=== PATIENT | female | born 1980 | race Caucasian/White ===

== ENCOUNTER → 2020-08-16 15:36 | Outpatient (BNVA) | payer OTHER, SELFPAY | PROVIDERS: Visit Provider Internal Medicine | DX: Z76.89 Persons encountering health services in other specified circumstances (principal) ==

== ENCOUNTER → 2020-09-21 14:51 | Outpatient (BNVA) | payer OTHER, SELFPAY | PROVIDERS: PCP Internal Medicine; Visit Provider Hospitalist | DX: J45.909 Unspecified asthma, uncomplicated (principal) | CPT/HCPCS: 99212 ==

== ENCOUNTER 2020-09-24 11:17 | Outpatient (REF) | payer OTHER, SELFPAY ==
[2020-09-24 12:31] LABS: MANUAL DIFF FLAG NO
[2020-09-24 12:35] LABS: Basophils Percent Auto 0.4 % (0-2); Eosinophils Percent Auto 0.6 % (0-4); Hematocrit 35.7 % (37-47); Hemoglobin 12.1 g/dl (12.0-16.0); Imm Gran Abs Auto 0.02 X10*3/uL (0.00-0.03); Imm Gran Pct Auto 0.4 % (0.0-0.4); Lymphocytes Absolute Auto 1.6 X10*3/uL (1.2-4.9); Lymphocytes Percent Auto 33.2 % (20-40); Mean Corpuscular HGB Conc 33.9 g/dl (31.0-35.0); Mean Corpuscular Hemoglobin 32.1 pg (27.0-33.0); Mean Corpuscular Volume 94.7 fL (80-98); Mean Platelet Volume 10.2 fL (9.4-12.3); Monocytes Absolute Auto 0.3 X10*3/uL (0.1-1.2); Monocytes Percent Auto 6.5 % (2-11); Neutrophils Absolute Auto 2.9 X10*3/uL (2.0-8.3); Neutrophils Percent Auto 58.9 % (45-73); Platelet Count 274 X10*3/uL (160-400); Red Blood Count 3.77 X10*6/uL (4.20-5.50); Red Cell Distribution Width 12.8 % (11.0-16.0); White Blood Count 4.9 X10*3/uL (4.8-10.8)
[2020-09-24 13:21] LABS: Free T4 (Free Thyroxine) 1.11 ng/dL (0.71-1.85); Thyroid Stimulating Hormone 1.44 uIU/mL (0.32-4.0)
[2020-09-24 13:28] LABS: Alanine Aminotransferase 12 U/L (0-31); Albumin Level 4.4 g/dL (3.5-5.0); Alkaline Phosphatase 42 U/L (39-117); Anion Gap 20 (12-20); Aspartate Amino Transferase 18 U/L (5-31); Bilirubin Total 0.4 mg/dL (0.0-1.0); Blood Urea Nitrogen 12 mg/dL (9-16); Calcium 9.2 mg/dL (8.4-10.2); Carbon Dioxide 18 mmol/L (22-29); Chloride 106 mmol/L (96-108); Cholesterol 193 mg/dL; Estimated Glomerular Filt Rate > 60; Glucose Random 85 mg/dL (60-115); HDL Cholesterol 33 mg/dL; LDL Cholesterol Calculated 96 mg/dl; Potassium 4.7 mmol/l (3.3-5.1); Sodium 139 mmol/L (135-145); Total Protein 7.4 g/dL (6.5-8.0); Triglycerides 320 mg/dL
[2020-09-24 13:37] LABS: Folate 18.3 ng/mL (> or = 4.0); Vitamin B12 < 146 pg/mL (200-900)
== END 2020-09-24 11:18 | disposition home or self-care (01) ==
LOC: HO.LAB 11:17
PROVIDERS: PCP Internal Medicine; Visit Provider Internal Medicine
DX: E78.00 Pure hypercholesterolemia, unspecified (principal); E03.9 Hypothyroidism, unspecified
CPT/HCPCS: 36415; 80053; 80061; 82306; 82607; 82746; 84439; 84443; 85025

== ENCOUNTER 2020-10-21 13:33 | Emergency (ER) | payer OTHER, SELFPAY ==
--- NOTE | ~2020-10-21 | XR_ITS ---
EXAMINATION: XR CHEST CLINICAL INFORMATION: Cough and shortness of breath COMPARISON: 06/30/2014 TECHNIQUE: Frontal view of the chest was obtained. FINDINGS: The lungs are well expanded. There is no focal consolidation, edema, or effusion. No pneumothorax. The cardiomediastinal silhouette is within normal limits. No acute osseous abnormality. XR/XR chest 1V IMPRESSION: Clear lungs.
[2020-10-21 15:03] VITALS: BP 141/70; PULSE 90; RESP 20; TEMP 36.9; O2SAT 100; BMI 28.3
--- NOTE | 2020-10-21 15:04 | ED.GENADULT ---
HPI - General Adult General Stated complaint: back pain,diff breathing Time Seen by Provider: 10/21/20 14:52 Related Data Home Medications Medication Instructions Recorded Confirmed fenofibrate 160 mg tablet 160 mg PO DAILY 08/16/20 09/21/20 levothyroxine 100 mcg tablet 100 mcg PO DAILY 08/16/20 09/21/20 montelukast 10 mg tablet 10 mg PO DAILY 08/16/20 09/21/20 norethindrone 1 mg-ethinyl 1 tab PO DAILY 08/16/20 09/21/20 estradiol 35 mcg tablet Previous Rx's Medication Instructions Recorded prednisone 20 mg tablet 20 mg PO DAILY 5 Days #5 tab 08/16/20 albuterol sulfate 90 mcg/actuation 2 puff PO Q6H PRN 30 Days #18 g 09/21/20 aerosol inhaler budesonide-formoterol HFA 160 2 inh INHALATION Q12H 30 Days 09/21/20 mcg-4.5 mcg/actuation aerosol #10.2 g inhaler loratadine 10 mg tablet 10 mg PO DAILY 30 Days #30 tab 09/21/20 montelukast 10 mg tablet 10 mg PO BEDTIME 30 Days #30 tab 09/21/20 ipratropium 0.5 mg-albuterol 3 mg 3 ml INHALATION Q4-6H PRN #90 ml 10/18/20 (2.5 mg base)/3 mL nebulization soln Allergies Allergy/AdvReac Type Severity Reaction Status Date / Time clarithromycin [From Biaxin] Allergy Mild RASH Verified 09/21/20 15:18 amoxicillin [Amoxicillin] Allergy Unknown NAUSEA & Verified 09/21/20 15:18 VOMITING, rash, hives ciprofloxacin [CIPROFLOXACIN] Allergy Unknown VAGINAL Verified 09/21/20 15:18 BLEEDING Nickel Allergy Unknown swelling Verified 09/21/20 15:18 MIGRAINE MEDICINE CAN NOT Allergy Unknown RAPID Uncoded 09/21/20 15:18 RECALL NAME HEART RATE AND SWEATS PMFSH Past Medical History Medical History (Updated 09/09/20 @ 14:07 by Leon Truong MD) Allergic rhinitis Anxiety Asthma Developmental delay, mild Hypercholesterolemia Hypothyroid Vitamin B12 deficiency Surgical History (Updated 09/02/20 @ 13:41 by AMBROSE Ramirez) History of section Family History Family History (Updated 09/02/20 @ 13:42 by GINNY RamirezMariza) Father Skin cancer Myocardial infarction Mother No problems noted. Maternal Aunt Breast cancer Daughter In good health Brother Chronic mental illness Social History Social History Smoking Status: Never smoker Course Course Course Narrative: 1500-This is a rapid medical exam. 39 yo with past medical history of asthma, HLD, hypothyroidism here with bilateral mid to upper back pain, difficulty breathing, cough. Using proair, ICS, singular, nebulizer at home with continued symptoms. No fevers, chills, leg swelling or pain or CP. Will check labs, CXR, COVID. Deferred additional HPI, PE and ROS to primary provider. Discharge Plan Discharge Prescriptions: No Action ipratropium-albuterol 0.5 mg-3 mg(2.5 mg base)/3 mL solution for nebulization 3 ml inhalation Q4-6H PRN (Reason: for wheezing) Qty: 90 RF: 1 montelukast 10 mg tablet 10 mg PO DAILY RF: 0 Alyacen (28) 1-35 mg-mcg tablet 1 tab PO DAILY RF: 0 levothyroxine 100 mcg tablet 100 mcg PO DAILY RF: 0 fenofibrate 160 mg tablet 160 mg PO DAILY RF: 0 prednisone 20 mg tablet 20 mg PO DAILY 5 Days Qty: 5 RF: 0 montelukast [Singulair] 10 mg tablet 10 mg PO BEDTIME 30 Days Qty: 30 RF: 11 budesonide-formoterol 160-4.5 mcg/actuation HFA aerosol inhaler 2 inh inhalation Q12H 30 Days Qty: 10.2 RF: 11 loratadine [Claritin] 10 mg tablet 10 mg PO DAILY 30 Days Qty: 30 RF: 11 albuterol sulfate 90 mcg/actuation HFA aerosol inhaler 2 puff PO Q6H PRN (Reason: wheezing) 30 Days Qty: 18 RF: 11
[2020-10-21 15:26] LABS: MANUAL DIFF FLAG NO
[2020-10-21 15:28] LABS: Basophils Percent Auto 0.6 % (0-2); Eosinophils Percent Auto 0.4 % (0-4); Hematocrit 36.1 % (37-47); Hemoglobin 12.4 g/dl (12.0-16.0); Imm Gran Abs Auto 0.01 X10*3/uL (0.00-0.03); Imm Gran Pct Auto 0.2 % (0.0-0.4); Lymphocytes Absolute Auto 1.4 X10*3/uL (1.2-4.9); Lymphocytes Percent Auto 27.6 % (20-40); Mean Corpuscular HGB Conc 34.3 g/dl (31.0-35.0); Mean Corpuscular Hemoglobin 32.2 pg (27.0-33.0); Mean Corpuscular Volume 93.8 fL (80-98); Mean Platelet Volume 9.5 fL (9.4-12.3); Monocytes Absolute Auto 0.4 X10*3/uL (0.1-1.2); Neutrophils Absolute Auto 3.3 X10*3/uL (2.0-8.3); Neutrophils Percent Auto 64.2 % (45-73); Platelet Count 281 X10*3/uL (160-400); Red Blood Count 3.85 X10*6/uL (4.20-5.50); Red Cell Distribution Width 12.4 % (11.0-16.0); White Blood Count 5.1 X10*3/uL (4.8-10.8)
[2020-10-21 15:37] LABS: COVID-19 Test Negative (Negative); IDNOW Serial# 9DD0AD1C
--- NOTE | 2020-10-21 16:09 | ECG_ITS ---
Test Reason : SOB Blood Pressure : / mmHG Vent. Rate : 069 BPM Atrial Rate : 069 BPM P-R Int : 112 ms QRS Dur : 078 ms QT Int : 408 ms P-R-T Axes : 034 065 027 degrees QTc Int : 437 ms Normal sinus rhythm Normal ECG When compared with ECG of 30-JAN-2017 15:55, No significant change was found Referred By: Carmelo Thompson Electronically Signed By:RONY FORD
--- NOTE | 2020-10-21 16:13 | ED.GENADULT ---
HPI - General Adult General Chief complaint: Asthma Stated complaint: back pain,diff breathing Time Seen by Provider: 10/21/20 14:52 Source: patient Mode of arrival: ambulatory Limitations: no limitations History of Present Illness HPI narrative: Patient presents to ED for chest tightness and right-sided upper back pain for 5 days. Patient denies any swelling of lower extremity, calf pain, control use, coughing, recent long travel, recent surgery, recent trauma, or history of control use. Related Data Home Medications Medication Instructions Recorded Confirmed fenofibrate 160 mg tablet 160 mg PO DAILY 08/16/20 09/21/20 levothyroxine 100 mcg tablet 100 mcg PO DAILY 08/16/20 09/21/20 montelukast 10 mg tablet 10 mg PO DAILY 08/16/20 09/21/20 norethindrone 1 mg-ethinyl 1 tab PO DAILY 08/16/20 09/21/20 estradiol 35 mcg tablet Previous Rx's Medication Instructions Recorded prednisone 20 mg tablet 20 mg PO DAILY 5 Days #5 tab 08/16/20 albuterol sulfate 90 mcg/actuation 2 puff PO Q6H PRN 30 Days #18 g 09/21/20 aerosol inhaler budesonide-formoterol HFA 160 2 inh INHALATION Q12H 30 Days 09/21/20 mcg-4.5 mcg/actuation aerosol #10.2 g inhaler loratadine 10 mg tablet 10 mg PO DAILY 30 Days #30 tab 09/21/20 montelukast 10 mg tablet 10 mg PO BEDTIME 30 Days #30 tab 09/21/20 ipratropium 0.5 mg-albuterol 3 mg 3 ml INHALATION Q4-6H PRN #90 ml 10/18/20 (2.5 mg base)/3 mL nebulization soln Allergies Allergy/AdvReac Type Severity Reaction Status Date / Time clarithromycin [From Biaxin] Allergy Mild RASH Verified 10/21/20 15:08 amoxicillin [Amoxicillin] Allergy Unknown NAUSEA & Verified 10/21/20 15:08 VOMITING, rash, hives ciprofloxacin [CIPROFLOXACIN] Allergy Unknown VAGINAL Verified 10/21/20 15:08 BLEEDING Nickel Allergy Unknown swelling Verified 10/21/20 15:08 MIGRAINE MEDICINE CAN NOT Allergy Unknown RAPID Uncoded 10/21/20 15:08 RECALL NAME HEART RATE AND SWEATS Review of Systems Review of Systems: Yes all other systems are reviewed and are negative Constitutional: Constitutional: Reports as per HPI and Reports no additional constitutional complaints Eyes: Eyes: Reports as per HPI and Reports no additional eye complaints ENT: Reports system reviewed and no additional complaints, except as documented and Reports as per HPI Cardiovascular: Cardiovascular: Reports as per HPI, Reports no additional cardiovascular complaints and Reports dyspnea Comments: Chest tightness Respiratory: Respiratory: Reports as per HPI, Reports no additional respiratory complaints and Reports dyspnea Gastrointestinal: Gastrointestinal: Reports as per HPI and Reports no additional gastrointestinal complaints Genitourinary: Genitourinary: Reports no additional female genitourinary complaints and Reports as per HPI Musculoskeletal: Musculoskeletal: Reports no additional musculoskeletal complaints and Reports as per HPI Neurologic: Reports system reviewed and no additional complaints, except as documented and Reports as per HPI Psychiatric: Psychiatric: Reports no additional psychiatric complaints and Reports as per HPI PMFSH Past Medical History Medical History Allergic rhinitis Anxiety Asthma Developmental delay, mild Hypercholesterolemia Hypothyroid Vitamin B12 deficiency Surgical History History of section Family History Family History (Updated 09/02/20 @ 13:42 by Lora Saeed Mariza) Father Skin cancer Myocardial infarction Mother No problems noted. Maternal Aunt Breast cancer Daughter In good health Brother Chronic mental illness Social History Social History Smoking Status: Never smoker Advance Directives: No Advance Directives Information Provided: No Physical Exam Vital Signs: Vital Signs: Last Vital Signs Temp 98.4 F 10/21/20 15:03 Pulse 90 10/21/20 15:03 Resp 20 10/21/20 15:03 BP 141/70 H 10/21/20 15:03 Pulse Ox 100 10/21/20 15:03 Body Mass Index 28.3 Const: General: cooperative, healthy appearing, comfortable, no acute distress, well developed, alert, awake and Physically active Orientation/consciousness: patient oriented x3 HENMT: Head: Yes normal to inspection, Yes No palpable skull fracture present, Yes normocephalic, Yes atraumatic and No abrasion Eyes: General: appearance normal, both eyes and all related structures Neck: Neck: Yes normal visual inspection, Yes full ROM, Yes no lymphadenopathy, Yes no meningeal signs, Yes trachea midline, Yes supple and No tender Chest: Chest palpation & inspection: normal inspection of the chest and normal palpation of entire chest wall Resp: Effort & Inspection: normal respiratory effort and able to speak in complete sentences Auscultation: clear to auscultation bilaterally Cardio: Jugular venous distension: no JVD Heart sounds: S1 normal heart sound present and S2 normal heart sound present GI: Inspection: Yes normal to inspection Palpation (GI): Soft to palpation, not firm, nontender, no guarding and not rigid : General: No CVA tenderness and Yes no CVA tenderness Back/Spine/Pelvis: Back: no CVA tenderness and No CVA tenderness Skin: General skin exam: no rashes or lesions noted and elasticity normal Neuro: General: patient oriented x3, no meningeal signs and CN's II-XI intact bilaterally Cranial nerves: Yes CN's II-XII intact bilaterally Extrem: Other: Lower extremities negative for any swelling, pitting edema, calf tenderness Psych: Appearance: grossly normal, well kempt and not disheveled Course Course Course Narrative: Initial labs negative for white blood cell count. Chest x-ray negative for pneumonia. COVID swab negative. Due to patient stating right upper back pain with pleuritic chest pain patient have D-dimer, EKG, and troponin ordered. Reevaluation(s) Reevaluation #1: Patient's EKG came back normal negative for STEMI. Patient's D-dimer is negative. Perc score is 0. Patient's troponin BNP negative. For the lab tests are negative after 5 days of having symptoms. Patient states she has prednisone already at home patient encouraged to also take her albuterol inhaler. Patient informed to follow-up with her PCP Time: 17:32 Medical Decision Making [facility] Narrative Medical decision making narrative: Atypical chest pain, asthma Lab Data Result diagrams: 10/21/20 15:20 10/21/20 15:20 Labs: Lab Results 10/21/20 10/21/20 10/21/20 Range/Units 15:09 15:20 15:20 WBC 5.1 (4.8-10.8) X10*3/uL RBC 3.85 L (4.20-5.50) X10*6/uL Hgb 12.4 (12.0-16.0) g/dl Hct 36.1 L (37-47) % MCV 93.8 (80-98) fL MCH 32.2 (27.0-33.0) pg MCHC 34.3 (31.0-35.0) g/dl RDW 12.4 (11.0-16.0) % Plt Count 281 (160-400) X10*3/uL MPV 9.5 (9.4-12.3) fL Immature Gran % (Auto) 0.2 (0.0-0.4) % Neut % (Auto) 64.2 (45-73) % Lymph % (Auto) 27.6 (20-40) % [place] % (Auto) 7.0 (2-11) % Eos % (Auto) 0.4 (0-4) % Baso % (Auto) 0.6 (0-2) % Lymph # (Auto) 1.4 (1.2-4.9) X10*3/uL [place] # (Auto) 0.4 (0.1-1.2) X10*3/uL Eos # (Auto) 0.0 (0.0-0.4) X10*3/uL Baso # (Auto) 0.0 (0.0-0.2) X10*3/uL Abs Immat Gran (auto) 0.01 (0.00-0.03) X10*3/uL Absolute Neuts (auto) 3.3 (2.0-8.3) X10*3/uL Absolute Nucleated RBC 0.000 (0.0-0.012) X10*3/uL Nucleated RBC % (auto) 0.0 (0.0-0.2) /100WBC PT 12.0 (10.8-13.0) SEC INR 1.0 (0.9-1.1) APTT 29.7 (24.1-38.0) SEC D-Dimer < 200 NG/ML Hold Blue Top SEE NOTE Sodium (135-145) mmol/L Potassium (3.3-5.1) mmol/L Chloride (96-108) mmol/L Carbon Dioxide (22-29) mmol/L Anion Gap (12-20) BUN (9-16) mg/dL Creatinine (0.5-1.4) mg/dL Estim Creat Clear Calc Estimated GFR Random Glucose (60-115) mg/dL Calcium (8.4-10.2) mg/dL Total Bilirubin (0.0-1.0) mg/dL Direct Bilirubin (0.0-0.5) mg/dL AST (5-31) U/L ALT (0-31) U/L Alkaline Phosphatase (39-117) U/L Troponin I High Sens (<3.5-17.0) ng/L B-Natriuretic Peptide (<100) pg/mL Total Protein (6.5-8.0) g/dL Albumin (3.5-5.0) g/dL Lipase (8-78) U/L COVID-19 (KA[facility]) Negative (Negative) COVID-19 Clin Com See Note 10/21/20 10/21/20 Range/Units 15:20 15:20 WBC (4.8-10.8) X10*3/uL RBC (4.20-5.50) X10*6/uL Hgb (12.0-16.0) g/dl Hct (37-47) % MCV (80-98) fL MCH (27.0-33.0) pg MCHC (31.0-35.0) g/dl RDW (11.0-16.0) % Plt Count (160-400) X10*3/uL MPV (9.4-12.3) fL Immature Gran % (Auto) (0.0-0.4) % Neut % (Auto) (45-73) % Lymph % (Auto) (20-40) % [place] % (Auto) (2-11) % Eos % (Auto) (0-4) % Baso % (Auto) (0-2) % Lymph # (Auto) (1.2-4.9) X10*3/uL [place] # (Auto) (0.1-1.2) X10*3/uL Eos # (Auto) (0.0-0.4) X10*3/uL Baso # (Auto) (0.0-0.2) X10*3/uL Abs Immat Gran (auto) (0.00-0.03) X10*3/uL Absolute Neuts (auto) (2.0-8.3) X10*3/uL Absolute Nucleated RBC (0.0-0.012) X10*3/uL Nucleated RBC % (auto) (0.0-0.2) /100WBC PT (10.8-13.0) SEC INR (0.9-1.1) APTT (24.1-38.0) SEC D-Dimer NG/ML Hold Blue Top Sodium 138 (135-145) mmol/L Potassium 4.0 (3.3-5.1) mmol/L Chloride 104 (96-108) mmol/L Carbon Dioxide 22 (22-29) mmol/L Anion Gap 16 (12-20) BUN 12 (9-16) mg/dL Creatinine 0.82 (0.5-1.4) mg/dL Estim Creat Clear Calc 86.1 Estimated GFR > 60 Random Glucose 125 H D (60-115) mg/dL Calcium 9.0 (8.4-10.2) mg/dL Total Bilirubin 0.2 (0.0-1.0) mg/dL Direct Bilirubin < 0.2 (0.0-0.5) mg/dL AST 17 (5-31) U/L ALT 12 (0-31) U/L Alkaline Phosphatase 43 (39-117) U/L Troponin I High Sens < 3.5 (<3.5-17.0) ng/L B-Natriuretic Peptide 11 (<100) pg/mL Total Protein 7.3 (6.5-8.0) g/dL Albumin 4.4 (3.5-5.0) g/dL Lipase 43 (8-78) U/L COVID-19 (KAZ) (Negative) COVID-19 Clin Com ECG Data Interpretation: Normal sinus rhythm. Normal EKG. Ventricular rate 69. DC interval 112. QTC 437. Negative STEMI Discharge Plan Discharge Clinical Impression: Asthma, Chest pain, atypical Patient Disposition: Home, Self-Care Instructions: Chest Pain (ED), Asthma (ED) Additional Instructions: Return to the ED for worsening chest pain, shortness of breath, weakness, dizziness, swelling of lower extremities, calf pain, coughing up blood, fever, or chills. Continue taking the prednisone prescribed by your provider and also taking albuterol inhaler at home. Prescriptions: No Action ipratropium-albuterol 0.5 mg-3 mg(2.5 mg base)/3 mL solution for nebulization 3 ml inhalation Q4-6H PRN (Reason: for wheezing) Qty: 90 RF: 1 montelukast 10 mg tablet 10 mg PO DAILY RF: 0 Alyacen 35 (28) 1-35 mg-mcg tablet 1 tab PO DAILY RF: 0 levothyroxine 100 mcg tablet 100 mcg PO DAILY RF: 0 fenofibrate 160 mg tablet 160 mg PO DAILY RF: 0 prednisone 20 mg tablet 20 mg PO DAILY 5 Days Qty: 5 RF: 0 montelukast [Singulair] 10 mg tablet 10 mg PO BEDTIME 30 Days Qty: 30 RF: 11 budesonide-formoterol 160-4.5 mcg/actuation HFA aerosol inhaler 2 inh inhalation Q12H 30 Days Qty: 10.2 RF: 11 loratadine [Claritin] 10 mg tablet 10 mg PO DAILY 30 Days Qty: 30 RF: 11 albuterol sulfate 90 mcg/actuation HFA aerosol inhaler 2 puff PO Q6H PRN (Reason: wheezing) 30 Days Qty: 18 RF: 11 Referrals: Po,Leon Gutiérrez MD [Primary Care Provider] - 2 days (Asthma exacerbation. Atypical chest pain. Chest xray Negative for pneumonia. Troponin negative. EKG normal. D-dimer negative. BNP negative. COVID swab negative) Interventions: ED Discharge Assessment Last Done: 10/21/20 17:47 Discharge Date/Time: 10/21/20 17:49 Print Language: Greek
[2020-10-21 16:20] LABS: Anion Gap 16 (12-20); Blood Urea Nitrogen 12 mg/dL (9-16); Carbon Dioxide 22 mmol/L (22-29); Chloride 104 mmol/L (96-108); Creatinine Clr Calc Pharmacy 86.1; Estimated Glomerular Filt Rate > 60; Glucose Random 125 mg/dL (60-115); Sodium 138 mmol/L (135-145)
[2020-10-21 16:33] LABS: Partial Thromboplastin Time 29.7 SEC (24.1-38.0)
[2020-10-21 16:34] LABS: D Dimer < 200 NG/ML
[2020-10-21] MEDS: predniSONE 20 MG TABLET 60 MG PO (16:48)
[2020-10-21] MEDS: Albuterol Sulfate 90 MCG 8 GM INHALER 4 PUFF INHALE (16:48)
[2020-10-21] MEDS: Ibuprofen 800 MG TABLET PO (16:49)
[2020-10-21 16:58] LABS: Alanine Aminotransferase 12 U/L (0-31); Albumin Level 4.4 g/dL (3.5-5.0); Alkaline Phosphatase 43 U/L (39-117); Aspartate Amino Transferase 17 U/L (5-31); Lipase 43 U/L (8-78); Total Protein 7.3 g/dL (6.5-8.0)
[2020-10-21 17:05] LABS: B Type Natriuretic Peptide 11 pg/mL (<100); Troponin-I High Sensitivity < 3.5 ng/L (<3.5-17.0)
[2020-10-21 17:09] LABS: Bilirubin Direct < 0.2 mg/dL (0.0-0.5); Bilirubin Total 0.2 mg/dL (0.0-1.0)
== END 2020-10-21 17:49 | disposition home or self-care (01) ==
PROVIDERS: Nurse Practitioner Family; Physician Assistant; Emergency Provider Emergency Medicine; PCP Internal Medicine
DX: R07.89 Other chest pain (principal); M54.5 Low back pain; J45.909 Unspecified asthma, uncomplicated; Z20.822 Contact with and (suspected) exposure to COVID-19; Z79.899 Other long term (current) drug therapy
CPT/HCPCS: 36415; 71045; 80048; 80076; 83690; 83880; 84484; 85025; 85379; 85610; 85730; 87635; 93005; 99283

== ENCOUNTER → 2020-10-29 13:19 | Outpatient (BNVA) | payer OTHER, SELFPAY | PROVIDERS: PCP Internal Medicine; Visit Provider Hospitalist | DX: J45.909 Unspecified asthma, uncomplicated (principal); J30.2 Other seasonal allergic rhinitis | CPT/HCPCS: 99212 ==

== ENCOUNTER → 2021-01-27 13:30 | Outpatient (BNVA) | payer OTHER, SELFPAY | PROVIDERS: PCP Internal Medicine; Visit Provider Hospitalist | DX: J45.909 Unspecified asthma, uncomplicated (principal); J30.2 Other seasonal allergic rhinitis | CPT/HCPCS: 99212 ==

== ENCOUNTER → 2021-02-03 12:07 | Outpatient (REF) | payer OTHER, SELFPAY ==
[2021-02-03 13:10] LABS: MANUAL DIFF FLAG NO
[2021-02-03 13:15] LABS: Basophils Absolute Auto 0.1 X10*3/uL (0.0-0.2); Eosinophils Percent Auto 0.7 % (0-4); Hematocrit 35.7 % (37-47); Hemoglobin 12.1 g/dl (12.0-16.0); Imm Gran Abs Auto 0.02 X10*3/uL (0.00-0.03); Imm Gran Pct Auto 0.3 % (0.0-0.4); Lymphocytes Absolute Auto 1.6 X10*3/uL (1.2-4.9); Lymphocytes Percent Auto 27.4 % (20-40); Mean Corpuscular HGB Conc 33.9 g/dl (31.0-35.0); Mean Corpuscular Hemoglobin 31.8 pg (27.0-33.0); Mean Corpuscular Volume 93.9 fL (80-98); Mean Platelet Volume 10.3 fL (9.4-12.3); Monocytes Absolute Auto 0.4 X10*3/uL (0.1-1.2); Monocytes Percent Auto 6.6 % (2-11); Neutrophils Absolute Auto 3.7 X10*3/uL (2.0-8.3); Platelet Count 256 X10*3/uL (160-400); Red Cell Distribution Width 12.1 % (11.0-16.0); White Blood Count 5.8 X10*3/uL (4.8-10.8)
[2021-02-03 13:28] LABS: Estimated Average Glucose 105 mg/dL; Hemoglobin A1c % 5.3 %
[2021-02-03 13:39] LABS: Alanine Aminotransferase 19 U/L (0-31); Albumin Level 4.4 g/dL (3.5-5.0); Alkaline Phosphatase 55 U/L (39-117); Anion Gap 14 (12-20); Aspartate Amino Transferase 19 U/L (5-31); Bilirubin Total 0.5 mg/dL (0.0-1.0); Blood Urea Nitrogen 13 mg/dL (9-16); Calcium 9.7 mg/dL (8.4-10.2); Carbon Dioxide 25 mmol/L (22-29); Chloride 104 mmol/L (96-108); Cholesterol 214 mg/dL; Estimated Glomerular Filt Rate > 60; Glucose Random 86 mg/dL (60-115); HDL Cholesterol 41 mg/dL; LDL Cholesterol Calculated 135 mg/dl; Potassium 4.2 mmol/L (3.3-5.1); Sodium 139 mmol/L (135-145); Total Protein 7.1 g/dL (6.5-8.0); Triglycerides 191 mg/dL
[2021-02-03 14:01] LABS: Free T4 (Free Thyroxine) 1.43 ng/dL (0.71-1.85); Vitamin D 25-OH Total 19.7 ng/mL (>30)
[2021-02-03 14:40] LABS: Folate 13.9 ng/mL (> or = 4.0); Vitamin B12 309 pg/mL (200-900)
[2021-02-10 19:52] LABS: Intrinsic Factor Antibodies Negative (Negative)
== END ==
LOC: HO.CARD 12:07
PROVIDERS: PCP Internal Medicine; Visit Provider Internal Medicine
DX: R01.1 Cardiac murmur, unspecified (principal); R06.02 Shortness of breath; E53.8 Deficiency of other specified B group vitamins; E03.9 Hypothyroidism, unspecified; E78.00 Pure hypercholesterolemia, unspecified
CPT/HCPCS: 36415; 80053; 80061; 82306; 82607; 82746; 83036; 83516; 84439; 84443; 85025; 86340

== ENCOUNTER 2021-02-18 13:52 | Outpatient (REF) | payer OTHER, SELFPAY ==
[2021-02-18 15:09] LABS: MANUAL DIFF FLAG NO
[2021-02-18 15:13] LABS: Basophils Percent Auto 0.6 % (0-2); Eosinophils Absolute Auto 0.1 X10*3/uL (0.0-0.4); Hematocrit 36.8 % (37-47); Hemoglobin 12.5 g/dl (12.0-16.0); Imm Gran Abs Auto 0.01 X10*3/uL (0.00-0.03); Imm Gran Pct Auto 0.1 % (0.0-0.4); Lymphocytes Absolute Auto 2.2 X10*3/uL (1.2-4.9); Lymphocytes Percent Auto 31.9 % (20-40); Mean Corpuscular Volume 94.1 fL (80-98); Mean Platelet Volume 9.8 fL (9.4-12.3); Monocytes Absolute Auto 0.5 X10*3/uL (0.1-1.2); Monocytes Percent Auto 7.3 % (2-11); Neutrophils Absolute Auto 4.1 X10*3/uL (2.0-8.3); Neutrophils Percent Auto 59.1 % (45-73); Platelet Count 320 X10*3/uL (160-400); Red Blood Count 3.91 X10*6/uL (4.20-5.50); Red Cell Distribution Width 12.4 % (11.0-16.0); White Blood Count 6.9 X10*3/uL (4.8-10.8)
[2021-02-18 15:50] LABS: Anion Gap 16 (12-20); Blood Urea Nitrogen 13 mg/dL (9-16); Calcium 10.4 mg/dL (8.4-10.2); Carbon Dioxide 24 mmol/L (22-29); Chloride 107 mmol/L (96-108); Estimated Glomerular Filt Rate > 60; Glucose Random 90 mg/dL (60-115); Potassium 4.5 mmol/L (3.3-5.1); Sodium 142 mmol/L (135-145)
[2021-02-18 16:11] LABS: Thyroid Stimulating Hormone 1.68 uIU/mL (0.32-4.0)
== END 2021-02-18 13:53 | disposition home or self-care (01) ==
LOC: HO.LAB 13:52
PROVIDERS: PCP Internal Medicine; Visit Provider Internal Medicine
DX: Z00.00 Encounter for general adult medical examination without abnormal findings (principal); E03.9 Hypothyroidism, unspecified; R51.9 Headache, unspecified
CPT/HCPCS: 36415; 80048; 84443; 85025

== ENCOUNTER → 2021-03-29 09:17 | Outpatient (REF) | payer OTHER, SELFPAY ==
--- NOTE | 2021-03-29 10:31 | CA_ITS ---
Transthoracic Echocardiogram Patient (Last, First, Middle): Yojana Dietrich L Gender: Female Date of : 1980 Age: 40 Procedure Date: 03/29/2021 Procedure Type: Transthoracic Echocardiogram Location: OP Height: 160.02 cm Weight: 57.15 kg BSA: 1.59 m2 Heart Rate: bpm BP: 120 / 60 mmHg Activities Assistant: NAN Referring MD: Leon Truong MD Symptoms: R01.1 - Cardiac murmur, unspecified Study Quality: Good ECG Rhythm: Sinus Conclusions: - The left ventricular systolic function is normal. The visually estimated ejection fraction is between 65-70%. - No obvious valvular pathology seen on this study. Findings Left Ventricle Normal left ventricular cavity size. There is normal left ventricular wall thickness. The left ventricular systolic function is normal. The visually estimated ejection fraction is between 65-70%. There is no evidence of regional wall motion abnormalities. Diastolic function is normal for age. Right Ventricle Normal right ventricular cavity size and systolic function. Atria Both atria are normal in size. Aortic Valve There is a normal trileaflet aortic valve. There is no aortic valve stenosis. There is no aortic valve regurgitation. Mitral Valve There is mild anterior mitral leaflet thickening. There is trace mitral valve regurgitation. There is no mitral valve stenosis. Pulmonic Valve The pulmonic valve was not well visualized. Tricuspid Valve Normal tricuspid valve structure. There is trace tricuspid valve regurgitation. The pulmonary artery systolic pressure is normal. Great Vessels The aortic annulus, sinuses of valsalva, and asc aorta are normal in size. Venous The inferior vena cava is normal in size and collapses greater than 50% with inspiration. Pericardium/Pleural There is no evidence of pericardial effusion. Prior Study Comparison No significant change compared to prior study dated: 06/07/2007. Recommendations, Care & Conclusions No obvious valvular pathology seen on this study. Measurements 2D Linear Measurements IVSd: 0.93 0.6-0.9/0.6-1.0 cm LVIDd: 4.00 3.9-5.3/4.2-5.9 cm LVIDd Index: 2.52 2.4-3.2/2.2-3.1 cm/m2 LVIDs: 2.21 2.0-3.6 cm LVPWd: 0.89 0.7-1.1 cm Ao Root: 2.10 2.1-3.5 cm LA Diam: 3.30 2.7-3.8/3.0-4.0 cm LAIDs Index: 2.08 1.5-2.3 cm/m2 LV Mass: 137.83 67-162/88-224 g LV Mass Index: 86.69 43-95/49-115 g/m2 LVOT Diam: 1.90 3.0+(-)1.3 cm 2D Systolic Function EF 4C: 75.70 >55% EF 2C: 77.90 >55% EF BiP: 76.70 >55% Mitral Valve MV Pk E: 0.94 MV PK A: 0.56 MV Decel Time: 204.00 E/A: 1.70 E'Lateral: 12.90 E'Medial: 8.70 E/E' Med: 10.80 E/E' Lat: 7.30 PHT: 60.00 MVA PHT: 3.67 Decel [place]: 4.59 Aortic Valve AoV Pk Asher: 1.45 AoV Pk Grad: 8.00 LVOT LVOT Pk Asher: 1.23 LVOT Mn Asher: 0.75 LVOT VTI: 0.28 LVOT Pk Grad: 6.00 LVOT Mn Grad: 3.00 LVOT Diam: 1.90 LVOT Area: 2.84 Diastolic Function MV Pk E: 0.94 MV Pk A: 0.56 E/A: 1.70 E'Medial: 8.70 E/E' Med: 10.80 E' Laterial: 12.90 E/E' Lat: 7.30 Tricuspid Valve TR Pk Asher: 2.51 TR Pk Grad: 25.00 RA Press: 3.00 RVSP: 28.00 Great Vessels Aorta Ao Root-2D: 2.10 2.0-3.7 cm Ao Asc: 2.40 2.1-3.4 cm Updated in Other Vendor System with Status of Final Niko Grove MD electronically signed on 03/29/2021 2:33:26 PM with status of Final
== END ==
LOC: HO.CARD 09:17
PROVIDERS: Visit Provider Internal Medicine
DX: R06.02 Shortness of breath (principal); R01.1 Cardiac murmur, unspecified
CPT/HCPCS: 93306

== ENCOUNTER → 2021-05-27 14:09 | Outpatient (BNVA) | payer OTHER, SELFPAY | PROVIDERS: PCP Internal Medicine; Visit Provider Hospitalist | DX: J45.901 Unspecified asthma with (acute) exacerbation (principal); E78.00 Pure hypercholesterolemia, unspecified; E03.9 Hypothyroidism, unspecified; E53.8 Deficiency of other specified B group vitamins; J30.9 Allergic rhinitis, unspecified; J30.2 Other seasonal allergic rhinitis; Z88.8 Allergy status to other drugs, medicaments and biological substances | CPT/HCPCS: 99212 ==

== ENCOUNTER 2021-06-08 12:12 | Outpatient (REF) | payer OTHER, SELFPAY ==
--- NOTE | ~2021-06-08 | XR_ITS ---
EXAMINATION: XR ANKLE, RIGHT CLINICAL INFORMATION: Pain in the right ankle and joints of the right foot. COMPARISON: None TECHNIQUE: AP, lateral, and mortise views of the right ankle. FINDINGS: The ankle mortise and subtalar joints are normal. No visible acute fracture or dislocation seen. There is a calcaneal heel and retrocalcaneal enthesophytes. The soft tissues are normal. XR/XR ankle RT min 3V IMPRESSION: Unremarkable right ankle exam.
== END 2021-06-08 12:13 | disposition home or self-care (01) ==
LOC: HO.XRAY 12:12
PROVIDERS: PCP Internal Medicine; Visit Provider Internal Medicine
DX: M25.571 Pain in right ankle and joints of right foot (principal); M25.471 Effusion, right ankle
CPT/HCPCS: 73610

== ENCOUNTER 2021-06-24 12:00 | Outpatient (REF) | payer OTHER, SELFPAY | END 2021-06-24 12:01 | disposition home or self-care (01) | LOC: HO.LAB 12:00 | PROVIDERS: PCP Internal Medicine; Visit Provider Internal Medicine | DX: Z20.822 Contact with and (suspected) exposure to COVID-19 (principal) | CPT/HCPCS: U0003; U0005 ==

== ENCOUNTER → 2021-08-25 14:12 | Outpatient (BNVA) | payer OTHER, SELFPAY | PROVIDERS: PCP Internal Medicine; Visit Provider Hospitalist | DX: J45.901 Unspecified asthma with (acute) exacerbation (principal); J30.2 Other seasonal allergic rhinitis; J44.9 Chronic obstructive pulmonary disease, unspecified | CPT/HCPCS: 99212 ==

== ENCOUNTER 2021-09-29 10:30 | Outpatient (REF) | payer OTHER, SELFPAY ==
[2021-09-29 14:31] LABS: Binax Internal Control QC Valid; Binax Lot number: 9864; Binax Now Covid-19 Ag Negative (Negative)
== END 2021-09-29 10:31 | disposition home or self-care (01) ==
LOC: HO.LAB 10:30
PROVIDERS: Visit Provider Internal Medicine
DX: Z20.822 Contact with and (suspected) exposure to COVID-19 (principal)
CPT/HCPCS: C9803

== ENCOUNTER 2021-11-29 12:17 | Outpatient (REF) | payer OTHER, SELFPAY ==
[2021-11-29 12:37] LABS: MANUAL DIFF FLAG NO
[2021-11-29 13:29] LABS: Basophils Absolute Auto 0.1 X10*3/uL (0.0-0.2); Basophils Percent Auto 1.1 % (0-2); Eosinophils Percent Auto 0.7 % (0-4); Hematocrit 35.7 % (37.0-47.0); Imm Gran Abs Auto 0.02 X10*3/uL (0.00-0.03); Imm Gran Pct Auto 0.4 % (0.0-0.4); Lymphocytes Absolute Auto 1.5 X10*3/uL (1.2-4.9); Lymphocytes Percent Auto 27.6 % (20-40); Mean Corpuscular HGB Conc 33.6 g/dl (31.0-35.0); Mean Corpuscular Hemoglobin 31.8 pg (27.0-33.0); Mean Corpuscular Volume 94.7 fL (80.0-98.0); Mean Platelet Volume 9.8 fL (9.4-12.3); Monocytes Absolute Auto 0.4 X10*3/uL (0.1-1.2); Monocytes Percent Auto 6.3 % (2-11); Neutrophils Absolute Auto 3.6 x10*3/uL (2.0-8.3); Neutrophils Percent Auto 63.9 % (45-73); Platelet Count 289 X10*3/uL (160-400); Red Blood Count 3.77 X10*6/uL (4.20-5.50); Red Cell Distribution Width 12.6 % (11.0-16.0); White Blood Count 5.6 X10*3/uL (4.8-10.8)
[2021-11-29 13:54] LABS: Alanine Aminotransferase 26 U/L (0-31); Albumin Level 4.6 g/dL (3.5-5.0); Alkaline Phosphatase 58 U/L (39-117); Anion Gap 14 (12-20); Aspartate Amino Transferase 25 U/L (5-31); Bilirubin Total 0.2 mg/dL (0.0-1.0); Blood Urea Nitrogen 9 mg/dL (9-16); Calcium 10.3 mg/dL (8.4-10.2); Carbon Dioxide 23 mmol/L (22-29); Chloride 105 mmol/L (96-108); Cholesterol 197 mg/dL; Estimated Glomerular Filt Rate > 60; Glucose Random 111 mg/dL (60-115); HDL Cholesterol 38 mg/dL; LDL Cholesterol Calculated 96 mg/dl; Potassium 4.3 mmol/L (3.3-5.1); Sodium 138 mmol/L (135-145); Total Protein 7.5 g/dL (6.5-8.0); Triglycerides 316 mg/dL
[2021-11-29 14:18] LABS: Free T4 (Free Thyroxine) 1.23 ng/dL (0.71-1.85); Thyroid Stimulating Hormone 1.57 uIU/mL (0.32-4.0); Vitamin D 25-OH Total 14.8 ng/mL (>30)
[2021-11-29 14:28] LABS: Folate 18.9 ng/mL (> or = 4.0); Vitamin B12 254 pg/mL (200-900)
== END 2021-11-29 12:18 | disposition home or self-care (01) ==
LOC: HO.LAB 12:17
PROVIDERS: PCP Internal Medicine; Visit Provider Internal Medicine
DX: D51.0 Vitamin B12 deficiency anemia due to intrinsic factor deficiency (principal); E03.9 Hypothyroidism, unspecified; E78.00 Pure hypercholesterolemia, unspecified
CPT/HCPCS: 36415; 80053; 80061; 82306; 82607; 82746; 84439; 84443; 85025

== ENCOUNTER 2021-12-05 11:17 | Outpatient (REF) | payer OTHER, SELFPAY ==
[2021-12-05 12:49] LABS: Estimated Average Glucose 108 mg/dL; Hemoglobin A1c % 5.4 %
[2021-12-05 12:56] LABS: Alanine Aminotransferase 17 U/L (0-31); Albumin Level 4.6 g/dL (3.5-5.0); Alkaline Phosphatase 48 U/L (39-117); Anion Gap 14 (12-20); Aspartate Amino Transferase 16 U/L (5-31); Bilirubin Total 0.5 mg/dL (0.0-1.0); Blood Urea Nitrogen 15 mg/dL (9-16); Carbon Dioxide 23 mmol/L (22-29); Chloride 104 mmol/L (96-108); Cholesterol 187 mg/dL; Estimated Glomerular Filt Rate > 60; Glucose Random 95 mg/dL (60-115); HDL Cholesterol 39 mg/dL; LDL Cholesterol Calculated 111 mg/dl; Potassium 4.4 mmol/L (3.3-5.1); Sodium 137 mmol/L (135-145); Total Protein 7.6 g/dL (6.5-8.0); Triglycerides 188 mg/dL
[2021-12-06 15:41] LABS: Calcium (PTHI) 9.5 mg/dL (8.6-10.2); PTHI 29 pg/mL (16-77)
[2021-12-07 14:46] LABS: Calcium, Ionized 4.9 mg/dL (4.8-5.6)
== END 2021-12-05 11:18 | disposition home or self-care (01) ==
LOC: HO.LAB 11:17
PROVIDERS: PCP Internal Medicine; Visit Provider Internal Medicine
DX: E78.00 Pure hypercholesterolemia, unspecified (principal)
CPT/HCPCS: 36415; 80053; 80061; 82330; 83036; 83970

== ENCOUNTER 2021-12-29 12:30 | Outpatient (REF) | payer OTHER, SELFPAY | END 2021-12-29 12:31 | disposition home or self-care (01) | LOC: HO.LAB 12:30 | PROVIDERS: PCP Internal Medicine; Visit Provider Hospitalist | DX: R91.1 Solitary pulmonary nodule (principal); Z91.09 Other allergy status, other than to drugs and biological substances | CPT/HCPCS: 36415; 86003 ==

== ENCOUNTER → 2022-01-17 12:50 | Outpatient (BNVA) | payer OTHER, SELFPAY | PROVIDERS: PCP Internal Medicine; Visit Provider Hospitalist | DX: J44.9 Chronic obstructive pulmonary disease, unspecified (principal); J45.901 Unspecified asthma with (acute) exacerbation; J30.2 Other seasonal allergic rhinitis | CPT/HCPCS: 99212 ==

== ENCOUNTER 2022-03-03 14:11 | Outpatient (REF) | payer OTHER, SELFPAY ==
--- NOTE | ~2022-03-03 | XR_ITS ---
EXAMINATION: XR TOES, LEFT CLINICAL INFORMATION: Pain following blunt trauma great toe. COMPARISON: Radiographs left foot 03/28/2016 TECHNIQUE: AP view left foot in 2 views left great toe are obtained for 3 views. FINDINGS: No acute or healing fracture, dislocation, destructive process. No joint narrowing or erosive change or chondrocalcinosis. No hallux valgus. Visualized soft tissues are unremarkable on plain film. XR/XR toe LT min 2V IMPRESSION: Unremarkable examination.
== END 2022-03-03 14:12 | disposition home or self-care (01) ==
LOC: HO.XRAY 14:11
PROVIDERS: PCP Internal Medicine; Visit Provider Internal Medicine
DX: M79.675 Pain in left toe(s) (principal)
CPT/HCPCS: 73660

== ENCOUNTER 2022-03-28 15:20 | Outpatient (REF) | payer OTHER, SELFPAY ==
--- NOTE | ~2022-03-28 | MM_ITS ---
EXAMINATION: MM SCREENING DIGITAL BREAST TOMOSYNTHESIS, BILATERAL CLINICAL INFORMATION: Screening. Asymptomatic. The lifetime risk of breast cancer based on the Tyrer-Cuzick Model is 11%. COMPARISON: Mammography: 06/10/2020, 03/21/2019; outside mammography 11/15/2017 ([facility]). TECHNIQUE: Digital breast tomosynthesis is performed in both the craniocaudal and mediolateral oblique views along with computer-aided detection (CAD). Synthesized 2D images are generated from the tomosynthesis. FINDINGS: There are scattered areas of fibroglandular density (ACR BI-RADS breast composition Category b). There are no significant masses, abnormal calcifications, or other abnormalities. There is no developing density or architectural abnormality. Incidental small low right axillary tail node is similar to 2019. The axilla and skin contours are unremarkable. MM/MM tomosynthesis screening BI IMPRESSION: No mammographic evidence of malignancy. ASSESSMENT: BI-RADS 1: Negative RECOMMENDATION: Routine annual mammography screening. This patient's information was entered into a reminder system with a target due date for their next mammogram.
== END 2022-03-28 15:21 | disposition home or self-care (01) ==
LOC: HO.MAMMO 15:20
PROVIDERS: Visit Provider Internal Medicine
DX: Z12.31 Encounter for screening mammogram for malignant neoplasm of breast (principal)
CPT/HCPCS: 77063; 77067

== ENCOUNTER 2022-04-12 13:45 | Outpatient (REF) | payer OTHER, SELFPAY ==
--- NOTE | ~2022-04-12 | XR_ITS ---
EXAMINATION: XR ELBOW, RIGHT CLINICAL INFORMATION: Pain COMPARISON: None TECHNIQUE: AP, lateral, and oblique views of the right elbow. FINDINGS: The bones and soft tissues are normal. No fracture or joint effusion. Alignment is anatomic. Joint spaces are maintained. XR/XR elbow RT 2V IMPRESSION: Normal right elbow.
--- NOTE | ~2022-04-12 | US_ITS ---
EXAMINATION: US VENOUS WITH DOPPLER UPPER EXTREMITY, RIGHT CLINICAL INFORMATION: Pain COMPARISON: None TECHNIQUE: Ultrasound of the upper extremity is performed using compression sonography and color and pulse Doppler flow with assessment of augmentation of flow. There is also imaging and Doppler assessment of the jugular and subclavian veins. Spectral analysis with color-flow imaging is performed. FINDINGS: Respiratory variation, normal compression, and augmented flow are noted throughout the upper extremity including the axillary, brachial, cubital, and radial and ulnar veins. There is normal flow in the internal jugular and subclavian veins. There is no visible deep or superficial thrombophlebitis. If the patient's symptoms progress, a followup ultrasound in 5 -7 days might be of value to exclude proximal propagation from a nonvisualized distal arm vein. US/US venous duplex UE RT IMPRESSION: No DVT demonstrated in the right upper extremity
== END 2022-04-12 13:46 | disposition home or self-care (01) ==
LOC: HO.US 13:45
PROVIDERS: PCP Internal Medicine; Visit Provider Internal Medicine
DX: R60.0 Localized edema (principal); M25.521 Pain in right elbow
CPT/HCPCS: 73070; 93971

== ENCOUNTER 2022-05-31 12:21 | Outpatient (REF) | payer OTHER, SELFPAY ==
[2022-05-31 12:39] LABS: MANUAL DIFF FLAG NO
[2022-05-31 13:26] LABS: Basophils Percent Auto 0.7 % (0-2); Eosinophils Percent Auto 0.7 % (0-4); Hematocrit 34.5 % (37.0-47.0); Hemoglobin 11.7 g/dl (12.0-16.0); Imm Gran Abs Auto 0.02 X10*3/uL (0.00-0.03); Imm Gran Pct Auto 0.3 % (0.0-0.4); Lymphocytes Absolute Auto 1.8 X10*3/uL (1.2-4.9); Lymphocytes Percent Auto 29.4 % (20-40); Mean Corpuscular HGB Conc 33.9 g/dl (31.0-35.0); Mean Corpuscular Hemoglobin 31.8 pg (27.0-33.0); Mean Corpuscular Volume 93.8 fL (80.0-98.0); Mean Platelet Volume 9.9 fL (9.4-12.3); Monocytes Absolute Auto 0.4 X10*3/uL (0.1-1.2); Monocytes Percent Auto 6.5 % (2-11); Neutrophils Absolute Auto 3.8 x10*3/uL (2.0-8.3); Neutrophils Percent Auto 62.4 % (45-73); Platelet Count 253 X10*3/uL (160-400); Red Blood Count 3.68 X10*6/uL (4.20-5.50); Red Cell Distribution Width 12.4 % (11.0-16.0)
[2022-05-31 13:57] LABS: Alanine Aminotransferase 16 U/L (0-31); Albumin Level 4.1 g/dL (3.5-5.0); Alkaline Phosphatase 45 U/L (39-117); Anion Gap 15 (12-20); Aspartate Amino Transferase 15 U/L (5-31); Bilirubin Total 0.4 mg/dL (0.0-1.0); Blood Urea Nitrogen 8 mg/dL (9-16); Calcium 9.3 mg/dL (8.4-10.2); Carbon Dioxide 23 mmol/L (22-29); Chloride 104 mmol/L (96-108); Cholesterol 202 mg/dL; Estimated Glomerular Filt Rate > 60; Glucose Random 90 mg/dL (60-115); HDL Cholesterol 34 mg/dL; LDL Cholesterol Calculated 122 mg/dl; Potassium 4.4 mmol/L (3.3-5.1); Sodium 138 mmol/L (135-145); Triglycerides 230 mg/dL
[2022-05-31 14:20] LABS: Free T4 (Free Thyroxine) 1.14 ng/dL (0.71-1.85); Thyroid Stimulating Hormone 2.38 uIU/mL (0.32-4.0); Vitamin D 25-OH Total 26.4 ng/mL (>30)
[2022-05-31 14:29] LABS: Folate 19.1 ng/mL (> or = 4.0); Vitamin B12 223 pg/mL (200-900)
== END 2022-05-31 12:22 | disposition home or self-care (01) ==
LOC: HO.LAB 12:21
PROVIDERS: PCP Internal Medicine; Visit Provider Internal Medicine
DX: E78.00 Pure hypercholesterolemia, unspecified (principal); E03.9 Hypothyroidism, unspecified; E53.8 Deficiency of other specified B group vitamins
CPT/HCPCS: 36415; 80053; 80061; 82306; 82607; 82746; 84439; 84443; 85025

== ENCOUNTER 2022-06-01 | Outpatient (REF) | payer OTHER, SELFPAY ==
[2022-06-01 17:24] LABS: Appearance Urine Clear; Bacteria Urine None Seen (None Seen); Color Urine Yellow; Glucose Urine UA Negative (Negative); Hyaline Casts Urine 0-2 /LPF (0-2); Leukocyte Esterase Urine Trace (Negative); Nitrite Urine Negative (Negative); PH 5.5 (5.0-9.0); RBC Urine 0-2 /HPF (0-2); Squamous Epithelial Cell Urine 0-2 /HPF (0-2); UMIC TRIGGER UA YES; Urine Blood Negative (Negative); Urine Ketones Negative (Negative); Urine Protein Negative (Neg-Trace); WBC Urine 0-5 /HPF (0-5)
== END 2022-06-01 00:01 | disposition home or self-care (01) ==
LOC: HO.LNP
PROVIDERS: Visit Provider Internal Medicine
DX: E53.8 Deficiency of other specified B group vitamins (principal)
CPT/HCPCS: 81001

== ENCOUNTER → 2022-07-24 12:55 | Outpatient (BNVA) | payer OTHER, SELFPAY | PROVIDERS: PCP Internal Medicine; Visit Provider Hospitalist | DX: J45.40 Moderate persistent asthma, uncomplicated (principal); J30.2 Other seasonal allergic rhinitis | CPT/HCPCS: 99212 ==

== ENCOUNTER 2022-07-31 10:18 | Outpatient (REF) | payer OTHER, SELFPAY ==
[2022-07-31 13:28] LABS: Vitamin B12 417 pg/mL (200-900)
== END 2022-07-31 10:19 | disposition home or self-care (01) ==
LOC: HO.LAB 10:18
PROVIDERS: PCP Internal Medicine; Visit Provider Internal Medicine
DX: D51.0 Vitamin B12 deficiency anemia due to intrinsic factor deficiency (principal)
CPT/HCPCS: 36415; 82607; 82746

== ENCOUNTER 2022-08-04 09:11 | Outpatient (REF) | payer OTHER, SELFPAY ==
--- NOTE | ~2022-08-04 | XR_ITS ---
EXAMINATION: BILATERAL HAND X-RAY CLINICAL INFORMATION: Pain and swelling COMPARISON: None TECHNIQUE: 3 views of each hand FINDINGS: Right: Bone alignment is normal. No fracture or dislocation. Normal joint spaces. Normal soft tissues. Left: Bone alignment is normal. No fracture or dislocation. Normal joint spaces. Normal soft tissues. XR/XR hand RT 2V IMPRESSION: Unremarkable exam.
--- NOTE | ~2022-08-04 | XR_ITS ---
EXAMINATION: BILATERAL HAND X-RAY CLINICAL INFORMATION: Pain and swelling COMPARISON: None TECHNIQUE: 3 views of each hand FINDINGS: Right: Bone alignment is normal. No fracture or dislocation. Normal joint spaces. Normal soft tissues. Left: Bone alignment is normal. No fracture or dislocation. Normal joint spaces. Normal soft tissues. XR/XR hand LT 2V IMPRESSION: Unremarkable exam.
== END 2022-08-04 09:12 | disposition home or self-care (01) ==
LOC: HO.XRAY 09:11
PROVIDERS: PCP Internal Medicine; Visit Provider Internal Medicine
DX: M79.89 Other specified soft tissue disorders (principal)
CPT/HCPCS: 73120

== ENCOUNTER 2022-12-19 10:12 | Outpatient (REF) | payer OTHER, SELFPAY ==
[2022-12-19 10:23] LABS: MANUAL DIFF FLAG NO
[2022-12-19 10:55] LABS: Basophils Percent Auto 0.8 % (0-2); Eosinophils Absolute Auto 0.1 X10*3/uL (0.0-0.4); Eosinophils Percent Auto 1.1 % (0-4); Hemoglobin 12.7 g/dl (12.0-16.0); Imm Gran Abs Auto 0.01 X10*3/uL (0.00-0.03); Imm Gran Pct Auto 0.2 % (0.0-0.4); Lymphocytes Absolute Auto 1.6 X10*3/uL (1.2-4.9); Lymphocytes Percent Auto 30.4 % (20-40); Mean Corpuscular HGB Conc 34.3 g/dl (31.0-35.0); Mean Corpuscular Hemoglobin 32.1 pg (27.0-33.0); Mean Corpuscular Volume 93.4 fL (80.0-98.0); Mean Platelet Volume 10.2 fL (9.4-12.3); Monocytes Absolute Auto 0.5 X10*3/uL (0.1-1.2); Monocytes Percent Auto 8.9 % (2-11); Neutrophils Absolute Auto 3.1 x10*3/uL (2.0-8.3); Neutrophils Percent Auto 58.6 % (45-73); Platelet Count 277 X10*3/uL (160-400); Red Blood Count 3.96 X10*6/uL (4.20-5.50); Red Cell Distribution Width 11.9 % (11.0-16.0); White Blood Count 5.3 X10*3/uL (4.8-10.8)
[2022-12-19 11:19] LABS: Anion Gap 13 (12-20); Carbon Dioxide 26 mmol/L (22-29); Chloride 103 mmol/L (96-108); Cholesterol 232 mg/dL; Potassium 4.8 mmol/L (3.3-5.1); Sodium 137 mmol/L (135-145); Total Protein 7.2 g/dL (6.5-8.0)
[2022-12-19 11:44] LABS: Alanine Aminotransferase 14 U/L (0-31); Albumin Level 4.6 g/dL (3.5-5.0); Alkaline Phosphatase 56 U/L (39-117); Aspartate Amino Transferase 19 U/L (5-31); Bilirubin Total 0.5 mg/dL (0.0-1.0); Blood Urea Nitrogen 14 mg/dL (9-16); Estimated Glomerular Filt Rate > 60; Glucose Random 100 mg/dL (60-115); HDL Cholesterol 47 mg/dL; LDL Cholesterol Calculated 162 mg/dl; Triglycerides 117 mg/dL
[2022-12-19 11:59] LABS: Folate 10.8 ng/mL (> or = 4.0); Free T4 (Free Thyroxine) 1.22 ng/dL (0.71-1.85); Thyroid Stimulating Hormone 3.59 uIU/mL (0.32-4.0); Vitamin B12 412 pg/mL (200-900)
== END 2022-12-19 10:13 | disposition home or self-care (01) ==
LOC: HO.LAB 10:12
PROVIDERS: PCP Internal Medicine; Visit Provider Internal Medicine
DX: E78.00 Pure hypercholesterolemia, unspecified (principal)
CPT/HCPCS: 36415; 80053; 80061; 82607; 82746; 84439; 84443; 85025

== ENCOUNTER → 2023-01-16 13:14 | Outpatient (BNVA) | payer OTHER, SELFPAY | PROVIDERS: PCP Internal Medicine; Visit Provider Hospitalist | DX: J44.9 Chronic obstructive pulmonary disease, unspecified (principal); J45.40 Moderate persistent asthma, uncomplicated; J30.2 Other seasonal allergic rhinitis; R05.9 Cough, unspecified; R91.1 Solitary pulmonary nodule | CPT/HCPCS: 99212 ==

== ENCOUNTER → 2023-04-24 14:30 | Outpatient (BNV) | payer OTHER, SELFPAY | PROVIDERS: PCP Internal Medicine; Visit Provider Radiology Diagnostic Radiology | DX: Z12.31 Encounter for screening mammogram for malignant neoplasm of breast (principal) | CPT/HCPCS: 77063; 77067 ==

== ENCOUNTER 2023-04-24 14:42 | Outpatient (REF) | payer OTHER, SELFPAY ==
--- NOTE | ~2023-04-24 | MM_ITS ---
EXAMINATION: MM SCREENING DIGITAL BREAST TOMOSYNTHESIS, BILATERAL CLINICAL INFORMATION: Screening. Asymptomatic. The lifetime risk of breast cancer based on the Tyrer-Cuzick Model is 15.5%. COMPARISON: Mammography: 03/28/2022, and dating back to 2013. TECHNIQUE: Digital breast tomosynthesis is performed in both the craniocaudal and mediolateral oblique views along with computer-aided detection (CAD). Synthesized 2D images are generated from the tomosynthesis. FINDINGS: There are scattered areas of fibroglandular density (ACR BI-RADS breast composition Category b). There are no suspicious masses, suspicious grouped calcifications, or areas of architectural distortion. The parenchymal pattern is stable from prior exams. There are no skin changes. MM/MM tomosynthesis screening BI IMPRESSION: No mammographic evidence of malignancy. ASSESSMENT: BI-RADS BI-RADS 1 - Negative RECOMMENDATION: Routine annual mammography screening. 1 year F/U This examination should not preclude the clinical evaluation of a suspicious palpable abnormality. This patient's information was entered into a reminder system with a target due date for their next mammogram.
== END 2023-04-24 14:43 | disposition home or self-care (01) ==
LOC: HO.MAMMO 14:42
PROVIDERS: PCP Internal Medicine; Visit Provider Internal Medicine
DX: Z12.31 Encounter for screening mammogram for malignant neoplasm of breast (principal)
CPT/HCPCS: 77063; 77067

== ENCOUNTER 2023-05-29 11:12 | Outpatient (REF) | payer OTHER, SELFPAY ==
[2023-05-29 12:49] LABS: Influenza A PCR NEGATIVE (Negative); Influenza B PCR NEGATIVE (Negative); Resp Syncy Virus RNA Qual PCR NEGATIVE (Negative); SARS COV2 PCR INHOUSE NEGATIVE (Negative)
[2023-05-29 12:54] LABS: Alanine Aminotransferase 10 U/L (0-31); Albumin Level 4.3 g/dL (3.5-5.0); Alkaline Phosphatase 45 U/L (39-117); Anion Gap 13 (12-20); Aspartate Amino Transferase 14 U/L (5-31); Bilirubin Total 0.3 mg/dL (0.0-1.0); Blood Urea Nitrogen 8 mg/dL (9-16); Calcium 9.7 mg/dL (8.4-10.2); Carbon Dioxide 26 mmol/L (22-29); Chloride 106 mmol/L (96-108); Cholesterol 188 mg/dL (<200); Estimated Glomerular Filt Rate > 60; Glucose Random 88 mg/dL (60-115); HDL Cholesterol 41 mg/dL (>40); LDL Cholesterol Calculated 111 mg/dL (<100); Potassium 4.1 mmol/L (3.3-5.1); Sodium 141 mmol/L (135-145); Total Protein 7.4 g/dL (6.5-8.0); Triglycerides 180 mg/dL (<150)
== END 2023-05-29 11:13 | disposition home or self-care (01) ==
LOC: HO.LAB 11:12
PROVIDERS: PCP Internal Medicine; Visit Provider Internal Medicine
DX: R09.81 Nasal congestion (principal); E78.00 Pure hypercholesterolemia, unspecified
CPT/HCPCS: 0241U; 80053; 80061

== ENCOUNTER 2023-06-28 12:32 | Outpatient (AMB) | payer OTHER, SELFPAY ==
[2023-06-28 12:36] VITALS: BP 112/62; PULSE 71; O2SAT 98; BMI 20.4
--- NOTE | 2023-06-28 12:36 | MHC.PC.OV ---
Vital Signs 06/28/23 12:36 Height 5 ft 3 in Weight 115 lb BMI 20.4 BP 112/62 Blood Pressure Location Lt brachial Position Sitting Pulse 71 Pulse Source Pulse Oximeter Pulse Oximetry (%) 98 Oxygen Delivery Method Room Air Intake Visit Reasons: PE Allergies amoxicillin [Amoxicillin] Allergy (Severe, Verified 06/28/23 12:36) NAUSEA & VOMITING, rash, hives ciprofloxacin [CIPROFLOXACIN] Allergy (Severe, Verified 06/28/23 12:36) VAGINAL BLEEDING nickel Allergy (Severe, Verified 06/28/23 12:36) Swelling clarithromycin [From Biaxin] Allergy (Mild, Verified 06/28/23 12:36) RASH MIGRAINE MEDICINE CAN NOT RECALL NAME Allergy (Severe, Uncoded 06/28/23 12:36) RAPID HEART RATE AND SWEATS Medication List - Last Reconciled 06/28/23 by Leon Truong MD albuterol sulfate 90 mcg/actuation 2 puffs PO Q6H PRN 30 days albuterol sulfate 2.5 mg (3 mL) inhalation Q4H PRN 30 days cholecalciferol (vitamin D3) 25 mcg PO DAILY cyanocobalamin (vitamin B-12) 1,000 mcg PO DAILY 90 days fenofibrate 160 mg PO DAILY qtyzslnzhak-dgtynuelu-imvyupru 200-62.5-25 mcg (Trelegy Ellipta) 1 ea PO DAILY ipratropium-albuterol 0.5 mg-3 mg(2.5 mg base)/3 mL 3 mL inhalation Q4-6H PRN levothyroxine 100 mcg PO DAILY 90 days loratadine 10 mg PO DAILY montelukast 10 mg PO BEDTIME naproxen 500 mg PO BID nebulizers As directed norethindrone-ethin estradiol 1-35 mg-mcg 1 tab PO DAILY simvastatin 5 mg PO BEDTIME triamcinolone acetonide 0.5% 1 appl topical BID Tobacco use date assessed: 11/27/22 Dental Screening Dental Screen Date: 06/28/23 Did you have a dental visit in the last 12 months?: No Did you have a dental problem in the last 6 months where you did not have access to dental care?: No Was dental information given to patient?: No HPI PE HPI Details 42-year-old female with a history of asthma, hypothyroidism hypercholesterolemia impaired glucose tolerance coming in for physical exam. Last seen in February 2023. Mammograms up-to-date [facility] Medical History (Updated 06/28/23 @ 12:45 by Leon Truong MD) Hand swelling URI (upper respiratory infection) Swelling of right upper extremity Elbow pain, right Toe pain, left Hypercalcemia Exposure to COVID-19 virus Breast cancer screening by mammogram Pain and swelling of right ankle Dizziness Anxiety Asthma Pulmonary nodule Shortness of breath Developmental delay, mild Vitamin B12 deficiency Hypercholesterolemia Hypothyroid Allergic rhinitis Surgical History History of section Family History Father Skin cancer Myocardial infarction Mother No problems noted. Maternal Aunt Breast cancer Daughter In good health Brother Chronic mental illness Other Mental health problem Social History Housing: Apartment Alcohol intake: never Patient Tobacco Use Status: Never used Tobacco e-Cigarette/Vaping Use: Never Used Second Hand Smoke Exposure: No service: No Current occupational status: disabled Current occupational exposures/hazards: No Cognitive needs: No Hearing needs: No Vision needs: No Questionnaire PHQ-9 Over the last 2 weeks, how often have you been bothered by any of the following problems? 1. Little interest or pleasure in doing things: not at all 2. Feeling down, depressed, or hopeless: not at all 3. Trouble falling or staying asleep, or sleeping too much: not at all 4. Feeling tired or having little energy: not at all 5. Poor appetite or overeating: not at all 6. Feeling bad about yourself - or that you are a failure or have let yourself or your family down: not at all 7. Trouble concentrating on things, such as reading the newspaper or watching television: not at all 8. Moving or speaking so slowly that other people could have noticed. Or the opposite - being so fidgety or restless that you have been moving around a lot more than usual: not at all 9. Thoughts that you would be better off or of hurting yourself in some way: not at all Total score: 0 Depression Screening Interpretation: Negative Depression Screening Done: Yes Source: Developed by Drs. Jose L. JenelleBessy kennedy Kurt Kroenke and colleagues, with an educational magdalena from [employer]. Thrive Questionnaire Date Thrive assessed: 11/27/22 AUDIT C Alcohol Use Questionnaire (AUDIT-C) 1. How often do you have a drink containing alcohol?: Never 2. How many drinks containing alcohol do you have on a typical day when you are drinking?: 1 or 2 (0) 3. How often do you have six or more drinks on one occasion?: Never Total Score: 0 Score Reviewed/Action Taken: Yes EDELMIRA-7 AMB Questionnaire EDELMIRA-7 Date EDELMIRA - 7 assessed: 11/27/22 Source: Developed by Drs. Jose Almanzar, Dat Araujo and colleagues, with an educational magdalena from [employer]. Review of Systems Const Denies poor appetite and Denies weakness Eyes Denies no additional complaints ENT Reports Normal hearing present, Denies dizziness, Denies nasal congestion, Denies tinnitus and Denies sore throat Card Denies chest pain, Denies syncope, Denies rapid heart rate and Denies dyspnea Resp Denies cough and Denies dyspnea GI Denies change in stool character, Reports constipation, Denies diarrhea, Denies nausea and Denies vomiting Denies urinary frequency, Denies difficulty voiding and Denies dysuria Neuro Reports Normal hearing present, Denies confusion, Denies dizziness, Denies syncope and Denies weakness Psych Denies confusion Physical exam (Primary Care) Vital Signs: Last Vital Signs Pulse 71 06/28/23 12:36 BP 112/62 06/28/23 12:36 Pulse Ox 98 06/28/23 12:36 Oxygen Delivery Method Room Air 06/28/23 12:36 BMI result Body Mass Index 20.4 Tobacco/Smoking Status: Tobacco use Status Tobacco use date assessed 11/27/22 06/28/23 12:40 Patient Tobacco Use Status Never used Tobacco 06/28/23 12:40 e-Cigarette/Vaping Use Never Used 06/28/23 12:40 PHQ-9: PHQ-9 Score PHQ-9: Total score 0 06/28/23 12:41 Depression Screening Interpretation: Negative Thrive Assessment: Date of Thrive Assessment Date Thrive assessed 11/27/22 06/28/23 12:40 Const General: No confusion Orientation/consciousness: No confusion HENMT Head: Yes normocephalic Ears: external ears normal and TM's normal bilaterally Face and sinus: Yes normal facial exam Mouth: moist mucous membranes Throat: Yes tonsils normal Eyes Conjunctivae: conjunctivae normal Pupils: Equal, round and reactive pupils present and Pupil accommodation reflex normal Direct Ophthalmoscopy: normal light reflex Neck Neck: No lymphadenopathy Thyroid: Thyroid normal Chest Chest palpation & inspection: normal inspection of the chest Resp Effort & Inspection: normal respiratory effort and no audible wheezes Auscultation: clear to auscultation bilaterally, no crackles, no wheezes and lung sounds not diminished Cardio Rate: regular rate Rhythm: regular rhythm Peripheral pulses: radial pulses present and dorsalis pedis present GI Palpation (GI): no masses Auscultation: normal bowel sounds and normoactive bowel sounds Rectal Exam - Female: deferred Skin General skin exam: no rashes or lesions noted Rashes: no rashes Neuro General: No confusion Cranial nerves: Yes Equal, round and reactive pupils present and Yes Normal hearing present Cognition (Neuro): normal cognition Gait exam (Neuro): Normal gait present Motor exam (neuro): 5/5 motor strength present throughout Deep tendon reflexes (DTR's): Right brachioradialis reflex intensity grade: 2+, Left brachioradialis reflex intensity grade: 2+, Right patellar reflex intensity grade: 2+ and Left patellar reflex intensity grade: 2+ Extrem General: No edema Office Procedures Flu Questionnaire Does the patient have a severe egg allergy?: No Does the patient have severe life threatening allergies?: No Does the patient have a fever or illness today?: No Has the patient ever had Guillain-Pocahontas Syndrome?: No Has the patient ever had any past reaction to a flu shot?: No Immunizations flu vacc [id number] 6mos up(PF) 60 mcg(15 mcgx4)/0.5 mL IM syringe Performing Provider: Leon Truong MD Performing Location: [facility] Administered by: Carmen Ramírez CMA on 06/28/23 12:42 Dose Route Admin Location Dispensed Lot Number Expiration Date NDC Senior Technical Analyst 0.5 mL IM Left Deltoid 0.5 mL [id number] 03/16/24 15745-174-72 Kranem VIS Given Date VIS Provided VIS Publication Date 06/28/23 Single Vaccine 21 Eligibility Eligibility Date Funding Source Not VFC Eligible 06/28/23 Private Assessment and Plan Assessment & Plan (1) Annual physical exam: Code(s): Z00.00 - Encounter for general adult medical examination without abnormal findings (2) Asthma: Code(s): J45.909 - Unspecified asthma, uncomplicated Qualifiers: Asthma complication type: uncomplicated Asthma persistence: persistent Asthma severity: moderate Qualified Code(s): J45.40 - Moderate persistent asthma, uncomplicated Plan: Continue with the inhaler and has been placed on Trelegy (3) Impaired glucose tolerance: Code(s): R73.02 - Impaired glucose tolerance (oral) Plan: Decrease the amount of carbohydrate intake, pasta, bread, rice and potatoes are all sugar and that is aside from all the sweet stuff, remember that fruits are good but they are Sweet also. (4) Pernicious anemia: Comment: Parietal cell antibody positive January 2021 Code(s): D51.0 - Vitamin B12 deficiency anemia due to intrinsic factor deficiency Plan: Continue vitamin B12 (5) Hypercholesterolemia: Code(s): E78.00 - Pure hypercholesterolemia, unspecified Plan: Avoid fried foods, chicken skin, eggs, butter margarine, pastries and meat. Be it pork or beef they have a lot of cholesterol LDL goal of less than 130 and triglyceride of less than 150. Patient on fenofibrate 160 mg once a day and simvastatin 5 mg once a (6) Hypothyroid: Code(s): E03.9 - Hypothyroidism, unspecified Qualifiers: Hypothyroidism type: acquired Qualified Code(s): E03.9 - Hypothyroidism, unspecified Plan: So continue with the thyroid medication Orders: Orders Influenza [id number] Immunization Today Z23 - Encounter for immunization Hemoglobin A1c 6 Months R73.01 - Impaired fasting glucose Comprehensive Met. Panel 6 Months R73.01 - Impaired fasting glucose Complete Blood Count Auto Diff 6 Months E78.00 - Pure hypercholesterolemia, unspecified Free T4 (Free Thyroxine) 6 Months E03.9 - Hypothyroidism, unspecified Lipid Panel 6 Months E03.9 - Hypothyroidism, unspecified, E78.00 - Pure hypercholesterolemia, unspecified Thyroid Stimulating Hormone 6 Months E03.9 - Hypothyroidism, unspecified Vitamin B12 and Folate 6 Months E03.9 - Hypothyroidism, unspecified Vitamin D 25-OH Total 6 Months E03.9 - Hypothyroidism, unspecified Coding Level of Care Code Est Pt Prev Care 40-64y([id number]) Diagnoses Annual physical exam Z00.00 Moderate persistent asthma without complication J45.40 Asthma complication type: uncomplicated Asthma persistence: persistent Asthma severity: moderate Impaired glucose tolerance R73.02 Pernicious anemia D51.0 Hypercholesterolemia E78.00 Acquired hypothyroidism E03.9 Hypothyroidism type: acquired
== END 2023-06-28 13:05 | disposition home or self-care (01) ==
PROVIDERS: PCP Internal Medicine; Visit Provider Internal Medicine
DX: Z00.00 Encounter for general adult medical examination without abnormal findings (principal); J45.40 Moderate persistent asthma, uncomplicated; R73.02 Impaired glucose tolerance (oral); D51.0 Vitamin B12 deficiency anemia due to intrinsic factor deficiency; Z23 Encounter for immunization; E78.00 Pure hypercholesterolemia, unspecified; E03.9 Hypothyroidism, unspecified; Z98.891 History of uterine scar from previous surgery
CPT/HCPCS: 90471; 90686; 99396

== ENCOUNTER 2023-07-26 13:12 | Outpatient (AMB) | payer OTHER, SELFPAY ==
--- NOTE | 2023-07-26 13:22 | MHC.OFFVIS ---
Intake Vital Signs 07/26/23 13:23 Height 5 ft 3 in Weight 115 lb BMI 20.4 BP 110/60 Blood Pressure Location Lt brachial Position Sitting Pulse 73 Pulse Source Pulse Oximeter Pulse Oximetry (%) 98 Oxygen Delivery Method Room Air Intake Visit Reasons: Cough Wireless Sales Associate Required: No Allergies amoxicillin [Amoxicillin] Allergy (Severe, Verified 07/26/23 13:25) NAUSEA & VOMITING, rash, hives ciprofloxacin [CIPROFLOXACIN] Allergy (Severe, Verified 07/26/23 13:25) VAGINAL BLEEDING nickel Allergy (Severe, Verified 07/26/23 13:25) Swelling clarithromycin [From Biaxin] Allergy (Mild, Verified 07/26/23 13:25) RASH MIGRAINE MEDICINE CAN NOT RECALL NAME Allergy (Severe, Uncoded 07/26/23 13:25) RAPID HEART RATE AND SWEATS HPI HPI Comments History of Present Illness Details The patient is a 41-year-old woman with a known history of allergic rhinitis and also allergic asthma. 01/16/2023 The patient is here for a pulmonary follow-up visit. Patient has been very stressed with on going family issues. Seems to be affecting her respiratory symptoms. Complains of chest tightness intermittently, moderate in severity. Does respond well to the Trelegy inhaler. Complains of nasal congestion in addition to postnasal drip and cough. Ivtc-it-aprkowcm severity. She also has wheezing at times. She is very busy with her children and also her family responsibilities. She is trying to be more adherent with her respiratory therapy. No recent imaging studies. Bloodwork with normal eosinophils. 07/26/2023 the patient is here for sick visit. The patient started developing worsening respiratory symptoms for the last week. Positive sick contacts. Complains of a sore throat and postnasal drip. She has also had worsening cough. Feels like is going down to the lungs. Some chest congestion as well. She has been using her nebulizer and also her respiratory medications. She did test negative for COVID. At this point after 7 days we will not do any additional testing. [facility] Medical History (Updated 07/26/23 @ 19:46 by Gary Silva MD) Hand swelling URI (upper respiratory infection) Swelling of right upper extremity Elbow pain, right Toe pain, left Hypercalcemia Exposure to COVID-19 virus Breast cancer screening by mammogram Pain and swelling of right ankle Dizziness Anxiety Asthma Pulmonary nodule Shortness of breath Developmental delay, mild Vitamin B12 deficiency Hypercholesterolemia Hypothyroid Allergic rhinitis Surgical History History of section Family History Father Skin cancer Myocardial infarction Mother No problems noted. Maternal Aunt Breast cancer Daughter In good health Brother Chronic mental illness Other Mental health problem Social History Housing: Apartment Alcohol intake: never Patient Tobacco Use Status: Never used Tobacco e-Cigarette/Vaping Use: Never Used Second Hand Smoke Exposure: No service: No Current occupational status: disabled Current occupational exposures/hazards: No Cognitive needs: No Hearing needs: No Vision needs: No Review of Systems Const Denies night sweats ENT Denies change in voice, Reports hoarseness, Denies lip swelling, Denies mouth pain, Reports nasal congestion, Reports nasal discharge, Reports sore throat and Denies tongue swelling Card Denies chest pain and Reports dyspnea on exertion Resp Reports chest congestion, Reports cough, Reports dyspnea on exertion and Reports wheezing GI Denies abdominal pain Musc Denies no additional complaints Neuro Denies Neuro-related abnormal movements Psych Reports anxiety Alex/Lymph Denies easy bleeding and Denies lymphadenopathy Aller/Immun Denies lip swelling, Denies tongue swelling and Reports wheezing Physical Exam Vital Signs: Last Vital Signs Pulse 73 07/26/23 13:23 BP 110/60 07/26/23 13:23 Pulse Ox 98 07/26/23 13:23 Oxygen Delivery Method Room Air 07/26/23 13:23 BMI result Body Mass Index 20.4 Const General: comfortable, no acute distress and alert HEENT Head: Yes atraumatic Neck Neck: Yes no lymphadenopathy Thyroid: Thyroid normal Chest Chest palpation & inspection: normal inspection of the chest Resp Effort & Inspection: normal respiratory effort Auscultation: no wheezes and diminished lung sounds Cardio Jugular venous distension: no JVD Palpation: normal PMI Rate: regular rate Rhythm: regular rhythm Heart sounds: S1 normal heart sound present and S2 normal heart sound present GI Palpation (GI): Soft to palpation Skin General skin exam: no rashes or lesions noted Extrem General: Yes no clubbing, cyanosis or edema Assessment & Plan Assessment & Plan (1) Allergic rhinitis: Code(s): J30.9 - Allergic rhinitis, unspecified Qualifiers: Allergic rhinitis trigger: unspecified Allergic rhinitis seasonality: seasonal Qualified Code(s): J30.2 - Other seasonal allergic rhinitis (2) Asthma: Code(s): J45.909 - Unspecified asthma, uncomplicated Qualifiers: Asthma severity: moderate Asthma persistence: persistent Asthma complication type: with acute exacerbation Qualified Code(s): J45.41 - Moderate persistent asthma with (acute) exacerbation (3) Upper respiratory infection: Code(s): J06.9 - Acute upper respiratory infection, unspecified Qualifiers: URI type: acute laryngopharyngitis Qualified Code(s): J06.0 - Acute laryngopharyngitis Plan continue Trelegy 200 KIM as needed start Medrol start doxycycline Claritin PO daily Continue Singulair continue pseudophed as needed Follow-up in 6 months Medications: New doxycycline hyclate 100 mg PO BID 10 days 20 caps 0RF dextromethorphan-guaifenesin 60-1,200 mg ER (Mucinex DM) 1 tab PO Q12H 14 days 28 tabs 0RF benzonatate 200 mg PO BID 30 days PRN 60 caps 0RF cough Coding Level of Care Code Est Pt Level 4 (54504) Diagnoses Seasonal allergic rhinitis, unspecified trigger J30.2 Allergic rhinitis trigger: unspecified Allergic rhinitis seasonality: seasonal Moderate persistent asthma with acute exacerbation J45.41 Asthma severity: moderate Asthma persistence: persistent Asthma complication type: with acute exacerbation Acute laryngopharyngitis J06.0 URI type: acute laryngopharyngitis Time Spent (min) 15
[2023-07-26 13:23] VITALS: BP 110/60; PULSE 73; O2SAT 98; BMI 20.4
== END 2023-07-26 14:02 | disposition home or self-care (01) ==
PROVIDERS: PCP Internal Medicine; Visit Provider Hospitalist
DX: J30.2 Other seasonal allergic rhinitis (principal); J45.41 Moderate persistent asthma with (acute) exacerbation; J06.0 Acute laryngopharyngitis
CPT/HCPCS: 99214

== ENCOUNTER → 2023-07-26 13:12 | Outpatient (BNVA) | payer OTHER, SELFPAY | PROVIDERS: PCP Internal Medicine; Visit Provider Hospitalist | DX: J45.41 Moderate persistent asthma with (acute) exacerbation (principal); J30.2 Other seasonal allergic rhinitis; J06.0 Acute laryngopharyngitis | CPT/HCPCS: 99212 ==

== ENCOUNTER 2023-10-30 16:12 | Outpatient (AMB) | payer OTHER, SELFPAY ==
[2023-10-30 16:21] VITALS: BP 108/60; PULSE 70; O2SAT 100; BMI 21.3
--- NOTE | 2023-10-30 16:21 | MHC.PC.OV ---
Vital Signs 10/30/23 16:21 Height 5 ft 3 in Weight 120 lb BMI 21.3 BP 108/60 Blood Pressure Location Lt brachial Position Sitting Pulse 70 Pulse Source Pulse Oximeter Pulse Oximetry (%) 100 Oxygen Delivery Method Room Air Intake Visit Reasons: Back Pain Intake Note: pt states lower back pain X1week with no relief Saw Repairer Required: No Allergies amoxicillin [Amoxicillin] Allergy (Severe, Verified 10/30/23 16:34) NAUSEA & VOMITING, rash, hives ciprofloxacin [CIPROFLOXACIN] Allergy (Severe, Verified 10/30/23 16:34) VAGINAL BLEEDING nickel Allergy (Severe, Verified 10/30/23 16:34) Swelling clarithromycin [From Biaxin] Allergy (Mild, Verified 10/30/23 16:34) RASH MIGRAINE MEDICINE CAN NOT RECALL NAME Allergy (Severe, Uncoded 10/30/23 16:34) RAPID HEART RATE AND SWEATS Medication List - Last Reconciled 10/30/23 by Leon Gutiérrez Po, albuterol sulfate 90 mcg/actuation 2 puffs PO Q6H PRN 30 days albuterol sulfate 2.5 mg (3 mL) inhalation Q4H PRN 30 days cholecalciferol (vitamin D3) 50 mcg PO DAILY cyanocobalamin (vitamin B-12) 1,000 mcg PO DAILY cyclobenzaprine 5 mg PO TID PRN fenofibrate 160 mg PO DAILY ferrous sulfate (FeroSul) 325 mg PO DAILY txwubhswwyi-gqmlqvzyw-bxqfjvnt 200-62.5-25 mcg (Trelegy Ellipta) 1 ea PO DAILY ipratropium-albuterol 0.5 mg-3 mg(2.5 mg base)/3 mL 3 mL inhalation Q4-6H PRN levothyroxine 100 mcg PO DAILY 90 days loratadine 10 mg PO DAILY montelukast 10 mg PO BEDTIME naproxen 500 mg PO BID nebulizers As directed norethindrone-ethin estradiol 1-35 mg-mcg 1 tab PO DAILY omega 7-hzt-edm-fish oil 1,200 (144-216) mg (Fish Oil) caps PO simvastatin 5 mg PO BEDTIME triamcinolone acetonide 0.5% 1 appl topical BID Tobacco use date assessed: 10/30/23 Dental Screening Dental Screen Date: 10/30/23 Did you have a dental visit in the last 12 months?: Yes Did you have a dental problem in the last 6 months where you did not have access to dental care?: No Was dental information given to patient?: Patient has dentist HPI Back Pain HPI Details 42-year-old female with a history of asthma, impaired glucose tolerance pernicious anemia hypercholesterolemia and hypothyroidism last seen in June 2023. Patient is up-to-date with mammogram as well as a Pap smear. Review of the notes follows up with Pulmonary for the cough diagnosis of allergic rhinitis asthma and upper respiratory tract infection. Treated with Trelegy and short-acting albuterol was given doxycycline and Medrol pack Claritin every day plus Singulair. 1 week lower thoracic back pain, states carrying heavy stuff and child walking on her back [facility] Medical History (Updated 10/30/23 @ 17:06 by Leon Truong MD) Hand swelling URI (upper respiratory infection) Swelling of right upper extremity Elbow pain, right Toe pain, left Hypercalcemia Exposure to COVID-19 virus Breast cancer screening by mammogram Pain and swelling of right ankle Dizziness Anxiety Asthma Pulmonary nodule Shortness of breath Developmental delay, mild Vitamin B12 deficiency Hypercholesterolemia Hypothyroid Allergic rhinitis Surgical History History of section Family History Father Skin cancer Myocardial infarction Mother No problems noted. Maternal Aunt Breast cancer Daughter In good health Brother Chronic mental illness Other Mental health problem Social History Housing: Apartment Alcohol intake: never Patient Tobacco Use Status: Never used Tobacco e-Cigarette/Vaping Use: Never Used Second Hand Smoke Exposure: No service: No Current occupational status: disabled Current occupational exposures/hazards: No Cognitive needs: No Hearing needs: No Vision needs: No Questionnaire PHQ-9 Over the last 2 weeks, how often have you been bothered by any of the following problems? 1. Little interest or pleasure in doing things: not at all 2. Feeling down, depressed, or hopeless: not at all 3. Trouble falling or staying asleep, or sleeping too much: not at all 4. Feeling tired or having little energy: not at all 5. Poor appetite or overeating: not at all 6. Feeling bad about yourself - or that you are a failure or have let yourself or your family down: not at all 7. Trouble concentrating on things, such as reading the newspaper or watching television: not at all 8. Moving or speaking so slowly that other people could have noticed. Or the opposite - being so fidgety or restless that you have been moving around a lot more than usual: not at all 9. Thoughts that you would be better off or of hurting yourself in some way: not at all Total score: 0 Depression Screening Interpretation: Negative Depression Screening Done: Yes Source: Developed by Drs. Jose Almanzar, Bessy Torres, Dat Davenport and colleagues, with an educational magdalena from [employer] Thrive Questionnaire Date Thrive assessed: 11/27/22 I am a: Patient What is your living situation today?: I have a steady place to live Within the past 12 months, did the food you bought not last and you didn't have the money to get more?: Never true Within the past 12 months, did you worry whether your food would run out before you got money to buy more?: Never true Do you have trouble paying for medicines?: No Do you have trouble getting transportation to medical appointments?: No Do you have trouble paying your heating and electricity bill?: No Do you have trouble taking care of your child, family member or friend?: No Do you have trouble with day-to-day activities such as bathing, preparing meals, shopping, managing finances, etc.?: No Are you currently unemployed and looking for a job?: No Are you interested in more education?: No Please select the resources that you would like help with: None THRIVE Score: 0 AUDIT C Alcohol Use Questionnaire (AUDIT-C) 1. How often do you have a drink containing alcohol?: Never 2. How many drinks containing alcohol do you have on a typical day when you are drinking?: 1 or 2 (0) 3. How often do you have six or more drinks on one occasion?: Never Total Score: 0 Score Reviewed/Action Taken: Yes EDELMIRA-7 AMB Questionnaire EDELMIRA-7 Date EDELMIRA - 7 assessed: 10/30/23 Feeling nervous, anxious, or on edge: 0 = Not at all Not being able to stop or control worryin = Not at all Worrying too much about different things: 0 = Not at all Trouble relaxin = Not at all Being so restless that it is hard to sit still: 0 = Not at all Becoming easily annoyed or irritable: 0 = Not at all Feeling afraid as if something awful might happen: 0 = Not at all Total EDELMIRA-7 score (0-4 normal; 5-9 mild; 10-14 moderate; 15-21 severe): 0 Source: Developed by Drs. Jose Almanzar, Bessy Torres, Dat Davenport and colleagues, with an educational magdalena from [employer] Physical exam (Primary Care) Vital Signs: Last Vital Signs Pulse 70 10/30/23 16:21 BP 108/60 10/30/23 16:21 Pulse Ox 100 10/30/23 16:21 Oxygen Delivery Method Room Air 10/30/23 16:21 BMI result Body Mass Index 21.3 Tobacco/Smoking Status: Tobacco use Status Tobacco use date assessed 10/30/23 10/30/23 16:23 Patient Tobacco Use Status Never used Tobacco 10/30/23 16:23 e-Cigarette/Vaping Use Never Used 10/30/23 16:23 PHQ-9: PHQ-9 Score PHQ-9: Total score 0 10/30/23 16:37 Depression Screening Interpretation: Negative Thrive Assessment: Date of Thrive Assessment Date Thrive assessed 11/27/22 10/30/23 16:23 Const General: alert; No acute distress Eyes Conjunctivae: conjunctivae normal Resp Auscultation: clear to auscultation bilaterally Cardio Rate: regular rate Rhythm: regular rhythm GI Inspection: Yes normal to inspection Extrem General: Yes normal to inspection and No edema Assessment and Plan Assessment & Plan (1) Asthma-COPD overlap syndrome: Code(s): J44.9 - Chronic obstructive pulmonary disease, unspecified Plan: Patient follows up with Pulmonary and on Trelegy as well as short-acting albuterol. (2) Allergic rhinitis: Code(s): J30.9 - Allergic rhinitis, unspecified Qualifiers: Allergic rhinitis trigger: unspecified Allergic rhinitis seasonality: seasonal Qualified Code(s): J30.2 - Other seasonal allergic rhinitis Plan: Patient on Claritin and Singulair. (3) Thoracolumbar back pain: Code(s): M54.50 - Low back pain, unspecified; M54.6 - Pain in thoracic spine Plan: Heat helps, x-ray requested, will send in anti-inflammatory and some muscle relaxant. Discussed about side effects of muscle relaxant drowsiness. As for the NSAID take with food at all times. Orders: Orders XR lumbar spine 2-3V Today M54.50 - Low back pain, unspecified, M54.6 - Pain in thoracic spine XR thoracic spine 2V Today M54.50 - Low back pain, unspecified, M54.6 - Pain in thoracic spine Medications: New cyclobenzaprine 5 mg PO TID PRN 30 tabs 0RF muscle spasm M54.50 - Low back pain, unspecified, M54.6 - Pain in thoracic spine cyclobenzaprine 7.5 mg PO TID PRN 30 tabs 0RF muscle spasm M54.50 - Low back pain, unspecified, M54.6 - Pain in thoracic spine Refilled naproxen 500 mg PO BID 30 tabs 0RF M54.50 - Low back pain, unspecified, M54.6 - Pain in thoracic spine Coding Level of Care Code Est Pt Level 4 (47943) Diagnoses Asthma-COPD overlap syndrome J44.9 Seasonal allergic rhinitis, unspecified trigger J30.2 Allergic rhinitis trigger: unspecified Allergic rhinitis seasonality: seasonal Thoracolumbar back pain M54.50; M54.6
== END 2023-10-30 17:12 | disposition home or self-care (01) ==
PROVIDERS: PCP Internal Medicine; Visit Provider Internal Medicine
DX: J44.9 Chronic obstructive pulmonary disease, unspecified (principal); J30.2 Other seasonal allergic rhinitis; M54.50 Low back pain, unspecified; M54.6 Pain in thoracic spine
CPT/HCPCS: 99214

== ENCOUNTER 2023-11-01 10:24 | Outpatient (REF) | payer OTHER, SELFPAY ==
--- NOTE | ~2023-11-01 | XR_ITS ---
EXAMINATION: XR thoracic spine 2V, XR lumbar spine 2-3V CLINICAL INFORMATION: Back pain COMPARISON: None TECHNIQUE: 3 views of the thoracic spine and 3 views of the lumbar spine FINDINGS: THORACIC SPINE: Vertebral body heights are maintained. Alignment is maintained. Disc space heights are maintained. Paravertebral soft tissues are unremarkable. LUMBAR SPINE: 5 nonrib-bearing lumbar-type vertebral bodies. Vertebral body heights are maintained. Alignment is maintained. Mild multilevel degenerative disc disease with small disc osteophyte complexes. Atherosclerotic calcifications of the abdominal aorta. XR/XR lumbar spine 2-3V IMPRESSION: 1. Mild multilevel degenerative disc disease in the thoracic spine. 2. Atherosclerotic calcifications of the abdominal aorta.
--- NOTE | ~2023-11-01 | XR_ITS ---
EXAMINATION: XR thoracic spine 2V, XR lumbar spine 2-3V CLINICAL INFORMATION: Back pain COMPARISON: None TECHNIQUE: 3 views of the thoracic spine and 3 views of the lumbar spine FINDINGS: THORACIC SPINE: Vertebral body heights are maintained. Alignment is maintained. Disc space heights are maintained. Paravertebral soft tissues are unremarkable. LUMBAR SPINE: 5 nonrib-bearing lumbar-type vertebral bodies. Vertebral body heights are maintained. Alignment is maintained. Mild multilevel degenerative disc disease with small disc osteophyte complexes. Atherosclerotic calcifications of the abdominal aorta. XR/XR thoracic spine 2V IMPRESSION: 1. Mild multilevel degenerative disc disease in the thoracic spine. 2. Atherosclerotic calcifications of the abdominal aorta.
== END 2023-11-01 10:25 | disposition home or self-care (01) ==
LOC: HO.XRAY 10:24
PROVIDERS: Visit Provider Internal Medicine
DX: M54.50 Low back pain, unspecified (principal); M54.6 Pain in thoracic spine
CPT/HCPCS: 72070; 72100

== ENCOUNTER 2023-11-29 10:28 | Outpatient (AMB) | payer OTHER, SELFPAY ==
[2023-11-29 10:31] VITALS: BP 114/72; PULSE 68; O2SAT 98; BMI 21.3
--- NOTE | 2023-11-29 10:31 | MHC.PC.OV ---
Vital Signs 11/29/23 10:31 Height 5 ft 3 in Weight 120 lb BMI 21.3 BP 114/72 Blood Pressure Location Lt brachial Position Sitting Pulse 68 Pulse Source Pulse Oximeter Pulse Oximetry (%) 98 Oxygen Delivery Method Room Air Intake Visit Reasons: Ear pain, Sinus Pressure Allergies amoxicillin [Amoxicillin] Allergy (Severe, Verified 11/29/23 10:32) NAUSEA & VOMITING, rash, hives ciprofloxacin [CIPROFLOXACIN] Allergy (Severe, Verified 11/29/23 10:32) VAGINAL BLEEDING nickel Allergy (Severe, Verified 11/29/23 10:32) Swelling clarithromycin [From Biaxin] Allergy (Mild, Verified 11/29/23 10:32) RASH MIGRAINE MEDICINE CAN NOT RECALL NAME Allergy (Severe, Uncoded 11/29/23 10:32) RAPID HEART RATE AND SWEATS Tobacco use date assessed: 10/30/23 Dental Screening Dental Screen Date: 11/29/23 Did you have a dental visit in the last 12 months?: Yes Did you have a dental problem in the last 6 months where you did not have access to dental care?: No Was dental information given to patient?: Patient has dentist HPI Ear pain, Sinus Pressure HPI Details bilateral ear R first 2 days blocked, feels warm - sore throat, prompting for consultation [facility] Medical History (Updated 10/30/23 @ 17:06 by Leon Truong MD) Hand swelling URI (upper respiratory infection) Swelling of right upper extremity Elbow pain, right Toe pain, left Hypercalcemia Exposure to COVID-19 virus Breast cancer screening by mammogram Pain and swelling of right ankle Dizziness Anxiety Asthma Pulmonary nodule Shortness of breath Developmental delay, mild Vitamin B12 deficiency Hypercholesterolemia Hypothyroid Allergic rhinitis Surgical History History of section Family History Father Skin cancer Myocardial infarction Mother No problems noted. Maternal Aunt Breast cancer Daughter In good health Brother Chronic mental illness Other Mental health problem Social History Housing: Apartment Alcohol intake: never Patient Tobacco Use Status: Never used Tobacco e-Cigarette/Vaping Use: Never Used Second Hand Smoke Exposure: No service: No Current occupational status: disabled Current occupational exposures/hazards: No Cognitive needs: No Hearing needs: No Vision needs: No Questionnaire PHQ-9 Over the last 2 weeks, how often have you been bothered by any of the following problems? 1. Little interest or pleasure in doing things: not at all 2. Feeling down, depressed, or hopeless: not at all 3. Trouble falling or staying asleep, or sleeping too much: not at all 4. Feeling tired or having little energy: not at all 5. Poor appetite or overeating: not at all 6. Feeling bad about yourself - or that you are a failure or have let yourself or your family down: not at all 7. Trouble concentrating on things, such as reading the newspaper or watching television: not at all 8. Moving or speaking so slowly that other people could have noticed. Or the opposite - being so fidgety or restless that you have been moving around a lot more than usual: not at all 9. Thoughts that you would be better off or of hurting yourself in some way: not at all Total score: 0 Depression Screening Interpretation: Negative Depression Screening Done: Yes Source: Developed by Drs. Jose Almanzar, Bessy Torres, Dat Davenport and colleagues, with an educational magdalena from [employer] Thrive Questionnaire Date Thrive assessed: 11/29/23 I am a: Patient What is your living situation today?: I have a steady place to live Within the past 12 months, did the food you bought not last and you didn't have the money to get more?: Never true Within the past 12 months, did you worry whether your food would run out before you got money to buy more?: Never true Do you have trouble paying for medicines?: No Do you have trouble getting transportation to medical appointments?: No Do you have trouble paying your heating and electricity bill?: No Do you have trouble taking care of your child, family member or friend?: No Do you have trouble with day-to-day activities such as bathing, preparing meals, shopping, managing finances, etc.?: No Are you currently unemployed and looking for a job?: No Are you interested in more education?: No Currently or been in a relationship where the following occur: no concerns reported THRIVE Score: 0 AUDIT C Alcohol Use Questionnaire (AUDIT-C) 1. How often do you have a drink containing alcohol?: Never 2. How many drinks containing alcohol do you have on a typical day when you are drinking?: 1 or 2 (0) 3. How often do you have six or more drinks on one occasion?: Never Total Score: 0 Score Reviewed/Action Taken: Yes EDELMIRA-7 AMB Questionnaire EDELMIRA-7 Date EDELMIRA - 7 assessed: 10/30/23 Source: Developed by Drs. Jose Almanzar, Bessy Torres, Dat Davenport and colleagues, with an educational magdalena from [employer]. Physical exam (Primary Care) Vital Signs: Last Vital Signs Pulse 68 11/29/23 10:31 BP 114/72 11/29/23 10:31 Pulse Ox 98 11/29/23 10:31 Oxygen Delivery Method Room Air 11/29/23 10:31 BMI result Body Mass Index 21.3 Tobacco/Smoking Status: Tobacco use Status Tobacco use date assessed 10/30/23 11/29/23 10:33 Patient Tobacco Use Status Never used Tobacco 11/29/23 10:33 e-Cigarette/Vaping Use Never Used 11/29/23 10:33 PHQ-9: PHQ-9 Score PHQ-9: Total score 0 11/29/23 10:46 Depression Screening Interpretation: Negative Thrive Assessment: Date of Thrive Assessment Date Thrive assessed 11/29/23 11/29/23 10:33 Currently or been in a relationship where the following occur: no concerns reported Const General: alert; No acute distress Eyes Conjunctivae: conjunctivae normal Resp Auscultation: clear to auscultation bilaterally Cardio Rate: regular rate Rhythm: regular rhythm GI Inspection: Yes normal to inspection Extrem General: Yes normal to inspection and No edema Assessment and Plan Assessment & Plan (1) Allergy: Code(s): T78.40XA - Allergy, unspecified, initial encounter Plan: Patient does have a pet at home advised to take allergy medication (2) Nasal congestion: Code(s): R09.81 - Nasal congestion Plan: Start with the allergy medication and if not any better the antibiotic has been prescribed. Medications: New fluticasone propionate 50 mcg/actuation (Flonase Allergy Relief) administer into each nostril 2 sprays intranasal DAILY 16 grams 0RF azithromycin (Zithromax) For 250 mg dose pack: take 500 mg today (day 1), then 250 mg for 4 days (days 2-5) PO 6 tabs 0RF R09.81 - Nasal congestion cetirizine (Zyrtec) 10 mg PO DAILY PRN 30 tabs 0RF allergy symptoms R09.81 - Nasal congestion Discontinued loratadine Discontinued Reason: Doctor's Order 10 mg PO DAILY 30 tabs 11RF Coding Level of Care Code Est Pt Level 3 (86575) Diagnoses Allergy T78.40XA Nasal congestion R09.81
== END 2023-11-29 11:30 | disposition home or self-care (01) ==
PROVIDERS: PCP Internal Medicine; Visit Provider Internal Medicine
DX: T78.40XA Allergy, unspecified, initial encounter (principal); R09.81 Nasal congestion
CPT/HCPCS: 99213

== ENCOUNTER 2024-01-16 13:00 | Outpatient (RCR) | payer OTHER, SELFPAY ==
--- NOTE | 2023-11-30 14:05 | MHC.PT.EP ---
[facility] [place] Office [place] Office [place] Office [address] [place] [address] [phone] F: [phone] F: [phone] F: [phone] F: [phone] Physical Therapy Plan of Care Date of Evaluation: 11/30/23 Date of Surgery: Diagnosis: LOW BACK PAIN Assessment: 42 YO FEMALE REF TO PT FOR LBP , INSIDUOS ONSET- NOTES SHE HAS HAD 2 C-SECTIONS AND IS VEY BUSY CARING FOR HER 2 DTRS. SHE HAS DCER POSTURAL AWARENESS, WEAK ABDOMINALS/ LUMBOPELVIC REGION, STRENGTH DEFICITS IN MID BACK/THOR REGION, (+) COMPENSATORY LUMBAR HYPERLORDOSIS, AND (+) TISSUE TENSION ALYSIA THORACOLUMB. FUNCTIONALLY, THE Pt IS LIMITED W LIFTING, PROLONGED STANDING, INCR HOUSECHORES, AND TOP SCREW TASKS. SHE WOULD BENEFIT FROM PT TO ADDRESS THE ABOVE, DEV A HEP-> EFFICIENT ENGAGEMENT OF ABDOMINALS, AND IMPROVED BODY MECHANICS. Frequency and Duration: The patient will be seen 2 x WK x 4 WKS Short Term Goals: *INITIATE HEP TO IMPROVE LUMBOPELVIC STABILITY *Pt'S LB PAIN DECR TO 2-3/10 *INCR FLEXIB IN PSOAS/CALF MM *Pt DEMON APPROP BODY MECH W SIMUL TOP SCREW TASKS WELL [employer]SECHORES Procurement Officer Goals: *Pt WILL IMPROVE LUMBOPELVIC/ Lt LE STRENGTH BY 1 GRADE *Pt INDEP W PROGRESSIVE HEP AND SELF-SX MGMT TECHN Pt RESUME REG ADLs / FITNESS WALKING , EVIDENT W IMPROVED OSWESTRY SCORE (AT EVAL 50 ) Treatment Plan: Modalities to reduce pain, spasms and effusion. Manual therapy to restore motion and function. Therapeutic exercise to improve strength and flexibility. Neuromuscular re-education for posture and balance. Therapeutic activities to return to functional activities of daily living. Electronically signed by: RULA GORDON,PT Please sign and return to therapist. Thank you for your referral.
--- NOTE | 2024-01-16 14:01 | MHC.PT.DC ---
[facility] [place] Office [place] Office [place] Office [address] [place] [address] [phone] F: [phone] F: [phone] F: [phone] F: [phone] Physical Therapy Discharge Report Diagnosis: LOW BACK PAIN Date of Surgery: Date of Evaluation: 11/30/23 Date of Discharge: 01/16/24 Treatments to Date: 8 Cancellations to Date: 1 No Shows to Date: 1 Discharge Status: Achieved Goals Improved Function Independent with HEP Discharge Summary: TERRELL HAS PROGRESSED NICELY IN PT-> SHE REMAINS MOTIVATED W HER HEP, SHE HAS WFL TRUNK AROM, APPROP BODY MECH W SIMUL ADLs, WFL LEs FLEXIB, AND DEMON IMPROVED/ EFFICIENT ABDOMINAL ACTIV/STABILIZATION- ULTIMATELY , SHE HER LBP HAS RESOLVED AND SHE HAS BEEN ABLE TO RETURN TO REGULAR FITNESS/ EXER. HER OSWESTRY SCORE IMPROVED 13/50 TO 4/50 AT EVAL. SHE HAS MET HER PT GOALS AND IS D/C'D THIS DATE FROM PT. Electronically signed by: RULA GORDON,PT Please sign and return to therapist. Thank you for your referral.
== END 2024-01-16 14:01 | disposition home or self-care (01) ==
LOC: HO.PT 13:00
PROVIDERS: PCP Internal Medicine; Visit Provider Internal Medicine
DX: M54.50 Low back pain, unspecified (principal); M54.6 Pain in thoracic spine
CPT/HCPCS: 97110; 97162; 97530

== ENCOUNTER 2024-01-17 13:48 | Outpatient (AMB) | payer OTHER, SELFPAY ==
[2024-01-17 13:53] VITALS: PULSE 80; O2SAT 100; BMI 21.2
--- NOTE | 2024-01-17 13:53 | MHC.OFFVIS ---
Vital Signs 01/17/24 13:53 Height 5 ft 3 in Weight 119 lb 14.903 oz BMI 21.2 Pulse 80 Pulse Source Pulse Oximeter Pulse Oximetry (%) 100 Oxygen Delivery Method Room Air Intake Visit Reasons: asthma Therapeutic Case Manager Required: No Allergies amoxicillin [Amoxicillin] Allergy (Severe, Verified 01/17/24 13:56) NAUSEA & VOMITING, rash, hives ciprofloxacin [CIPROFLOXACIN] Allergy (Severe, Verified 01/17/24 13:56) VAGINAL BLEEDING nickel Allergy (Severe, Verified 01/17/24 13:56) Swelling clarithromycin [From Biaxin] Allergy (Mild, Verified 01/17/24 13:56) RASH MIGRAINE MEDICINE CAN NOT RECALL NAME Allergy (Severe, Uncoded 01/17/24 13:56) RAPID HEART RATE AND SWEATS HPI Comments Details: The patient is a 41-year-old woman with a known history of allergic rhinitis and also allergic asthma. 01/17/2024 the patient is here for sick visit. The patient started developing worsening respiratory symptoms for the last week. Positive sick contacts. Complains of a sore throat and postnasal drip. She has also had worsening cough. Feels like is going down to the lungs. Some chest congestion as well. She has been using her nebulizer and also her respiratory medications. She did test negative for COVID. [facility] Medical History (Updated 10/30/23 @ 17:06 by Leon Truong MD) Hand swelling URI (upper respiratory infection) Swelling of right upper extremity Elbow pain, right Toe pain, left Hypercalcemia Exposure to COVID-19 virus Breast cancer screening by mammogram Pain and swelling of right ankle Dizziness Anxiety Asthma Pulmonary nodule Shortness of breath Developmental delay, mild Vitamin B12 deficiency Hypercholesterolemia Hypothyroid Allergic rhinitis Surgical History History of section Family History Father Skin cancer Myocardial infarction Mother No problems noted. Maternal Aunt Breast cancer Daughter In good health Brother Chronic mental illness Other Mental health problem Social History Housing: Apartment Alcohol intake: never Patient Tobacco Use Status: Never used Tobacco e-Cigarette/Vaping Use: Never Used Second Hand Smoke Exposure: No service: No Current occupational status: disabled Current occupational exposures/hazards: No Cognitive needs: No Hearing needs: No Vision needs: No Review of Systems Const Denies night sweats ENT Denies change in voice, Reports hoarseness, Denies lip swelling, Denies mouth pain, Reports nasal congestion, Reports nasal discharge, Reports sore throat and Denies tongue swelling Card Denies chest pain and Reports dyspnea on exertion Resp Reports chest congestion, Reports cough, Reports dyspnea on exertion and Reports wheezing GI Denies abdominal pain Musc Denies no additional complaints Neuro Denies Neuro-related abnormal movements Psych Reports anxiety Alex/Lymph Denies easy bleeding and Denies lymphadenopathy Aller/Immun Denies lip swelling, Denies tongue swelling and Reports wheezing Physical Exam Vital Signs: Last Vital Signs Pulse 80 01/17/24 13:53 Pulse Ox 100 01/17/24 13:53 Oxygen Delivery Method Room Air 01/17/24 13:53 BMI result Body Mass Index 21.2 Const General: comfortable, no acute distress and alert HEENT Head: Yes atraumatic Neck Neck: Yes no lymphadenopathy Thyroid: Thyroid normal Chest Chest palpation & inspection: normal inspection of the chest Resp Effort & Inspection: normal respiratory effort Auscultation: rhonchi, wheezes and diminished lung sounds Cardio Jugular venous distension: no JVD Palpation: normal PMI Rate: regular rate Rhythm: regular rhythm Heart sounds: S1 normal heart sound present and S2 normal heart sound present GI Palpation (GI): Soft to palpation Skin General skin exam: no rashes or lesions noted Extrem General: Yes no clubbing, cyanosis or edema Assessment & Plan Assessment & Plan (1) Asthma: Code(s): J45.909 - Unspecified asthma, uncomplicated Category: Medical Qualifiers: Asthma severity: moderate Asthma persistence: persistent Asthma complication type: with acute exacerbation Qualified Code(s): J45.41 - Moderate persistent asthma with (acute) exacerbation (2) Allergic rhinitis: Code(s): J30.9 - Allergic rhinitis, unspecified Category: Medical Qualifiers: Allergic rhinitis trigger: unspecified Allergic rhinitis seasonality: seasonal Qualified Code(s): J30.2 - Other seasonal allergic rhinitis (3) Upper respiratory infection: Code(s): J06.9 - Acute upper respiratory infection, unspecified Category: Medical Qualifiers: URI type: acute laryngopharyngitis Qualified Code(s): J06.0 - Acute laryngopharyngitis Plan Start Zpack Start predniosne Mucinex continue Trelegy 200 KIM as needed Claritin PO daily Continue Singulair continue pseudophed as needed Follow-up in 6 months Medications: New prednisone PO daily; Take 2 tabs daily x 5 days, then 1 tablet daily x 5 days 15 tabs 0RF 10 days azithromycin 500 mg PO DAILY 5 tabs 0RF 5 days Refilled montelukast 10 mg PO BEDTIME 90 tabs 3RF albuterol sulfate 2.5 mg (3 mL) inhalation Q4H PRN 180 mL 11RF shortness of breath or wheezing 30 days Coding Level of Care Code Est Pt Level 4 (60565) Diagnoses Moderate persistent asthma with acute exacerbation J45.41 Asthma severity: moderate Asthma persistence: persistent Asthma complication type: with acute exacerbation Seasonal allergic rhinitis, unspecified trigger J30.2 Allergic rhinitis trigger: unspecified Allergic rhinitis seasonality: seasonal Acute laryngopharyngitis J06.0 URI type: acute laryngopharyngitis Time Spent (min) 16
== END 2024-01-17 14:30 | disposition home or self-care (01) ==
PROVIDERS: PCP Internal Medicine; Visit Provider Hospitalist
DX: J45.41 Moderate persistent asthma with (acute) exacerbation (principal); J30.2 Other seasonal allergic rhinitis; J06.0 Acute laryngopharyngitis
CPT/HCPCS: 99214

== ENCOUNTER → 2024-01-17 13:48 | Outpatient (BNVA) | payer OTHER, SELFPAY | PROVIDERS: PCP Internal Medicine; Visit Provider Hospitalist | DX: J45.41 Moderate persistent asthma with (acute) exacerbation (principal); J30.2 Other seasonal allergic rhinitis; J06.0 Acute laryngopharyngitis | CPT/HCPCS: 99212 ==

== ENCOUNTER 2024-04-04 18:03 | Emergency (ER) | payer OTHER, SELFPAY ==
--- NOTE | ~2024-04-04 | US_ITS ---
EXAMINATION: US VENOUS ULTRASOUND WITH DOPPLER LOWER EXTREMITY, RIGHT CLINICAL INFORMATION: Right lower extremity edema. Evaluate for deep vein thrombosis. COMPARISON: None available. TECHNIQUE: Ultrasound of the deep veins is performed from the hip to the calf with compression sonography and color and pulse Doppler assessment. Spectral analysis with color-flow imaging is performed. FINDINGS: There is normal venous compression and respiratory variation and augmented flow. The visualized common femoral vein, superficial femoral vein, profunda femoral vein, popliteal vein, and the trifurcation region shows no evidence of deep venous thrombosis. There is no significant popliteal fossa cyst. If the patient's symptoms persist, followup ultrasound in 5 days 7 days might be of value to exclude proximal propagation from a non-visualized calf vein. US/US venous duplex LE RT IMPRESSION: No DVT demonstrated in the right lower extremity.
[2024-04-04 18:44] VITALS: BP 128/84; BP 139/52; PULSE 65; PULSE 80; RESP 16; TEMP 36.6; O2SAT 99; BMI 22.7
--- NOTE | 2024-04-04 18:45 | ED_ITS ---
HPI - General Adult General Chief complaint: Extremity Problem Stated complaint: right leg pain Time Seen by Provider: 04/04/24 19:22 Source: patient, RN notes reviewed and old records reviewed Mode of arrival: ambulatory Limitations: no limitations History of Present Illness ED Provider: ABY PETE PA-C HPI narrative: 43 year old female with pmhx significant for anxiety, asthma, hypothyroid, HDL, developmental delay presents to the ED today for evaluation of atrauamtic swelling to right foot and right ankle over the last few days. She states that the swelling is now progressing and extending up her right lower extremity. Reports pain in the thigh now radiating down her right leg. Denies trauma/ injury. Denies recent travel or long car rides. Denies oral contraceptive use. Denies fever, chills, chest pain, shortness of breath, palpitations, hemoptysis. Related Data Home Medications ?Medication ?Instructions ?Recorded ?Confirmed norethindrone 1 mg-ethinyl 1 tab PO DAILY 08/16/20 10/30/23 estradiol 35 mcg tablet nebulizers 01/16/23 10/30/23 cholecalciferol (vitamin D3) 50 50 mcg PO DAILY 07/09/23 10/30/23 mcg (2,000 unit) tablet cyanocobalamin (vitamin B-12) 1,000 mcg PO DAILY 07/09/23 10/30/23 1,000 mcg tablet ferrous sulfate 325 mg (65 mg 325 mg PO DAILY 07/09/23 10/30/23 iron) tablet (FeroSul) omega 0-eor-aou-fish oil 1,200 mg cap PO 07/09/23 10/30/23 (144 mg-216 mg) capsule (Fish Oil) Previous Rx's ?Medication ?Instructions ?Recorded triamcinolone acetonide 0.5 % 1 appl topical BID #15 grams 04/28/21 topical cream ipratropium 0.5 mg-albuterol 3 mg 3 ml inhalation Q4-6H PRN for 08/22/21 (2.5 mg base)/3 mL nebulization wheezing #90 mL soln albuterol sulfate 90 mcg/actuation 2 puff PO Q6H PRN wheezing 30 days 11/24/22 aerosol inhaler #1 ea fluticasone fur. 200 mcg-umeclid 1 ea PO DAILY #60 ea 01/16/23 62.5 mcg-vilant 25 mcg inhalat.powder (Trelegy Ellipta) fenofibrate 160 mg tablet 160 mg PO DAILY #90 tabs 10/12/23 cyclobenzaprine 5 mg tablet 5 mg PO TID PRN muscle spasm #30 10/30/23 tabs naproxen 500 mg tablet 500 mg PO BID #30 tabs 10/30/23 cetirizine 10 mg tablet (Zyrtec) 10 mg PO DAILY PRN allergy 12/26/23 symptoms #30 tabs fluticasone propionate 50 2 spray intranasal DAILY #16 grams 12/26/23 mcg/actuation nasal spray,suspension (Flonase Allergy Relief) albuterol sulfate 2.5 mg/3 mL 2.5 mg (3 mL) inhalation Q4H PRN 01/17/24 (0.083 %) solution for nebulization shortness of breath or wheezing 30 days #180 mL azithromycin 500 mg tablet 500 mg PO DAILY 5 days #5 tabs 01/17/24 montelukast 10 mg tablet 10 mg PO BEDTIME #90 tabs 01/17/24 prednisone 20 mg tablet See Rx Instructions PO DAILY 10 01/17/24 days #15 tabs simvastatin 5 mg tablet 5 mg PO BEDTIME #90 tabs 02/15/24 levothyroxine 100 mcg tablet 100 mcg PO DAILY 90 days #90 tabs 02/25/24 lidocaine 5 % topical patch 1 patch topical DAILY #15 ea 04/04/24 (Lidoderm) naproxen 500 mg tablet 500 mg PO Q8-12H PRN pain (scale 04/04/24 score 1-3) #20 tabs Allergies Allergy/AdvReac Type Severity Reaction Status Date / Time amoxicillin [Amoxicillin] Allergy Severe NAUSEA & Verified 04/04/24 18:45 VOMITING, rash, hives ciprofloxacin [CIPROFLOXACIN] Allergy Severe VAGINAL Verified 04/04/24 18:45 BLEEDING nickel Allergy Severe Swelling Verified 04/04/24 18:45 clarithromycin [From Biaxin] Allergy Mild RASH Verified 04/04/24 18:45 MIGRAINE MEDICINE CAN NOT Allergy Severe RAPID Uncoded 04/04/24 18:45 RECALL NAME HEART RATE AND SWEATS Review of Systems Review of Systems: Constitutional: No fever, chills, fatigue, night sweats, weight changes ENT/Mouth: No ear pain, hearing loss, nasal congestion, sinus pain, rhinorrhea, sore throat Eyes: No eye pain, swelling, redness, vision changes, discharge Cardio: No chest pain, palpitations, LEVINE, orthopnea, peripheral edema Pulm: No SOB, cough, sputum, wheezing, dyspnea, hemoptysis GI: No nausea, vomiting, hematemesis, abdominal pain, diarrhea, constipation, hematochezia, melena : No irregular bleeding, dysuria, frequency, urgency, hesitancy, hematuria, flank pain, urinary flow changes, urinary incontinence or retention MSK: No back pain, neck pain, joint pain, myalgias, +right leg pain Skin: No lesions, rashes Neuro: No weakness, numbness, paresthesias, LOC, dizziness, headache Psych: No anxiety/panic, depression, SI/HI, AH/VH All other systems reviewed and are negative. [facility] Past Medical History Attestation statement: The following information was validated with the patient. Source: old records reviewed and nursing notes reviewed Medical History Hand swelling URI (upper respiratory infection) Swelling of right upper extremity Elbow pain, right Toe pain, left Hypercalcemia Exposure to COVID-19 virus Breast cancer screening by mammogram Pain and swelling of right ankle Dizziness Anxiety Asthma Pulmonary nodule Shortness of breath Developmental delay, mild Vitamin B12 deficiency Hypercholesterolemia Hypothyroid Allergic rhinitis Surgical History History of section Family History Family History Father Skin cancer Myocardial infarction Mother No problems noted. Maternal Aunt Breast cancer Daughter In good health Brother Chronic mental illness Other Mental health problem Social History Social History Housing: Apartment Alcohol intake: never Patient Tobacco Use Status: Never used Tobacco e-Cigarette/Vaping Use: Never Used Second Hand Smoke Exposure: No service: No Current occupational status: disabled Current occupational exposures/hazards: No Cognitive needs: No Hearing needs: No Vision needs: No Physical Exam ED Vital Signs: Vital Signs - 24 hr 04/04/24 18:44 Temperature 97.9 F Pulse Rate 65 Respiratory Rate 16 Blood Pressure 139/52 L Pulse Oximetry 99 Oxygen Delivery Method Room Air BMI result Body Mass Index 22.7 Vital signs stable Const General: cooperative, healthy appearing, comfortable and no acute distress Orientation/consciousness: patient oriented x3 Limitations: no limitations HENMT Head: Yes normal to inspection, Yes No palpable skull fracture present, Yes normocephalic and Yes atraumatic Eyes General: appearance normal, both eyes and all related structures Pupils: Equal, round and reactive pupils present Resp Effort & Inspection: normal respiratory effort and able to speak in complete sentences Auscultation: clear to auscultation bilaterally Cardio Rate: regular rate Rhythm: regular rhythm GI Inspection: Yes normal to inspection Palpation (GI): Soft to palpation and nontender Back/Spine/Pelvis Other: No midline spinous tenderness or step off deformity. No paraspinal muscle tenderness. Skin General skin exam: no rashes or lesions noted Neuro Other: Strength 5/5 intact throughout. Sensation intact to light touch.? Neurovascular intact distally.? General: patient oriented x3 Cranial nerves: Yes Equal, round and reactive pupils present Extrem Other: + no noted swelling or overlying skin changes noted to LLE. Left lower extremity appears equal to the right lower extremity. No obvious deformity. No pitting or peripheral edema. No calf tenderness bilaterally. 2+ PT/DP/popliteal pulse intact. Sensation intact to light touch. 2+ patellar DTRs intact b ilaterally. Ambulating with steady gait. Course Course Course Narrative: This is an RME performed by Izzy Wang CNP: Additional HPI, ROS, PE not included below will be deferred to primary provider. Patient is a 43-year-old female to the emergency department for evaluation of swelling to right foot and ankle over the past few days that is progressing and extending up the lower extremity can not pain in the thigh radiating down her leg. Exam: The right lower extremity is without edema upon examination, appears symmetric compared to the left, 2+ DP/PT bilaterally. She insists that at this time it does appear visibly swollen to her and feels very tight and painful. Plan: Venous duplex ultrasound Reevaluation(s) Reevaluation #1: 2009-- venous duplex does not demonstrate DVT to her right lower extremity. On my exam, patient has good DP, PT and popliteal pulses. There is no swelling noted. No calf tenderness. No erythema of the leg. Right lower extremity symmetric to the left. I am not concerned for acute arterial occlusion or threat to limb. > patient given Toradol in ED for pain. Will send naproxen and lidocaine patches to pharmacy. I advised her to follow up with her primary care provider as needed. Patient has remained stable throughout ED visit today. Discussed worrisome signs and symptoms and when to return to the ED. All questions answered at this time. Patient is agreeable with disposition and stable for discharge. Medications Administered Discontinued Medications Generic Name Dose Route Start Last Admin Trade Name Rodger PRN Reason Stop Dose Admin Ketorolac Tromethamine 30 mg 04/04/24 20:04 04/04/24 20:16 Ketorolac Tromethamine 30 Mg/Ml Vial IM 04/04/24 20:05 30 mg ONCE ONE Administration Medical Decision Making Medical Decision Making MDM Narrative: 43 year old female with pmhx significant for anxiety, asthma, hypothyroid, HDL, developmental delay presents to the ED today for evaluation of atrauamtic swelling to right foot and right ankle over the last few days. Vital signs stable. Vital signs stable, not hypoxic, not tachycardic. She is nontoxic appearing in no acute distress. On exam of the lower extremities, there is no noted swelling or overlying skin changes noted to LLE. Left lower extremity appears equal to the right lower extremity. No obvious deformity. No pitting or peripheral edema. No calf tenderness bilaterally. 2+ PT/DP/popliteal pulse intact. Sensation intact to light touch. 2+ patellar DTRs intact bilaterally. Ambulating with steady gait. No midline spinous tenderness or step off deformity. No paraspinal muscle tenderness. Differential diagnosis includes DVT, msk sprain/strain. low suspicion for fracture, sciatica. unlikely acute arterial occlusion, threat to limb, neurovascular compromise, compartment syndrome, cauda equina. Venous duplex ultrasound ordered prior to my assumption of care. Plan to review and re-evaluate. Differential Diagnosis Differential Diagnoses: The differential diagnosis associated with the presentation includes as above. Admission/Observation Not indicated. Independent Interpretation I performed an independent interpretation of an: Ultrasound Interpretation: Venous duplex of right lower extremity without DVT, agree with radiologist's interpretation. Radiology Impression Discussion of test interpretation with radiology: I have reviewed the radiologist's reading. Radiologist Impression: EXAMINATION: US VENOUS ULTRASOUND WITH DOPPLER LOWER EXTREMITY, RIGHT CLINICAL INFORMATION: Right lower extremity edema. Evaluate for deep vein thrombosis. COMPARISON: None available. TECHNIQUE: Ultrasound of the deep veins is performed from the hip to the calf with compression sonography and color and pulse Doppler assessment. Spectral analysis with color-flow imaging is performed. FINDINGS: There is normal venous compression and respiratory variation and augmented flow. The visualized common femoral vein, superficial femoral vein, profunda femoral vein, popliteal vein, and the trifurcation region shows no evidence of deep venous thrombosis. There is no significant popliteal fossa cyst. If the patient's symptoms persist, followup ultrasound in 5 days 7 days might be of value to exclude proximal propagation from a non-visualized calf vein. US/US venous duplex LE RT IMPRESSION: No DVT demonstrated in the right lower extremity. External Record Review External record reviewed: Inpatient record Tests considered The following testing was considered but not selected: I considered obtaining basic labs however no concern for acute infection, exam benign, not warranted at this time. I considered obtaining xrays however exam benign, no concer for fracture, not warranted. Prescription Management I considered prescription management with: Pain Medication (naproxen, lido patch) Social Determinants Patient?s care significantly limited by Social Determinants of Health including: Other Social Determinant of Health Critical Care Time Critical Care Time Critical Care Time: No Discharge Plan Discharge Clinical Impression: Lower extremity pain, right Patient Disposition: Home, Self-Care Instructions: Leg Pain (ED) Additional Instructions: The ultrasound of your right leg is normal. Naproxen is an anti-inflammatory pain medication that has been sent to your pharmacy for you to take as needed for pain. Lidocaine patches have been sent to your pharmacy. You may apply these to painful areas. Please follow-up with your primary care provider. Return to the ED with new or worsening symptoms. In the case of an emergency call 911. Prescriptions: New lidocaine [Lidoderm] 5 % adhesive patch,medicated 1 patch topical DAILY Qty: 15 0RF Rx Instructions: leave on most painful area for up to 12 hrs naproxen 500 mg tablet 500 mg PO Q8-12H PRN (Reason: pain (scale score 1-3)) Qty: 20 0RF No Action ipratropium-albuterol 0.5 mg-3 mg(2.5 mg base)/3 mL solution for nebulization 3 ml inhalation Q4-6H PRN (Reason: for wheezing) Qty: 90 1RF albuterol sulfate 90 mcg/actuation HFA aerosol inhaler 2 puff PO Q6H PRN (Reason: wheezing) 30 Days Qty: 1 11RF ferrous sulfate [FeroSul] 325 mg (65 mg iron) tablet 325 mg PO DAILY cyanocobalamin (vitamin B-12) 1,000 mcg tablet 1,000 mcg PO DAILY omega 9-roz-xey-fish oil [Fish Oil] 1,200 (144-216) mg capsule PO cholecalciferol (vitamin D3) 50 mcg (2,000 unit) tablet 50 mcg PO DAILY fenofibrate 160 mg tablet 160 mg PO DAILY Qty: 90 1RF cetirizine [Zyrtec] 10 mg tablet 10 mg PO DAILY PRN (Reason: allergy symptoms) Qty: 30 0RF fluticasone propionate [Flonase Allergy Relief] 50 mcg/actuation spray,suspension 2 spray intranasal DAILY Qty: 16 0RF Rx Instructions: administer into each nostril simvastatin 5 mg tablet 5 mg PO BEDTIME Qty: 90 1RF levothyroxine 100 mcg tablet 100 mcg PO DAILY 90 Days Qty: 90 2RF triamcinolone acetonide 0.5 % cream 1 appl topical BID Qty: 15 0RF naproxen 500 mg tablet 500 mg PO BID Qty: 30 0RF cyclobenzaprine 5 mg tablet 5 mg PO TID PRN (Reason: muscle spasm) Qty: 30 0RF A[place]acen 1/35 (28) 1-35 mg-mcg tablet 1 tab PO DAILY (DME) nebulizers Misc See Rx Instructions .Route Rx Instructions: As directed Trelegy Ellipta 200-62.5-25 mcg blister with device 1 ea PO DAILY Qty: 60 12RF montelukast 10 mg tablet 10 mg PO BEDTIME Qty: 90 3RF prednisone 20 mg tablet See Rx Instructions PO DAILY 10 Days Qty: 15 0RF Rx Instructions: PO daily; Take 2 tabs daily x 5 days, then 1 tablet daily x 5 days azithromycin 500 mg tablet 500 mg PO DAILY 5 Days Qty: 5 0RF albuterol sulfate 2.5 mg /3 mL (0.083 %) solution for nebulization 2.5 mg inhalation Q4H PRN (Reason: shortness of breath or wheezing) 30 Days Qty: 180 11RF Interventions: ED Discharge Assessment Last Done: 04/04/24 20:32 Discharge Date/Time: 04/04/24 20:32 Print Language: Turkish
[2024-04-04] MEDS: Ketorolac Tromethamine 30 MG/ML VIAL IM (20:16)
[2024-04-04 20:32] VITALS: BP 139/52; PULSE 65; RESP 16; TEMP 36.6; O2SAT 99
== END 2024-04-04 20:32 | disposition home or self-care (01) ==
PROVIDERS: Emergency Provider Emergency Medicine
DX: M79.604 Pain in right leg (principal)
CPT/HCPCS: 93971; 96372; 99283; 99284; J1885

== ENCOUNTER 2024-04-11 14:41 | Outpatient (AMB) | payer OTHER, SELFPAY ==
[2024-04-11 14:43] VITALS: BP 98/62; PULSE 77; O2SAT 99; BMI 22.5
--- NOTE | 2024-04-11 14:43 | MHC.PC.OV ---
Vital Signs 04/11/24 14:43 Height 5 ft 4 in Weight 131 lb 0.3 oz BMI 22.5 BP 98/62 Blood Pressure Location Lt brachial Position Sitting Pulse 77 Pulse Source Pulse Oximeter Pulse Oximetry (%) 99 Oxygen Delivery Method Room Air Intake [place] [facility] [place] pain Intake Note: Patient is here to follow-up after a visit the emergency department at [facility] [place] 04/04/2024 Hospital Security Officer Required: No Allergies amoxicillin [Amoxicillin] Allergy (Severe, Verified 04/11/24 14:43) NAUSEA & VOMITING, rash, hives ciprofloxacin [CIPROFLOXACIN] Allergy (Severe, Verified 04/11/24 14:43) VAGINAL BLEEDING nickel Allergy (Severe, Verified 04/11/24 14:43) Swelling clarithromycin [From Biaxin] Allergy (Mild, Verified 04/11/24 14:43) RASH MIGRAINE MEDICINE CAN NOT RECALL NAME Allergy (Severe, Uncoded 04/11/24 14:43) RAPID HEART RATE AND SWEATS Medication List - Last Reconciled 04/11/24 by Pia Engle PA-C albuterol sulfate 90 mcg/actuation 2 puffs PO Q6H PRN 30 days albuterol sulfate 2.5 mg (3 mL) inhalation Q4H PRN 30 days cetirizine (Zyrtec) 10 mg PO DAILY PRN cholecalciferol (vitamin D3) 50 mcg PO DAILY cyanocobalamin (vitamin B-12) 1,000 mcg PO DAILY cyclobenzaprine 5 mg PO TID PRN fenofibrate 160 mg PO DAILY ferrous sulfate (FeroSul) 325 mg PO DAILY fluticasone propionate 50 mcg/actuation (Flonase Allergy Relief) 2 sprays intranasal DAILY rzxoqqlaocr-yggbmozft-qhdqccsb 200-62.5-25 mcg (Trelegy Ellipta) 1 ea PO DAILY ipratropium-albuterol 0.5 mg-3 mg(2.5 mg base)/3 mL 3 mL inhalation Q4-6H PRN levothyroxine 100 mcg PO DAILY 90 days lidocaine 5% (Lidoderm) 1 patch topical DAILY montelukast 10 mg PO BEDTIME naproxen 500 mg PO Q8-12H PRN naproxen 500 mg PO BID nebulizers As directed norethindrone-ethin estradiol 1-35 mg-mcg 1 tab PO DAILY omega 6-lun-okc-fish oil 1,200 (144-216) mg (Fish Oil) caps PO simvastatin 5 mg PO BEDTIME triamcinolone acetonide 0.5% 1 appl topical BID Tobacco use date assessed: 10/30/23 Dental Screening Dental Screen Date: 11/29/23 [facility] 04/04 right leg pain HPI Details 43-year-old female with past medical history of hypothyroid, hypercholesterolemia, pernicious anemia, asthma COPD overlap syndrome, and impaired glucose tolerance last seen by Dr. Truong 11/2023 coming in for ER follow up. Under review of the notes, patient was seen in [facility] [place] for atraumatic swelling of the right foot and right ankle. Ultrasound of the right extremity did not demonstrate DVT, patient was given Toradol for pain and was sent naproxen and lidocaine patches and discharged home. Patient was seen by pulmonology 01/17/2024 for upper respiratory infection given Z-Jesu and prednisone and continue on normal med regimen follow up in 6 months. Patient states she is continually having the right thigh, knee and lower extremity pain. She states the lower extremity sometimes feels cold but denies any loss of sensation, burning sensation, or shooting pain. She has pain while walking and at rest. She does say the swelling is worse on the right side and has had to adjust which she is wearing to accommodate for the swelling. She denies any hip pain or any history of arthritis. Denies any recent injury, is not a tobacco smoker, no recent travel, and no recent immobilization. [facility] Medical History Hand swelling URI (upper respiratory infection) Swelling of right upper extremity Elbow pain, right Toe pain, left Hypercalcemia Exposure to COVID-19 virus Breast cancer screening by mammogram Pain and swelling of right ankle Dizziness Anxiety Asthma Pulmonary nodule Shortness of breath Developmental delay, mild Vitamin B12 deficiency Hypercholesterolemia Hypothyroid Allergic rhinitis Surgical History History of section Family History Father Skin cancer Myocardial infarction Mother No problems noted. Maternal Aunt Breast cancer Daughter In good health Brother Chronic mental illness Other Mental health problem Social History Housing: Apartment Alcohol intake: never Patient Tobacco Use Status: Never used Tobacco e-Cigarette/Vaping Use: Never Used Second Hand Smoke Exposure: No service: No Current occupational status: disabled Current occupational exposures/hazards: No Cognitive needs: No Hearing needs: No Vision needs: No Questionnaire Thrive Questionnaire Date Thrive assessed: 11/29/23 AUDIT C Alcohol Use Questionnaire (AUDIT-C) 1. How often do you have a drink containing alcohol?: Never 2. How many drinks containing alcohol do you have on a typical day when you are drinking?: 1 or 2 (0) 3. How often do you have six or more drinks on one occasion?: Never Total Score: 0 Score Reviewed/Action Taken: Yes EDELMIRA-7 AMB Questionnaire EDELMIRA-7 Date EDELMIRA - 7 assessed: 10/30/23 Source: Developed by Drs. Jose Almanzar, Bessy Torres, Dat Davenport and colleagues, with an educational magdalena from [employer]. Review of Systems Const Denies body aches, Denies fatigue, Denies fever(s), Denies frequent falls and Denies weakness Eyes Reports no additional complaints and Denies change in vision ENT Denies dizziness Card Denies chest pain, Denies irregular heart rhythm, Reports leg edema (Right thigh), Denies lightheadedness and Denies dyspnea Resp Denies cough and Denies dyspnea GI Denies nausea Musc Details: Right thigh and swelling and pain Denies back pain and Denies myalgias Skin/Breast Reports system reviewed and no additional complaints, except as documented Neuro Denies dizziness, Denies frequent falls and Denies weakness Psych Reports no additional complaints Endo Denies fatigue Physical exam (Primary Care) Vital Signs: Last Vital Signs Pulse 77 04/11/24 14:43 Pulse Ox 99 04/11/24 14:43 Oxygen Delivery Method Room Air 04/11/24 14:43 BMI result Body Mass Index 22.5 Tobacco/Smoking Status: Tobacco use Status Tobacco use date assessed 10/30/23 04/07/24 15:37 Patient Tobacco Use Status Never used Tobacco 04/07/24 15:37 e-Cigarette/Vaping Use Never Used 04/07/24 15:37 Thrive Assessment: Date of Thrive Assessment Date Thrive assessed 11/29/23 04/07/24 15:37 Const General: cooperative, healthy appearing, comfortable and no acute distress Orientation/consciousness: patient oriented x3 HENMT Head: Yes normocephalic Ears: hearing grossly normal bilaterally General nose exam: Normal external nose present Eyes General: appearance normal, both eyes and all related structures Conjunctivae: conjunctivae normal Neck Neck: Yes full ROM and Yes no lymphadenopathy Resp Effort & Inspection: normal respiratory effort Auscultation: clear to auscultation bilaterally, no crackles, no rales, no rhonchi and no wheezes Cardio Rate: regular rate Rhythm: regular rhythm Skin General skin exam: no rashes or lesions noted Neuro General: patient oriented x3 Gait exam (Neuro): Normal gait present Extrem Other: Right thigh, knee and anterior aspect of the lower leg tender to palpation without swelling, redness, skin changes or warmth. Pulses and sensation intact bilaterally. Strength 5/5 left lower extremity and 4/5 right lower extremity limited due to pain. Crepitus in bilateral knees General: Yes normal to inspection, Yes full ROM and No edema Psych Affect: normal affect Attitude: cooperative Insight: Good insight present (Psych) Judgement: Good judgement present (Psych) Assessment and Plan Assessment & Plan (1) Knee pain: Code(s): M25.569 - Pain in unspecified knee Qualifiers: Chronicity: acute Laterality: right Qualified Code(s): M25.561 - Pain in right knee Plan: Pain and swelling in right lower extremity appears to be related to right knee pain. DVT ruled out at hospital and physical exam findings not consistent with DVT. Patient has not had previous x-rays of the right knee which were ordered at this visit. She has no personal history of arthritis. She has been having moderate relief from elevation and lidocaine patches. We will send over Voltaren gel for patient to trial in the knee and continue to elevate the knee when possible, use Tylenol as needed for pain. We will follow up with patient pending x-ray results. Physical therapy was offered and deferred at this visit. Plan This note was constructed using voice recognition software. While every effort has been made to ensure accuracy and wax bleacher, still areas may have been included sometimes these areas may affect the content or meeting of the given symptoms. Total time spent caring for the patient today was 30 minutes. This includes time spent before the visit reviewing the chart, time spent during the visit, and time spent after the visit and documentation. foot was feeling cold and having pain in the right thigh. Started Sunday. Orders: Orders XR knee RT 4V Today M25.569 - Pain in unspecified knee Medications: New diclofenac sodium 1% (Voltaren Arthritis Pain) apply to knee as needed for pain 2 grams topical QID 100 grams 0RF Coding Level of Care Code Est Pt Level 4 (81942) Diagnoses Acute pain of right knee M25.561 Chronicity: acute Laterality: right
== END 2024-04-11 15:21 | disposition home or self-care (01) ==
PROVIDERS: PCP Internal Medicine
DX: M25.561 Pain in right knee (principal)
CPT/HCPCS: 99214

== ENCOUNTER 2024-04-11 15:23 | Outpatient (REF) | payer OTHER, SELFPAY ==
--- NOTE | ~2024-04-11 | XR_ITS ---
EXAMINATION: XR KNEE, RIGHT CLINICAL INFORMATION: Knee pain in the right knee COMPARISON: X-ray the right knee December 2015. TECHNIQUE: Four views of the right knee. FINDINGS: No fracture or joint effusion. Alignment is anatomic. Joint spaces are maintained. No abnormal soft tissue calcification. XR/XR knee RT 4V IMPRESSION: Normal right knee.
== END 2024-04-11 15:24 | disposition home or self-care (01) ==
LOC: HO.XRAY 15:23
PROVIDERS: PCP Internal Medicine
DX: M25.561 Pain in right knee (principal)
CPT/HCPCS: 73564

== ENCOUNTER 2024-06-05 14:24 | Outpatient (AMB) | payer OTHER, SELFPAY ==
[2024-06-05 14:29] VITALS: BP 128/60; PULSE 75; O2SAT 98; BMI 23.5
--- NOTE | 2024-06-05 14:29 | A.OFFVIS_ITS ---
Vital Signs 06/05/24 14:29 Height 5 ft 4 in Weight 136 lb 10.986 oz BMI 23.5 BP 128/60 Blood Pressure Location Lt brachial Position Sitting Pulse 75 Pulse Source Pulse Oximeter Pulse Oximetry (%) 98 Oxygen Delivery Method Room Air Intake Visit Reasons: Asthma Breaker Operator Required: No Allergies amoxicillin [Amoxicillin] Allergy (Severe, Verified 06/05/24 14:32) NAUSEA & VOMITING, rash, hives ciprofloxacin [CIPROFLOXACIN] Allergy (Severe, Verified 06/05/24 14:32) VAGINAL BLEEDING nickel Allergy (Severe, Verified 06/05/24 14:32) Swelling clarithromycin [From Biaxin] Allergy (Mild, Verified 06/05/24 14:32) RASH MIGRAINE MEDICINE CAN NOT RECALL NAME Allergy (Severe, Uncoded 06/05/24 14:32) RAPID HEART RATE AND SWEATS HPI Comments Details: The patient is a 41-year-old woman with a known history of allergic rhinitis and also allergic asthma. 06/05/2024 the patient is here for a pulmonary follow-up visit. The patient overall doing well from a respiratory status. The Trelegy inhaler has been helpful and she is doing all her allergy medicines. She has not had to use any prednisone. Over the summer she did have a flare-up and she did require medicine. No recent x-rays to review. The patient has been dealing with significant amount of stress that is affecting her breathing. She is looking for a place to live. Otherwise patient is without any other complaints. [facility] Medical History Hand swelling URI (upper respiratory infection) Swelling of right upper extremity Elbow pain, right Toe pain, left Hypercalcemia Exposure to COVID-19 virus Breast cancer screening by mammogram Pain and swelling of right ankle Dizziness Anxiety Asthma Pulmonary nodule Shortness of breath Developmental delay, mild Vitamin B12 deficiency Hypercholesterolemia Hypothyroid Allergic rhinitis Surgical History History of section Family History Father Skin cancer Myocardial infarction Mother No problems noted. Maternal Aunt Breast cancer Daughter In good health Brother Chronic mental illness Other Mental health problem Social History Housing: Apartment Alcohol intake: never Patient Tobacco Use Status: Never used Tobacco e-Cigarette/Vaping Use: Never Used Second Hand Smoke Exposure: No service: No Current occupational status: disabled Current occupational exposures/hazards: No Cognitive needs: No Hearing needs: No Vision needs: No Review of Systems Const Denies night sweats ENT Denies change in voice, Reports hoarseness, Denies lip swelling, Denies mouth pain, Reports nasal congestion, Reports nasal discharge, Reports sore throat and Denies tongue swelling Card Denies chest pain Resp Denies chest congestion, Reports cough and Denies wheezing GI Denies abdominal pain Musc Denies no additional complaints Neuro Denies Neuro-related abnormal movements Psych Reports anxiety Alex/Lymph Denies easy bleeding and Denies lymphadenopathy Aller/Immun Denies lip swelling, Denies tongue swelling and Denies wheezing Physical Exam Vital Signs: Last Vital Signs Pulse 75 06/05/24 14:29 BP 128/60 06/05/24 14:29 Pulse Ox 98 06/05/24 14:29 Oxygen Delivery Method Room Air 06/05/24 14:29 BMI result Body Mass Index 23.5 Const General: comfortable, no acute distress and alert HEENT Head: Yes atraumatic Neck Neck: Yes no lymphadenopathy Thyroid: Thyroid normal Chest Chest palpation & inspection: normal inspection of the chest Resp Effort & Inspection: normal respiratory effort Auscultation: clear to auscultation bilaterally, no rhonchi and no wheezes Cardio Jugular venous distension: no JVD Palpation: normal PMI Rate: regular rate Rhythm: regular rhythm Heart sounds: S1 normal heart sound present and S2 normal heart sound present GI Palpation (GI): Soft to palpation Skin General skin exam: no rashes or lesions noted Extrem General: Yes no clubbing, cyanosis or edema Assessment & Plan Assessment & Plan (1) Asthma: Code(s): J45.909 - Unspecified asthma, uncomplicated Category: Medical Qualifiers: Asthma complication type: uncomplicated Asthma persistence: persistent Asthma severity: moderate Qualified Code(s): J45.40 - Moderate persistent asthma, uncomplicated (2) Allergic rhinitis: Code(s): J30.9 - Allergic rhinitis, unspecified Category: Medical Qualifiers: Allergic rhinitis seasonality: seasonal Allergic rhinitis trigger: unspecified Qualified Code(s): J30.2 - Other seasonal allergic rhinitis Plan continue Trelegy 200 KIM as needed Claritin PO daily Continue Singulair continue pseudophed as needed Follow-up in 6-8 months Coding Level of Care Code Est Pt Level 4 (77462) Diagnoses Moderate persistent asthma without complication J45.40 Asthma complication type: uncomplicated Asthma persistence: persistent Asthma severity: moderate Seasonal allergic rhinitis, unspecified trigger J30.2 Allergic rhinitis seasonality: seasonal Allergic rhinitis trigger: unspecified Time Spent (min) 16
== END 2024-06-05 14:48 | disposition home or self-care (01) ==
PROVIDERS: PCP Internal Medicine; Visit Provider Hospitalist
DX: J45.40 Moderate persistent asthma, uncomplicated (principal); J30.2 Other seasonal allergic rhinitis
CPT/HCPCS: 99214

== ENCOUNTER → 2024-06-05 14:24 | Outpatient (BNVA) | payer OTHER, SELFPAY | PROVIDERS: PCP Internal Medicine; Visit Provider Hospitalist | DX: J45.40 Moderate persistent asthma, uncomplicated (principal); J30.2 Other seasonal allergic rhinitis | CPT/HCPCS: 99212 ==

== ENCOUNTER 2024-06-09 11:13 | Outpatient (REF) | payer OTHER, SELFPAY ==
[2024-06-09 11:34] LABS: MANUAL DIFF FLAG NO
[2024-06-09 11:44] LABS: Basophils Percent Auto 0.8 % (0-2); Eosinophils Percent Auto 0.8 % (0-4); Hematocrit 34.3 % (37.0-47.0); Hemoglobin 11.8 g/dl (12.0-16.0); Imm Gran Abs Auto 0.02 X10*3/uL (0.00-0.03); Imm Gran Pct Auto 0.4 % (0.0-0.4); Lymphocytes Absolute Auto 1.6 X10*3/uL (1.2-4.9); Lymphocytes Percent Auto 34.6 % (20-40); Mean Corpuscular HGB Conc 34.4 g/dl (31.0-35.0); Mean Corpuscular Hemoglobin 32.2 pg (27.0-33.0); Mean Corpuscular Volume 93.7 fL (80.0-98.0); Mean Platelet Volume 9.6 fL (9.4-12.3); Monocytes Absolute Auto 0.4 X10*3/uL (0.1-1.2); Monocytes Percent Auto 8.2 % (2-11); Neutrophils Absolute Auto 2.6 x10*3/uL (2.0-8.3); Neutrophils Percent Auto 55.2 % (45-73); Platelet Count 275 X10*3/uL (160-400); Red Blood Count 3.66 X10*6/uL (4.20-5.50); Red Cell Distribution Width 12.2 % (11.0-16.0); White Blood Count 4.7 X10*3/uL (4.8-10.8)
[2024-06-09 11:53] LABS: Estimated Average Glucose 111 mg/dL; Hemoglobin A1C 108.8996 umol/L; Hemoglobin A1c % 5.5 % (<6.0)
[2024-06-09 12:31] LABS: Alanine Aminotransferase 16 U/L (0-31); Albumin Level 4.4 g/dL (3.5-5.0); Alkaline Phosphatase 44 U/L (39-117); Anion Gap 12 (12-20); Aspartate Amino Transferase 18 U/L (5-31); Bilirubin Total 0.3 mg/dL (0.0-1.0); Blood Urea Nitrogen 10 mg/dL (9-16); Calcium 9.5 mg/dL (8.4-10.2); Carbon Dioxide 26 mmol/L (22-29); Chloride 107 mmol/L (96-108); Cholesterol 207 mg/dL (<200); Estimated Glomerular Filt Rate > 60; Glucose Random 95 mg/dL (60-115); HDL Cholesterol 42 mg/dL (>40); LDL Cholesterol Calculated 132 mg/dL (<100); Potassium 4.2 mmol/L (3.3-5.1); Sodium 141 mmol/L (135-145); Total Protein 7.4 g/dL (6.5-8.0); Triglycerides 169 mg/dL (<150)
[2024-06-09 12:54] LABS: Free T4 (Free Thyroxine) 0.66 ng/dL (0.71-1.85); Thyroid Stimulating Hormone 45.48 uIU/mL (0.32-4.0); Vitamin D 25-OH Total 32.9 ng/mL (>30)
[2024-06-09 13:05] LABS: Folate 12.1 ng/mL (> or = 4.0); Vitamin B12 274 pg/mL (200-900)
== END 2024-06-09 11:14 | disposition home or self-care (01) ==
LOC: HO.LAB 11:13
PROVIDERS: PCP Internal Medicine; Visit Provider Internal Medicine
DX: E78.00 Pure hypercholesterolemia, unspecified (principal); R73.01 Impaired fasting glucose; E03.9 Hypothyroidism, unspecified
CPT/HCPCS: 36415; 80053; 80061; 82306; 82607; 82746; 83036; 84439; 84443; 85025

== ENCOUNTER 2024-06-27 11:00 | Outpatient (RCR) | payer OTHER, SELFPAY ==
--- NOTE | 2024-06-03 12:13 | MHC.PT.EP ---
[facility] [place] [facility] [place] [facility] [place] [facility] [address] [phone] F: [phone] F: [phone] F: [phone] F: [phone] Physical Therapy Plan of Care Date of Evaluation: 06/03/24 Date of Surgery: NA Diagnosis: KNEE PAIN Assessment: Pt IS 43 YO F RECENTLY DISCHARGED FROM PT FOR BACK TREATMENT REFERRED TO PT FROM PCP OFFICE (REGIS CLIFFODR NP) WITH KNEE PAIN. Pt REPORTS THAT SHE HAS BEEN USING LIDOCAINE PATCHES WITH RELIEF AND NOW HER KNEE FEELS BETTER BUT HER ANKLE (THAT I ALWAYS SPRAIN ) IS BOTHERING HER. PRESENTS TO PT WITH PES PLANUS AND SOME CALF TIGHTNESS. SHOULD BENEFIT FROM PT TO ADDRESS THESE ISSUES Frequency and Duration: The patient will be seen 1X/WK X 6 WKS Short Term Goals: 1. INCREASED AWARENESS ANKLE CARE AND POSTURE 2. I HEP WITH DC EX PLAN 3. SELF TAPE/ORTHOTICS PRN Usp Goals: 1. DECREASED R ANKLE PAIN AT LEAST 50% WITH ADLS 2. IMPROVED LEFI ( SOC) Treatment Plan: Modalities to reduce pain, spasms and effusion. Manual therapy to restore motion and function. Therapeutic exercise to improve strength and flexibility. Neuromuscular re-education for posture and balance. Therapeutic activities to return to functional activities of daily living. Electronically signed by: LAURIE SOLER PT Please sign and return to therapist. Thank you for your referral.
--- NOTE | 2024-08-12 14:35 | MHC.PT.DC ---
[facility] [facility] [place] [facility] [place] [facility] [address] [place] [address] [phone] F: [phone] F: [phone] F: [phone] F: [phone] Physical Therapy Discharge Report Diagnosis: KNEE PAIN Date of Surgery: NA Date of Evaluation: 06/03/24 Date of Discharge: 08/12/24 Treatments to Date: 3 Cancellations to Date: No Shows to Date: Discharge Status: Patient Elected to Stop Recommend MD Follow-up Discharge Summary: PER ASSESSMENT FROM LAST APPT BY IVY Christie PTA 06/27 pt arrived 15 mins late today. Pt advised to use care with her calf/ ankle stretches to not stress her right knee. Continue to monitor TET. Pt THEN MADE NO FURTHER APPTS (?) Electronically signed by: LAURIE SOLER PT Please sign and return to therapist. Thank you for your referral.
== END 2024-08-12 14:36 | disposition home or self-care (01) ==
LOC: HO.PT 11:00
DX: M25.561 Pain in right knee (principal)
CPT/HCPCS: 97110; 97161; 97535

== ENCOUNTER 2024-07-01 13:09 | Outpatient (AMB) | payer OTHER, SELFPAY ==
--- NOTE | 2024-07-01 13:12 | A.OFFPC_ITS ---
Vital Signs 07/01/24 13:13 Height 5 ft 4 in Weight 134 lb 4 oz BMI 23.0 BP 120/64 Blood Pressure Location Lt brachial Position Sitting Pulse 68 Pulse Source Pulse Oximeter Pulse Oximetry (%) 98 Oxygen Delivery Method Room Air Intake Visit Reasons: Annual Exam Intake Note: Patient is here today for a physical. 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 Accompanied by: Self / Same As Patient Allergies amoxicillin [Amoxicillin] Allergy (Severe, Verified 07/01/24 13:13) NAUSEA & VOMITING, rash, hives ciprofloxacin [CIPROFLOXACIN] Allergy (Severe, Verified 07/01/24 13:13) VAGINAL BLEEDING nickel Allergy (Severe, Verified 07/01/24 13:13) Swelling clarithromycin [From Biaxin] Allergy (Mild, Verified 07/01/24 13:13) RASH MIGRAINE MEDICINE CAN NOT RECALL NAME Allergy (Severe, Uncoded 07/01/24 13:13) RAPID HEART RATE AND SWEATS Medication List - Last Reconciled 07/01/24 by Leon Truong, albuterol sulfate 90 mcg/actuation 2 puffs PO Q6H PRN 30 days albuterol sulfate 2.5 mg (3 mL) inhalation Q4H PRN 30 days cetirizine (Zyrtec) 10 mg PO DAILY PRN cholecalciferol (vitamin D3) 50 mcg PO DAILY cyanocobalamin (vitamin B-12) 1,000 mcg PO DAILY diclofenac sodium 1% (Voltaren Arthritis Pain) 2 grams topical QID fenofibrate 160 mg PO DAILY ferrous sulfate (FeroSul) 325 mg PO DAILY fluticasone propionate 50 mcg/actuation (Flonase Allergy Relief) 2 sprays intranasal DAILY axfwttjomvs-vtqbeaacr-omnjehyb 200-62.5-25 mcg (Trelegy Ellipta) 1 ea PO DAILY ipratropium-albuterol 0.5 mg-3 mg(2.5 mg base)/3 mL 3 mL inhalation Q4-6H PRN levothyroxine 100 mcg PO DAILY 90 days lidocaine 5% (Lidoderm) 1 patch topical DAILY mirtazapine 7.5 mg PO BEDTIME montelukast 10 mg PO BEDTIME naproxen 500 mg PO Q8-12H PRN nebulizers As directed norethindrone-ethin estradiol 1-35 mg-mcg 1 tab PO DAILY omega 8-ddy-irn-fish oil 1,200 (144-216) mg (Fish Oil) caps PO simvastatin 5 mg PO BEDTIME triamcinolone acetonide 0.5% 1 appl topical BID Tobacco use date assessed: 07/01/24 Dental Screening Dental Screen Date: 11/29/23 HPI Annual Exam HPI Details 43-year-old female with hypothyroidism h ypercholesterolemia pernicious anemia with an asthma COPD overlap syndrome impaired glucose tolerance coming in for physical exam last seen in March 2024 patient was seen for the right knee pain.. Mammogram is due for April. Review of the notes has followed up with Pulmonary in June 05 continuing with Trelegy and short-acting beta agonist, Claritin, Singulair. X-ray of the right knee was done in April. Recent blood work noted TSH elevated advised to separate out thyroid medication for all the other medications and need retesting next month. [facility] Medical History (Updated 07/01/24 @ 13:43 by Leon Truong MD) Breast cancer screening by mammogram Hand swelling URI (upper respiratory infection) Swelling of right upper extremity Elbow pain, right Toe pain, left Hypercalcemia Exposure to COVID-19 virus Pain and swelling of right ankle Dizziness Anxiety Asthma Pulmonary nodule Shortness of breath Developmental delay, mild Vitamin B12 deficiency Hypercholesterolemia Hypothyroid Allergic rhinitis Surgical History History of section Family History Father Skin cancer Myocardial infarction Mother No problems noted. Maternal Aunt Breast cancer Daughter In good health Brother Chronic mental illness Other Mental health problem Social History Housing: Apartment Alcohol intake: never Patient Tobacco Use Status: Never used Tobacco e-Cigarette/Vaping Use: Never Used Second Hand Smoke Exposure: No service: No Current occupational status: disabled Current occupational exposures/hazards: No Cognitive needs: No Hearing needs: No Vision needs: No Questionnaire Thrive Questionnaire Date Thrive assessed: 11/29/23 I am a: Patient What is your living situation today?: I have a steady place to live Within the past 12 months, did the food you bought not last and you didn't have the money to get more?: I choose not to answer this question Within the past 12 months, did you worry whether your food would run out before you got money to buy more?: I choose not to answer this question Do you have trouble paying for medicines?: I choose not to answer this question Do you have trouble getting transportation to medical appointments?: I choose not to answer this question Do you have trouble paying your heating and electricity bill?: I choose not to answer this question Do you have trouble taking care of your child, family member or friend?: I choose not to answer this question Do you have trouble with day-to-day activities such as bathing, preparing meals, shopping, managing finances, etc.?: I choose not to answer this question Are you currently unemployed and looking for a job?: I choose not to answer this question Are you interested in more education?: I choose not to answer this question Please select the resources that you would like help with: None Currently or been in a relationship where the following occur: I choose not to answer THRIVE Score: 0 AUDIT C Alcohol Use Questionnaire (AUDIT-C) 1. How often do you have a drink containing alcohol?: Never Total Score: 0 EDELMIRA-7 AMB Questionnaire EDELMIRA-7 Date EDELMIRA - 7 assessed: 10/30/23 Feeling nervous, anxious, or on edge: 0 = Not at all Not being able to stop or control worryin = Not at all Worrying too much about different things: 0 = Not at all Trouble relaxin = Not at all Being so restless that it is hard to sit still: 0 = Not at all Becoming easily annoyed or irritable: 0 = Not at all Feeling afraid as if something awful might happen: 0 = Not at all Total EDELMIRA-7 score (0-4 normal; 5-9 mild; 10-14 moderate; 15-21 severe): 0 Source: Developed by Drs. Jose Almanzar, Bessy Torres, Dat Davenport and colleagues, with an educational magdalena from [employer]. Review of Systems Const Denies poor appetite and Denies weakness Eyes Denies no additional complaints ENT Reports Normal hearing present, Denies dizziness, Denies nasal congestion, Denies tinnitus and Denies sore throat Card Denies chest pain, Denies syncope, Denies rapid heart rate and Denies dyspnea Resp Denies cough and Denies dyspnea GI Denies change in stool character, Reports constipation, Denies diarrhea, Denies nausea and Denies vomiting Denies urinary frequency, Denies difficulty voiding and Denies dysuria Neuro Reports Normal hearing present, Denies confusion, Denies dizziness, Denies syncope and Denies weakness Psych Denies confusion Physical exam (Primary Care) Vital Signs: Last Vital Signs Pulse 68 07/01/24 13:13 BP 120/64 07/01/24 13:13 Pulse Ox 98 07/01/24 13:13 Oxygen Delivery Method Room Air 07/01/24 13:13 BMI result Body Mass Index 23.0 Tobacco/Smoking Status: Tobacco use Status Tobacco use date assessed 07/01/24 07/01/24 13:21 Patient Tobacco Use Status Never used Tobacco 07/01/24 13:21 e-Cigarette/Vaping Use Never Used 07/01/24 13:21 Thrive Assessment: Date of Thrive Assessment Date Thrive assessed 11/29/23 07/01/24 13:21 Currently or been in a relationship where the following occur: I choose not to answer Const General: No confusion Orientation/consciousness: No confusion HENMT Head: Yes normocephalic Ears: external ears normal and TM's normal bilaterally Face and sinus: Yes normal facial exam Mouth: moist mucous membranes Throat: Yes tonsils normal Eyes Conjunctivae: conjunctivae normal Pupils: Equal, round and reactive pupils present and Pupil accommodation reflex normal Direct Ophthalmoscopy: normal light reflex Neck Neck: No lymphadenopathy Thyroid: Thyroid normal Chest Chest palpation & inspection: normal inspection of the chest Resp Effort & Inspection: normal respiratory effort and no audible wheezes Auscultation: clear to auscultation bilaterally, no crackles, no wheezes and lung sounds not diminished Cardio Rate: regular rate Rhythm: regular rhythm Peripheral pulses: radial pulses present and dorsalis pedis present GI Palpation (GI): no masses Auscultation: normal bowel sounds and normoactive bowel sounds Rectal Exam - Female: deferred Skin General skin exam: no rashes or lesions noted Rashes: no rashes Neuro General: No confusion Cranial nerves: Yes Equal, round and reactive pupils present and Yes Normal hearing present Cognition (Neuro): normal cognition Gait exam (Neuro): Normal gait present Motor exam (neuro): 5/5 motor strength present throughout Deep tendon reflexes (DTR's): Right brachioradialis reflex intensity grade: 2+, Left brachioradialis reflex intensity grade: 2+, Right patellar reflex intensity grade: 2+ and Left patellar reflex intensity grade: 2+ Extrem General: No edema Coding Level of Care Code Est Pt Prev Care 40-64y(33672) Diagnoses Annual physical exam Z00.00 Acquired hypothyroidism E03.9 Hypothyroidism type: acquired Hypercholesterolemia E78.00 Vitamin B12 deficiency E53.8 Pernicious anemia D51.0 Asthma-COPD overlap syndrome J44.9 Colon cancer screening Z12.11 Foot pain, bilateral M79.671; M79.672 Breast cancer screening by mammogram Z12.31 Assessment & Plan Assessment & Plan (1) Annual physical exam: Code(s): Z00.00 - Encounter for general adult medical examination without abnormal findings Category: Medical Plan: Patient is advised to eat healthy, keep well hydrated, keep active and have adequate sleep. (2) Hypothyroid: Code(s): E03.9 - Hypothyroidism, unspecified Category: Medical Qualifiers: Hypothyroidism type: acquired Qualified Code(s): E03.9 - Hypothyroidism, unspecified Plan: Continue with thyroid medication and stressed importance of taking the medic ation separately from all the other medications. Will need retesting. (3) Hypercholesterolemia: Code(s): E78.00 - Pure hypercholesterolemia, unspecified Category: Medical Plan: Avoid fried foods, chicken skin, eggs, butter margarine, pastries and meat. Be it pork or beef they have a lot of cholesterol LDL goal of less than 130 and triglyceride of less than 150 on fenofibrate 160 mg once a day and simvastatin 5 mg at bedtime. (4) Vitamin B12 deficiency: Code(s): E53.8 - Deficiency of other specified B group vitamins Category: Medical Plan: Continue with taking vitamin B12. 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 (6) Asthma-COPD overlap syndrome: Code(s): J44.9 - Chronic obstructive pulmonary disease, unspecified Category: Medical Plan: Patient is being followed up by Pulmonary and is on albuterol, Singulair and Trelegy (7) Colon cancer screening: Code(s): Z12.11 - Encounter for screening for malignant neoplasm of colon Category: Medical Plan: Patient is reminded about colonoscopy (8) Foot pain, bilateral: Code(s): M79.671 - Pain in right foot; M79.672 - Pain in left foot Category: Medical Plan: Podiatry referral done (9) Breast cancer screening by mammogram: Code(s): Z12.31 - Encounter for screening mammogram for malignant neoplasm of breast Category: Medical Plan: Reminded about mammogram Orders: Orders MM tomosynthesis screening BI Today Z12.31 - Encounter for screening mammogram for malignant neoplasm of breast Thyroid Stimulating Hormone Today E03.9 - Hypothyroidism, unspecified Free T4 (Free Thyroxine) Today E03.9 - Hypothyroidism, unspecified Referrals Podiatry Referral M79.671 - Pain in right foot, M79.672 - Pain in left foot Cologuard Test Z12.11 - Encounter for screening for malignant neoplasm of colon
[2024-07-01 13:13] VITALS: BP 120/64; PULSE 68; O2SAT 98; BMI 23.0
== END 2024-07-01 13:58 | disposition home or self-care (01) ==
PROVIDERS: PCP Internal Medicine; Visit Provider Internal Medicine
DX: Z00.00 Encounter for general adult medical examination without abnormal findings (principal); J44.9 Chronic obstructive pulmonary disease, unspecified; E03.9 Hypothyroidism, unspecified; E78.00 Pure hypercholesterolemia, unspecified; E53.8 Deficiency of other specified B group vitamins; D51.0 Vitamin B12 deficiency anemia due to intrinsic factor deficiency; Z12.11 Encounter for screening for malignant neoplasm of colon; M79.671 Pain in right foot; M79.672 Pain in left foot; Z12.31 Encounter for screening mammogram for malignant neoplasm of breast

== ENCOUNTER → 2024-07-01 13:09 | Outpatient (BNVA) | payer OTHER, SELFPAY | PROVIDERS: PCP Internal Medicine; Visit Provider Internal Medicine | DX: Z00.00 Encounter for general adult medical examination without abnormal findings (principal); E03.9 Hypothyroidism, unspecified; E78.00 Pure hypercholesterolemia, unspecified; D51.0 Vitamin B12 deficiency anemia due to intrinsic factor deficiency; J44.9 Chronic obstructive pulmonary disease, unspecified; M79.671 Pain in right foot; M79.672 Pain in left foot | CPT/HCPCS: 99396 ==

== ENCOUNTER → 2024-07-18 11:45 | Outpatient (BNV) | payer OTHER, SELFPAY | PROVIDERS: PCP Internal Medicine; Visit Provider Internal Medicine | DX: Z12.31 Encounter for screening mammogram for malignant neoplasm of breast (principal) | CPT/HCPCS: 77063; 77067 ==

== ENCOUNTER 2024-07-18 11:49 | Outpatient (REF) | payer OTHER, SELFPAY ==
--- NOTE | ~2024-07-18 | MM_ITS ---
EXAMINATION: MM SCREENING DIGITAL BREAST TOMOSYNTHESIS, BILATERAL CLINICAL INFORMATION: Screening. Asymptomatic. COMPARISON: Mammography: Comparison is made with available priors TECHNIQUE: Digital breast mammography with tomosynthesis is performed in both the craniocaudal and mediolateral oblique views along with computer-aided detection (CAD). FINDINGS: There are scattered areas of fibroglandular density (ACR BI-RADS breast composition Category b). There are no significant masses, abnormal calcifications, or other abnormalities. MM/MM tomosynthesis screening BI IMPRESSION: No mammographic evidence of malignancy. ASSESSMENT: BI-RADS BI-RADS 1 - Negative RECOMMENDATION: Routine annual mammography screening. 1 year F/U This examination should not preclude the clinical evaluation of a suspicious palpable abnormality. This patient's information was entered into a reminder system with a target due date for their next mammogram. Electronically signed by: Bernice Bernstein DO 07/28/2024 07:40 PM GABRIEL
== END 2024-07-18 11:50 | disposition home or self-care (01) ==
LOC: HO.MAMMO 11:49
PROVIDERS: PCP Internal Medicine; Visit Provider Internal Medicine
DX: Z12.31 Encounter for screening mammogram for malignant neoplasm of breast (principal)
CPT/HCPCS: 77063; 77067

== ENCOUNTER 2024-08-04 10:48 | Outpatient (REF) | payer OTHER, SELFPAY ==
[2024-08-04 11:00] LABS: MANUAL DIFF FLAG NO
[2024-08-04 11:56] LABS: Basophils Percent Auto 0.6 % (0-2); Eosinophils Percent Auto 0.5 % (0-4); Hematocrit 32.7 % (37.0-47.0); Hemoglobin 11.3 g/dl (12.0-16.0); Imm Gran Abs Auto 0.04 X10*3/uL (0.00-0.03); Imm Gran Pct Auto 0.6 % (0.0-0.4); Immature Retic Fraction 19.2 % (3.0-15.9); Lymphocytes Absolute Auto 1.8 X10*3/uL (1.2-4.9); Lymphocytes Percent Auto 29.4 % (20-40); Mean Corpuscular HGB Conc 34.6 g/dl (31.0-35.0); Mean Corpuscular Volume 92.6 fL (80.0-98.0); Mean Platelet Volume 9.8 fL (9.4-12.3); Monocytes Absolute Auto 0.5 X10*3/uL (0.1-1.2); Monocytes Percent Auto 8.3 % (2-11); Neutrophils Absolute Auto 3.7 x10*3/uL (2.0-8.3); Neutrophils Percent Auto 60.6 % (45-73); Platelet Count 275 X10*3/uL (160-400); Red Blood Count 3.53 X10*6/uL (4.20-5.50); Red Cell Distribution Width 12.4 % (11.0-16.0); Reticulocytes Absolute 0.069 X10*6/uL (0.026-0.095); White Blood Count 6.2 X10*3/uL (4.8-10.8)
[2024-08-04 12:07] LABS: Estimated Average Glucose 123 mg/dL; Hemoglobin A1c % 5.9 % (<6.0); Total Hemoglobin (HGBA1C) 3004.9073 umol/L
[2024-08-04 12:25] LABS: Iron 115 mcg/dL (30-160); Percent Iron Saturation 31 % (15-50); Total Iron Binding Capacity 366 mcg/dL (228-428); Unsaturated Iron Binding 251 ug/dL
[2024-08-04 12:42] LABS: Ferritin 271 ng/mL (10-250); Free T4 (Free Thyroxine) 1.05 ng/dL (0.71-1.85); Thyroid Stimulating Hormone 36.37 uIU/mL (0.32-4.0)
[2024-08-04 13:10] LABS: Folate 15.5 ng/mL (> or = 4.0); Vitamin B12 346 pg/mL (200-900)
== END 2024-08-04 10:49 | disposition home or self-care (01) ==
LOC: HO.LAB 10:48
PROVIDERS: PCP Internal Medicine; Visit Provider Internal Medicine
DX: R73.01 Impaired fasting glucose (principal); E03.9 Hypothyroidism, unspecified
CPT/HCPCS: 36415; 82607; 82728; 82746; 83036; 83540; 84439; 84443; 85025; 85045

== ENCOUNTER 2024-08-22 13:04 | Outpatient (AMB) | payer OTHER, SELFPAY ==
--- NOTE | 2024-08-22 13:05 | A.OFFPC_ITS ---
Intake Visit Reasons: Requesting [employer] [phone] Allergies amoxicillin [Amoxicillin] Allergy (Severe, Verified 08/22/24 13:05) NAUSEA & VOMITING, rash, hives ciprofloxacin [CIPROFLOXACIN] Allergy (Severe, Verified 08/22/24 13:05) VAGINAL BLEEDING nickel Allergy (Severe, Verified 08/22/24 13:05) Swelling clarithromycin [From Biaxin] Allergy (Mild, Verified 08/22/24 13:05) RASH MIGRAINE MEDICINE CAN NOT RECALL NAME Allergy (Severe, Uncoded 08/22/24 13:05) RAPID HEART RATE AND SWEATS Tobacco use date assessed: 07/01/24 Dental Screening Dental Screen Date: 11/29/23 HPI Requesting [employer] [phone] HPI Details The patient is a 43-year-old female presenting with acute sinusitis and respiratory difficulty. She reports a history of sinus infection for the past five days, characterized by nasal congestion, green nasal discharge, chest tightness, and difficulty breathing. The patient has attempted self-management using saline nasal rinses without resolution. Symptoms initially resolved but subsequently worsened, now accompanied by chest pain and rib discomfort. She denies fever. The patient also mentions her asthma-COPD syndrome, for which a nurse previously recommended considering prednisone if wheezing. Past treatment involving Azithromycin (Z-Jesu) has been effective, though its efficacy is uncer tain in this instance. She reports fluid intake for hydration and experiences reduced appetite during the episode. She grew concerned that her nasal rinse may have been used by another person, potentially exacerbating her symptoms. - Musculoskeletal: Reports wrist pain. - Gastrointestinal: Denies diarrhea. - General: Denies fever, reports reduced appetite. PENDING SALE TO [facility] Medical History (Updated 08/22/24 @ 16:44 by Leon Truong MD) Breast cancer screening by mammogram Hand swelling URI (upper respiratory infection) Swelling of right upper extremity Elbow pain, right Toe pain, left Hypercalcemia Exposure to COVID-19 virus Pain and swelling of right ankle Dizziness Anxiety Asthma Pulmonary nodule Shortness of breath Developmental delay, mild Vitamin B12 deficiency Hypercholesterolemia Hypothyroid Allergic rhinitis Surgical History History of section Family History Father Skin cancer Myocardial infarction Mother No problems noted. Maternal Aunt Breast cancer Daughter In good health Brother Chronic mental illness Other Mental health problem Social History Housing: Apartment Alcohol intake: never Patient Tobacco Use Status: Never used Tobacco Tobacco use type: Cigarette e-Cigarette/Vaping Use: Never Used Second Hand Smoke Exposure: No service: No Current occupational status: disabled Current occupational exposures/hazards: No Cognitive needs: No Hearing needs: No Vision needs: No Questionnaire Thrive Questionnaire Date Thrive assessed: 11/29/23 EDELMIRA-7 AMB Questionnaire EDELMIRA-7 Date EDELMIRA - 7 assessed: 10/30/23 Source: Developed by Drs. Jose Almanzar, Bessy Torres, Dat Davenport and colleagues, with an educational magdalena from [employer]. Physical exam (Primary Care) Tobacco/Smoking Status: Tobacco use Status Tobacco use date assessed 07/01/24 08/22/24 13:06 Patient Tobacco Use Status Never used Tobacco 08/22/24 13:06 Tobacco use type Cigarette 08/22/24 13:06 e-Cigarette/Vaping Use Never Used 08/22/24 13:06 Thrive Assessment: Date of Thrive Assessment Date Thrive assessed 11/29/23 08/22/24 13:06 Telehealth Telehealth Location of provider rendering services: practice address Location of patient: address on file Patient Identification confirmed using: Name, : Yes Telehealth method: video Patient verbally consented to treatment: Yes Patient verbally consented to billing insurance company: Yes Patient informed of any privacy concerns related to visit: Yes Minutes spent on Phone/Video with Pt.: 15 Coding Level of Care Code Tele Est Pt Level 3 (05752) Diagnoses Sinus congestion R09.81 Assessment & Plan Assessment & Plan (1) Sinus congestion: Code(s): R09.81 - Nasal congestion Category: Medical Plan: sinus rinses given and antibiotic sent in . increase oral fluids Plan For the acute sinusitis, I will prescribe Azithromycin Z-Jesu), considering its past effectiveness for the patient. I have advised the patient to maintain adequate hydration and increase fluid intake. If symptoms do not improve, I recommended further evaluation to assess for possible prednisone therapy due to her asthma-COPD syndrome, contingent upon symptoms of wheezing. Medications: New azithromycin (Zithromax) For 250 mg dose pack: take 500 mg today (day 1), then 250 mg for 4 days (days 2-5) PO 6 tabs 0RF R09.81 - Nasal congestion
== END 2024-08-22 16:56 | disposition home or self-care (01) ==
LOC: HO.HMCH 13:04
PROVIDERS: PCP Internal Medicine; Visit Provider Internal Medicine
DX: R09.81 Nasal congestion (principal)

== ENCOUNTER → 2024-08-22 13:04 | Outpatient (BNVA) | payer OTHER, SELFPAY | PROVIDERS: PCP Internal Medicine; Visit Provider Internal Medicine ==

== ENCOUNTER 2024-10-02 12:17 | Outpatient (REF) | payer OTHER, SELFPAY ==
[2024-10-02 14:02] LABS: Free T4 (Free Thyroxine) 1.03 ng/dL (0.71-1.85); Thyroid Stimulating Hormone 4.35 uIU/mL (0.32-4.0)
== END 2024-10-02 12:18 | disposition home or self-care (01) ==
LOC: HO.LAB 12:17
PROVIDERS: PCP Internal Medicine; Visit Provider Internal Medicine
DX: E03.9 Hypothyroidism, unspecified (principal)
CPT/HCPCS: 36415; 84439; 84443

== ENCOUNTER 2024-10-16 14:17 | Outpatient (REF) | payer OTHER, SELFPAY ==
[2024-10-16 16:25] LABS: Influenza A PCR NEGATIVE (Negative); Influenza B PCR NEGATIVE (Negative); Resp Syncy Virus RNA Qual PCR NEGATIVE (Negative); SARS COV2 PCR INHOUSE NEGATIVE (Negative)
== END 2024-10-16 14:18 | disposition home or self-care (01) ==
LOC: HO.LAB 14:17
PROVIDERS: PCP Internal Medicine; Visit Provider Internal Medicine
DX: R09.81 Nasal congestion (principal)
CPT/HCPCS: 0241U

== ENCOUNTER 2024-10-21 13:22 | Outpatient (AMB) | payer OTHER, SELFPAY ==
[2024-10-21 13:23] VITALS: BP 104/52; PULSE 78; O2SAT 95; BMI 23.2
--- NOTE | 2024-10-21 13:23 | A.OFFPC_ITS ---
Vital Signs 10/21/24 13:23 Height 5 ft 4 in Weight 135 lb BMI 23.2 BP 104/52 L Blood Pressure Location Lt brachial Position Sitting Pulse 78 Pulse Source Pulse Oximeter Pulse Oximetry (%) 95 Oxygen Delivery Method Room Air Intake Visit Reasons: hypothyroid Allergies amoxicillin [Amoxicillin] Allergy (Severe, Verified 10/21/24 13:25) NAUSEA & VOMITING, rash, hives ciprofloxacin [CIPROFLOXACIN] Allergy (Severe, Verified 10/21/24 13:25) VAGINAL BLEEDING nickel Allergy (Severe, Verified 10/21/24 13:25) Swelling clarithromycin [From Biaxin] Allergy (Mild, Verified 10/21/24 13:25) RASH MIGRAINE MEDICINE CAN NOT RECALL NAME Allergy (Severe, Uncoded 10/21/24 13:25) RAPID HEART RATE AND SWEATS Tobacco use date assessed: 10/21/24 Dental Screening Dental Screen Date: 10/21/24 Did you have a dental visit in the last 12 months?: Yes Did you have a dental problem in the last 6 months where you did not have access to dental care?: No Was dental information given to patient?: Patient has dentist HPI hypothyroid HPI Details 43-year-old female with a history of hyp othyroid hypercholesterolemia pernicious anemia asthma COPD overlap syndrome coming in for follow-up. Patient also has impaired glucose tolerance. Last seen August having sinus problems. Patient is here having had blood work done. Patient has a child having sore throat and recently in the last few days 2 days having sore throat and congestion and cough. Prompting for consultation. [facility] Medical History (Updated 08/22/24 @ 16:44 by Leon Truong MD) Breast cancer screening by mammogram Hand swelling URI (upper respiratory infection) Swelling of right upper extremity Elbow pain, right Toe pain, left Hypercalcemia Exposure to COVID-19 virus Pain and swelling of right ankle Dizziness Anxiety Asthma Pulmonary nodule Shortness of breath Developmental delay, mild Vitamin B12 deficiency Hypercholesterolemia Hypothyroid Allergic rhinitis Surgical History History of section Family History Father Skin cancer Myocardial infarction Mother No problems noted. Maternal Aunt Breast cancer Daughter In good health Brother Chronic mental illness Other Mental health problem Social History Housing: Apartment Alcohol intake: never Patient Tobacco Use Status: Never used Tobacco Tobacco use type: Cigarette e-Cigarette/Vaping Use: Never Used Second Hand Smoke Exposure: No service: No Current occupational status: disabled Current occupational exposures/hazards: No Cognitive needs: No Hearing needs: No Vision needs: No Questionnaire PHQ-9 Over the last 2 weeks, how often have you been bothered by any of the following problems? 1. Little interest or pleasure in doing things: not at all 2. Feeling down, depressed, or hopeless: not at all 3. Trouble falling or staying asleep, or sleeping too much: not at all 4. Feeling tired or having little energy: not at all 5. Poor appetite or overeating: not at all 6. Feeling bad about yourself - or that you are a failure or have let yourself or your family down: not at all 7. Trouble concentrating on things, such as reading the newspaper or watching television: not at all 8. Moving or speaking so slowly that other people could have noticed. Or the opposite - being so fidgety or restless that you have been moving around a lot more than usual: not at all 9. Thoughts that you would be better off or of hurting yourself in some way: not at all Total score: 0 Depression Screening Interpretation: Negative Depression Screening Done: Yes Source: Developed by Drs. Jose Almanzar, Bessy Torres, Dat Davenport and colleagues, with an educational magdalena from [email or web address]. Thrive Questionnaire Date Thrive assessed: 10/21/24 EDELMIRA-7 AMB Questionnaire EDELMIRA-7 Date EDELMIRA - 7 assessed: 10/21/24 Feeling nervous, anxious, or on edge: 0 = Not at all Not being able to stop or control worryin = Not at all Worrying too much about different things: 0 = Not at all Trouble relaxin = Not at all Being so restless that it is hard to sit still: 0 = Not at all Becoming easily annoyed or irritable: 0 = Not at all Feeling afraid as if something awful might happen: 0 = Not at all Total EDELMIRA-7 score (0-4 normal; 5-9 mild; 10-14 moderate; 15-21 severe): 0 Source: Developed by Drs. Jose Almanzar, Bessy Torres, Dat Davenport and colleagues, with an educational magdalena from [email or web address]. Physical exam (Primary Care) Vital Signs: Last Vital Signs Pulse 78 10/21/24 13:23 BP 104/52 L 10/21/24 13:23 Pulse Ox 95 10/21/24 13:23 Oxygen Delivery Method Room Air 10/21/24 13:23 BMI result Body Mass Index 23.2 Tobacco/Smoking Status: Tobacco use Status Tobacco use date assessed 10/21/24 10/21/24 13:31 Patient Tobacco Use Status Never used Tobacco 10/21/24 13:31 Tobacco use type Cigarette 10/21/24 13:31 e-Cigarette/Vaping Use Never Used 10/21/24 13:31 PHQ-9: PHQ-9 Score PHQ-9: Total score 0 10/21/24 13:31 Depression Screening Interpretation: Negative Thrive Assessment: Date of Thrive Assessment Date Thrive assessed 10/21/24 10/21/24 13:31 Const General: alert; No acute distress Eyes Conjunctivae: conjunctivae normal Resp Auscultation: clear to auscultation bilaterally Cardio Rate: regular rate Rhythm: regular rhythm GI Inspection: Yes normal to inspection Extrem General: Yes normal to inspection and No edema Coding Level of Care Code Est Pt Level 4 (47533) Diagnoses Foot pain, bilateral M79.671; M79.672 Impaired fasting blood sugar R73.01 Asthma-COPD overlap syndrome J44.9 Acquired hypothyroidism E03.9 Hypothyroidism type: acquired Hypercholesterolemia E78.00 Acute laryngopharyngitis J06.0 URI type: acute laryngopharyngitis Assessment & Plan Assessment & Plan (1) Foot pain, bilateral: Code(s): M79.671 - Pain in right foot; M79.672 - Pain in left foot Category: Medical Plan: Patient has been seeing the Podiatry. (2) Impaired fasting blood sugar: Code(s): R73.01 - Impaired fasting glucose Category: Medical Plan: Decrease the amount of carbohydrate intake, pasta, bread, rice and potatoes are all sugar and that is aside from all the sweet stuff, remember that fruits are good but they are Sweet also. (3) Asthma-COPD overlap syndrome: Code(s): J44.9 - Chronic obstructive pulmonary disease, unspecified Category: Medical Plan: Continue with the albuterol inhaler and Trelegy. Patient is being followed up by Pulmonary patient is also on montelukast. (4) Hypothyroid: Code(s): E03.9 - Hypothyroidism, unspecified Category: Medical Qualifiers: Hypothyroidism type: acquired Qualified Code(s): E03.9 - Hypothyroidism, unspecified Plan: Continue with thyroid medication (5) Hypercholesterolemia: Code(s): E78.00 - Pure hypercholesterolemia, unspecified Category: Medical Plan: Avoid fried foods, chicken skin, eggs, butter margarine, pastries and meat. Be it pork or beef they have a lot of cholesterol LDL goal of less than 130 and triglyceride of less than 150 on simvastatin 5 mg at bedtime. (6) Upper respiratory infection: Code(s): J06.9 - Acute upper respiratory infection, unspecified Category: Medical Qualifiers: URI type: acute laryngopharyngitis Qualified Code(s): J06.0 - Acute laryngopharyngitis Plan: Discussed with the patient that I do not see any bacterial infection presently and will continue to monitor. Advised to increase oral fluids. Orders: Orders Free T4 (Free Thyroxine) 6 Weeks E03.9 - Hypothyroidism, unspecified Thyroid Stimulating Hormone 6 Weeks E03.9 - Hypothyroidism, unspecified Comprehensive Met. Panel 6 Weeks E03.9 - Hypothyroidism, unspecified Vitamin B12 and Folate 6 Weeks R73.01 - Impaired fasting glucose Vitamin D 25-OH Total 6 Weeks R73.01 - Impaired fasting glucose Hemoglobin A1c 6 Weeks E03.9 - Hypothyroidism, unspecified Complete Blood Count Auto Diff 6 Weeks E03.9 - Hypothyroidism, unspecified Lipid Panel 6 Weeks E78.00 - Pure hypercholesterolemia, unspecified, R73.01 - Impaired fasting glucose Ferritin 6 Weeks R73.01 - Impaired fasting glucose IRON PROFILE 6 Weeks R73.01 - Impaired fasting glucose Reticulocyte Count 6 Weeks R73.01 - Impaired fasting glucose Medications: Changed From levothyroxine 100 mcg PO DAILY 90 days 90 tabs 2RF E03.9 - Hypothyroidism, unspecified To levothyroxine 112 mcg PO DAILY 90 days 90 tabs 2RF E03.9 - Hypothyroidism, unspecified
--- OUTSIDE RECORDS SUMMARY | 2024-10-21 13:34 | XMS_ITS | Encounter Summary ---
Author Organization [facility] Address [address] [place] [address] Care Team Providers Care Head Neck Surgeon Name Role Phone Leon Truong MD Primary Care Provider [phone] Reason for Visit * Reason Comments Consult Chin foot pain Encounter Details Date Type Department Care Team ([facility] st Contact Info) Description 09/29/2024 2:30 PM EST Consult Orthopedic Surgery - [place] [address] [address] Clint Lanier DPM [address] [address] Pes planus of both feet (Primary Dx) Social History Tobacco Use Types Packs/Day Years Used Date Smoking Tobacco: Never Smokeless Tobacco: Never Alcohol Use Standard Drinks/Week Comments No 0 (1 standard drink = 0.6 oz pur e alcohol) Sex and Gender Information Value Date Recorded Sex Assigned at Not on file Gender Identity Not on file Sexual Orientation Not on file Job Start Date Occupation Industry Not on file Not on file Not on file documented as of this encounter Last Filed Vital Signs Vital Sign Reading Time Taken Comments Blood Pressure - - Pulse - - Temperature - - Respiratory Rate - - Oxygen Saturation - - Inhaled Oxygen Concentration - - Weight 60.8 kg (134 lb) 09/29/2024 3:15 PM EST Height 157.5 cm (5' 2.01 ) 09/29/2024 3:15 PM ES T Body Mass Index 24.5 09/29/2024 3:15 PM EST documented in this encounter Progress Notes * Clint Lanier DPM - 09/29/2024 2:30 PM EST IDENTIFIER: Karlo is a 43 y.o. year old female who presents for consultation. CC: Foot pain HPI: Presents today complaining of pain in her feet reports diffuse arch pain discomfort states she feels she has very flat feet she is wonder if she had insoles and orthotics states discomfort of 1-2 outof 10 feels like she has flatfeet she cannot walk very far denies other pedal complaints at this time ROS: GENERAL: Pt denies nausea, fever, vomiting, chills, or shortness of breath. Pt in NAD. CARDIOLOGY: pt denies chest pain, palpitations LUNGS: pt denies shortness of breath MUSCULOSKELETAL: See HPI, otherwise no joint pain or swelling, back pain, or muscle pain. SKIN: see HPI, otherwise no lesions, rash or itching NEURO: No persistent headache, weakness or numbness The remainder of the review of systems is noncontributory PAST MEDICAL HISTORY: Patient Active Problem List Diagnosis Allergic rhinitis Anxiety Asthma HLD (hyperlipidemia) Hypothyroid Slow transit constipation SOCIAL HISTORY: Social History Tobacco Use Smoking status: Never Smokeless tobacco: Never Substance Use Topics Alcohol use: No ACTIVE MEDICATIONS: Outpatient Medications Marked as Taking for the 09/29/24 encounter (Consult) with Clint Lanier DPM Medication Sig Dispense Refill albuterol HFA (PROAIR HFA ; PROVENTIL HFA ; VENTOLIN HFA) 90 mcg/actuation inhaler Inhale 2 Puffs into the lungs every 6 hours as needed for Cough or Wheezing for up to 30 days. aripiprazole (ABILIFY ORAL) Take by mouth 1 (one) time each day. ARIPiprazole (ABILIFY) 5 mg tablet azelastine (ASTELIN) 137 mcg (0.1 %) nasal spray 2 Sprays by Each Nare route 2 times daily for 30 days. Use in each nostril as directed cetirizine (ZyrTEC) 10 mg tablet cholecalciferol (VITAMIN D-3) 50 mcg (2,000 unit) tablet Take 1 tablet (2,000 Units total) by mouth1 (one) time each day. clonazePAM (KlonoPIN) 0.5 mg tablet cyanocobalamin (VIT B-12) 1,000 mcg tablet extended release ER tablet Take 1 tablet (1,000 mcg total) by mouth 1 (one) time each day. cyanocobalamin, vitamin B-12, (VITAMIN B-12 ORAL) Take by mouth. fenofibrate (LOFIBRA) 160 mg tablet TAKE 1 TABLET BY MOUTH EVERY DAY WITH FOOD fluticasone propionate (FLONASE) 50 mcg/actuation nasal spray USE 2 SPRAYS IN EACH NOSTRIL ONCE DAILY ehggibqdtxf-vxfdzdgnriib-fbwpowxkgv (Trelegy Ellipta) 200-62.5-25 mcg inhaler Inhale 1 puff (200 mcg total) by mouth 1 (one) time each day. ipratropium-albuteroL (DUONEB) 0.5-2.5 mg/3 mL nebulizer solution Inhale 3 mL into the lungs 4 times daily levothyroxine (SYNTHROID, LEVOTHROID) 100 mcg tablet Take 100 mcg by mouth daily. levothyroxine (SYNTHROID, LEVOTHROID) 112 mcg tablet Take by mouth at bedtime loratadine (CLARITIN) 10 mg tablet Take 1 tablet (10 mg total) by mouth 1 (one) time each day. montelukast (SINGULAIR) 10 mg tablet Take 1 Tab by mouth at bedtime for 30 days. norethindrone-ethinyl estradiol (ORTHO-NOVUM 1-35 TAB,NORTREL 1-35 TAB) 1-35 mg- mcg per tablet Take1 tablet by mouth 1 (one) time each day. pseudoephedrine (SUDAFED) 120 mg 12 hr tablet ranitidine HCl (ZANTAC 150 EFFERDOSE ORAL) TAKE 1 TAB BY MOUTH 2 TIMES DAILY roflumilast (Daliresp) 250 mcg tablet Take 250 mcg by mouth 1 (one) time each day. simvastatin (ZOCOR) 5 mg tablet Take 1 tablet (5 mg total) by mouth at bedtime. UNABLE TO FIND Take by mouth. Med Name: Ferrous Gluconate 240 (27 FE) MG Tab ALLERGIES: Allergies Allergen Reactions Amoxicillin Rash Dermatitis Biaxin [Clarithromycin] Nausea And Vomiting and Rash Dermatitis Nickel Swelling edema Other Seasonal allergies PHYSICAL EXAM: Visit Vitals Ht 1.575 m (62.01 ) Wt 60.8 kg (134 lb) BMI 24.50 kg/m?? Smoking Status Never BSA 1.61 m?? PODIATRIC EXAMINATION: GENERAL: Patient appears well nourished, with NAD. VASCULAR: Dorsalis pedis pulses are 2/4 bilaterally and Posterior tibial pulses are 2/4 bilaterally. Capillary filling time within normal limits the digits. No pallor on elevation or rubor on dependency. Positive hair growth. No varicosities. Denies rest pain or claudication pain. NEUROLOGICAL: Sharp/dull sensation intact, protective sensation intact 10/10 with 5.07 semmes desire bilaterally, vibratory sensation with tuning fork intact to the tibial tuberosity. ORTHOPEDIC: Good muscle strength 5/5 of all flexors and extensors. Dorsi flexion of ankle ,10 degrees, plantar flexion WNL. No muscle atrophy. DERMATOLOGICAL:.No masses or skin lesions noted. Normal skin temperature, normal skin turgor. BIOMECHANICS: Ankle ROM WNL, STJ ROM increased eversion inversion pes planus foot type, MTJ ROM wnl, 1st MPJ ROM wnl. Calcaneal stance position 1 to 2 degrees valgus bilateral IMAGING: IMPRESSION: 1. Pes planus of both feet PLAN: Pt was seen and examined, history reviewed. Treatment options were discussed and reviewed including stretching exercises demonstrated for patient anti-inflammatory medications orthotics and insoles Prescription given for prefabricated insoles Referral offered physical therapy patient declined X-rays ordered both feet 3 views Follow-up in 4 to 6 weeks Clint Lanier DPM documented in this encounter Plan of Treatment Upcoming Encounters Date Type Department Care Team (Late st Contact Info) Description 11/27/2024 3:00 PM EDT Office Visit Orthopedic Surgery - [place] [address] [phone] Clint Lanier DPM [address] [address] documented as of this encounter Visit Diagnoses Diagnosis Pes planus of both feet- Primary documented in this encounter Care Teams Head Neck Surgeon Relationship Specialty Start Date End Date Leon Truong MD [address] [place] [address] [address] [facility] [place] [address] PCP - General 07/03/24 documented as of this encounter
--- OUTSIDE RECORDS SUMMARY | 2024-10-21 13:34 | XMS_ITS | Encounter Summary ---
Author Organization [facility] Address [address] [place] [address] Care Team Providers Care Dye Beck Reel Operator Name Role Phone Leon Truong MD Primary Care Provider [phone] Reason for Visit * Reason Onset Date Comments fax order 10/01/2024 Encounter Details Date Type Department Care Team (Late Contact Info) Description 10/01/2024 Telephone Orthopedic Surgery [facility] [address] [phone] Clint Lanier, DPPratik [address] [address] fax order Social History Tobacco Use Types Packs/Day Years [...] on file documented as of this encounter Progress Notes * Candie Martinez - 10/01/2024 10:42 AM EST Patient calling office requesting that her order for Inserts for her Shoes for her flat feet be faxed to [facility] @ [phone]. Any questions please call her @ [phone] Thanks. documented in this encounter Plan of Treatment Upcoming Encounters Date Type Department Care Team (Late Contact Info) Description 11/27/2024 3:00 PM EDT Office Visit Orthopedic Surgery [facility] [address] [phone] Clint Lanier, DPM [address] [address] documented as of this encounter Visit Diagnoses Not on filedocumented in this encounter Care Teams Dye Beck Reel Operator Relationship Specialty Start Date End Date Leon Truong MD [address] [place] [address] [address] [facility] [place] [address] PCP - General 07/03/24 documented as of this encounter
--- OUTSIDE RECORDS SUMMARY | 2024-10-21 13:34 | XMS_ITS | Clinical Summary ---
Author Organization 175 [facility] Address [address] [place] [address] Phone Care Team Providers Care Director Content Marketing Name Role Phone Leon Truong MD Primary Care Provider [phone] Allergies Active Allergy Reactions Criticality Noted Date Comments Amoxicillin Rash 08/22/2024 Dermatitis Clarithromycin Nausea And Vomiting,Rash 024 Dermatitis Nickel Swelling 08/22/2024 edema Other 08/22/2024 Seasonal allergies Medications Medication Sig Dispensed Refills Start Date End Date Status norethindrone-ethinyl estradiol (ORTHO-NOVUM 1-35 TAB,NORTREL 1-35 TAB) 1-35 mg-mcg per tablet Take 1 tablet by mouth 1 (one) time each day. Active simvastatin (ZOCOR) 5 mg tablet Take 1 tablet (5 mg total) by mouth at bedtime. Active cetirizine (ZyrTEC) 10 mg tablet Active fluticasone propionate (FLONASE) 50 mcg/actuation nasal spray USE 2 SPRAYS IN EACH NOSTRIL ONCE DAILY Active fluticasone-umeclidin ium-vilanterol (Trelegy Ellipta) 200-62.5-25 mcg inhaler Inhale 1 puff (200 mcg total) by mouth 1 (one) time each day. Active pseudoephedrine (SUDAFED) 120 mg 12 hr tablet Active roflumilast (Daliresp) 250 mcg tablet Take 250 mcg by mouth 1 (one) time each day. Active clonazePAM (KlonoPIN) 0.5 mg tablet Active cyanocobalamin (VIT B-12) 1,000 mcg tablet extended release ER tablet Take 1 tablet (1,000 mcg total) by mouth 1 (one) time each day. Active fenofibrate (LOFIBRA) 160 mg tablet TAKE 1 TABLET BY MOUTH EVERY DAY WITH FOOD Active levothyroxine (SYNTHROID, LEVOTHROID) 100 mcg tablet Take 100 mcg by mouth daily. Active montelukast (SINGULAIR) 10 mg tablet Take 1 Tab by mouth at bedtime for 30 days. Active ARIPiprazole (ABILIFY) 5 mg tablet Act jeff cholecalciferol (VITAMIN D-3) 50 mcg (2,000 unit) tablet Take 1 tablet (2,000 Units total) by mouth 1 (one) time each day. Active ranitidine HCl (ZANTAC 150 EFFERDOSE ORAL) TAKE 1 TAB BY MOUTH 2 TIMES DAILY Active albuterol HFA (PROAIR HFA ; PROVENTIL HFA ; VENTOLIN HFA) 90 mcg/actuation inhaler Inhale 2 Puffs into the lungs every 6 hours as needed for Cough or Wheezing for up to 30 days. Active azelastine (ASTELIN) 137 mcg (0.1 %) nasal spray 2 Sprays by Each Nare route 2 times daily for 30 days. Use in each nostril as directed Active aripiprazole (ABILIFY ORAL) Take by mouth 1 (one) time each day. Active cyanocobalamin, vitamin B-12, (VITAMIN B-12 ORAL) Take by mouth. A ctive UNABLE TO FIND Take by mouth. Med Name: Ferrous Gluconate 240 (27 FE) MG Tab Active loratadine (CLARITIN) 10 mg tablet Take 1 tablet (10 mg total) by mouth 1 (one) time each day. Active levothyroxine (SYNTHROID, LEVOTHROID) 112 mcg tablet Take by mouth at bedtime Active ipratropium-albuteroL (DUONEB) 0.5-2.5 mg/3 mL nebulizer solution Inhale 3 mL into the lungs 4 times daily Active Active Problems Problem Noted Date Diagnosed Date Allergic rhinitis 08/22/2024 Anxiety 08/22/2024 Asthma 08/22/2024 HLD (hyperlipidemia) 08/22/2024 Hypothyroid 08/22/2024 Slow transit constipation 08/22/2024 Encounters Date Type Department Care Team Description 10/01/2024 Telephone Orthopedic Surgery - [place] [address] [phone] Clint Lanier, DPM fax order 09/29/2024 2:30 PM EST Consult Orthopedic Surgery - [place] [address] [facility] [address] [place] [phone] Clint Lanier DPM Pes planus of both feet (Primary Dx) from Last 3 Months Immunizations Name Administration Dates Next Due Hepatitis A-Hepatitis B Adult (Twinrix) 18yo and older 07/13/2016,05/26/2016 Influenza, Unspecified 06/25/2018 Tdap Tetanus diptheria acell ular pertussis (Boostrix; Adacel) 7yo and older 06/25/2018,07/02/2015 Surgical History Surgery Date Site/Laterality Comments SECTION 2017 PROCEDURE: HISTORICAL DELIVERY Medical History Medical History Date Comments Asthma DX:Asthma Allergic rhinitis 09/25/2017 DX:Allergic rh initis Slow transit constipation 09/25/2017 DX:Slo w transit constipation Hyperlipidemia 11/20/2017 DX:Hyperlipidemi a Anxiety DX:Anxiety Hypothyroid 2010 DX:Hypothyroid Staph aureus infection 04/2020 DX:Staph aureus infection; COMMENT: on the mons pubic region , treated Family History Medical History Relation Name Comments Breast cancer Aunt 1 maternal aunt Breast cancer Aunt 2 Paternal aunt Stroke Father arthritis Hypertension Mother arthritis Ovarian cancer Neg Hx Uterine cancer Neg Hx Relation Name Status Comments Aunt 1 maternal aunt Other Aunt 2 Paternal aunt Alive Father Mother Alive Social History Tobacco Use Types Packs/Day Years [...] file Not on file Not on file Obstetrics History Last Filed Vital Signs Vital Sign Reading Time Taken Comments Blood Pressure 130/88 07/07/2024 1:21 PM EDT Pulse 68 07/07/2024 1:21 PM EDT Temperature - - Respiratory Rate - - Oxygen Saturation - - Inhaled Oxygen Concentration - - Weight 60.8 kg (134 lb) 09/29/2024 3:15 PM EST Height 157.5 cm (5' 2.01 ) 09/29/2024 3:15 PM ES T Body Mass Index 24.5 09/29/2024 3:15 PM EST Plan of Treatment Upcoming Encounters Date Type Department Care Team (Late st Contact Info) Description 11/27/2024 3:00 PM EDT Office Visit Orthopedic Surgery - [place] [address] [phone] Clint Lanier, DPM [address] [phone] Health Maintenance Due Date Last Done Comments Pneumococcal Vaccine: Pediatrics (0 to 5 Years) and At-Risk Patients (6 to 64 Years) (1 of 2 - PCV) 1984 Hepatitis B Vaccines (3 of 3 - Hep B Twinrix 3-dose series) 12/11/2016 07/13/2016, 05/26/2016 Breast Cancer Screening 11/16/2019 11/15/2017 Cholesterol Screening (Lipid Panel) 08/26/2022 Colorectal Cancer Screening: Colonoscopy 08/26/2022 Depression Screening 08/26/2022 Social Influencers of Health Screening 08/26/2022 COVID-19 Vaccine ( season) 2024 Cervical Cancer Screening: HPV 12/24/2025 12/24/2020 DTaP,Tdap,and Td Vaccines (4 - Td or Tdap) 05/30/2032 05/30/2022, 06/25/2018, 07/02/2015 Hepatitis A Vaccines Aged Out 07/13/2016, 05/26/20 16 No longer eligible based on patient's age to complete this topic HIV Screening Completed 12/24/2020 Hepatitis C Screening Completed 12/24/2020 Influenza Vaccine Completed 06/17/2024, , 06/26/2022, Additional history exists HIB Vaccines Aged Out No longer eligi ble based on patient's age to complete this topic HPV Vaccines Aged Out No longer eligi ble based on patient's age to complete this topic IPV Vaccines Aged Out No longer eligi ble based on patient's age to complete this topic MMR Vaccines Aged Out No longer eligi ble based on patient's age to complete this topic Meningococcal ACWY Vaccine Aged Out N o longer eligible based on patient's age to complete this topic RSV Immunization Patients Under 20 months Aged Out No longer eligible based on patient's age to complete this topic Varicella Vaccines Aged Out No longer eligible based on patient's age to complete this topic Procedures Procedure Name Priority Date/Time Associated Diagnosis Comments HPV Routine 12/24/2020 HEPATITIS C SCREENING Routine 12/24/2020 HIV SCREENING Routine 12/24/2020 PIPER SCREENING DIGITAL Routine 11/15/2017 3:17 PM EST Encounter for screening mammogram for malignant neoplasm of breast from Last 3 Months or Most Recently Relevant to Health Maintenance Results * Cervical Cancer Screening: HPV (12/24/2020) Cervical Cancer Screening: HPV abstracted, negative Historical Provider [facility] * HIV Screening (12/24/2020) HIV Screening abstracted Historical Provider [facility] * Hepatitis C Screening (12/24/2020) Hepatitis C Screening abstracted Historical Provider [facility] * PIPER SCREENING DIGITAL (11/15/2017 3:17 PM EST) Anatomical Region Laterality Modality Mammography 11/15/2017 1:40 PM EST Narrative 11/15/2017 3:17 PM EST [facility] Diagnostic Imaging Department [address] [place], [place] [id number] Patient: ??YOJANA BROWN ?/Age/Sex: 1980 - 36 - F Unit#: ??[id number] ? Location/Status: ??SPDIMAM/REG CLI ? Mnemonic/Ordering Site: ??DIGSC/SPMAM Ordering Physician: ??JUAN JOSÉSILVALIOR NAIDU [facility] Screening Digital - 11/15/17 - 1413 EXAM: [facility] Screening Digital EXAM DATE AND TIME: 11/15/2017 2:14 PM HISTORY: ??Screening. The patient declined tomosynthesis. Maternal aunt had breast carcinoma. COMPARISON: ??08/05/14 (right), 07/22/14 TECHNIQUE: CC and MLO views of both breasts were obtained using full field digital mammography. ??Computer aided detection with the [employer] 7.2-H was employed. TISSUE DENSITY: b. There are scattered areas of fibroglandular density. FINDINGS: No suspicious masses, grouped microcalcifications, or areas of architectural distortion are seen. A few benign microcalcifications are again seen. High density material on the skin in both axilla is compatible with deodorant or powder residue. The vascularity is unremarkable. IMPRESSION: Stable mammographic appearance of the breasts. ??No evidence of malignancy is seen. A negative mammogram in the presence of a clinically suspicious palpable abnormality does not preclude the possibility of malignancy or alter the indications for biopsy. BI-RADS: ??Category 2: Benign RECOMMENDATION(S): 1: Routine screening mammogram BILATERAL in 1 year. [id number], 7025F Dictating Physician: ??RADHA FAIR MD Electronically Signed by: ??RADHA FAIR MD Dic Date/Time: ??11/15/17 1514 Sign date/Time: ??11/15/17 1517 Procedure Note Radha Fair MD - 09/05/2022 [facility] Diagnostic Imaging Department [address] [place] [address] Patient: YOJANA BROWN /Age/Sex: 1980 - 36 - F Unit#: [id number] Location/Status: SPDIMAM/REG CLI Mnemonic/Ordering Site: [facility] Ordering Physician: SILVA CAN CNM [facility] Screening Digital - 11/15/17 - 1413 EXAM: [facility] Screening Digital EXAM DATE AND TIME: 11/15/2017 2:14 PM HISTORY: Screening. The patient declined tomosynthesis. Maternal aunthad breast carcinoma. COMPARISON: 08/05/14 (right), 07/22/14 TECHNIQUE: CC and MLO views of both breasts were obtained using fullfield digital mammography. Computer aided detection with the [employer]7.2-H was employed. TISSUE DENSITY: b. There are scattered areas of fibroglandular density. FINDINGS: No suspicious masses, grouped microcalcifications, or areas ofarchitectural distortion are seen. A few benign microcalcifications are again seen.High density material on the skin in both axilla is compatible with deodorantor powder residue. The vascularity is unremarkable. IMPRESSION: Stable mammographic appearance of the breasts. No evidence of malignancyis seen. A negative mammogram in the presence of a clinically suspicious palpable abnormality does not preclude the possibility of malignancy or alter the indications for biopsy. BI-RADS: Category 2: Benign RECOMMENDATION(S): 1: Routine screening mammogram BILATERAL in 1 year. [id number] 3342F, 7025F Dictating Physician: RADHA FAIR MD Electronically Signed by: RADHA FAIR MD Dic Date/Time: 11/15/17 1514 Sign date/Time: 11/15/17 1517 Silva Can CNPratik IMG BI PROCEDURES from Last 3 Months or Most Recently Relevant to Health Maintenance Care Teams Director Content Marketing Relationship Specialty Start Date End Date Leon Truong MD [address] [place] [address] [address] [facility] [place] [address] PCP - General 07/03/24
== END 2024-10-21 14:08 | disposition home or self-care (01) ==
PROVIDERS: PCP Internal Medicine; Visit Provider Internal Medicine
DX: M79.671 Pain in right foot (principal); M79.672 Pain in left foot; R73.01 Impaired fasting glucose; J44.9 Chronic obstructive pulmonary disease, unspecified; E03.9 Hypothyroidism, unspecified; E78.00 Pure hypercholesterolemia, unspecified; J06.0 Acute laryngopharyngitis

== ENCOUNTER → 2024-10-21 13:22 | Outpatient (BNVA) | payer OTHER, SELFPAY | PROVIDERS: PCP Internal Medicine; Visit Provider Internal Medicine | DX: M79.671 Pain in right foot (principal); M79.672 Pain in left foot; R73.01 Impaired fasting glucose; J44.9 Chronic obstructive pulmonary disease, unspecified; E03.9 Hypothyroidism, unspecified; E78.00 Pure hypercholesterolemia, unspecified; J06.9 Acute upper respiratory infection, unspecified | CPT/HCPCS: 99212 ==

== ENCOUNTER 2024-12-15 09:59 | Outpatient (REF) | payer OTHER, SELFPAY ==
[2024-12-15 10:14] LABS: MANUAL DIFF FLAG NO
[2024-12-15 10:48] LABS: Basophils Absolute Auto 0.1 X10*3/uL (0.0-0.2); Basophils Percent Auto 0.7 % (0-2); Eosinophils Absolute Auto 0.1 X10*3/uL (0.0-0.4); Eosinophils Percent Auto 0.9 % (0-4); Hematocrit 34.2 % (37.0-47.0); Hemoglobin 11.8 g/dl (12.0-16.0); Imm Gran Abs Auto 0.04 X10*3/uL (0.00-0.03); Imm Gran Pct Auto 0.6 % (0.0-0.4); Immature Retic Fraction 14.4 % (3.0-15.9); Lymphocytes Absolute Auto 1.8 X10*3/uL (1.2-4.9); Lymphocytes Percent Auto 26.9 % (20-40); Mean Corpuscular HGB Conc 34.5 g/dl (31.0-35.0); Mean Corpuscular Volume 92.7 fL (80.0-98.0); Mean Platelet Volume 9.9 fL (9.4-12.3); Monocytes Absolute Auto 0.4 X10*3/uL (0.1-1.2); Monocytes Percent Auto 6.4 % (2-11); Neutrophils Absolute Auto 4.4 x10*3/uL (2.0-8.3); Neutrophils Percent Auto 64.5 % (45-73); Platelet Count 259 X10*3/uL (160-400); Red Blood Count 3.69 X10*6/uL (4.20-5.50); Red Cell Distribution Width 12.5 % (11.0-16.0); Retic HGB Equivalent 36.4 pg (30.0-35.0); Reticulocyte Percent 2.5 % (0.5-1.8); Reticulocytes Absolute 0.091 X10*6/uL (0.026-0.095); White Blood Count 6.8 X10*3/uL (4.8-10.8)
--- OUTSIDE RECORDS SUMMARY | 2024-12-15 11:09 | XMS_ITS | Encounter Summary ---
Author Organization [facility] Address [address] [place] [address] Care Team Providers Care Color Expert Name Role Phone Community, Pcp Primary Care Provider Unavailabl e Community, Pcp Primary Care Provider Unavailabl e Community, Pcp Unavailable Unavailable Baron Chavez Unavailable Unavailable Leon Truong MD Primary Care Provider Unavailabl e Kemar Morrison MD Primary Care Provider Unava ilable Leon Truong MD Primary Care Provider Unavailabl e Encounter Details Date Type Department Care Team Description 08/15/2017 Transfer Records Medical Records [address] [place] [address] Abstract, Provider Social History Tobacco Use Types Packs/Day Years Used Date Smoking Tobacco: Never Smokeless Tobacco: Never Alcohol Use Standard Drinks/Week Comments No 0 (1 standard drink = 0.6 oz pur e alcohol) Intimate Partner Violence Answer Date R ecorded Within the last year, have y ou been afraid of your partner or ex-partner? No 12/24/2020 Within the last year, have y ou been humiliated or emotionally abused in other ways by your partner or ex-partner? No Within the last year, have y ou been kicked, hit, slapped, or otherwise physically hurt by your partner or ex-partner? No 12/24/2020 Within the last year, have y ou been raped or forced to have any kind of sexual activity by your partner or ex-partner? No 12/24/2020 Sex Assigned at Date Recorded Female 05/03/2023 12:26 PM EDT Job Start Date Occupation Industry Not on file Not on file Not on file documented as of this encounter Plan of Treatment Not on file documented as of this encounter Visit Diagnoses Not on filedocumented in this encounter Care Teams Color Expert Relationship Specialty Start Date End Date Community, Pcp PCP - General Internal Medicine 03/28/17 08/15/17 [facility]cp PCP - General Internal Medicine 08/16/17 09/24/17 PoLeon MD PCP - General Internal Medicine 09/25/17 11/25/17 Kemar Morrison MD PCP - General Internal Medicine 11/26/17 07/02/24 PoLeon MD PCP - General Internal Medicine 07/03/24 [facility] Internal Medicine 03/28/17 Baron Chavez Internal Medicine 11/29/16 documented as of this encounter
--- OUTSIDE RECORDS SUMMARY | 2024-12-15 11:09 | XMS_ITS | Encounter Summary ---
Author Organization [facility] Address [address] [place] [address] Care Team Providers Care Operations Supervisor 2Nd Shift Name Role Phone Community, Pcp Unavailable Unavailable Baron Chavez Unavailable Unavailable Kemar Morrison MD Primary Care Provider Leon Zeng MD Primary Care Provider Unavailabl e Encounter Details Date Type Department Care Team Description 04/26/2018 Telephone Gastroenterology - [address] [address] Daren Arguelles PA-C Social History Tobacco Use Types Packs/Day Years [...] on file documented as of this encounter Miscellaneous Notes * Telephone Encounter - Orquidea Guerra - 04/26/2018 10:34 AM EDT Lactulose- documented in this encounter Plan of Treatment Not on file documented as of this encounter Visit Diagnoses Not on filedocumented in this encounter Care Teams Operations Supervisor 2Nd Shift Relationship Specialty Start Date End Date Kemar Morrison MD PCP - General Internal Medicine 11/26/17 07/02/24 Leon Truong MD PCP - General Internal Medicine 07/03/24 [facility] Internal Medicine 03/28/17 Baron Chavez Internal Medicine 11/29/16 documented as of this encounter
--- OUTSIDE RECORDS SUMMARY | 2024-12-15 11:09 | XMS_ITS | Encounter Summary ---
Author Organization [facility] Address [address] [place] [address] Care Team Providers Care Corporate Learning Consultant Name Role Phone Community, Pcp Unavailable Unavailable Baron Chavez Unavailable Unavailable Kemar Morrison MD Primary Care Provider UnaLeon Cantu MD Primary Care Provider Unavailabl e Reason for Visit * Reason Comments E-prescribe Rx Request Encounter Details Date Type Department Care Team Description 05/27/2019 Refill OBGYN - [place] [address] [place] [address] Silva Pierre, EVANGELISTA [address] [place] [address] E-prescribe Rx Request Social History Tobacco Use Types Packs/Day Years [...] encounter Miscellaneous Notes * Telephone Encounter - Verito Rivas - 05/27/2019 10:28 AM EDT WHEN WAS THE PATIENTS LAST ANNUAL CONTINUOUS PICKLING LINE PICKLER HELPER EXAM? 11/19/18- post Does patient have an upcoming appointment? Yes 05/29/19 (THE MEDICATION REQUESTED IS ON THE MED LIST ABOVE) Did you check the Pharmacy information above?: YES Indicate how soon the patient needs the script: DENITA Patient would like script to be: E-PRESCRIBED/FAXED TO PHARMACY Is the doctor here today?: NO Can the message wait until the doctor returns?: NO Has the patient been told that the prescription will not be filled until the end of the day? NO Payor: [facility] [employer] [facility] / Plan: [facility] / Product Type: MEDICAID RISK documented in this encounter Plan of Treatment Not on file documented as of this encounter Visit Diagnoses Diagnosis Heartburn documented in this encounter Care Teams Corporate Learning Consultant Relationship Specialty Start Date End Date Kemar Morrison MD PCP - General Internal Medicine 11/26/17 07/02/24 Leon Truong MD PCP - General Internal Medicine 07/03/24 [facility] [place] Internal Medicine 03/28/17 Baron Chavez Internal Medicine 11/29/16 documented as of this encounter
--- OUTSIDE RECORDS SUMMARY | 2024-12-15 11:09 | XMS_ITS | Encounter Summary ---
Author Organization [facility] Address [address] [place] [address] Care Team Providers Care Recruitment Internship Name Role Phone Community, Pcp Unavailable Unavailable Baron Chavez Unavailable Unavailable Kemar Morrison MD Primary Care Provider Unava Leon Daugherty MD Primary Care Provider Unavailabl e Reason for Visit * Reason Comments E-prescribe Rx Request Encounter Details Date Type Department Care Team Description 03/28/2019 Refill OBGYN - [place] [address] [place] [address] Silva Pierre, EVANGELISTA [address] [place] [address] E-prescribe Rx Request Social History [...] encounter Miscellaneous Notes * Telephone Encounter - Zeynep Gallagher M.A. - 03/28/2019 9:10 AM EDT Please review. -AC * Telephone Encounter - Alma James - 03/28/2019 8:58 AM EDT WHEN WAS THE PATIENTS LAST ANNUAL REPEAT CHIEF EXAM? 04/04/18 Does patient have an upcoming appointment? Yes 05/29/19 (THE MEDICATION REQUESTED IS ON THE MED LIST ABOVE) Did you check the Pharmacy information above?: NO Indicate how soon the patient needs the script: DENITA Patient would like script to be: E-PRESCRIBED/FAXED TO PHARMACY Is the doctor here today?: NO Can the message wait until the doctor returns?: NO Has the patient been told that the prescription will not be filled until the end of the day? NO Payor: [facility] [employer]FS / Plan: [facility] / Product Type: MEDICAID RISK * Telephone Encounter - Heidy Anatoliy - 03/28/2019 8:57 AM EDT WHEN WAS THE PATIENTS LAST ANNUAL REPEAT CHIEF EXAM? 03/25/18 Does patient have an upcoming appointment? Yes 05/29/19 (THE MEDICATION REQUESTED IS ON THE MED LIST ABOVE) Did you check the Pharmacy information above?: YES Indicate how soon the patient needs the script: DENITA Patient would like script to be: E-PRESCRIBED/FAXED TO PHARMACY Is the doctor here today?: YES Can the message wait until the doctor returns?: NO Has the patient been told that the prescription will not be filled until the end of the day? NO Payor: [employer] FFS / Plan: [facility] [employer] / Product Type: MEDICAID RISK documented in this encounter Plan of Treatment Not on file documented as of this encounter Visit Diagnoses Diagnosis Heartburn documented in this encounter Care Teams Recruitment Internship Relationship Specialty Start Date End Date Kemar Morrison MD PCP - General Internal Medicine 11/26/17 07/02/24 Leon Truong MD PCP - General Internal Medicine 07/03/24 [facility] Internal Medicine 03/28/17 Baron Chavez Internal Medicine 11/29/16 documented as of this encounter
--- OUTSIDE RECORDS SUMMARY | 2024-12-15 11:09 | XMS_ITS | Encounter Summary ---
Author Organization [facility] Address [address] [place] [address] Care Team Providers Care Boating Safety Officer Name Role Phone Community, Pcp Unavailable Unavailable Baron Chavez Unavailable Unavailable Kemar Morrison MD Primary Care Provider Unava Leon Daugherty MD Primary Care Provider Unavailabl e Reason for Visit * Reason Onset Date Comments Provider Call Back 06/24/2018 Encounter Details Date Type Department Care Team Description 06/24/2018 Telephone Pulmonology [facility] [address] [facility] [address] [place] [address] Gary Silva MD Provider Call Back Social History Tobacco Use Types Packs/Day Years [...] encounter Miscellaneous Notes * Telephone Encounter - Ralph Rodríguez - 06/24/2018 12:40 PM EDT Patient is calling in to wish you a happy belated birthday from her daughter Jennifer documented in this encounter Plan of Treatment Not on file documented as of this encounter Visit Diagnoses Not on filedocumented in this encounter Care Teams Boating Safety Officer Relationship Specialty Start Date End Date Kemar Morrison MD PCP - General Internal Medicine 11/26/17 07/02/24 Leon Truong MD PCP - General Internal Medicine 07/03/24 [facility] Internal Medicine 03/28/17 Baron Chavez Internal Medicine 11/29/16 documented as of this encounter
--- OUTSIDE RECORDS SUMMARY | 2024-12-15 11:09 | XMS_ITS | Encounter Summary ---
Author Organization [facility] Address [address] [place] [address] Care Team Providers Care Concert Or Lecture Hall Manager Name Role Phone Community, Pcp Unavailable Unavailable Baron Chavez Unavailable Unavailable Leon Truong MD Primary Care Provider Unavailabl e Encounter Details Date Type Department Care Team Description 07/14/2024 Orders Only Medical Records [address] [place] [address] Leon Truong MD Social History Tobacco Use Types Packs/Day Years [...] on file documented as of this encounter Procedures Procedure Name Priority Date/Time Associated Diagnosis Comments OUTSIDE MAMMO Routine 04/24/2023 documented in this encounter Results * OUTSIDE MAMMO (04/24/2023) Leon Truong MD RADIOLOGY documented in this encounter Visit Diagnoses Not on filedocumented in this encounter Care Teams Concert Or Lecture Hall Manager Relationship Specialty Start Date End Date Leon Truong MD PCP - General Internal Medicine 07/03/24 [facility], Pcp Internal Medicine 03/28/17 Baron Chavez Internal Medicine 11/29/16 documented as of this encounter
--- OUTSIDE RECORDS SUMMARY | 2024-12-15 11:09 | XMS_ITS | Encounter Summary ---
Author Organization [facility] Address [address] [place] [address] Care Team Providers Care Ship Captain Name Role Phone Community, Pcp Unavailable Unavailable Baron Chavez Unavailable Unavailable Kemar Morrison MD Primary Care Provider Unava Leon Daugherty MD Primary Care Provider Unavailabl e Reason for Visit * Reason Comments E-prescribe Rx Request Encounter Details Date Type Department Care Team Description 08/05/2018 Refill RETAIL ADMINISTRATIVE ASSISTANT - [place] [address] [place] [phone] Silva Pierre, EVANGELISTA [address] [place] [address] E-prescribe Rx Request Social History [...] Heartburn documented in this encounter Care Teams Ship Captain Relationship Specialty Start Date End Date Kemar Morrison MD PCP - General Internal Medicine 11/26/17 07/02/24 Leon Truong MD PCP - General Internal Medicine 07/03/24 [facility] Internal Medicine 03/28/17 Baron Chavez Internal Medicine 11/29/16 documented as of this encounter
--- OUTSIDE RECORDS SUMMARY | 2024-12-15 11:09 | XMS_ITS | Clinical Summary ---
Author Organization [address] [facility] Address [address] [place] [address] Phone Care Team Providers Care Professor Of Art History Name Role Phone Leon Truong MD Primary Care Provider [phone] Allergies Active Allergy Reactions Criticality Noted Date Comments Amoxicillin Rash 08/22/2024 Dermatitis Clarithromycin Nausea And Vomiting,Rash 024 Dermatitis Nickel Swelling 08/22/2024 edema Other 08/22/2024 Seasonal allergies Medications norethindrone-e thinyl estradiol (ORTHO-NOVUM 1-35 TAB,NORTREL 1-35 TAB) 1-35 mg-mcg per tablet Take 1 tablet by mouth 1 (one) time each day. Active simvastatin (ZOCOR) 5 mg tablet Take 1 tablet (5 mg total) by mouth at bedtime. Active cetirizine (ZyrTEC) 10 mg tablet Active fluticasone propionate (FLONASE) 50 mcg/actuation nasal spray USE 2 SPRAYS IN EACH NOSTRIL ONCE DAILY Active fluticasone-ume clidinium-vilan terol (Trelegy Ellipta) 200-62.5-25 mcg inhaler Inhale 1 puff (200 mcg total) by mouth 1 (one) time each day. Active pseudoephedrine (SUDAFED) 120 mg 12 hr tablet Acti ve roflumilast (Daliresp) 250 mcg tablet Take 250 [...] days. Active ARIPiprazole (ABILIFY) 5 mg tablet Active cholecalciferol (VITAMIN D-3) 50 mcg (2,000 unit) [...] B-12, (VITAMIN B-12 ORAL) Take by mouth. Activ e UNABLE TO FIND Take by mouth. Med Name: Ferrous Gluconate 240 (27 FE) MG Tab Active loratadine (CLARITIN) 10 mg tablet Take 1 tablet (10 mg total) by mouth 1 (one) time each day. Active levothyroxine (SYNTHROID, LEVOTHROID) 112 mcg tablet Take by mouth at bedtime Active ipratropium-alb uteroL (DUONEB) 0.5-2.5 mg/3 mL nebulizer solution Inhale 3 mL into the lungs 4 times daily Active Active Problems Problem Noted Date Diagnosed Date Allergic rhinitis 08/22/2024 Anxiety 08/22/2024 Asthma 08/22/2024 HLD (hyperlipidemia) 08/22/2024 Hypothyroid 08/22/2024 Slow transit constipation 08/22/2024 Encounters Date Type Department Care Team Description 10/01/2024 Telephone Orthopedic Surgery - [place] [address] [address] Clint Lanier DPM fax order 09/29/2024 2:30 PM EST Consult Orthopedic Surgery - [place] [address] [place] [address] [place] [phone] Clint Lanier DPM Pes planus of [...] drink = 0.6 oz pur e alcohol) Comments Unknown Sex and Gender Information Value Date Recorded Sex Assigned at Not on file Legal Sex Female 9:48 PM EST Gender Identity Not on file Sexual Orientation Not on file Obstetrics History Last Filed [...] Care Team (Late st Contact Info) Description 01/29/2025 9:30 AM EDT Office Visit Orthopedic Surgery - [place] [address] [phone] Clint Lanier, DPM [address] [address] Health Maintenance Due Date Last Done Comments Pneumococcal Vaccine: Pediatrics (0 to 5 Years) and At-Risk Patients (6 to 64 Years) (1 of 2 - PCV) 1997 Hepatitis B Vaccines (3 of 3 - [...] patient's age to complete this topic Meningococcal B Vacine Aged Out No lo nger eligible based on patient's age to complete [...] (12/24/2020) Cervical Cancer Screening: HPV abstracted, negative [facility] Provider HEALTH MAINTENANCE Final Result * HIV Screening (12/24/2020) Pathologist [facility] HIV Screening abstracted [facility] Provider HEALTH MAINTENANCE Final Result * Hepatitis C Screening (12/24/2020) Pathologist [facility] Hepatitis C Screening abstracted [facility] Provider HEALTH MAINTENANCE Final Result * PIPER SCREENING DIGITAL (11/15/2017 3:17 PM EST) Anatomical Region Laterality Modality Mammography 11/15/2017 1:40 PM EST Narrative 11/15/2017 3:17 PM EST [facility] Diagnostic Imaging Department [address] [place] [id number] Patient: ??YOJANA BROWN ?/Age/Sex: 1980 - 36 - F Unit#: ??[id number] ? Location/Status: ??SPDIMAM/REG CLI ? Mnemonic/Ordering Site: ??DIGSC/SPMAM Ordering Physician: ??ARNAUDYRNSILVA CNPratik Piper Screening Digital - 11/15/17 - 1413 EXAM: Pi[facility] Screening Digital EXAM DATE AND TIME: 11/15/2017 2:14 PM HISTORY: ??Screening. The patient declined tomosynthesis. Maternal aunt had breast carcinoma. COMPARISON: ??08/05/14 (right), 07/22/14 TECHNIQUE: CC and MLO views of both breasts were obtained using full field digital mammography. ??Computer aided detection with the Probiodrug 7.2-H was employed. TISSUE DENSITY: b. There [...] Routine screening mammogram BILATERAL in 1 year. [address]80 [id number], 7025F Dictating Physician: ??RADHA FAIR MD Electronically Signed by: ??RADHA FAIR MD Dic Date/Time: ??11/15/17 1514 Sign date/Time: ??11/15/17 1517 Procedure Note Radha Fair MD - 09/05/2022 [facility] Diagnostic Imaging Department [address] [place] [id number] Patient: YOJANA BROWN Anna Marie /Age/Sex: 1980 - 36 - F Unit#: [id number] Location/Status: SPDIMAM/REG CLI Mnemonic/Ordering Site: [facility] Ordering Physician: SILVA CAN CNM [facility] Screening Digital - 11/15/17 - 1413 EXAM: [facility] Screening Digital EXAM DATE AND TIME: 11/15/2017 2:14 PM HISTORY: Screening. The patient declined tomosynthesis. Maternal aunthad breast carcinoma. COMPARISON: 08/05/14 (right), 07/22/14 TECHNIQUE: CC and MLO views of both breasts were obtained using fullfield digital mammography. Computer aided detection with the Probiodrug7.2-H was employed. TISSUE DENSITY: b. There are [...] Routine screening mammogram BILATERAL in 1 year. [id number], 7025F Dictating Physician: RADHA FAIR MD Electronically Signed by: RADHA FAIR MD Dic Date/Time: 11/15/171513 Sign date/Time: 11/15/171516 Silva Can CNM IMG BI PROCEDURES Final Result from Last 3 Months or Most Recently Relevant to Health [place] [id number] MEDICAID - [place] [facility] [employer] Care Teams Professor Of Art History Relationship Specialty Start Date End Date Leon Truong MD [address] [place] [address] [address] [facility] [place] [address] PCP - General 07/03/24
--- OUTSIDE RECORDS SUMMARY | 2024-12-15 11:09 | XMS_ITS | Encounter Summary ---
Author Organization [facility] Address [address] [place] [address] Care Team Providers Care Hat Forming Machine Operator Name Role Phone Community, Pcp Unavailable Unavailable Baron Chavez Unavailable Unavailable Kemar Morrison MD Primary Care Provider Unava Leon Daugherty MD Primary Care Provider Unavailabl e Reason for Visit * Reason Comments E-prescribe Rx Request Encounter Details Date Type Department Care Team Description 01/17/2018 Refill Pulmonology - [address] [place] [phone] Gary Silva MD E-prescribe Rx Request Social History Tobacco Use [...] encounter Miscellaneous Notes * Telephone Encounter - Candie Martinez - 01/17/2018 10:02 AM EDT WHEN WAS THE PATIENTS LAST ANNUAL MATHEMATICAL STATISTICIAN EXAM? NA Does patient have an upcoming appointment? Yes 01/25/2018 (THE MEDICATION IS NOT ON THE MED LIST AND IS IDENTIFIED BELOW): Med name: Ipratropium ALbuterol Dosage: 0.5-2.5 MG/3ML # of tablets: NA Local pharmacy with request for 30 -day supply Instructions: USe 1 Unit dose Q 4 HRs PRN Did you check the pharmacy information above?: YES Indicate how soon the patient needs the script: BY THE END OF THE DAY Patient would like script to be: E-PRESCRIBED/FAXED TO PHARMACY Is the doctor here today?: YES Can the message wait until the doctor returns?: YES Has the pateint been told the prescription will not be filled until the end of the day? NO Payor: [email or web address] FFS / Plan: [facility] [employer] / Product Type: MEDICAID RISK documented in this encounter Plan of Treatment Not on file documented as of this encounter Visit Diagnoses Not on filedocumented in this encounter Care Teams Hat Forming Machine Operator Relationship Specialty Start Date End Date Kemar Morrison MD PCP - General Internal Medicine 11/26/17 07/02/24 Leon Truong MD PCP - General Internal Medicine 07/03/24 Pending Sale To [facility] Internal Medicine 03/28/17 Baron Chavez Internal Medicine 11/29/16 documented as of this encounter
--- OUTSIDE RECORDS SUMMARY | 2024-12-15 11:09 | XMS_ITS | Encounter Summary ---
Author Organization [facility] Address [address] [place] [address] Care Team Providers Care Estimator Name Role Phone Community, Pcp Unavailable Unavailable Baron Chavez Unavailable Unavailable Kemar Morrison MD Primary Care Provider Unava Leon Daugherty MD Primary Care Provider Unavailabl e Reason for Visit * Reason Onset Date Comments refill request 04/26/2018 Encounter Details Date Type Department Care Team Description 04/26/2018 Refill Gastroenterology - [address] [address] Daren Arguelles PA-C refill request Social History Tobacco Use Types Packs/Day Years [...] encounter Miscellaneous Notes * Telephone Encounter - Cely Ya M.A. - 04/26/2018 10:57 AM EDT Pt seen by you in March 2018. Refill due on 04-26-2018/map * Telephone Encounter - Orquidea Guerra - 04/26/2018 10:37 AM EDT Patient requesting refill documented in this encounter Plan of Treatment Not on file documented as of this encounter Visit Diagnoses Not on filedocumented in this encounter Care Teams Estimator Relationship Specialty Start Date End Date Kemar Morrison MD PCP - General Internal Medicine 11/26/17 07/02/24 Leon Truong MD PCP - General Internal Medicine 07/03/24 [facility], [facility] Internal Medicine 03/28/17 Baron Chavez Internal Medicine 11/29/16 documented as of this encounter
--- OUTSIDE RECORDS SUMMARY | 2024-12-15 11:09 | XMS_ITS | Clinical Summary ---
Author Organization [facility] Address [address] [facility] [place] [address] Care Team Providers Care Mobile Heavy Equipment Operator Name Role Phone Community, Pcp Unavailable Unavailable Baron Chavez Unavailable Unavailable Leon Truong MD Primary Care Provider Unavailabl e Allergies Active Allergy Reactions Severity Noted Date Comments Amoxicillin Rash/Dermatitis 03/29/2017 Clarithromycin Rash/Dermatitis,Nausea and Vomiting 03/29/2017 Nickel Swelling/Edema 05/15/2017 Seasonal Allergies 02/19/2019 Medications Medication Sig Dispensed Refills Start Date End Date Status Ipratropium-Albuterol (DUONEB) 0.5-2.5 (3) MG/3ML Solution Inhale 3 mL into the lungs 4 times daily. 120 Vial 3 03/07/2018 Active Levothyroxine Sodium 112 MCG Cap Take by mouth at bedtime. 0 Active loratadine (CLARITIN) 10 MG tabletIndications:Mod erate persistent asthma without complication,Allergic rhinitis due to other allergic trigger, unspecified seasonality Take 1 Tab by mouth daily for 30 days. 30 Tab 0 07/25/2018 Active Cyanocobalamin (VITAMIN B 12 OR) Take by mouth. 0 Act jeff Ferrous Gluconate 240 (27 FE) MG Tab Take by mouth. 0 Active ARIPiprazole (ABILIFY OR) Take by mouth daily. 0 Active azelastine (ASTELIN) 0.1 % nasal spray 2 Sprays by Each Nare route 2 times daily for 30 days. Use in each nostril as directed [address] [facility] 3 12/06/2018 Active montelukast (SINGULAIR) 10 MG tabletIndications:Mod erate persistent asthma without complication,Allergic rhinitis due to other allergic trigger, unspecified seasonality Take 1 Tab by mouth at bedtime for 30 days. 90 Tab 3 01/30/2019 Active ALBUTEROL SULFATE (PROAIR HFA) 108 (90 BASE) MCG/ACT Aero Soln Inhale 2 Puffs into the lungs every 6 hours as needed for Cough or Wheezing for up to 30 days. 1 Inhaler 11 04/03/2019 Active ranitidine (ZANTAC) 150 MG tabletIndications:Hea rtburn TAKE 1 TAB BY MOUTH 2 TIMES DAILY 60 Tab 0 05/27/2019 Active Cholecalciferol (VITAMIN D) 2000 units CapIndications:Vitami n D deficiency Take 1 tablet by mouth daily. 90 Cap 3 09/09/2019 Active clonazepam (KLONOPIN) 0.5 MG tablet 0 04/30/2020 Active [facility] VITAMIN B12 1000 MCG tablet Take 1,000 mcg by mouth daily. 0 02/11/2020 Active fenofibrate (TRIGLIDE) 160 MG tablet TAKE 1 TABLET BY MOUTH EVERY DAY WITH FOOD 0 04/12/2020 Active levothyroxine 100 MCG tablet Take 100 mcg by mouth daily. 0 04/20/2020 Active montelukast (SINGULAIR) 10 MG tablet 0 05/07/2020 Active aripiprazole (ABILIFY) 5 MG tablet 0 04/30/2020 Act jeff naproxen (NAPROSYN) 500 MG tablet Take 1 tablet by mouth every 12 hours as needed for Pain for up to 360 days. 60 tablet 1 11/29/2021 Active cetirizine (ZYRTEC) 10 MG tablet 0 03/07/2022 Active fluticasone 50 MCG/ACT nasal spray USE 2 SPRAYS IN EACH NOSTRIL ONCE DAILY 0 02/28/2022 Active Trelegy Ellipta 200-62.5-25 MCG/INH AEROSOL POWDER,BREATH ACTIVATED INHALE 1 PUFF BY MOUTH EVERY DAY 0 02/28/2022 Active [facility] 12 Hour Nasal Decongestant 120 MG 12 hr tablet 0 03/07/2022 Active Daliresp 250 MCG Tab Take 1 Tablet by mouth daily. 0 02/22/2022 Active simvastatin (ZOCOR) 5 MG tablet TAKE 1 TABLET BY MOUTH EVERYDAY AT BEDTIME 0 02/27/2023 Active norethindrone-ethinyl estradiol (ORTHO-NOVUM 1-35 TAB,NORTREL 1-35 TAB) 1-35 MG-MCG per tablet TAKE 1 TABLET BY MOUTH EVERY DAY 28 Tablet 11 02/26/2024 Active Active Problems Problem Noted Date Hyperlipidemia 11/20/2017 Allergic rhinitis 09/25/2017 Asthma 09/25/2017 Slow transit constipation 09/25/2017 Hypothyroid 09/17/2010 Anxiety Overview: [facility]ed by [facility] [place] q 1-2wks; Dr. Michael Montgomery, psychiatrist/presciber Resolved Problems Problem Noted Date Resolved Date GBS (group B Streptococcus c arrier), +RV culture, currently 09/03/2018 11/19/2018 Overview: Treat in labor Hx of intrauterine growth re striction in prior , currently 08/14/2018 11/19/2018 Overview: Growth ultrasounds Q 4 weeks per M. Late care affecting in third trimester 07/02/2018 11/19/2018 Overview: 1. [facility] site: /[place] [address] 2. Delivery site: [facility] 3. Dating criteria: 2nd trimester ultrasound only 3. Blood type: AB+ 4. Genetic screening: Date: Result: 5. GBS:POSITIVE FOR GROUP B STREP Date: 08/27/2018 6. FOB name: Not involved 7. Plans A. Epidural or other pain management - B. Labor support identified - C. Tdap - Date: 06/26/18 D. Breast or Bottle feed: bottle E. Baby's name -Tori F. Circumcision - N/A G hx of P C/S Hx of section 07/02/2018 9 Last Assessment & Plan: Sched repeat Immunizations Name Administration Dates Next Due Influenza Vaccine-preservati ve Free-quadrivalent 4 Years 06/25/2018 Tdap 06/25/2018,07/02/2015 Twinrix 07/13/2016,05/26/2016 Family History Medical History Relation Name Comments CA Breast Aunt 1 maternal aunt CA Breast Aunt 2 Paternal aunt Stroke Father arthritis Hypertension Mother arthritis CA Ovarian Negative Hx Uterine Cancer Negative Hx Relation Name Status Comments Aunt 1 [...] file Not on file Not on file Last Filed Vital Signs Vital Sign Reading Time Taken Comments Blood Pressure 130/88 07/07/2024 1:21 PM EDT Pulse 68 07/07/2024 1:21 PM EDT Temperature 36.8 ??C (98.2 ??F) 11/19/2018 10:[address] Respiratory Rate 12 02/19/2019 2:09 PM EDT Oxygen Saturation 99% 05/21/2019 2:30 PM EDT Inhaled Oxygen Concentration - - Weight 60.8 kg (134 lb) 07/07/2024 1:21 PM EDT Height 162.6 cm (5' 4 ) 07/07/2024 1:21 PM EDT Body Mass Index 23 07/07/2024 1:21 PM EDT Plan of Treatment Health Maintenance Due Date Last Done Comments Covid-19 Vaccine (#1) 06/15/1981 PNEUMOCOCCAL VACCINE FOR HIG H RISK PATIENTS (#1) 1997 CHOLESTEROL SCREENING 1998 BASELINE HEALTH EXAM 40-64 2018 CERVICAL CANCER SCREENING 12/25/2023 12/24/2020, 03/2016 MAMMOGRAM 04/24/2024 04/24/2023, 03/17, 06/10/2020, Additional history exists INFLUENZA (#1) 2024 06/25/2018 DEPRESSION SCREENING/FOLLOWUP 09/17/2024 SOCIAL NEEDS SCREENING 09/17/2024 DTAP/TDAP/TD (3 - Td or Tdap) 06/25/2028 06/25/2018, 07/02/2015 Care Teams Mobile Heavy Equipment Operator Relationship Specialty Start Date End Date Po, MD Leon PCP - General Internal Medicine 07/03/24 [facility], Pcp Internal Medicine 03/28/17 Baron Chavez Internal Medicine 11/29/16
--- OUTSIDE RECORDS SUMMARY | 2024-12-15 11:09 | XMS_ITS | Encounter Summary ---
Author Organization [facility] Address [address] [place] [address] Care Team Providers Care Trapeze Performer Name Role Phone Community, Pcp Unavailable Unavailable Baron Chavez Unavailable Unavailable Kemar Morrison MD Primary Care Provider Leon Zeng MD Primary Care Provider Unavailabl e Encounter Details Date Type Department Care Team Description 04/30/2023 Orders Only Medical Records [address] [place] [id number] Abstract, Provider Social History Tobacco Use Types [...] Date/Time Associated Diagnosis Comments OUTSIDE MAMMO Routine 03/28/2022 documented in this encounter Results * OUTSIDE MAMMO (03/28/2022) Provider Abstract RADIOLOGY documented in this encounter Visit Diagnoses Not on filedocumented in this encounter Care Teams Trapeze Performer Relationship Specialty Start Date End Date Kemar Morrison MD PCP - General Internal Medicine 11/26/17 07/02/24 Leon Truong MD PCP - General Internal Medicine 07/03/24 [facility] Internal Medicine 03/28/17 Baron Chavez Internal Medicine 11/29/16 documented as of this encounter
--- OUTSIDE RECORDS SUMMARY | 2024-12-15 11:09 | XMS_ITS | Encounter Summary ---
Author Organization [facility] Address [address] [place] [address] Care Team Providers Care Blast Setter Name Role Phone Community, Pcp Unavailable Unavailable Baron Chavez Unavailable Unavailable Kemar Morrison MD Primary Care Provider Unava Leon Daugherty MD Primary Care Provider Unavailabl e Reason for Visit * Reason Onset Date Comments REFERRAL 11/26/2017 General Surgery Encounter Details Date Type Department Care Team Description 11/26/2017 Telephone General Surgery - [place] [address] [address] Neil Gilbert MD [address] [address] REFERRAL (General Surgery) Social History Tobacco Use Types Packs/Day Years [...] encounter Miscellaneous Notes * Telephone Encounter - Martha Busby - 11/26/2017 11:08 AM EDT All attempts have been exhausted to reach the patient to schedule an appointment in General SurgeryDepartment. Taking off from the referral report. documented in this encounter Plan of Treatment Not on file documented as of this encounter Visit Diagnoses Not on filedocumented in this encounter Care Teams Blast Setter Relationship Specialty Start Date End Date Kemar Morrison MD PCP - General Internal Medicine 11/26/17 07/02/24 Leon Truong MD PCP - General Internal Medicine 07/03/24 [facility], [facility] Internal Medicine 03/28/17 Baron Chavez Internal Medicine 11/29/16 documented as of this encounter
--- OUTSIDE RECORDS SUMMARY | 2024-12-15 11:09 | XMS_ITS | Encounter Summary ---
Author Organization [facility] Address [address] [place] [address] Care Team Providers Care Elevator Adjuster Name Role Phone Community, Pcp Unavailable Unavailable Baron Chavez Unavailable Unavailable Kemar Morrison MD Primary Care Provider Leon Zeng MD Primary Care Provider Unavailabl e Encounter Details Date Type Department Care Team Description 02/24/2019 Orders Only Pulmonology - [address] [place] [phone] Gary Silva MD Moderate persistent asthma with acute exacerbation (Primary Dx) Social History Tobacco Use Types [...] as of this encounter Visit Diagnoses Diagnosis Moderate persistent asthma with acute exacerbation- Primary documented in this encounter Care Teams Elevator Adjuster Relationship Specialty Start Date End Date Kemar Morrison MD PCP - General Internal Medicine 11/26/17 07/02/24 Leon Truong MD PCP - General Internal Medicine 07/03/24 [facility] Internal Medicine 03/28/17 Baron Chavez Internal Medicine 11/29/16 documented as of this encounter
--- OUTSIDE RECORDS SUMMARY | 2024-12-15 11:09 | XMS_ITS | Encounter Summary ---
Author Organization [facility] Address [address] [place] [address] Care Team Providers Care Container Finisher Name Role Phone Community, Pcp Unavailable Unavailable Baron Chavez Unavailable Unavailable Kemar Morrison MD Primary Care Provider UnaLeon Cantu MD Primary Care Provider Unavailabl e Encounter Details Date Type Department Care Team Description 01/07/2018 Pt. Non Urgent Medic al Question Pulmonology - [address] [place] [address] Gary Silva MD Social History Tobacco Use Types Packs/Day [...] as of this encounter Progress Notes * Marie Goldberg M.A. - 01/09/2018 3:16 PM EDTFrom: Yojana Dietrich To: Gary Silva MD Sent: 01/07/2018 12:33 PM EDT Subject: Re: I need more meds for the up drift machine Thank you documented in this encounter Plan of Treatment Not on file documented as of this encounter Visit Diagnoses Not on filedocumented in this encounter Care Teams Container Finisher Relationship Specialty Start Date End Date Kemar Morrison MD PCP - General Internal Medicine 11/26/17 07/02/24 Leon Truong MD PCP - General Internal Medicine 07/03/24 [facility], [facility] Internal Medicine 03/28/17 Baron Chavez Internal Medicine 11/29/16 documented as of this encounter
--- OUTSIDE RECORDS SUMMARY | 2024-12-15 11:09 | XMS_ITS | Encounter Summary ---
Author Organization [facility] Address [address] [place] [address] Care Team Providers Care Clinical Coder Name Role Phone Community, Pcp Unavailable Unavailable Baron Chavez Unavailable Unavailable Kemar Morrison MD Primary Care Provider Unava ilable Leon Truong MD Primary Care Provider Unavailabl e Reason for Visit * Reason Onset Date Comments APPOINTMENT 01/10/2019 Encounter Details Date Type Department Care Team Description 01/10/2019 Telephone Pulmonology [facility] 175 [facility] [address] [place] [address] Gary Silva MD APPOINTMENT Social History Tobacco Use Types Packs/Day Years [...] encounter Miscellaneous Notes * Telephone Encounter - Gary Silva MD - 01/10/2019 5:22 PM EDT called * Telephone Encounter - Conchis Romo M.A. - 01/10/2019 1:24 PM EDT I called patient to offer a sick visit. She couldn't come in today at 2:30, january 16, or january 17 dueto the fact that she takes three buses. She stated she would deal with it and if it got worse go tot ER. Please call her. * Telephone Encounter - Quinn Velasco - 01/10/2019 8:38 AM EDT Patient calling asking to be seen today if possible says feels like I have a cold in my lungs please advise ..... documented in this encounter Plan of Treatment Not on file documented as of this encounter Visit Diagnoses Diagnosis Moderate persistent asthma without complication- Primary Unspecified asthma documented in this encounter Care Teams Clinical Coder Relationship Specialty Start Date End Date Kemar Morrison MD PCP - General Internal Medicine 11/26/17 07/02/24 Leon Truong MD PCP - General Internal Medicine 07/03/24 [facility], [facility] Internal Medicine 03/28/17 Baron Cahvez Internal Medicine 11/29/16 documented as of this encounter
--- OUTSIDE RECORDS SUMMARY | 2024-12-15 11:09 | XMS_ITS | Encounter Summary ---
Author Organization [facility] Address [address] [place] [address] Care Team Providers Care Mercury Washer Name Role Phone Community, Pcp Unavailable Unavailable Baron Chavez Unavailable Unavailable Kemar Morrison MD Primary Care Provider UnaLeon Cantu MD Primary Care Provider Unavailabl e Encounter Details Date Type Department Care Team Description 07/26/2018 [employer] Clipping Notes Medical Records [address] [place] [id number] Abstract, Provider Social History Tobacco Use Types [...] on filedocumented in this encounter Care Teams Mercury Washer Relationship Specialty Start Date End Date Kemar Morrison MD PCP - General Internal Medicine 11/26/17 07/02/24 Leon Truong MD PCP - General Internal Medicine 07/03/24 [facility], [facility] Internal Medicine 03/28/17 Baron Chavez Internal Medicine 11/29/16 documented as of this encounter
--- OUTSIDE RECORDS SUMMARY | 2024-12-15 11:09 | XMS_ITS | Encounter Summary ---
Author Organization [facility] Address [address] [place] [address] Care Team Providers Care Associate Accountant Name Role Phone Community, Pcp Unavailable Unavailable Baron Chavez Unavailable Unavailable Kemar Morrison MD Primary Care Provider UnaLeon Cantu MD Primary Care Provider Unavailabl e Encounter Details Date Type Department Care Team Description 09/16/2018 Pt. Non Urgent Medic al Question Pulmonology - [address] [place] [address] Gary Silva MD Social History [...] Progress Notes * Marie Goldberg M.A. - 09/16/2018 9:31 AM ESTFrom: Yojana Dietrich To: Gary Silva MD Sent: 09/16/2018 8:46 AM EST Subject: Marie I had the baby girl the im at [facility]. Mom knows about her and shes ok with it i still have not be able to get her anything to sleep in yet have not received any money. Shes 5 lbs 5 oz documented in this encounter Plan of Treatment Not on file documented as of this encounter Visit Diagnoses Not on filedocumented in this encounter Care Teams Associate Accountant Relationship Specialty Start Date End Date Kemar Morrison MD PCP - General Internal Medicine 11/26/17 07/02/24 Leon Truong MD PCP - General Internal Medicine 07/03/24 [facility] Internal Medicine 03/28/17 Baron Chavez Internal Medicine 11/29/16 documented as of this encounter
[2024-12-15 11:17] LABS: Estimated Average Glucose 126 mg/dL
[2024-12-15 11:27] LABS: Alanine Aminotransferase 22 U/L (0-31); Albumin Level 4.5 g/dL (3.5-5.0); Alkaline Phosphatase 48 U/L (39-117); Anion Gap 14 (12-20); Aspartate Amino Transferase 25 U/L (5-31); Bilirubin Total 0.3 mg/dL (0.0-1.0); Blood Urea Nitrogen 13 mg/dL (9-16); Calcium 9.7 mg/dL (8.4-10.2); Carbon Dioxide 26 mmol/L (22-29); Chloride 104 mmol/L (96-108); Cholesterol 164 mg/dL (<200); Estimated Glomerular Filt Rate > 60; Glucose Random 97 mg/dL (60-115); HDL Cholesterol 33 mg/dL (>40); Iron 105 mcg/dL (30-160); LDL Cholesterol Calculated 69 mg/dL (<100); Percent Iron Saturation 27 % (15-50); Potassium 4.6 mmol/L (3.3-5.1); Sodium 139 mmol/L (135-145); Total Iron Binding Capacity 384 mcg/dL (228-428); Total Protein 7.7 g/dL (6.5-8.0); Triglycerides 313 mg/dL (<150); Unsaturated Iron Binding 279 ug/dL
[2024-12-15 11:35] LABS: Ferritin 162 ng/mL (10-250); Thyroid Stimulating Hormone 17.77 uIU/mL (0.32-4.0)
[2024-12-15 11:46] LABS: Folate 13.2 ng/mL (> or = 4.0); Vitamin B12 288 pg/mL (200-900)
== END 2024-12-15 10:00 | disposition home or self-care (01) ==
LOC: HO.LAB 09:59
PROVIDERS: PCP Internal Medicine; Visit Provider Internal Medicine
DX: E03.9 Hypothyroidism, unspecified (principal); R73.01 Impaired fasting glucose; E78.00 Pure hypercholesterolemia, unspecified; J45.40 Moderate persistent asthma, uncomplicated; J30.2 Other seasonal allergic rhinitis
CPT/HCPCS: 36415; 80053; 80061; 82306; 82607; 82728; 82746; 83036; 83540; 84439; 84443; 85025; 85045; 99212

== ENCOUNTER 2024-12-15 10:30 | Outpatient (AMB) | payer OTHER, SELFPAY ==
--- NOTE | 2024-12-15 10:36 | MHC.OFFVIS ---
Vital Signs 12/15/24 10:37 Height 5 ft 4 in Weight 133 lb 6.075 oz BMI 22.9 BP 110/66 Blood Pressure Location Lt brachial Position Sitting Pulse 65 Pulse Source Pulse Oximeter Pulse Oximetry (%) 97 Oxygen Delivery Method Room Air Intake Visit Reasons: Asthma Allergies amoxicillin [Amoxicillin] Allergy (Severe, Verified 12/15/24 10:40) NAUSEA & VOMITING, rash, hives ciprofloxacin [CIPROFLOXACIN] Allergy (Severe, Verified 12/15/24 10:40) VAGINAL BLEEDING nickel Allergy (Severe, Verified 12/15/24 10:40) Swelling clarithromycin [From Biaxin] Allergy (Mild, Verified 12/15/24 10:40) RASH MIGRAINE MEDICINE CAN NOT RECALL NAME Allergy (Severe, Uncoded 12/15/24 10:40) RAPID HEART RATE AND SWEATS HPI Comments Details: The patient is a 44-year-old woman with a known history of allergic rhinitis and also allergic asthma. 06/05/2024 the patient is here for a pulmonary follow-up visit. The patient overall doing well from a respiratory status. The Trelegy inhaler has been helpful and she is doing all her allergy medicines. She has not had to use any prednisone. Over the summer she did have a flare-up and she did require medicine. No recent x-rays to review. The patient has been dealing with significant amount of stress that is affecting her breathing. She is looking for a place to live. Otherwise patient is without any other complaints. 12/15/2024 the patient is here for pulmonary follow-up visit. Overall she is doing okay from respiratory status. She continues daily. She also has a nebulizer and rescue medicine. She typically does not use it more than twice a week. Allergies have not been active so therefore she has not been using Zyrtec although she continues uses Singulair at nighttime. She is very stressed that can affect her breathing. She is dealing with all of psychosocial issues as far as her family and children. Apparently needing to get a restraining order for the father of 1 of her child. Noticing studies laboratories revealed this time. Will follow-up in the fall 2024. If any issues arise prior to that she would call for an earlier assessment. [facility] Medical History (Updated 08/22/24 @ 16:44 by Leon Truong MD) Breast cancer screening by mammogram Hand swelling URI (upper respiratory infection) Swelling of right upper extremity Elbow pain, right Toe pain, left Hypercalcemia Exposure to COVID-19 virus Pain and swelling of right ankle Dizziness Anxiety Asthma Pulmonary nodule Shortness of breath Developmental delay, mild Vitamin B12 deficiency Hypercholesterolemia Hypothyroid Allergic rhinitis Surgical History History of section Family History Father Skin cancer Myocardial infarction Mother No problems noted. Maternal Aunt Breast cancer Daughter In good health Brother Chronic mental illness Other Mental health problem Social History Housing: Apartment Alcohol intake: never Patient Tobacco Use Status: Never used Tobacco Tobacco use type: Cigarette e-Cigarette/Vaping Use: Never Used Second Hand Smoke Exposure: No service: No Current occupational status: disabled Current occupational exposures/hazards: No Cognitive needs: No Hearing needs: No Vision needs: No Review of Systems Const Denies night sweats ENT Denies change in voice, Denies lip swelling, Denies mouth pain, Reports nasal congestion, Reports nasal discharge and Denies tongue swelling Card Denies chest pain Resp Denies chest congestion, Reports cough and Denies wheezing GI Denies abdominal pain Musc Denies no additional complaints Neuro Denies Neuro-related abnormal movements Psych Reports anxiety Alex/Lymph Denies easy bleeding and Denies lymphadenopathy Aller/Immun Denies lip swelling, Denies tongue swelling and Denies wheezing Physical Exam Vital Signs: Last Vital Signs Pulse 65 12/15/24 10:37 BP 110/66 12/15/24 10:37 Pulse Ox 97 12/15/24 10:37 Oxygen Delivery Method Room Air 12/15/24 10:37 BMI result Body Mass Index 22.9 Const General: comfortable, no acute distress and alert HEENT Head: Yes atraumatic Neck Neck: Yes no lymphadenopathy Thyroid: Thyroid normal Chest Chest palpation & inspection: normal inspection of the chest Resp Effort & Inspection: normal respiratory effort Auscultation: clear to auscultation bilaterally, no rhonchi and no wheezes Cardio Jugular venous distension: no JVD Palpation: normal PMI Rate: regular rate Rhythm: regular rhythm Heart sounds: S1 normal heart sound present and S2 normal heart sound present GI Palpation (GI): Soft to palpation Skin General skin exam: no rashes or lesions noted Extrem General: Yes no clubbing, cyanosis or edema Assessment & Plan Assessment & Plan (1) Asthma: Code(s): J45.909 - Unspecified asthma, uncomplicated Category: Medical Qualifiers: Asthma complication type: uncomplicated Asthma persistence: persistent Asthma severity: moderate Qualified Code(s): J45.40 - Moderate persistent asthma, uncomplicated (2) Allergic rhinitis: Code(s): J30.9 - Allergic rhinitis, unspecified Category: Medical Qualifiers: Allergic rhinitis seasonality: seasonal Allergic rhinitis trigger: unspecified Qualified Code(s): J30.2 - Other seasonal allergic rhinitis Plan continue Trelegy 200 KIM as needed Claritin PO daily Continue Singulair continue pseudophed as needed Follow-up in 6-8 months Medications: Refilled albuterol sulfate 90 mcg/actuation 2 puffs PO Q6H PRN 1 ea 11RF wheezing 30 days albuterol sulfate 2.5 mg (3 mL) inhalation Q4H PRN 180 mL 11RF shortness of breath or wheezing 30 days Coding Level of Care Code Est Pt Level 4 (53230) Diagnoses Moderate persistent asthma without complication J45.40 Asthma complication type: uncomplicated Asthma persistence: persistent Asthma severity: moderate Seasonal allergic rhinitis, unspecified trigger J30.2 Allergic rhinitis seasonality: seasonal Allergic rhinitis trigger: unspecified Time Spent (min) 16
[2024-12-15 10:37] VITALS: BP 110/66; PULSE 65; O2SAT 97; BMI 22.9
--- OUTSIDE RECORDS SUMMARY | 2024-12-15 11:48 | XMS_ITS | Clinical Summary ---
Author Organization [facility] Address [address] [place] [address] Phone Care Team Providers Care Synthetic Department Supervisor Name Role Phone Leon Truong MD Primary Care Provider [phone] Allergies Active Allergy Reactions Criticality Noted Date [...] Team Description 10/01/2024 Telephone Orthopedic Surgery - [place] [address] [address] Clint Lanier DPM fax order 09/29/2024 2:30 PM EST Consult Orthopedic Surgery - [place] [address] [place] [address] [place] [phone] Clint Lanier DPM Pes planus of [...] AM EDT Office Visit Orthopedic Surgery - [place] [address] [phone] Clint Lanier, DPM [address] [address] Health Maintenance Due Date Last Done Comments [...] (12/24/2020) Cervical Cancer Screening: HPV abstracted, negative [facility] Provider HEALTH MAINTENANCE Final Result * HIV Screening (12/24/2020) Pathologist [facility] HIV Screening abstracted [facility] Provider HEALTH MAINTENANCE Final Result * Hepatitis C Screening (12/24/2020) Pathologist [facility] Hepatitis C Screening abstracted [facility] Provider HEALTH MAINTENANCE Final Result * PIPER SCREENING DIGITAL (11/15/2017 3:17 PM EST) Anatomical Region Laterality Modality Mammography 11/15/2017 1:40 PM EST Narrative 11/15/2017 3:17 PM EST [facility] Diagnostic Imaging Department [address] [place] [id number] Patient: ??YOJANA BROWN ?/Age/Sex: 1980 - 36 - F Unit#: ??[id number] ? Location/Status: ??SPDIMAM/REG CLI ? Mnemonic/Ordering Site: [...] digital mammography. ??Computer aided detection with the [employer] 7.2-H was employed. TISSUE DENSITY: b. There [...] Routine screening mammogram BILATERAL in 1 year. [id number], 7025F Dictating Physician: ??RADHA FAIR MD Electronically Signed by: ??RADHA FAIR MD Dic Date/Time: ??11/15/17 1514 Sign date/Time: ??11/15/17 1517 Procedure Note Radha Fair MD - 09/05/2022 [facility] Diagnostic Imaging Department [address] [place] [id number] Patient: YOJANA BROWN Anna Marie /Age/Sex: 1980 - 36 - F Unit#: [id number] Location/Status: SPDIMAM/REG CLI Mnemonic/Ordering Site: [facility] Ordering Physician: SILVA CAN CNM [facility] Screening Digital - 11/15/17 - 1413 EXAM: [facility] Screening Digital EXAM DATE AND TIME: 11/15/2017 2:14 PM HISTORY: Screening. The patient declined tomosynthesis. Maternal aunthad breast carcinoma. COMPARISON: 08/05/14 (right), 07/22/14 TECHNIQUE: CC and MLO views of both breasts were obtained using fullfield digital mammography. Computer aided detection with the [employer] was employed. TISSUE DENSITY: b. There are [...] Routine screening mammogram BILATERAL in 1 year. [id number] 3342F, 7025F Dictating Physician: RADHA FAIR MD Electronically Signed by: RADHA FAIR MD Dic Date/Time: 11/15/171513 Sign date/Time: 11/15/171516 Silva Can CNM IMG BI PROCEDURES Final Result from Last 3 Months or Most Recently Relevant to [place] [id number] MEDICAID - [place] [facility] [employer] Care Teams Synthetic Department Supervisor Relationship Specialty Start Date End Date Leon Truong MD [address] [place] [address] [address] [facility] [place] [address] PCP - General 07/03/24
== END 2024-12-15 10:58 | disposition home or self-care (01) ==
LOC: HO.HPS 10:31
PROVIDERS: PCP Internal Medicine; Visit Provider Hospitalist
DX: J45.40 Moderate persistent asthma, uncomplicated (principal); J30.2 Other seasonal allergic rhinitis
CPT/HCPCS: 99214

== ENCOUNTER 2024-12-19 15:33 | Outpatient (AMB) | payer OTHER, SELFPAY ==
--- NOTE | 2024-12-19 15:34 | MHC.PC.OV ---
Intake Visit Reasons: sore, red throat, dry cough, [phone] Ironer Sock Required: No Accompanied by: Self / Same As Patient Allergies amoxicillin [Amoxicillin] Allergy (Severe, Verified 12/15/24 10:40) NAUSEA & VOMITING, rash, hives ciprofloxacin [CIPROFLOXACIN] Allergy (Severe, Verified 12/15/24 10:40) VAGINAL BLEEDING nickel Allergy (Severe, Verified 12/15/24 10:40) Swelling clarithromycin [From Biaxin] Allergy (Mild, Verified 12/15/24 10:40) RASH MIGRAINE MEDICINE CAN NOT RECALL NAME Allergy (Severe, Uncoded 12/15/24 10:40) RAPID HEART RATE AND SWEATS Medication List - Last Reconciled 12/19/24 by Leon Truong MD albuterol sulfate 90 mcg/actuation 2 puffs PO Q6H PRN 30 days albuterol sulfate 2.5 mg (3 mL) inhalation Q4H PRN 30 days azithromycin (Zithromax) For 250 mg dose pack: take 500 mg today (day 1), then 250 mg for 4 days (days 2-5) PO cetirizine (Zyrtec) 10 mg PO DAILY PRN cholecalciferol (vitamin D3) 50 mcg PO DAILY cyanocobalamin (vitamin B-12) 1,000 mcg PO DAILY diclofenac sodium 1% (Voltaren Arthritis Pain) 2 grams topical QID fenofibrate 160 mg PO DAILY ferrous sulfate (FeroSul) 325 mg PO DAILY xtcytbkhzrc-jmzykkunf-qxpfsmgi 200-62.5-25 mcg (Trelegy Ellipta) 1 ea PO DAILY ipratropium-albuterol 0.5 mg-3 mg(2.5 mg base)/3 mL 3 mL inhalation Q4-6H PRN levothyroxine 125 mcg PO DAILY 90 days mirtazapine 7.5 mg PO BEDTIME montelukast 10 mg PO BEDTIME nebulizers As directed norethindrone-ethin estradiol 1-35 mg-mcg 1 tab PO DAILY omega 9-cbp-muu-fish oil 1,200 (144-216) mg (Fish Oil) caps PO simvastatin 5 mg PO BEDTIME Tobacco use date assessed: 10/21/24 Dental Screening Dental Screen Date: 10/21/24 HPI sore, red throat, dry cough, [phone] HPI Details sore throat 3 days , no fevers, , chills, , PFSH Medical History (Updated 12/19/24 @ 13:07 by Leon Truong MD) Breast cancer screening by mammogram Hand swelling URI (upper respiratory infection) Swelling of right upper extremity Elbow pain, right Toe pain, left Hypercalcemia Exposure to COVID-19 virus Pain and swelling of right ankle Dizziness Anxiety Asthma Pulmonary nodule Shortness of breath Developmental delay, mild Vitamin B12 deficiency Hypercholesterolemia Hypothyroid Allergic rhinitis Surgical History History of section Family History Father Skin cancer Myocardial infarction Mother No problems noted. Maternal Aunt Breast cancer Daughter In good health Brother Chronic mental illness Other Mental health problem Social History Housing: Apartment Alcohol intake: never Patient Tobacco Use Status: Never used Tobacco Tobacco use type: Cigarette e-Cigarette/Vaping Use: Never Used Second Hand Smoke Exposure: No service: No Current occupational status: disabled Current occupational exposures/hazards: No Cognitive needs: No Hearing needs: No Vision needs: No Questionnaire Thrive Questionnaire Date Thrive assessed: 10/21/24 EDELMIRA-7 AMB Questionnaire EDELMIRA-7 Date EDELMIRA - 7 assessed: 10/21/24 Source: Developed by Drs. Jose Almanzar, Bessy Torres, Dat Davenport and colleagues, with an educational magdalena from [employer]. Physical exam (Primary Care) Tobacco/Smoking Status: Tobacco use Status Tobacco use date assessed 10/21/24 12/19/24 15:35 Patient Tobacco Use Status Never used Tobacco 12/19/24 15:35 Tobacco use type Cigarette 12/19/24 15:35 e-Cigarette/Vaping Use Never Used 12/19/24 15:35 Thrive Assessment: Date of Thrive Assessment Date Thrive assessed 10/21/24 12/19/24 15:35 Telehealth Telehealth Telehealth Platform: [facility] Location of provider rendering services: practice address Location of patient: address on file Patient Identification confirmed using: Name, : Yes Telehealth method: video Patient verbally consented to treatment: Yes Patient verbally consented to billing insurance company: Yes Patient informed of any privacy concerns related to visit: Yes Coding Level of Care Code Tele Est Pt Level 4 (86046) Diagnoses Impaired fasting blood sugar R73.01 Hypercholesterolemia E78.00 Acquired hypothyroidism E03.9 Hypothyroidism type: acquired Sore throat J02.9 Assessment & Plan Assessment & Plan (1) Impaired fasting blood sugar: Code(s): R73.01 - Impaired fasting glucose Category: Medical Plan: Decrease the amount of carbohydrate intake, pasta, bread, rice and potatoes are all sugar and that is aside from all the sweet stuff, remember that fruits are good but they are Sweet also. Discussed with the patient that the hemoglobin A1c is rising. (2) Hypercholesterolemia: Code(s): E78.00 - Pure hypercholesterolemia, unspecified Category: Medical Plan: Avoid fried foods, chicken skin, eggs, butter margarine, pastries and meat. Be it pork or beef they have a lot of cholesterol LDL goal of less than 130 and triglyceride of less than 150. Patient is on fenofibrate already and simvastatin (3) Hypothyroid: Code(s): E03.9 - Hypothyroidism, unspecified Category: Medical Qualifiers: Hypothyroidism type: acquired Qualified Code(s): E03.9 - Hypothyroidism, unspecified Plan: Discussed thyroid intake should be separate from all the other medications and will need to retest (4) Sore throat: Code(s): J02.9 - Acute pharyngitis, unspecified Category: Medical Plan History of Present Illness The patient is a 44-year-old female presenting with a swollen throat, which began three days ago. She initially thought her symptoms were related to allergies, as she experienced no fever but did have episodes of being hot and cold, which she perceived as normal. The patient has been informed about a potential early menopausal stage, adding to her current distress. Her condition led her to acquire a drink from the hospital to ease the dryness and itchiness of her throat. Concerns regarding streptococcal infection arose after her daughters tested positive for strep throat recently. In reviewing recent laboratory results, the patient was found to have mild anemia, elevated triglycerides at 313 mg/dL, an elevated blood glucose level with an Hgb A1c of 6.0, and a slightly low Vitamin B12 level. Her LDL cholesterol was 69 mg/dL, within the desirable range. She is currently compliant with her simvastatin and fenofibrate regimen for cholesterol management and is on levothyroxine medication for hypothyroidism. Her recent TSH levels indicate an elevation at 17.7, necessitating further evaluation. Lifestyle modifications are being implemented to manage her blood sugar and triglyceride levels, including reducing the intake of soda and sweets. Review of Systems - Respiratory: Reports frequent sneezing and nasal discomfort. - Throat: Reports dry, itchy throat. - General: Denies fever but reports episodes of feeling hot and cold. Plan To address the swollen throat potentially linked to streptococcal pharyngitis, a Z-Jesu has been prescribed, with instructions for hydration to assist with symptom relief. In managing hypertriglyceridemia, fenofibrate therapy continues, and emphasis is placed on dietary changes and monitoring. Her elevated blood glucose levels necessitate dietary vigilance with reduced intake of sugary drinks and carbohydrates, to be reassessed via hemoglobin A1c in future visits. For ongoing hypothyroidism management, levothyroxine is continued with retesting scheduled in approximately six weeks to monitor thyroid function. The patient is advised on medication timing to enhance absorption. Follow-up in January is recommended to assess the efficacy of these interventions. Patient was informed and verbally consented to the use of an ambient scribe for clinic note documentation during this visit. Discussion Notes During today's visit, I reviewed the patient's presenting symptoms, lab results, and ongoing management strategies. For the suspected streptococcal pharyngitis, despite the penicillin allergy history, azithromycin was selected due to tolerability and efficacy. The need for adequate hydration and follow-up was stressed for complete recovery. We discussed the importance of dietary management to control her elevated triglyceride and blood glucose levels. Continuing fenofibrate and the need to decrease sugary and high-carbohydrate intake was emphasized. Her thyroid function test results were reviewed, and retesting in six weeks was planned to adapt her treatment if necessary. Discussions concerning early menopause possibilities were noted, with advisory given regarding lifestyle modifications and symptom tracking. Planned interventions were outlined clearly with an emphasis on continued follow-up care to ensure optimal health management. Patient Instructions Orders: Orders Free T4 (Free Thyroxine) 3 Months R73.01 - Impaired fasting glucose Complete Blood Count Auto Diff 3 Months E78.00 - Pure hypercholesterolemia, unspecified Reticulocyte Count 3 Months E78.00 - Pure hypercholesterolemia, unspecified Vitamin B12 and Folate 3 Months E78.00 - Pure hypercholesterolemia, unspecified Comprehensive Met. Panel 3 Months R73.01 - Impaired fasting glucose Hemoglobin A1c 3 Months R73.01 - Impaired fasting glucose Thyroid Stimulating Hormone 3 Months R73.01 - Impaired fasting glucose Lipid Panel 3 Months E78.00 - Pure hypercholesterolemia, unspecified Ferritin 3 Months E78.00 - Pure hypercholesterolemia, unspecified IRON PROFILE 3 Months E78.00 - Pure hypercholesterolemia, unspecified Medications: New azithromycin (Zithromax) For 250 mg dose pack: take 500 mg today (day 1), then 250 mg for 4 days (days 2-5) PO 6 tabs 0RF J02.9 - Acute pharyngitis, unspecified
--- OUTSIDE RECORDS SUMMARY | 2024-12-19 16:43 | XMS_ITS | Clinical Summary ---
Author Organization 175 [facility] Address [address] [place] [address] Phone Care Team Providers Care Instructional Material Director Name Role Phone Leon Truong MD Primary Care Provider [phone] Allergies Active Allergy Reactions Criticality Noted Date [...] Team Description 10/01/2024 Telephone Orthopedic Surgery - [place] [address] [phone] Clint Lanier DPM fax order 09/29/2024 2:30 PM EST Consult Orthopedic Surgery - [place] [address] [place] [address] [place] [phone] Clint Lanier DPM Pes planus of [...] AM EDT Office Visit Orthopedic Surgery - [place] [address] [phone] Clint Lanier, DPM [address] [address] Health Maintenance Due Date Last Done Comments [...] (12/24/2020) Cervical Cancer Screening: HPV abstracted, negative [facility] Provider HEALTH MAINTENANCE Final Result * HIV Screening (12/24/2020) Pathologist [facility] HIV Screening abstracted [facility] Provider HEALTH MAINTENANCE Final Result * Hepatitis C Screening (12/24/2020) [facility]ologist [facility] Hepatitis C Screening abstracted [facility] Provider HEALTH MAINTENANCE Final Result * [facility]ER SCREENING DIGITAL (11/15/2017 3:17 PM EST) Anatomical Region Laterality Modality Mammography 11/15/2017 1:40 PM EST Narrative 11/15/2017 3:17 PM EST [facility] Diagnostic Imaging Department [address] [place] [id number] Patient: ??YOJANA BROWN ?/Age/Sex: 1980 - 36 - F Unit#: ??[id number] ? Location/Status: ??SPDIMAM/REG CLI ? Mnemonic/Ordering Site: [...] digital mammography. ??Computer aided detection with the [employer] 7.2-H was employed. TISSUE DENSITY: b. There [...] Routine screening mammogram BILATERAL in 1 year. [address] 3342F, 7025F Dictating Physician: ??RADHA FAIR MD Electronically Signed by: ??RADHA FAIR MD Dic Date/Time: ??11/15/17 1514 Sign date/Time: ??11/15/17 1517 Procedure Note Radha Fair MD - 09/05/2022 [facility] Diagnostic Imaging Department [address] [place] [id number] Patient: YOJANA BROWN Anna Marie /Age/Sex: 1980 - 36 - F Unit#: [id number] Location/Status: SPDIMAM/REG CLI Mnemonic/Ordering Site: [facility] Ordering Physician: SILVA CAN CNM [facility] Screening Digital - 11/15/17 - 1413 EXAM: [facility] Screening Digital EXAM DATE AND TIME: 11/15/2017 2:14 PM HISTORY: Screening. The patient declined tomosynthesis. Maternal aunthad breast carcinoma. COMPARISON: 08/05/14 (right), 07/22/14 TECHNIQUE: CC and MLO views of both breasts were obtained using fullfield digital mammography. Computer aided detection with the Candescent SoftBase7.2-H was employed. TISSUE DENSITY: b. There are [...] Routine screening mammogram BILATERAL in 1 year. [address] 3342F, 7025F Dictating Physician: RADHA FAIR MD Electronically Signed by: RADHA FAIR MD Dic Date/Time: 11/15/171513 Sign date/Time: 11/15/171516 Silva Can CNM IMG BI PROCEDURES Final Result from Last 3 Months or Most Recently Relevant to [place] [address] [place] [facility] [employer] Care Teams Instructional Material Director Relationship Specialty Start Date End Date Leon Truong MD [address] [place] [address] Dr [address] [facility] [place] [address] PCP - General 07/03/24
== END 2024-12-19 16:27 | disposition home or self-care (01) ==
LOC: HO.HMCH 15:33
PROVIDERS: PCP Internal Medicine; Visit Provider Internal Medicine
DX: R73.01 Impaired fasting glucose (principal); E78.00 Pure hypercholesterolemia, unspecified; E03.9 Hypothyroidism, unspecified; J02.9 Acute pharyngitis, unspecified

== ENCOUNTER → 2024-12-19 15:33 | Outpatient (BNVA) | payer OTHER, SELFPAY | PROVIDERS: PCP Internal Medicine; Visit Provider Internal Medicine ==

== ENCOUNTER 2025-01-20 15:09 | Outpatient (AMB) | payer OTHER, SELFPAY ==
[2025-01-20 15:14] VITALS: BP 128/72; PULSE 71; O2SAT 98; BMI 22.8
--- NOTE | 2025-01-20 15:14 | MHC.PC.OV ---
Vital Signs 01/20/25 15:14 Height 5 ft 4 in Weight 133 lb BMI 22.8 BP 128/72 Blood Pressure Location Lt brachial Position Sitting Pulse 71 Pulse Source Pulse Oximeter Pulse Oximetry (%) 98 Oxygen Delivery Method Room Air Intake Visit Reasons: hypothyroid, IGT Allergies amoxicillin [Amoxicillin] Allergy (Severe, Verified 01/20/25 15:14) NAUSEA & VOMITING, rash, hives ciprofloxacin [CIPROFLOXACIN] Allergy (Severe, Verified 01/20/25 15:14) VAGINAL BLEEDING nickel Allergy (Severe, Verified 01/20/25 15:14) Swelling clarithromycin [From Biaxin] Allergy (Mild, Verified 01/20/25 15:14) RASH MIGRAINE MEDICINE CAN NOT RECALL NAME Allergy (Severe, Uncoded 01/20/25 15:14) RAPID HEART RATE AND SWEATS Tobacco use date assessed: 10/21/24 Dental Screening Dental Screen Date: 10/21/24 [facility] Medical History (Updated 01/20/25 @ 15:24 by Leon Truong MD) Sore throat Breast cancer screening by mammogram Hand swelling URI (upper respiratory infection) Swelling of right upper extremity Elbow pain, right Toe pain, left Hypercalcemia Exposure to COVID-19 virus Pain and swelling of right ankle Dizziness Anxiety Asthma Pulmonary nodule Shortness of breath Developmental delay, mild Vitamin B12 deficiency Hypercholesterolemia Hypothyroid Allergic rhinitis Surgical History History of section Family History Father Skin cancer Myocardial infarction Mother No problems noted. Maternal Aunt Breast cancer Daughter In good health Brother Chronic mental illness Other Mental health problem Social History Housing: Apartment Alcohol intake: never Patient Tobacco Use Status: Never used Tobacco Tobacco use type: Cigarette e-Cigarette/Vaping Use: Never Used Second Hand Smoke Exposure: No service: No Current occupational status: disabled Current occupational exposures/hazards: No Cognitive needs: No Hearing needs: No Vision needs: No Questionnaire Thrive Questionnaire Date Thrive assessed: 10/21/24 EDELMIRA-7 AMB Questionnaire EDELMIRA-7 Date EDELMIRA - 7 assessed: 10/21/24 Source: Developed by Drs. Jose Almanzar, BessyDat Cartagena and colleagues, with an educational magdalena from [employer]. Physical exam (Primary Care) Vital Signs: Last Vital Signs Pulse 71 01/20/25 15:14 BP 128/72 01/20/25 15:14 Pulse Ox 98 01/20/25 15:14 Oxygen Delivery Method Room Air 01/20/25 15:14 BMI result Body Mass Index 22.8 Tobacco/Smoking Status: Tobacco use Status Tobacco use date assessed 10/21/24 01/20/25 15:19 Patient Tobacco Use Status Never used Tobacco 01/20/25 15:19 Tobacco use type Cigarette 01/20/25 15:19 e-Cigarette/Vaping Use Never Used 01/20/25 15:19 Thrive Assessment: Date of Thrive Assessment Date Thrive assessed 10/21/24 01/20/25 15:19 Const General: alert; No acute distress Eyes Conjunctivae: conjunctivae normal Resp Auscultation: clear to auscultation bilaterally Cardio Rate: regular rate Rhythm: regular rhythm GI Inspection: Yes normal to inspection Extrem General: Yes normal to inspection and No edema Coding Level of Care Code Est Pt Level 4 (33229) Complex EM visit Add On G2211 Diagnoses Colon cancer screening Z12.11 Impaired fasting blood sugar R73.01 Asthma-COPD overlap syndrome J44.9 Hypercholesterolemia E78.00 Acquired hypothyroidism E03.9 Hypothyroidism type: acquired Assessment & Plan Assessment & Plan (1) Colon cancer screening: Code(s): Z12.11 - Encounter for screening for malignant neoplasm of colon Category: Medical Plan: Patient is reminded about colonoscopy (2) Impaired fasting blood sugar: Code(s): R73.01 - Impaired fasting glucose Category: Medical Plan: Decrease the amount of carbohydrate intake, pasta, bread, rice and potatoes are all sugar and that is aside from all the sweet stuff, remember that fruits are good but they are Sweet also. Discussed that the hemoglobin A1c is rising (3) Asthma-COPD overlap syndrome: Code(s): J44.9 - Chronic obstructive pulmonary disease, unspecified Category: Medical Plan: Continue with Trelegy and albuterol. Patient has been placed on montelukast as well as Claritin (4) Hypercholesterolemia: Code(s): E78.00 - Pure hypercholesterolemia, unspecified Category: Medical Plan: Avoid fried foods, chicken skin, eggs, butter margarine, pastries and meat. Be it pork or beef they have a lot of cholesterol patient on fenofibrate 160 mg once a day and simvastatin 5 mg at bedtime (5) Hypothyroid: Code(s): E03.9 - Hypothyroidism, unspecified Category: Medical Qualifiers: Hypothyroidism type: acquired Qualified Code(s): E03.9 - Hypothyroidism, unspecified Plan: Continue with thyroid medication but will need testing. Patient on 125 mcg once a day Plan History of Present Illness The patient is a 44-year-old female presenting for follow-up care, focusing on management of her chronic conditions including hypothyroidism, hypercholesterolemia, and COPD-asthma overlap syndrome. Her blood work from November indicated mild anemia, an elevated hemoglobin A1c of 6.0%, and a triglyceride level of 313 mg/dL, prompting dietary recommendations. Her thyroid function was previously abnormal, necessitating a reevaluation in March. She continues with her current medication regimen for both cholesterol and thyroid management, previously adjusted in November due to a TSH measurement of 17.7 mIU/L. The patient maintains regular follow-up with her adult health clinical nurse specialist and mentions exercise, although the consumption of sugar-heavy beverages is a concern. Health Maintenance - Mammogram up to date as of July 2024 - Planning blood work in March for cholesterol, triglycerides, and thyroid levels - Discussed importance of controlling hemoglobin A1c levels and dietary adjustments Social History - Engages in physical exercise, including running - Cautioned against frequent consumption of energy drinks and high-sugar teas Review of Systems - Respiratory: Reports no current issues; maintained with Trelegy and albuterol - Endocrine: Reports advice on thyroid function testing due to current medication dosage - Hematologic: Reports monitoring for mild anemia - Metabolic: Reports rising hemoglobin A1c with increased awareness of sugar intake Physical Exam Results - Labs: Mild anemia (Hb 11.8 g/dL, Hct 34.2%), normal electrolytes, normal renal function, hemoglobin A1c at 6.0% - Thyroid function test (November): TSH 17.7 mIU/L - Lipid profile: LDL 69 mg/dL, triglycerides 313 mg/dL Plan The patient will continue with her current treatments for chronic conditions, including medications for thyroid, cholesterol, and respiratory management. We will pursue lifestyle interventions to manage her rising A1c, emphasizing reducing sugar intake. Blood tests are scheduled for March to monitor cholesterol and thyroid levels for further tailored management. Pulmonary oversight remains crucial, with scheduled follow-ups ensuring stability. Patient was informed and verbally consented to the use of an ambient scribe for clinic note documentation during this visit. Discussion Notes I discussed with the patient the importance of continuing her medications, specifically fenofibrate and simvastatin for cholesterol management, and adjusting her diet to lower sugar intake to control her rising A1c. We talked about the need for a thyroid retest due to previous abnormal TSH levels. Concerns about energy drink consumption were addressed, emphasizing the associated risks. Consent was gained for scheduled testing in March to facilitate the effective management of her current conditions, and she was reminded of the significance of consistent follow-ups. Patient Instructions - Continue medications including Trelegy, albuterol, fenofibrate, simvastatin, Claritin, and montelukast as prescribed. - Reduce consumption of high-sugar beverages and energy drinks. - Schedule blood tests for March to reassess thyroid, cholesterol, and A1c levels. - Maintain regular follow-up with your pulmonary care provider. - Exercise caution with dietary sugar to manage blood sugar levels.
--- OUTSIDE RECORDS SUMMARY | 2025-01-20 16:21 | XMS_ITS | Clinical Summary ---
Author Organization 175 [facility] Address [address] [place] [address] Phone Care Team Providers Care Cyber Security Engineer Name Role Phone Leon Truong MD Primary Care Provider [phone] Allergies Active Allergy Reactions Criticality Noted Date [...] 08/22/2024 Hypothyroid 08/22/2024 Slow transit constipation 08/22/2024 Immunizations Name Administration Dates Next Due Hepatitis [...] AM EDT Office Visit Orthopedic Surgery - [place] [address] [phone] Clint Lanier, DPM [address] [address] Health Maintenance Due Date Last Done Comments [...] age to complete this topic Meningococcal B Vaccine Aged Out No l onger eligible based on patient's age to complete this topic RSV Immunization Patients Under 20 months Aged Out No longer eligible based on patient's age to complete this topic Varicella Vaccines Aged Out No longer eligible based on patient's age to complete this topic Procedures Procedure Name Priority Date/Time Associated Diagnosis Comments HPV Routine 12/24/2020 HEPATITIS C SCREENING Routine 12/24/2020 HIV SCREENING Routine 12/24/2020 [facility] SCREENING DIGITAL Routine 11/15/2017 3:17 PM EST Encounter for screening mammogram for malignant neoplasm of breast from Last 3 Months or Most Recently Relevant to Health Maintenance Results * Cervical Cancer Screening: HPV (12/24/2020) Cervical Cancer Screening: HPV abstracted, negative Historical Provider HEALTH MAINTENANCE Final Result * HIV Screening (12/24/2020) Pathologist [facility] HIV Screening abstracted Historical Provider HEALTH MAINTENANCE Final Result * Hepatitis C Screening (12/24/2020) Pathologist [facility] Hepatitis C Screening abstracted Historical Provider HEALTH MAINTENANCE Final Result * [facility] SCREENING DIGITAL (11/15/2017 3:17 PM EST) Anatomical Region Laterality Modality Mammography 11/15/2017 1:40 PM EST Narrative 11/15/2017 3:17 PM EST [facility] Diagnostic Imaging Department [address] [place] [address] Patient: ??YOJANA BROWN ?/Age/Sex: 1980 - 36 - F Unit#: ??[id number] ? Location/Status: ??SPDIMAM/REG CLI ? Mnemonic/Ordering Site: ??DIGSC/SPMAM Ordering Physician: ??SILVA PIERRE CNM [facility] Screening Digital - 11/15/17 - 1413 EXAM: [facility] Screening Digital EXAM DATE AND TIME: 11/15/2017 2:14 PM HISTORY: ??Screening. The patient declined tomosynthesis. Maternal aunt had breast carcinoma. COMPARISON: ??08/05/14 (right), 07/22/14 TECHNIQUE: CC and MLO views of both breasts were obtained using full field digital mammography. ??Computer aided detection with the el? 7.2-H was employed. TISSUE DENSITY: b. There [...] Routine screening mammogram BILATERAL in 1 year. [address] 3342F, 7025F Dictating Physician: ??RADHA FAIR MD Electronically Signed by: ??RADHA FAIR MD Dic Date/Time: ??11/15/17 1514 Sign date/Time: ??11/15/17 1517 Procedure Note Radha Fair MD - 09/05/2022 [facility] Diagnostic Imaging Department [address] [place] [id number] Patient: YOJANA BROWN./Age/Sex: 1980 - 36 - F Unit#: [id number] Location/Status: SPDIMAM/REG CLI Mnemonic/Ordering Site: [facility] Ordering Physician: SILVA PIERRE CNM [facility] Screening Digital - 11/15/17 - 1413 EXAM: [facility] Screening Digital EXAM DATE AND TIME: 11/15/2017 2:14 PM HISTORY: Screening. The patient declined tomosynthesis. Maternal aunthad breast carcinoma. COMPARISON: 08/05/14 (right), 07/22/14 TECHNIQUE: CC and MLO views of both breasts were obtained using fullfield digital mammography. Computer aided detection with the [employer].2-H was employed. TISSUE DENSITY: b. There are [...] Routine screening mammogram BILATERAL in 1 year. [address] 3342F, 7025F Dictating Physician: RADHA FAIR MD Electronically Signed by: RADHA FAIR MD Dic Date/Time: 11/15/171513 Sign date/Time: 11/15/171516 Silva Pierre CNM IMG BI PROCEDURES Final Result from Last 3 Months or Most Recently Relevant to Health [place] [address] [place]ICA[place] [facility] [employer] [facility] Care Teams Cyber Security Engineer Relationship Specialty Start Date End Date Leon Truong MD [address] [place] [address] Dr [facility] [place] [address] PCP - General 07/03/24
== END 2025-01-20 15:38 | disposition home or self-care (01) ==
LOC: HO.HMCH 15:11
PROVIDERS: PCP Internal Medicine; Visit Provider Internal Medicine
DX: Z12.11 Encounter for screening for malignant neoplasm of colon (principal); R73.01 Impaired fasting glucose; J44.9 Chronic obstructive pulmonary disease, unspecified; E78.00 Pure hypercholesterolemia, unspecified; E03.9 Hypothyroidism, unspecified

== ENCOUNTER → 2025-01-20 15:09 | Outpatient (BNVA) | payer OTHER, SELFPAY | PROVIDERS: PCP Internal Medicine; Visit Provider Internal Medicine | DX: R73.01 Impaired fasting glucose (principal); J44.9 Chronic obstructive pulmonary disease, unspecified; E78.00 Pure hypercholesterolemia, unspecified; E03.9 Hypothyroidism, unspecified; Z79.899 Other long term (current) drug therapy | CPT/HCPCS: 99212 ==

== ENCOUNTER 2025-02-02 13:34 | Outpatient (AMB) | payer OTHER, SELFPAY ==
--- OUTSIDE RECORDS SUMMARY | 2025-02-02 13:37 | XMS_ITS | Encounter Summary ---
Author Organization [facility] Address [address] [place] [address] Care Team Providers Care Marketing Community Liaison Name Role Phone Community, Pcp Primary Care Provider Unavailabl e Community, Pcp Primary Care Provider Unavailabl e Community, Pcp Unavailable Unavailable Baron Chavez Unavailable Unavailable Leon Truong MD Primary Care Provider Unavailabl e Kemar Morrison MD Primary Care Provider Unava ilable Leon Truong MD Primary Care Provider Unavailabl e Encounter Details Date Type Department Care Team Description 08/15/2017 Transfer Records Medical Records [address] [place] [address] Abstract, Provider Social History Tobacco Use Types [...] on filedocumented in this encounter Care Teams Marketing Community Liaison Relationship Specialty Start Date End Date Community, Pcp PCP - General Internal Medicine 03/28/17 08/15/17 [facility], Pcp PCP - General Internal Medicine 08/16/17 09/24/17 PoLeon MD PCP - General Internal Medicine 09/25/17 11/25/17 Kemar Morrison MD PCP - General Internal Medicine 11/26/17 07/02/24 PoLeon MD PCP - General Internal Medicine 07/03/24 [facility], [facility] Internal Medicine 03/28/17 Baron Chavez Internal Medicine 11/29/16 documented as of this encounter
--- OUTSIDE RECORDS SUMMARY | 2025-02-02 13:37 | XMS_ITS | Encounter Summary ---
Author Organization [facility] Address [address] [place] [address] Care Team Providers Care Business Mail Entry Clerk Name Role Phone Community, Pcp Unavailable Unavailable Baron Chavez Unavailable Unavailable Kemar Morrison MD Primary Care Provider Unava Leon Daugherty MD Primary Care Provider Unavailabl e Reason for Visit * Reason Comments E-prescribe Rx Request Encounter Details Date Type Department Care Team Description 08/05/2018 Refill PIECE CUTTER - [place] [address] [place] [phone] Silva Pierre, EVANGELISTA [address] [place] [address] E-prescribe Rx Request Social History [...] Heartburn documented in this encounter Care Teams Business Mail Entry Clerk Relationship Specialty Start Date End Date Kemar Morrison MD PCP - General Internal Medicine 11/26/17 07/02/24 Leon Truong MD PCP - General Internal Medicine 07/03/24 [facility] Medicine 03/28/17 Baron Chavez Internal Medicine 11/29/16 documented as of this encounter
--- OUTSIDE RECORDS SUMMARY | 2025-02-02 13:37 | XMS_ITS | Encounter Summary ---
Author Organization [facility] Address [address] [place] [address] Care Team Providers Care Rolled Gold Plater Name Role Phone Community, Pcp Unavailable Unavailable Baron Chavez Unavailable Unavailable Kemar Morrison MD Primary Care Provider Unava Leon Daugherty MD Primary Care Provider Unavailabl e Reason for Visit * Reason Comments E-prescribe Rx Request Encounter Details Date Type Department Care Team Description 05/27/2019 Refill OBGYN - [place] [address] [place] [address] Silva Pierre, EVANGELISTA [address] [place] [address] E-prescribe Rx Request Social History [...] EDT WHEN WAS THE PATIENTS LAST ANNUAL FILM TECHNICIAN EXAM? 11/19/18- post Does patient have an [...] NO Payor: [facility] [employer] FFS / Plan: [facility] / Product Type: MEDICAID RISK documented in this encounter Plan of Treatment Not on file documented as of this encounter Visit Diagnoses Diagnosis Heartburn documented in this encounter Care Teams Rolled Gold Plater Relationship Specialty Start Date End Date Kemar Morrison MD PCP - General Internal Medicine 11/26/17 07/02/24 Leon Truong MD PCP - General Internal Medicine 07/03/24 [facility] [place] Internal Medicine 03/28/17 Baron Chavez Internal Medicine 11/29/16 documented as of this encounter
--- OUTSIDE RECORDS SUMMARY | 2025-02-02 13:37 | XMS_ITS | Encounter Summary ---
Author Organization [facility] Address [address] [place] [address] Care Team Providers Care Aesthetics Instructor Name Role Phone Community, Pcp Unavailable Unavailable Barno Chavez Unavailable Unavailable Kemar Morrison MD Primary Care Provider UnaLeon Cantu MD Primary Care Provider Unavailabl e Encounter Details Date Type Department Care Team Description 09/16/2018 Pt. Non Urgent Medic al Question Pulmonology - [address] [place] [address] Gary Silva MD Social History [...] had the baby girl the im at [facility]. Mom knows about her and shes ok with it i still have not be able to get her anything to sleep in yet have not received any money. Shes 5 lbs 5 oz documented in this encounter Plan of Treatment Not on file documented as of this encounter Visit Diagnoses Not on filedocumented in this encounter Care Teams Aesthetics Instructor Relationship Specialty Start Date End Date Kemar Morrison MD PCP - General Internal Medicine 11/26/17 07/02/24 Leon Truong MD PCP - General Internal Medicine 07/03/24 [facility] Internal Medicine 03/28/17 Baron Chavez Internal Medicine 11/29/16 documented as of this encounter
--- OUTSIDE RECORDS SUMMARY | 2025-02-02 13:37 | XMS_ITS | Encounter Summary ---
Author Organization [facility] Address [address] [place] [address] Care Team Providers Care Aircraft Launch And Recovery Technician Name Role Phone Leon Truong MD Primary Care Provider [phone] Reason for Visit * Reason Comments Follow-up Chin foot pain Encounter Details Date Type Department Care Team (Late st Contact Info) Description 01/29/2025 9:30 AM EDT Office Visit Orthopedic Surgery - [place] [address] [phone] Clint Lanier DPM [address] [phone] Pes planus of both feet (Primary Dx); Follow-up exam Social History Tobacco Use Types Packs/Day Years Used Date Smoking Tobacco: Never Smokeless Tobacco: Never Alcohol Use Standard Drinks/Week Comments No 0 (1 standard drink = 0.6 oz pur e alcohol) Comments Unknown Sex and Gender Information Value Date Recorded Sex Assigned at Not on file Legal Sex Female 9:48 PM EST Gender Identity Not on file Sexual Orientation Not on file documented as of this encounter Last Filed Vital Signs Vital Sign Reading Time Taken Comments Blood Pressure - - Pulse - - Temperature - - Respiratory Rate - - Oxygen Saturation - - Inhaled Oxygen Concentration - - Weight 60.8 kg (134 lb) 01/29/2025 9:59 AM EDT Height 162.6 cm (5' 4.02 ) 01/29/2025 9:59 AM ED T Body Mass Index 22.99 01/29/2025 9:59 AM EDT documented in this encounter Progress Notes * Clint Lanier DPM - 01/29/2025 9:30 AM EDT S Presents today complaining of pain in her feet reports diffuse arch pain discomfort states she feels she has very flat feet she is wonder if she had insoles and orthotics states discomfort of 1-2 outof 10 feels like she has flatfeet she cannot walk very far denies other pedal complaints at this time has been using the custom orthotics she states has had significant improvement with the insoles she states she is pretty happy with them notes that most of her issues are when she decides she does not want to wear the shoes ROS: GENERAL: Pt denies nausea, fever, vomiting, [...] Outpatient Medications Marked as Taking for the 01/29/25 encounter (Office Visit) with Clint Durham DPM Medication Sig Dispense Refill albuterol HFA [...] 2 SPRAYS IN EACH NOSTRIL ONCE DAILY [id number] (Trelegy Ellipta) 200-62.5-25 mcg inhaler Inhale 1 [...] Seasonal allergies PHYSICAL EXAM: Visit Vitals Ht 1.626 m (64.02 ) Wt 60.8 kg (134 lb) BMI 22.99 kg/m?? Smoking Status Never BSA 1.65 m?? PODIATRIC EXAMINATION: GENERAL: Patient appears well [...] IMPRESSION: 1. Pes planus of both feet 2. Follow-up exam PLAN: Pt was seen and examined, history reviewed. Treatment options were discussed and reviewed including stretching exercises demonstrated for patient anti-inflammatory medications orthotics and insoles Continue with custom orthotics Referral offered physical therapy patient declined Radiographs reviewed patient detail Follow-up in 6 months Clint Lanier DPM documented in this encounter Plan of Treatment Upcoming Encounters Date Type Department Care Team (Late st Contact Info) Description 07/30/2025 1:00 PM EST Office Visit Orthopedic Surgery - [place] [address] [phone] Clint Lanier DPM [address] [address] documented as of this encounter Results * XR Foot 3+ Views bilat (01/29/2025 9:50 AM EDT) Anatomical Region Laterality Modality Lower Extremities, Foot Bilateral Computed Radiography Narrative 01/29/2025 12:36 PM EDT Right foot ??3 views No fracture. No radiopaque foreign joint spaces normal ?? Foot position Pes planus with Talus navicular uncovering decreased calcaneal inclination anterior displaced symes line talus navicular joint to calcaneal cuboid joint ?? Left foot 3 views No fracture. No radiopaque foreign joint spaces normal ?? Foot position Pes planus with Talus navicular uncovering decreased calcaneal inclination anterior displaced symes line talus navicular joint to calcaneal cuboid joint ?? us Clint Lanier DPPratik IMG XR PROCEDURES Final R esult documented in this encounter Visit Diagnoses Diagnosis Pes planus of both feet- Primary Follow-up exam Unspecified follow-up examination documented in this encounter Care Teams Aircraft Launch And Recovery Technician Relationship Specialty Start Date End Date Leon Truong MD [address] [place] [address] [address] [facility] [place] [address] PCP - General 07/03/24 documented as of this encounter
--- OUTSIDE RECORDS SUMMARY | 2025-02-02 13:37 | XMS_ITS | Clinical Summary ---
Author Organization [facility] Address [address] [place] [address] Phone Care Team Providers Care Cloth Winding Supervisor Name Role Phone Leon Truong MD Primary Care Provider [phone] Allergies Active Allergy Reactions Criticality Noted Date [...] Encounters Date Type Department Care Team Description 01/29/2025 9:30 AM EDT Office Visit Orthopedic Surgery - [address] [phone] Clint Lanier, DPM Pes planus of both feet (Primary Dx); Follow-up exam from Last 3 Months Immunizations Name Administration [...] Mass Index 22.99 01/29/2025 9:59 AM EDT Plan of Treatment Upcoming Encounters Date Type Department Care Team (Late st Contact Info) Description 07/30/2025 1:00 PM EST Office Visit Orthopedic Surgery - [place] [address] [phone] Clint Lanier, DPM [address] [address] Health Maintenance Due Date Last Done Comments [...] Procedure Name Priority Date/Time Associated Diagnosis Comments XR FOOT 3+ VIEWS BILAT Routine 01/29/2025 9:50 AM EDT Follow-up exam HPV Routine 12/24/2020 HEPATITIS C SCREENING Routine 12/24/2020 HIV SCREENING Routine 12/24/2020 [facility] SCREENING DIGITAL Routine 11/15/2017 3:17 PM EST Encounter for screening mammogram for malignant neoplasm of breast from Last 3 Months or Most Recently Relevant to Health Maintenance Results * XR Foot 3+ Views bilat [...] navicular joint to calcaneal cuboid joint ?? Clint Lanier DPM IMG XR PROCEDURES Final R esult * Cervical Cancer Screening: HPV (12/24/2020) Pathologist [facility] Cervical Cancer Screening: HPV abstracted, negative Historical Provider HEALTH MAINTENANCE Final Result * HIV Screening (12/24/2020) [facility] HIV Screening abstracted Historical Provider HEALTH MAINTENANCE Final Result * Hepatitis C Screening (12/24/2020) Pathologist [facility] Hepatitis C Screening abstracted us Historical Provider HEALTH MAINTENANCE Final Result * PIPER SCREENING DIGITAL (11/15/2017 3:17 PM EST) Anatomical Region Laterality Modality Mammography 11/15/2017 1:40 PM EST Narrative 11/15/2017 3:17 PM EST [facility] Diagnostic Imaging Department [address] [place] [address] Patient: ??YOJANA BROWN ?/Age/Sex: 1980 - 36 - F Unit#: ??[id number] ? Location/Status: ??SPDIMAM/REG CLI ? Mnemonic/Ordering Site: ??DIGSC/SPMAM Ordering Physician: ??SILVA CAN CNM [place] Screening Digital - 11/15/17 - 1413 EXAM: [facility] Screening Digital EXAM DATE AND TIME: 11/15/2017 2:14 PM HISTORY: ??Screening. The patient declined tomosynthesis. Maternal aunt had breast carcinoma. COMPARISON: ??08/05/14 (right), 07/22/14 TECHNIQUE: CC and MLO views of both breasts were obtained using full field digital mammography. ??Computer aided detection with the [employer] 7.2-H was employed. TISSUE DENSITY: b. There [...] Routine screening mammogram BILATERAL in 1 year. [id number], 7025F Dictating Physician: ??RADHA FAIR MD Electronically Signed by: ??RADHA FAIR MD Dic Date/Time: ??11/15/17 151 Sign date/Time: ??11/15/17 1517 Procedure Note Radha Fair MD - 09/05/2022 [facility] Diagnostic Imaging Department [address] [place] [address] Patient: YOJANA BROWN Anna Marie /Age/Sex: 1980 - 36 - F Unit#: [id number] [facility] Physician: SILVA CAN CNM [facility] Screening Digital - 11/15/17 - 1413 EXAM: [facility] Screening Digital EXAM DATE AND TIME: 11/15/2017 2:14 PM HISTORY: Screening. The patient declined tomosynthesis. Maternal aunthad breast carcinoma. COMPARISON: 08/05/14 (right), 07/22/14 TECHNIQUE: CC and MLO views of both breasts were obtained using fullfield digital mammography. Computer aided detection with the [employer]7.2-H was employed. TISSUE DENSITY: b. There are [...] Routine screening mammogram BILATERAL in 1 year. [id number] 3342F, 7025F Dictating Physician: RADHA FAIR MD Electronically Signed by: RADHA FAIR MD Dic Date/Time: 11/15/17 1514 Sign date/Time: 11/15/17 1517 Silva Can [facility] IM BI PROCEDURES Final Result from Last 3 Months or Most Recently Relevant to Health Maintenance Insurance MEDICAID - [place] [facility] PLAN Care Teams Cloth Winding Supervisor Relationship Specialty Start Date End Date Leon Truong MD [address] [place] [address] [address] [facility] [place], [place] [phone] PCP - General 07/03/24
--- OUTSIDE RECORDS SUMMARY | 2025-02-02 13:37 | XMS_ITS | Encounter Summary ---
Author Organization [facility] Address [address] [place] [address] Care Team Providers Care Livestock Farmer Name Role Phone Community, Pcp Unavailable Unavailable Baron Chavez Unavailable Unavailable Kemar Morrison MD Primary Care Provider UnaLeon Cantu MD Primary Care Provider Unavailabl e Encounter Details Date Type Department Care Team Description 08/07/2018 Pt. Non Urgent Medic al Question Pulmonology - [address] [place] [address] Gary Silva MD Social History [...] Progress Notes * Marie Goldberg M.A. - 08/12/2018 10:52 AM ESTFrom: Yojana Dietrich To: Gary Silva MD Sent: 08/07/2018 10:03 AM EST Subject: Re: Hi there Jennifer said thank you for the card and the gift it was kind of you. I'm getting close to having the baby i was wondering what did your say about the adoption? I went got a few clothes for it just to be on the safe side i did look at some travel gear 2 in 1 can you please let me know Thank You hun. documented in this encounter Plan of Treatment Not on file documented as of this encounter Visit Diagnoses Not on filedocumented in this encounter Care Teams Livestock Farmer Relationship Specialty Start Date End Date Kemar Morrison MD PCP - General Internal Medicine 11/26/17 07/02/24 Leon Truong MD PCP - General Internal Medicine 07/03/24 [facility], [facility] Internal Medicine 03/28/17 Baron Chavez Internal Medicine 11/29/16 documented as of this encounter
--- OUTSIDE RECORDS SUMMARY | 2025-02-02 13:37 | XMS_ITS | Encounter Summary ---
Author Organization [facility] Address [address] [place] [address] Care Team Providers Care Master Fire Control Technician Name Role Phone Community, Pcp Unavailable Unavailable Baron Chavez Unavailable Unavailable Kemar Morrison MD Primary Care Provider UnaLeon Cantu MD Primary Care Provider Unavailabl e Encounter Details Date Type Department Care Team Description 07/26/2018 Feed Mill Supervisor Notes Medical Records [address] [place] [phone] Abstract, Provider Social History Tobacco Use Types [...] on filedocumented in this encounter Care Teams Master Fire Control Technician Relationship Specialty Start Date End Date Kemar Morrison MD PCP - General Internal Medicine 11/26/17 07/02/24 Leon Truong MD PCP - General Internal Medicine 07/03/24 [facility], [facility] Internal Medicine 03/28/17 Baron Chavez Internal Medicine 11/29/16 documented as of this encounter
--- OUTSIDE RECORDS SUMMARY | 2025-02-02 13:37 | XMS_ITS | Encounter Summary ---
Author Organization [facility] Address [address] [place] [address] Care Team Providers Care Waste Examiner Name Role Phone Community, Pcp Unavailable Unavailable Baron Chavez Unavailable Unavailable Kemar Morrison MD Primary Care Provider UnaLeon Cantu MD Primary Care Provider Unavailabl e Encounter Details Date Type Department Care Team Description 09/16/2018 Pt. Non Urgent Medic al Question Pulmonology - [address] [place] [address] Gary Silva MD Social History [...] Notes * Marie Goldberg M.A. - 09/16/2018 3:12 PM ESTFrom: Yojana Dietrich To: Gary Silva MD Sent: 09/16/2018 2:24 PM EST Subject: Re: Hi there can i have copys of the pictures to put in my girls book documented in this encounter Plan of Treatment Not on file documented as of this encounter Visit Diagnoses Not on filedocumented in this encounter Care Teams Waste Examiner Relationship Specialty Start Date End Date Kemar Morrison MD PCP - General Internal Medicine 11/26/17 07/02/24 Leon Truong MD PCP - General Internal Medicine 07/03/24 [facility], [facility] Internal Medicine 03/28/17 Baron Chavez Internal Medicine 11/29/16 documented as of this encounter
--- OUTSIDE RECORDS SUMMARY | 2025-02-02 13:37 | XMS_ITS | Encounter Summary ---
Author Organization [facility] Address [address] [place] [address] Care Team Providers Care Highway Engineer Name Role Phone Community, Pcp Primary Care Provider Unavailabl e Community, Pcp Primary Care Provider Unavailabl e Community, Pcp Unavailable Unavailable Baron Chavez Unavailable Unavailable Leon Truong MD Primary Care Provider Unavailabl e Kemar Morrison MD Primary Care Provider Unava ilable Leon Truong MD Primary Care Provider Unavailabl e Reason for Visit * Reason Onset Date Comments Cough 08/14/2017 Encounter Details Date Type Department Care Team Description 08/14/2017 Telephone Pulmonology - [address] [place] [address] Gary Silva MD Cough Social History Tobacco Use Types Packs/Day Years [...] encounter Miscellaneous Notes * Telephone Encounter - Marie Goldberg M.A. - 08/15/2017 11:44 AM EST Xray slip printed * Telephone Encounter - Gary Silva MD - 08/14/2017 6:01 PM EST Called. Will send more Prednisone Rx. Will come tomorrow for CXR please give her slip * Telephone Encounter - Marie Goldberg M.A. - 08/14/2017 12:20 PM EST Please advise * Telephone Encounter - Candie Martinez - 08/14/2017 12:05 PM EST Symptoms patient is presenting: Cough,SOB If pain or injury related was it due to an accident at work or from a motor vehicle accident? NO If yes, gather 3rd republican insurance information Date of accident/Injury: na How long has patient had these symptoms?: over 3 weeks currently on antibiotic Doxycycline but states getting worse PCP: Pcp Community Pay[place]: [place] / Plan: MEDICAID P[place] / Product Type: MEDICAID [id number] documented in this encounter Plan of Treatment Not on file documented as of this encounter Visit Diagnoses Diagnosis Intercostal pain- Primary Other chest pain documented in this encounter Care Teams Highway Engineer Relationship Specialty Start Date End Date Community, Pcp PCP - General Internal Medicine 03/28/17 08/15/17 Community, Pcp PCP - General Internal Medicine 08/16/17 09/24/17 Leon Truong MD PCP - General Internal Medicine 09/25/17 11/25/17 Kemar Morrison MD PCP - General Internal Medicine 11/26/17 07/02/24 Leon Truong MD PCP - General Internal Medicine 07/03/24 [facility], [facility] Internal Medicine 03/28/17 Baron Chavez Internal Medicine 11/29/16 documented as of this encounter
--- OUTSIDE RECORDS SUMMARY | 2025-02-02 13:37 | XMS_ITS | Encounter Summary ---
Author Organization [facility] Address [address] [place] [address] Care Team Providers Care Merchandise Flow Manager Name Role Phone Community, Pcp Unavailable Unavailable Baron Chavez Unavailable Unavailable Kemar Morrison MD Primary Care Provider UnaLeon Cantu MD Primary Care Provider Unavailabl e Encounter Details Date Type Department Care Team Description 07/24/2018 Refill Pulmonology - [address] [place] [address] Gary Silva MD Social History [...] Telephone Encounter - Marie Goldberg M.A. - 07/24/2018 4:09 PM ESTFrom: Yojana Dietrich To: Gary Silva MD Sent: 07/24/2018 9:17 AM EST Subject: Medication Renewal Request Original authorizing provider: MD Yojana Friend would like a refill of the following medications: loratadine (CLARITIN) 10 MG tablet [Gary Silva MD] Preferred pharmacy: [id number] Comment: Medication renewals requested in this message routed to other providers: Cholecalciferol (VITAMIN D) 2000 UNITS Cap [Silva Pierre CNM, EVANGELISTA] documented in this encounter Plan of Treatment Not on file documented as of this encounter Visit Diagnoses Diagnosis Moderate persistent asthma without complication Unspecified asthma Allergic rhinitis due to other allergic trigger, unspecified seasonality documented in this encounter Care Teams Merchandise Flow Manager Relationship Specialty Start Date End Date Kemar Morrison MD PCP - General Internal Medicine 11/26/17 07/02/24 Leon Truong MD PCP - General Internal Medicine 07/03/24 [facility], [facility] Internal Medicine 03/28/17 Baron Chavez Internal Medicine 11/29/16 documented as of this encounter
--- OUTSIDE RECORDS SUMMARY | 2025-02-02 13:37 | XMS_ITS | Encounter Summary ---
Author Organization [facility] Address [address] [place] [address] Care Team Providers Care Entrepreneurial Finance Professor Name Role Phone Community, Pcp Unavailable Unavailable Baron Chavez Unavailable Unavailable Kemar Morrison MD Primary Care Provider UnaLeon Cantu MD Primary Care Provider Unavailabl e Encounter Details Date Type Department Care Team Description 01/07/2018 Pt. Non Urgent Medic al Question Pulmonology - [address] [place] [address] Gary Silva MD Social History [...] on filedocumented in this encounter Care Teams Entrepreneurial Finance Professor Relationship Specialty Start Date End Date Kemar Morrison MD PCP - General Internal Medicine 11/26/17 07/02/24 Leon Truong MD PCP - General Internal Medicine 07/03/24 [facility], [facility] Internal Medicine 03/28/17 Baron Chavez Internal Medicine 11/29/16 documented as of this encounter
--- OUTSIDE RECORDS SUMMARY | 2025-02-02 13:38 | XMS_ITS | Encounter Summary ---
Author Organization [facility] Address [address] [place] [address] Care Team Providers Care Administrative Services Director Name Role Phone Community, Pcp Unavailable Unavailable Baron Chavez Unavailable Unavailable Kemar Morrison MD Primary Care Provider Unava Leon Daugherty MD Primary Care Provider Unavailabl e Reason for Visit * Reason Comments E-prescribe Rx Request Encounter Details Date Type Department Care Team Description 01/17/2018 Refill Pulmonology - [address] [place] [phone] Gary Silva MD E-prescribe Rx Request Social [...] EDT WHEN WAS THE PATIENTS LAST ANNUAL CHIEF EXECUTIVE OR MANAGING DIRECTOR EXAM? NA Does patient have an upcoming [...] the end of the day? NO Payor: [employer] FFS / Plan: [employer] / Product Type: MEDICAID RISK documented in this encounter Plan of Treatment Not on file documented as of this encounter Visit Diagnoses Not on filedocumented in this encounter Care Teams Administrative Services Director Relationship Specialty Start Date End Date Kemar Morrison MD PCP - General Internal Medicine 11/26/17 07/02/24 Leon Truong MD PCP - General Internal Medicine 07/03/24 [facility], [facility] Internal Medicine 03/28/17 Baron Chavez Internal Medicine 11/29/16 documented as of this encounter
--- OUTSIDE RECORDS SUMMARY | 2025-02-02 13:38 | XMS_ITS | Encounter Summary ---
Author Organization [facility] Address [address] [place] [address] Care Team Providers Care Tobacco Cloth Reclaimer Name Role Phone Community, Pcp Unavailable Unavailable Baron Chavez Unavailable Unavailable Kemar Morrison MD Primary Care Provider Leon Zeng MD Primary Care Provider Unavailabl e Encounter Details Date Type Department Care Team Description 04/30/2023 Orders Only Medical Records [address] [place] [address] Abstract, Provider Social History Tobacco Use Types [...] on filedocumented in this encounter Care Teams Tobacco Cloth Reclaimer Relationship Specialty Start Date End Date Kemar Morrison MD PCP - General Internal Medicine 11/26/17 07/02/24 Leon Troung MD PCP - General Internal Medicine 07/03/24 [facility] Internal Medicine 03/28/17 Baron Chavez Internal Medicine 11/29/16 documented as of this encounter
--- OUTSIDE RECORDS SUMMARY | 2025-02-02 13:38 | XMS_ITS | Encounter Summary ---
Author Organization [facility] Address [address] [place] [address] Care Team Providers Care Special Technical Operations Officer Name Role Phone Community, Pcp Unavailable Unavailable Baron Chavez Unavailable Unavailable Kemar Morrison MD Primary Care Provider Leon Zeng MD Primary Care Provider Unavailabl e Encounter Details Date Type Department Care Team Description 09/13/2018 Pt. Non Urgent Medic al Question Pulmonology - [address] [place] [address] Gary Silva MD Social History [...] on filedocumented in this encounter Care Teams Special Technical Operations Officer Relationship Specialty Start Date End Date Kemar Morrison MD PCP - General Internal Medicine 11/26/17 07/02/24 Leon Truong MD PCP - General Internal Medicine 07/03/24 [facility], [facility] Internal Medicine 03/28/17 Baron Chavez Internal Medicine 11/29/16 documented as of this encounter
--- OUTSIDE RECORDS SUMMARY | 2025-02-02 13:38 | XMS_ITS | Encounter Summary ---
Author Organization [facility] Address [address] [place] [address] Care Team Providers Care Service Officer Name Role Phone Community, Pcp Unavailable Unavailable Baron Chavez Unavailable Unavailable Leon Truong MD Primary Care Provider Unavailabl e Kemar Morrison MD Primary Care Provider Unava ilable Leon Truong MD Primary Care Provider Unavailabl e Reason for Visit * Reason Comments E-prescribe Rx Request Encounter Details Date Type Department Care Team Description 10/19/2017 Refill COLOR ROOM ATTENDANT - [place] [address] [place] [address] Silva Pierre CNM [address] [place] [address] E-prescribe Rx Request Social History [...] on filedocumented in this encounter Care Teams Service Officer Relationship Specialty Start Date End Date Leon Truong MD PCP - General Internal Medicine 09/25/17 11/25/17 Kemar Morrison MD PCP - General Internal Medicine 11/26/17 07/02/24 Leon Truong MD PCP - General Internal [facility]17 Baron Chavez Internal Medicine 11/29/16 documented as of this encounter
--- OUTSIDE RECORDS SUMMARY | 2025-02-02 13:38 | XMS_ITS | Encounter Summary ---
Author Organization [facility] Address [address] [place] [address] Care Team Providers Care Apprentice/Lineman Name Role Phone Community, Pcp Unavailable Unavailable Baron Chavez Unavailable Unavailable Kemar Morrison MD Primary Care Provider Unava ilLeon Villanueva MD Primary Care Provider Unavailabl e Reason for Referral * Non MICHAEL (Routine) - Authorized/Booked Specialty Diagnoses / Procedures Referred By Kevin shah Referred To Contact Gastroenterology Diagnoses Abdominal bloating Procedures REFERRAL TO GASTROENTEROLOGY Yassine Monique MD [address] [place] [address] Gastro/[address] [address] Referral ID Status Reason Start Date Expiration Date V isits Requested Visits Authorized [id number] Authorized/ Booked 01/31/2018 01/31/2019 1 1 Encounter Details Date Type Department Care Team Description 01/31/2018 Orders Only General Surgery - [address] [place] [phone] Yassine Monique MD [address] [place] [address] [phone] Abdominal bloating (Primary Dx) Social History Tobacco Use Types [...] as of this encounter Visit Diagnoses Diagnosis Abdominal bloating- Primary Flatulence, eructation, and gas pain documented in this encounter Care Teams Apprentice/Lineman Relationship Specialty Start Date End Date Kemar Morrison MD PCP - General Internal Medicine 11/26/17 07/02/24 Leon Truong MD PCP - General Internal Medicine 07/03/24 [facility] Internal Medicine 03/28/17 Baron Chavez Internal Medicine 11/29/16 documented as of this encounter
--- OUTSIDE RECORDS SUMMARY | 2025-02-02 13:38 | XMS_ITS | Encounter Summary ---
Author Organization [facility] Address [address] [place] [address] Care Team Providers Care Manager Educational Name Role Phone Community, Pcp Unavailable Unavailable Baron Chavez Unavailable Unavailable Kemar Morrison MD Primary Care Provider UnaLeon Cantu MD Primary Care Provider Unavailabl e Encounter Details Date Type Department Care Team Description 06/25/2018 Computer Hardware Technician Notes Medical Records [address] [place] [id number] Abstract, Provider Social History Tobacco Use Types [...] on filedocumented in this encounter Care Teams Manager Educational Relationship Specialty Start Date End Date Kemar Morrison MD PCP - General Internal Medicine 11/26/17 07/02/24 Leon Truong MD PCP - General Internal Medicine 07/03/24 [facility], [facility] Internal Medicine 03/28/17 Baron Chavez Internal Medicine 11/29/16 documented as of this encounter
--- OUTSIDE RECORDS SUMMARY | 2025-02-02 13:38 | XMS_ITS | Encounter Summary ---
Author Organization [facility] Address [address] [place] [address] Care Team Providers Care Income Tax Preparer Name Role Phone Community, Pcp Unavailable Unavailable Baron Chavez Unavailable Unavailable Kemar Morrison MD Primary Care Provider UnaLeon Cantu MD Primary Care Provider Unavailabl e Encounter Details Date Type Department Care Team Description 07/04/2018 Rn Lab Notes Medical Records [address] [place] [id number] Abstract, Provider Social History Tobacco Use Types [...] on filedocumented in this encounter Care Teams Income Tax Preparer Relationship Specialty Start Date End Date Kemar Morrison MD PCP - General Internal Medicine 11/26/17 07/02/24 Leon Truong MD PCP - General Internal Medicine 07/03/24 [facility], [facility] Internal Medicine 03/28/17 Baron Chavez Internal Medicine 11/29/16 documented as of this encounter
--- OUTSIDE RECORDS SUMMARY | 2025-02-02 13:38 | XMS_ITS | Encounter Summary ---
Author Organization [facility] Address [address] [place] [address] Care Team Providers Care Smoking Tobacco Packing Machine Hand Name Role Phone Community, Pcp Unavailable Unavailable Baron Chavez Unavailable Unavailable Kemar Morrison MD Primary Care Provider UnaLeon Cantu MD Primary Care Provider Unavailabl e Encounter Details Date Type Department Care Team Description 09/05/2018 Pt. Non Urgent Medic al Question Pulmonology - [address] [place] [address] Gary Silva MD Social History [...] Progress Notes * Marie Goldberg M.A. - 09/06/2018 8:49 AM ESTFrom: Yojana Dietrich To: Gary Silva MD Sent: 09/05/2018 6:27 PM EST Subject: Re: Hi there waa just wondering if you are gary knew any one getting rid of any baby stuff to sleep in the dad aint helping me and the lady who was post to give me her stuff said she cant cause she dont have a car now and it cost more then what i can spend with bills and buying some clothes, ect... Got noting for her to sleep in. Thank you please let me know documented in this encounter Plan of Treatment Not on file documented as of this encounter Visit Diagnoses Not on filedocumented in this encounter Care Teams Smoking Tobacco Packing Machine Hand Relationship Specialty Start Date End Date Kemar Morrison MD PCP - General Internal Medicine 11/26/17 07/02/24 Leon Truong MD PCP - General Internal Medicine 07/03/24 [facility] 03/28/17 Baron Chavez Internal Medicine 11/29/16 documented as of this encounter
--- NOTE | 2025-02-02 13:42 | MHC.PC.OV ---
Vital Signs 02/02/25 13:43 Height 5 ft 4 in Weight 132 lb BMI 22.7 BP 122/72 Blood Pressure Location Lt brachial Position Sitting Pulse 80 Pulse Source Pulse Oximeter Pulse Oximetry (%) 98 Oxygen Delivery Method Room Air Intake Visit Reasons: sore throat/flu symptoms Intake Note: Right side ear pain, ? sinus infection Allergies amoxicillin [Amoxicillin] Allergy (Severe, Verified 02/02/25 13:43) NAUSEA & VOMITING, rash, hives ciprofloxacin [CIPROFLOXACIN] Allergy (Severe, Verified 02/02/25 13:43) VAGINAL BLEEDING nickel Allergy (Severe, Verified 02/02/25 13:43) Swelling clarithromycin [From Biaxin] Allergy (Mild, Verified 02/02/25 13:43) RASH MIGRAINE MEDICINE CAN NOT RECALL NAME Allergy (Severe, Uncoded 02/02/25 13:43) RAPID HEART RATE AND SWEATS Tobacco use date assessed: 10/21/24 Dental Screening Dental Screen Date: 10/21/24 HPI sore throat/flu symptoms HPI Details nasal congested 3 weeks flaquito voice lost,congested, no fever, PFSH Medical History (Updated 02/02/25 @ 14:06 by Leon Truong MD) Sore throat Breast cancer screening by mammogram Hand swelling URI (upper respiratory infection) Swelling of right upper extremity Elbow pain, right Toe pain, left Hypercalcemia Exposure to COVID-19 virus Pain and swelling of right ankle Dizziness Anxiety Asthma Pulmonary nodule Shortness of breath Developmental delay, mild Vitamin B12 deficiency Hypercholesterolemia Hypothyroid Allergic rhinitis Surgical History History of section Family History Father Skin cancer Myocardial infarction Mother No problems noted. Maternal Aunt Breast cancer Daughter In good health Brother Chronic mental illness Other Mental health problem Social History Housing: Apartment Alcohol intake: never Patient Tobacco Use Status: Never used Tobacco Tobacco use type: Cigarette e-Cigarette/Vaping Use: Never Used Second Hand Smoke Exposure: No service: No Current occupational status: disabled Current occupational exposures/hazards: No Cognitive needs: No Hearing needs: No Vision needs: No Questionnaire PHQ-9 Over the last 2 weeks, how often have you been bothered by any of the following problems? 1. Little interest or pleasure in doing things: not at all 2. Feeling down, depressed, or hopeless: several days 3. Trouble falling or staying asleep, or sleeping too much: not at all 4. Feeling tired or having little energy: several days 5. Poor appetite or overeating: not at all 6. Feeling bad about yourself - or that you are a failure or have let yourself or your family down: several days 7. Trouble concentrating on things, such as reading the newspaper or watching television: not at all 8. Moving or speaking so slowly that other people could have noticed. Or the opposite - being so fidgety or restless that you have been moving around a lot more than usual: not at all 9. Thoughts that you would be better off or of hurting yourself in some way: not at all Total score: 3 Source: Developed by Drs. Jose Almanzar, Bessy Torres, Dat Davenport and colleagues, with an educational magdalena from [employer]. Thrive Questionnaire Date Thrive assessed: 02/02/25 I am a: Patient What is your living situation today?: I have a steady place to live Within the past 12 months, did the food you bought not last and you didn't have the money to get more?: I choose not to answer this question Within the past 12 months, did you worry whether your food would run out before you got money to buy more?: I choose not to answer this question Do you have trouble paying for medicines?: No Do you have trouble getting transportation to medical appointments?: No Do you have trouble paying your heating and electricity bill?: I choose not to answer this question Do you have trouble taking care of your child, family member or friend?: I choose not to answer this question Do you have trouble with day-to-day activities such as bathing, preparing meals, shopping, managing finances, etc.?: I choose not to answer this question Are you currently unemployed and looking for a job?: I choose not to answer this question Are you interested in more education?: I choose not to answer this question Please select the resources that you would like help with: None Currently or been in a relationship where the following occur: I choose not to answer THRIVE Score: 0 AUDIT C Alcohol Use Questionnaire (AUDIT-C) 1. How often do you have a drink containing alcohol?: Never Total Score: 0 EDELMIRA-7 AMB Questionnaire EDELMIRA-7 Date EDELMIRA - 7 assessed: 10/21/24 Feeling nervous, anxious, or on edge: 0 = Not at all Source: Developed by Drs. Jose Almanzar, Bessy Torres, Dat Davenport and colleagues, with an educational magdalena from [employer]. Physical exam (Primary Care) Vital Signs: Last Vital Signs Pulse 80 02/02/25 13:43 BP 122/72 02/02/25 13:43 Pulse Ox 98 02/02/25 13:43 Oxygen Delivery Method Room Air 02/02/25 13:43 BMI result Body Mass Index 22.7 Tobacco/Smoking Status: Tobacco use Status Tobacco use date assessed 10/21/24 02/02/25 13:47 Patient Tobacco Use Status Never used Tobacco 02/02/25 13:47 Tobacco use type Cigarette 02/02/25 13:47 e-Cigarette/Vaping Use Never Used 02/02/25 13:47 PHQ-9: PHQ-9 Score PHQ-9: Total score 3 02/02/25 14:03 Thrive Assessment: Date of Thrive Assessment Date Thrive assessed 02/02/25 02/02/25 13:47 Currently or been in a relationship where the following occur: I choose not to answer Const General: alert; No acute distress Eyes Conjunctivae: conjunctivae normal Resp Auscultation: clear to auscultation bilaterally Cardio Rate: regular rate Rhythm: regular rhythm GI Inspection: Yes normal to inspection Extrem General: Yes normal to inspection and No edema Coding Level of Care Code Est Pt Level 4 (41650) Diagnoses Impaired fasting blood sugar R73.01 Sinus congestion R09.81 Sinusitis J32.9 Assessment & Plan Assessment & Plan (1) Impaired fasting blood sugar: Code(s): R73.01 - Impaired fasting glucose Category: Medical Plan: Decrease the amount of carbohydrate intake, pasta, bread, rice and potatoes are all sugar and that is aside from all the sweet stuff, remember that fruits are good but they are Sweet also. (2) Sinus congestion: Code(s): R09.81 - Nasal congestion Category: Medical Plan: Discussed using the nose spray and sinus rinses to clean (3) Sinusitis: Code(s): J32.9 - Chronic sinusitis, unspecified Category: Medical Plan: Antibiotic/Zithromax sent in again. Plan History of Present Illness The patient is a 44-year-old female presenting with an acute problem. She has a complex medical history including hypothyroidism, hypercholesterolemia, pernicious anemia, and asthma-COPD overlap syndrome. Previously, lab tests revealed mild anemia and elevated triglycerides of 313 mg/dL, with an A1c of 6.0, indicating impaired glucose tolerance. The patient reports past treatment with Zithromax for symptoms she found helpful. She faces challenges managing sinus issues and frequently starting new sinus rinse equipment. Dietary factors, like fruit consumption, were recognized as impacting her glucose levels. Health Maintenance - Discussion of blood sugar control was highlighted, especially during dietary intake management. - Historically elevated triglycerides and their ongoing management. Social History - Patient mentioned concern over her children's exposure to illness at school. - Discussed financial constraints affecting medical management, such as replacing sinus rinse equipment. Review of Systems - Respiratory: Reports issues with sinus symptoms. - Endocrine: Reports previous impaired glucose tolerance. - General: Denial of recent fever. Physical Exam - General- Performance of oral cavity examination without specification of further findings. Results - Labs: Previous hemoglobin A1c of 6.0, elevated triglycerides at 313 mg/dL as noted from December 15 blood work. Plan For the acute complaint, the patient will continue with Zithromax, as it has provided relief previously, and should remain well-hydrated. Future visits may involve antibiotic changes as needed. Managing the patient's blood glucose involves acknowledging the role of dietary habits, with a focus on reducing fruit intake. Sinus health requires appropriate equipment usage, replacement guidance, and ongoing symptom monitoring. The patient's history of elevated triglycerides necessitates a plan targeting dietary interventions. Patient was informed and verbally consented to the use of an ambient scribe for clinic note documentation during this visit. Discussion Notes I discussed with the patient the benefits of continuing with Zithromax for her symptoms as she reported improvement with its use previously. We reviewed the need to adjust antibiotic therapy if future symptoms arise. I emphasized hydration in her care plan and the potential impact of fruit consumption on glucose levels. The patient was instructed on the proper use of sinus rinses and advised on acquiring new equipment periodically due to shared use concerns. Additional discussions covered monitoring her triglyceride levels and the necessity of dietary interventions to aid in managing cholesterol and glucose tolerance. Patient Instructions - Continue taking Zithromax as previously advised. - Drink sufficient water daily to remain hydrated. - Limit fruit intake to manage blood sugar levels. - Replace sinus rinse equipment regularly, ideally every three months. - Monitor symptoms and follow up as advised. Medications: Refilled azithromycin (Zithromax) For 250 mg dose pack: take 500 mg today (day 1), then 250 mg for 4 days (days 2-5) PO 6 tabs 0RF J02.9 - Acute pharyngitis, unspecified
[2025-02-02 13:43] VITALS: BP 122/72; PULSE 80; O2SAT 98; BMI 22.7
== END 2025-02-02 14:07 | disposition home or self-care (01) ==
LOC: HO.HMCH 13:35
PROVIDERS: PCP Internal Medicine; Visit Provider Internal Medicine
DX: R73.01 Impaired fasting glucose (principal); R09.81 Nasal congestion; J32.9 Chronic sinusitis, unspecified

== ENCOUNTER → 2025-02-02 13:34 | Outpatient (BNVA) | payer OTHER, SELFPAY | PROVIDERS: PCP Internal Medicine; Visit Provider Internal Medicine | DX: R09.81 Nasal congestion (principal); J32.9 Chronic sinusitis, unspecified; R73.01 Impaired fasting glucose | CPT/HCPCS: 99212 ==

== ENCOUNTER 2025-04-14 14:09 | Outpatient (REF) | payer OTHER, SELFPAY ==
--- NOTE | ~2025-04-14 | XR_ITS ---
EXAMINATION: XR ANKLE, left CLINICAL INFORMATION: M25.572 - Pain in left ankle and joints of left foot COMPARISON: None available. TECHNIQUE: AP, lateral, and mortise views lower extremity joint, ankle. FINDINGS: Ankle mortise is congruent. There is no widening of the syndesmosis. Talar dome is intact. There are no plantar calcaneal enthesiophytes. XR/XR ankle LT min 3V IMPRESSION: Unremarkable ankle x-ray. Electronically signed by: Issac Sherwood MD 04/14/2025 02:52 PM EDT
[2025-04-14 14:25] LABS: MANUAL DIFF FLAG NO
[2025-04-14 14:42] LABS: Hematocrit 33.5 % (37.0-47.0); Hemoglobin 11.8 g/dl (12.0-16.0); Imm Gran Abs Auto 0.05 X10*3/uL (0.00-0.03); Imm Gran Pct Auto 0.8 % (0.0-0.4); Lymphocytes Absolute Auto 1.9 X10*3/uL (1.2-4.9); Mean Corpuscular HGB Conc 35.2 g/dl (31.0-35.0); Mean Corpuscular Hemoglobin 32.3 pg (27.0-33.0); Mean Corpuscular Volume 91.8 fL (80.0-98.0); NRBC Abs Auto 0.000 X10*3/uL (0.0-0.012); NRBC Pct Auto 0.0 /100WBC (0.0-0.2); Platelet Count 253 X10*3/uL (160-400); Red Blood Count 3.65 X10*6/uL (4.20-5.50); Reticulocytes Absolute 0.080 X10*6/uL (0.026-0.095); White Blood Count 6.0 X10*3/uL (4.8-10.8)
[2025-04-14 14:47] LABS: Hemoglobin A1C 123.5528 umol/L; Total Hemoglobin (HGBA1C) 3071.8177 umol/L
--- OUTSIDE RECORDS SUMMARY | 2025-04-14 14:52 | XMS_ITS | Clinical Summary ---
Author Organization [facility] Address [address] [place] [address] Phone Care Team Providers Care Commercial Pilot Name Role Phone Leon Truong MD Primary Care Provider [phone] Allergies Active Allergy Reactions Criticality Noted Date [...] AM EDT Office Visit Orthopedic Surgery - [address] [address] Clint Lanier, DPM Pes planus [...] Care Team (Late st Contact Info) Description 05/21/2025 2:30 PM EDT Office Visit Orthopedic Surgery - [place] [address] [phone] Clint Lanier DPM [address] [address] 07/30/2025 1:00 PM EST Office Visit Orthopedic Surgery [facility] [address] [phone] Clint Lanier DPM [address] [address] Health Maintenance Due Date Last Done Comments Pneumococcal Vaccine: Pediatrics (0 to 5 Years) and At-Risk Patients (6 to 49 Years) (1 of 2 - PCV) 1997 Hepatitis B Vaccines (3 of 3 - Hep B Twinrix 3-dose series) 12/11/2016 07/13/2016, 05/26/2016 Breast Cancer Screening 11/16/2019 11/15/2017 Cholesterol Screening (Lipid Panel) 08/26/2022 Colorectal Cancer Screening: Colonoscopy 08/26/2022 Social Influencers of Health Screening 08/26/2022 COVID-19 Vaccine ( season) 2024 Depression Screening 09/17/2024 Influenza Vaccine (#1) 2025 , 06/28/2023, 06/26/2022, Additional history exists Cervical Cancer Screening: HPV 12/24/2025 12/24/2020 DTaP,Tdap,and Td Vaccines (4 - Td or Tdap) 05/30/2032 05/30/2022, 06/25/2018, 07/02/2015 Hepatitis A Vaccines Aged Out 07/13/2016, 05/26/20 16 No longer eligible based on patient's age to complete this topic HIV Screening Completed 12/24/2020 Hepatitis C Screening Completed 12/24/2020 HIB Vaccines Aged Out No longer eligi [...] Narrative 01/29/2025 12:36 PM EDT Right foot 3 views No fracture. No radiopaque foreign joint spaces normal Foot position Pes planus with Talus navicular uncovering decreased calcaneal inclination anterior displaced symes line talus navicular joint to calcaneal cuboid joint Left foot 3 views No fracture. No radiopaque foreign joint spaces normal Foot position Pes planus with Talus navicular uncovering decreased calcaneal inclination anterior displaced symes line talus navicular joint to calcaneal cuboid joint Clint Lanier [employer] IMG XR PROCEDURES Final R esult * Cervical Cancer Screening: HPV (12/24/2020) Cervical Cancer Screening: HPV abstracted, negative us Historical Provider HEALTH MAINTENANCE Final Result * HIV Screening (12/24/2020) HIV Screening abstracted Historical Provider MD HEALTH MAINTENANCE Final Result * Hepatitis C Screening (12/24/2020) Hepatitis C Screening abstracted Historical Provider HEALTH MAINTENANCE Final Result * PIPER SCREENING DIGITAL (11/15/2017 3:17 PM EST) Anatomical Region Laterality Modality Mammography 11/15/2017 1:40 PM EST Narrative 11/15/2017 3:17 PM EST [facility] Diagnostic Imaging Department [address] [place] [address] Patient: YOJANA BROWN Anna Marie /Age/Sex: 1980 - 36 - F Unit#: [id number] [facility]Ordering Site: [facility] Ordering Physician: SILVA CAN CNM [facility] Scre[facility] Digital - 11/15/17 - 1412 EXAM: [facility] Scre[facility] Digital EXAM DATE AND TIME: 11/15/2017 2:14 PM HISTORY: Screening. The patient declined tomosynthesis. Maternal aunt had breast carcinoma. COMPARISON: 08/05/14 (right), 07/22/14 TECHNIQUE: CC and MLO views of both breasts were obtained using full field digital mammography. Computer aided detection with the iCAD SecondLook 7.2-H was employed. TISSUE DENSITY: b. There are scattered areas of fibroglandular density. FINDINGS: No suspicious masses, grouped microcalcifications, or areas of architectural distortion are seen. A few benign microcalcifications are again seen. High density material on the skin in both axilla is compatible with deodorant or powder residue. The vascularity is unremarkable. IMPRESSION: Stable mammographic appearance of the breasts. No evidence of malignancy is seen. A negative mammogram in the presence of a clinically suspicious palpable abnormality does not preclude the possibility of malignancy or alter the indications for biopsy. BI-RADS: Category 2: Benign RECOMMENDATION(S): 1: Routine screening mammogram BILATERAL in 1 year. [address]452 3342F, 7090F Dictating Physician: RADHA FAIR MD Electronically Signed by: RADHA FAIR MD Dic Date/Time: 11/15/171513 Sign date/Time: 11/15/171516 Procedure Note Radha Fair MD - 09/05/2022 [facility] Diagnostic Imaging Department [address] [place] [address] Patient: KEVINYOJANA /Age/Sex: 1980 - 36 - F Unit#: [id number] [facility] Mnemonic/Ordering Site: [facility] Ordering Physician: SILVA CAN CNM [facility] Screening Digital - 11/15/17 067 EXAM: [facility] Screening Digital EXAM DATE AND TIME: 11/15/2017 2:14 PM HISTORY: Screening. The patient declined tomosynthesis. Maternal aunthad breast carcinoma. COMPARISON: 08/05/14 (right), 07/22/14 TECHNIQUE: CC and MLO views of both breasts were obtained using fullfield digital mammography. Computer aided detection with the [employer]7.2-H was employed. TISSUE DENSITY: b. There are [...] Routine screening mammogram BILATERAL in 1 year. 11457 3342F, 7025F Dictating Physician: RADHA FAIR MD Electronically Signed by: RADHA FAIR MD Dic Date/Time: 11/15/17 1514 Sign date/Time: 11/15/17 1517 Silva Gabby [facility] IMG BI PROCEDURES Final Result from Last 3 Months or Most Recently Relevant to Health Maintenance Insurance [place]ICAID - [place] [facility] Care Teams Commercial Pilot Relationship Specialty Start Date End Date Leon Truong MD [address] [place] [address] [address] [facility] [place] [address] PCP - General 07/03/24
[2025-04-14 15:37] LABS: Alanine Aminotransferase 16 U/L (0-31); Albumin Level 4.8 g/dL (3.5-5.0); Alkaline Phosphatase 40 U/L (39-117); Anion Gap 16 (12-20); Aspartate Amino Transferase 22 U/L (5-31); Blood Urea Nitrogen 13 mg/dL (9-16); Calcium 9.6 mg/dL (8.4-10.2); Carbon Dioxide 23 mmol/L (22-29); Chloride 104 mmol/L (96-108); Cholesterol 196 mg/dL (<200); Estimated Glomerular Filt Rate > 60; HDL Cholesterol 33 mg/dL (>40); Iron 149 mcg/dL (30-160); Percent Iron Saturation 35 % (15-50); Potassium 4.5 mmol/L (3.3-5.1); Sodium 138 mmol/L (135-145); Total Iron Binding Capacity 431 mcg/dL (228-428); Total Protein 7.9 g/dL (6.5-8.0); Triglycerides 316 mg/dL (<150); Unsaturated Iron Binding 282 ug/dL
[2025-04-14 15:47] LABS: Ferritin 232 ng/mL (10-250); Free T4 (Free Thyroxine) 1.00 ng/dL (0.71-1.85); Thyroid Stimulating Hormone 3.83 uIU/mL (0.32-4.0)
[2025-04-14 15:58] LABS: Folate 14.7 ng/mL (> or = 4.0); Vitamin B12 237 pg/mL (200-900)
== END 2025-04-14 14:10 | disposition home or self-care (01) ==
LOC: HO.XRAY 14:09
PROVIDERS: PCP Internal Medicine; Visit Provider Internal Medicine
DX: R73.01 Impaired fasting glucose (principal); E78.00 Pure hypercholesterolemia, unspecified; M25.572 Pain in left ankle and joints of left foot
CPT/HCPCS: 36415; 73610; 80053; 80061; 82607; 82728; 82746; 83036; 83540; 84439; 84443; 85025; 85045

== ENCOUNTER → 2025-04-14 14:29 | Outpatient (BNV) | payer OTHER, SELFPAY | PROVIDERS: PCP Internal Medicine; Visit Provider Radiology Diagnostic Radiology | DX: M25.572 Pain in left ankle and joints of left foot (principal) | CPT/HCPCS: 73610 ==

== ENCOUNTER 2025-04-17 12:50 | Outpatient (REF) | payer OTHER, SELFPAY ==
--- NOTE | ~2025-04-17 | XR_ITS ---
EXAMINATION: XR FOOT, LEFT CLINICAL INFORMATION: M79.672 - Pain in left foot COMPARISON: None available. TECHNIQUE: AP, lateral, and oblique views of the left foot. FINDINGS: No fracture, dislocation, or suspicious bone lesion. Normal bone mineralization. Normal alignment. Joint spaces are preserved. No significant arthropathy. Normal plantar arch. Soft tissues appear normal. XR/XR foot LT min 3V IMPRESSION: Normal left foot. Electronically signed by: Shawn Perez MD 04/17/2025 01:51 PM EDT
--- OUTSIDE RECORDS SUMMARY | 2025-04-17 13:34 | XMS_ITS | Encounter Summary ---
Author Organization [facility] Address [address] [place] [address] Care Team Providers Care Puppy Walker Name Role Phone Community, Pcp Unavailable Unavailable Baron Chavez Unavailable Unavailable Kemar Morrison MD Primary Care Provider Leon Zeng MD Primary Care Provider Unavailabl e Encounter Details Date Type Department Care Team Description 07/24/2018 Refill SUPER[facility]OR [employer] [facility] - [place] [address] [place] [phone] Silva Pierre, EVANGELISTA [address] [place] [phone] Social History Tobacco Use Types Packs/Day Years [...] encounter Miscellaneous Notes * Telephone Encounter - Alysia Powell RN - 07/24/2018 9:25 AM ESTFrom: Yojana Dietrich To: Silva Pierre CNM Sent: 07/24/2018 9:17 AM EST Subject: Medication Renewal Request Original authorizing provider: Silva Pierre CNM, EVANGELISTA Dietrich would like a refill of the following medications: Cholecalciferol (VITAMIN D) 2000 UNITS Cap [Silva Pierre CNM, CNM] Preferred pharmacy: [id number] - [place] [address] Comment: Medication renewals requested in this message routed to other providers: loratadine (CLARITIN) 10 MG tablet [Gary Silva MD] documented in this encounter Plan of Treatment Not on file documented as of this encounter Visit Diagnoses Diagnosis Vitamin D deficiency- Primary Unspecified vitamin D deficiency documented in this encounter Care Teams Puppy Walker Relationship Specialty Start Date End Date Kemar Morrison MD PCP - General Internal Medicine 11/26/17 07/02/24 Leon Truong MD PCP - General Internal Medicine 07/03/24 [facility] Internal Medicine 03/28/17 Baron Chavez Internal Medicine 11/29/16 documented as of this encounter
== END 2025-04-17 12:51 | disposition home or self-care (01) ==
LOC: HO.XRAY 12:50
PROVIDERS: PCP Internal Medicine; Visit Provider Internal Medicine
DX: M79.672 Pain in left foot (principal); E78.00 Pure hypercholesterolemia, unspecified; R73.02 Impaired glucose tolerance (oral); E03.9 Hypothyroidism, unspecified; D51.0 Vitamin B12 deficiency anemia due to intrinsic factor deficiency; Z79.899 Other long term (current) drug therapy; Z13.30 Encounter for screening examination for mental health and behavioral disorders, unspecified; Z13.39 Encounter for screening examination for other mental health and behavioral disorders
CPT/HCPCS: 73630; 99212

== ENCOUNTER 2025-04-17 12:50 | Outpatient (AMB) | payer OTHER, SELFPAY ==
--- OUTSIDE RECORDS SUMMARY | 2025-04-17 12:52 | XMS_ITS | Clinical Summary ---
Author Organization [address] [facility] Address [address] [place] [address] Phone Care Team Providers Care Cosmetology Teacher Name Role Phone Leon Truong MD Primary Care Provider [phone] Allergies Active Allergy Reactions Criticality Noted Date [...] AM EDT Office Visit Orthopedic Surgery - [address] [phone] Clint Lanier, DPM Pes planus [...] PM EDT Office Visit Orthopedic Surgery - [place] [address] [phone] Clint Lanier DPM [address] [address] 07/30/2025 1:00 PM EST Office Visit Orthopedic Surgery [facility] [address] [phone] Clint Lanier DPM [address] [address] Health Maintenance Due Date Last Done Comments [...] PM EST Narrative 11/15/2017 3:17 PM EST [facility] Diagnostic Imaging Department [address] [place] [address] Patient: YOJANA BROWN Anna Marie /Age/Sex: 1980 - 36 - F Unit#: [id number] [facility]Ordering Site: [facility] Ordering Physician: SILVA CAN CNM Piper [...] Routine screening mammogram BILATERAL in 1 year. [id number], 7028F Dictating Physician: RADHA FAIR MD Electronically Signed by: RADHA FAIR MD Dic Date/Time: 11/15/171513 Sign date/Time: 11/15/171516 Procedure Note Radha Fair MD - 09/05/2022 [facility] Diagnostic Imaging Department [address] [place] [address] Patient: KEVINYOJANA /Age/Sex: 1980 - 36 - F Unit#: [id number] [facility] Mnemonic/Ordering Site: [facility] Ordering Physician: SILVA CNA CNM [facility] Screening Digital - 11/15/17 728 EXAM: [facility] Screening Digital EXAM DATE AND TIME: 11/15/2017 2:14 PM HISTORY: Screening. The patient declined tomosynthesis. Maternal aunthad breast carcinoma. COMPARISON: 08/05/14 (right), 07/22/14 TECHNIQUE: CC and MLO views of both breasts were obtained using fullfield digital mammography. Computer aided detection with the NETpeas7.2-H was employed. TISSUE DENSITY: b. There are [...] Routine screening mammogram BILATERAL in 1 year. [id number], 7025F Dictating Physician: RADHA FAIR MD Electronically Signed by: RADHA FAIR MD Dic Date/Time: 11/15/17 1514 Sign date/Time: 11/15/17 1517 Silva Gabby [facility] IMG BI PROCEDURES Final Result from Last 3 Months or Most Recently Relevant to Health Maintenance Insurance [place] [facility] Care Teams Cosmetology Teacher Relationship Specialty Start Date End Date Leon Truong MD [address] [place] [address] Dr [address] [facility] [place] [address] PCP - General 07/03/24
[2025-04-17 12:54] VITALS: BP 110/80; PULSE 71; O2SAT 99; BMI 22.5
--- NOTE | 2025-04-17 12:54 | MHC.PC.OV ---
Vital Signs 04/17/25 12:54 Height 5 ft 4 in Weight 131 lb BMI 22.5 BP 110/80 Blood Pressure Location Lt brachial Position Sitting Pulse 71 Pulse Source Pulse Oximeter Pulse Oximetry (%) 99 Oxygen Delivery Method Room Air Intake Visit Reasons: Right foot pain Customer Service Dispatcher Required: No Accompanied by: Self / Same As Patient Allergies amoxicillin (Amoxicillin) Allergy (Severe, Verified 04/17/25 12:56) NAUSEA & VOMITING, rash, hives ciprofloxacin (CIPROFLOXACIN) Allergy (Severe, Verified 04/17/25 12:56) VAGINAL BLEEDING nickel Allergy (Severe, Verified 04/17/25 12:56) Swelling clarithromycin (From Biaxin) Allergy (Mild, Verified 04/17/25 12:56) RASH MIGRAINE MEDICINE CAN NOT RECALL NAME Allergy (Severe, Uncoded 04/17/25 12:56) RAPID HEART RATE AND SWEATS Medication List - Last Reconciled 04/17/25 by Leon Truong MD albuterol sulfate 90 mcg/actuation 2 puffs PO Q6H PRN 30 days albuterol sulfate 2.5 mg (3 mL) inhalation Q4H PRN 30 days cetirizine (Zyrtec) 10 mg PO DAILY PRN cholecalciferol (vitamin D3) 50 mcg PO DAILY cyanocobalamin (vitamin B-12) 1,000 mcg PO DAILY doxycycline hyclate 100 mg PO BID fenofibrate 160 mg PO DAILY ferrous sulfate (FeroSul) 325 mg PO DAILY ghjwidbhhdw-bupdddotn-expvsexu 200-62.5-25 mcg (Trelegy Ellipta) 1 ea PO DAILY ipratropium-albuterol 0.5 mg-3 mg(2.5 mg base)/3 mL 3 mL inhalation Q4-6H PRN levothyroxine 125 mcg PO DAILY 90 days meloxicam 15 mg PO DAILY mirtazapine 7.5 mg PO BEDTIME montelukast 10 mg PO BEDTIME nebulizers As directed norethindrone-ethin estradiol 1-35 mg-mcg 1 tab PO DAILY omega 0-aap-gom-fish oil 1,200 (144-216) mg (Fish Oil) caps PO simvastatin 5 mg PO BEDTIME Tobacco use date assessed: 04/17/25 Dental Screening Dental Screen Date: 04/17/25 Did you have a dental visit in the last 12 months?: Yes Did you have a dental problem in the last 6 months where you did not have access to dental care?: No Was dental information given to patient?: Patient has dentist [facility] Medical History (Updated 04/17/25 @ 13:15 by Leon Truong MD) Impaired fasting blood sugar Sore throat Breast cancer screening by mammogram Hand swelling URI (upper respiratory infection) Swelling of right upper extremity Elbow pain, right Toe pain, left Hypercalcemia Exposure to COVID-19 virus Pain and swelling of right ankle Dizziness Anxiety Asthma Pulmonary nodule Shortness of breath Developmental delay, mild Vitamin B12 deficiency Hypercholesterolemia Hypothyroid Allergic rhinitis Surgical History History of section Family History Father Skin cancer Myocardial infarction Mother No problems noted. Maternal Aunt Breast cancer Daughter In good health Brother Chronic mental illness Other Mental health problem Social History Housing: Apartment Alcohol intake: never Patient Tobacco Use Status: Never used Tobacco Tobacco use type: Cigarette e-Cigarette/Vaping Use: Never Used Second Hand Smoke Exposure: No service: No Current occupational status: disabled Current occupational exposures/hazards: No Cognitive needs: No Hearing needs: No Vision needs: No Questionnaire PHQ-9 Over the last 2 weeks, how often have you been bothered by any of the following problems? 1. Little interest or pleasure in doing things: not at all 2. Feeling down, depressed, or hopeless: several days 3. Trouble falling or staying asleep, or sleeping too much: not at all 4. Feeling tired or having little energy: several days 5. Poor appetite or overeating: not at all 6. Feeling bad about yourself - or that you are a failure or have let yourself or your family down: several days 7. Trouble concentrating on things, such as reading the newspaper or watching television: not at all 8. Moving or speaking so slowly that other people could have noticed. Or the opposite - being so fidgety or restless that you have been moving around a lot more than usual: not at all 9. Thoughts that you would be better off or of hurting yourself in some way: not at all Total score: 3 Source: Developed by Drs. Jose Almanzar, Bessy Torres, Dat Davenport and colleagues, with an educational magdalena from [employer]. Thrive Questionnaire Date Thrive assessed: 04/17/25 I am a: Patient What is your living situation today?: I have a steady place to live Within the past 12 months, did the food you bought not last and you didn't have the money to get more?: I choose not to answer this question Within the past 12 months, did you worry whether your food would run out before you got money to buy more?: I choose not to answer this question Do you have trouble paying for medicines?: No Do you have trouble getting transportation to medical appointments?: No Do you have trouble paying your heating and electricity bill?: I choose not to answer this question Do you have trouble taking care of your child, family member or friend?: I choose not to answer this question Do you have trouble with day-to-day activities such as bathing, preparing meals, shopping, managing finances, etc.?: I choose not to answer this question Are you currently unemployed and looking for a job?: I choose not to answer this question Are you interested in more education?: I choose not to answer this question Please select the resources that you would like help with: None Currently or been in a relationship where the following occur: I choose not to answer THRIVE Score: 0 AUDIT C Alcohol Use Questionnaire (AUDIT-C) 1. How often do you have a drink containing alcohol?: Never 3. How often do you have six or more drinks on one occasion?: Never Total Score: 0 EDELMIRA-7 AMB Questionnaire EDELMIRA-7 Date EDELMIRA - 7 assessed: 04/17/25 Feeling nervous, anxious, or on edge: 0 = Not at all Not being able to stop or control worryin = Not at all Worrying too much about different things: 0 = Not at all Trouble relaxin = Not at all Being so restless that it is hard to sit still: 0 = Not at all Becoming easily annoyed or irritable: 0 = Not at all Feeling afraid as if something awful might happen: 0 = Not at all Total EDELMIRA-7 score (0-4 normal; 5-9 mild; 10-14 moderate; 15-21 severe): 0 Source: Developed by Drs. Jose Almanzar, Bessy Torres, Dat Davenport and colleagues, with an educational magdalena from [employer]. Physical exam (Primary Care) Vital Signs: Last Vital Signs Pulse 71 04/17/25 12:54 BP 110/80 04/17/25 12:54 Pulse Ox 99 04/17/25 12:54 Oxygen Delivery Method Room Air 04/17/25 12:54 BMI result Body Mass Index 22.5 Tobacco/Smoking Status: Tobacco use Status Tobacco use date assessed 04/17/25 04/17/25 13:02 Patient Tobacco Use Status Never used Tobacco 04/17/25 13:02 Tobacco use type Cigarette 04/17/25 13:02 e-Cigarette/Vaping Use Never Used 04/17/25 13:02 PHQ-9: PHQ-9 Score PHQ-9: Total score 3 04/17/25 13:09 Thrive Assessment: Date of Thrive Assessment Date Thrive assessed 04/17/25 04/17/25 13:02 Currently or been in a relationship where the following occur: I choose not to answer Const General: alert; No acute distress Eyes Conjunctivae: conjunctivae normal Resp Auscultation: clear to auscultation bilaterally Cardio Rate: regular rate Rhythm: regular rhythm GI Inspection: Yes normal to inspection Extrem Other: Tenderness on the dorsum of the left foot no redness noted can dorsiflex. General: No edema Coding Level of Care Code Est Pt Level 4 (07725) Complex EM visit Add On G2211 Diagnoses Hypercholesterolemia E78.00 Impaired glucose tolerance R73.02 Acquired hypothyroidism E03.9 Hypothyroidism type: acquired Pernicious anemia D51.0 Left foot pain M79.672 Assessment & Plan Assessment & Plan (1) Hypercholesterolemia: Code(s): E78.00 - Pure hypercholesterolemia, unspecified Category: Medical Plan: Avoid fried foods, chicken skin, eggs, butter margarine, pastries and meat. Be it pork or beef they have a lot of cholesterol LDL goal of less than 130 and triglyceride of less than 150 patient on fenofibrate 160 mg once a day and simvastatin 5 mg at bedtime (2) Impaired glucose tolerance: Code(s): R73.02 - Impaired glucose tolerance (oral) Category: Medical Plan: Decrease the amount of carbohydrate intake, pasta, bread, rice and potatoes are all sugar and that is aside from all the sweet stuff, remember that fruits are good but they are Sweet also. (3) Hypothyroid: Code(s): E03.9 - Hypothyroidism, unspecified Category: Medical Qualifiers: Hypothyroidism type: acquired Qualified Code(s): E03.9 - Hypothyroidism, unspecified Plan: Continue with thyroid medication on 125 mg or mcg once a day (4) Pernicious anemia: Comment: Parietal cell antibody positive January 2021 Code(s): D51.0 - Vitamin B12 deficiency anemia due to intrinsic factor deficiency Category: Medical Plan: Continue vitamin B12 (5) Left foot pain: Code(s): M79.672 - Pain in left foot Category: Medical Plan History of Present Illness The patient is a 44-year-old female presenting with lower extremity pain. She reports difficulty wearing support shoes due to swelling and pain, which began after twisting her foot while retrieving a lockbox. The patient has a history of hypothyroidism, hypercholesterolemia, pernicious anemia, asthma-COPD overlap syndrome, and impaired glucose tolerance. Her blood work from April 14 indicated chronic anemia with a hemoglobin level of 11.8 g/dL, slightly below the normal range. Her electrolytes and renal function are normal, and her hemoglobin A1c has improved from 6.0% in November to 5.8%. The patient's triglycerides are elevated at 316 mg/dL, and her LDL cholesterol is at 100 mg/dL, which is an increase from a previous level of 69 mg/dL. She is currently on fenofibrate and simvastatin for cholesterol management. The patient reports that her mammogram is up to date, indicating adherence to preventative care measures. Health Maintenance - Mammogram is up to date Social History - The patient is involved in caring for her brother, who requires medication management and has a visiting nurse. Review of Systems - Musculoskeletal: Reports lower extremity pain and swelling, denies bruising. - Endocrine: Reports adherence to thyroid medication, denies symptoms of hypothyroidism. Physical Exam Results - Labs: Hemoglobin 11.8 g/dL, Hemoglobin A1c 5.8%, Triglycerides 316 mg/dL, LDL 100 mg/dL, B12 237 pg/mL. Plan The patient will continue with her current medications, including fenofibrate and simvastatin, to manage her hypercholesterolemia and elevated triglycerides. An x-ray of the left foot has been ordered to evaluate the cause of her persistent pain and swelling, which is suspected to be due to tendon inflammation. She is advised to continue her thyroid medication and vitamin supplementation. Pain management will include the use of heat and prescribed analgesics, as ehfs-lty-lyjojir medications have been ineffective. Patient was informed and verbally consented to the use of an ambient scribe for clinic note documentation during this visit. Discussion Notes I discussed with the patient the importance of continuing her current medications for cholesterol management and the need for an x-ray to assess her foot pain. We reviewed her lab results, noting improvements in her hemoglobin A1c and the need to address her elevated triglycerides. I advised her on the use of heat and prescribed analgesics for pain management, as well as the continuation of her thyroid and B12 medications. Patient Instructions - Continue taking fenofibrate and simvastatin as prescribed. - Schedule and complete the x-ray for your left foot. - Use heat and take prescribed pain medication for foot pain. - Continue thyroid medication and vitamin B12 supplementation. - Follow a healthy diet to manage cholesterol and blood sugar levels. Medications: New meloxicam 15 mg PO DAILY 20 tabs 0RF M79.672 - Pain in left foot Discontinued diclofenac sodium 1% (Voltaren Arthritis Pain) apply to knee as needed for pain Discontinued Reason: Doctor's Order 2 grams topical QID 100 grams 0RF
== END 2025-04-17 13:18 | disposition home or self-care (01) ==
LOC: HO.HMCH 12:50
PROVIDERS: PCP Internal Medicine; Visit Provider Internal Medicine
DX: E78.00 Pure hypercholesterolemia, unspecified (principal); R73.02 Impaired glucose tolerance (oral); E03.9 Hypothyroidism, unspecified; D51.0 Vitamin B12 deficiency anemia due to intrinsic factor deficiency; M79.672 Pain in left foot

== ENCOUNTER → 2025-04-17 13:36 | Outpatient (BNV) | payer OTHER, SELFPAY | PROVIDERS: PCP Internal Medicine; Visit Provider Radiology Diagnostic Radiology | DX: M79.672 Pain in left foot (principal) | CPT/HCPCS: 73630 ==

== ENCOUNTER 2025-05-20 14:25 | Outpatient (AMB) | payer OTHER, SELFPAY ==
[2025-05-20 14:27] VITALS: BP 118/62; PULSE 73; O2SAT 97; BMI 23.2
--- NOTE | 2025-05-20 14:27 | A.OFFPC_ITS ---
Vital Signs 05/20/25 14:27 Height 5 ft 4 in Weight 135 lb BMI 23.2 BP 118/62 Blood Pressure Location Lt brachial Position Sitting Pulse 73 Pulse Source Pulse Oximeter Pulse Oximetry (%) 97 Oxygen Delivery Method Room Air Intake Visit Reasons: 3 month follow up Allergies amoxicillin (Amoxicillin) Allergy (Severe, Verified 05/20/25 14:28) NAUSEA & VOMITING, rash, hives ciprofloxacin (CIPROFLOXACIN) Allergy (Severe, Verified 05/20/25 14:28) VAGINAL BLEEDING nickel Allergy (Severe, Verified 05/20/25 14:28) Swelling clarithromycin (From Biaxin) Allergy (Mild, Verified 05/20/25 14:28) RASH MIGRAINE MEDICINE CAN NOT RECALL NAME Allergy (Severe, Uncoded 05/20/25 14:28) RAPID HEART RATE AND SWEATS Tobacco use date assessed: 04/17/25 Dental Screening Dental Screen Date: 04/17/25 [facility] Medical History (Updated 04/17/25 @ 13:15 by Leon Truong MD) Impaired fasting blood sugar Sore throat Breast cancer screening by mammogram Hand swelling URI (upper respiratory infection) Swelling of right upper extremity Elbow pain, right Toe pain, left Hypercalcemia Exposure to COVID-19 virus Pain and swelling of right ankle Dizziness Anxiety Asthma Pulmonary nodule Shortness of breath Developmental delay, mild Vitamin B12 deficiency Hypercholesterolemia Hypothyroid Allergic rhinitis Surgical History History of section Family History Father Skin cancer Myocardial infarction Mother No problems noted. Maternal Aunt Breast cancer Daughter In good health Brother Chronic mental illness Other Mental health problem Social History Housing: Apartment Alcohol intake: never Patient Tobacco Use Status: Never used Tobacco Tobacco use type: Cigarette e-Cigarette/Vaping Use: Never Used Second Hand Smoke Exposure: No service: No Current occupational status: disabled Current occupational exposures/hazards: No Cognitive needs: No Hearing needs: No Vision needs: No Questionnaire PHQ-9 Over the last 2 weeks, how often have you been bothered by any of the following problems? 1. Little interest or pleasure in doing things: not at all 2. Feeling down, depressed, or hopeless: several days 3. Trouble falling or staying asleep, or sleeping too much: not at all 4. Feeling tired or having little energy: several days 5. Poor appetite or overeating: not at all 6. Feeling bad about yourself - or that you are a failure or have let yourself or your family down: several days 7. Trouble concentrating on things, such as reading the newspaper or watching television: not at all 8. Moving or speaking so slowly that other people could have noticed. Or the opposite - being so fidgety or restless that you have been moving around a lot more than usual: not at all 9. Thoughts that you would be better off or of hurting yourself in some way: not at all Total score: 3 Depression Screening Interpretation: Positive Depression Screening Done: Yes Source: Developed by Drs. Jose Almanzar, Bessy Torres, Dat Davenport and colleagues, with an educational magdalena from [employer]. Thrive Questionnaire Date Thrive assessed: 02/02/25 I am a: Patient What is your living situation today?: I have a steady place to live Within the past 12 months, did the food you bought not last and you didn't have the money to get more?: I choose not to answer this question Within the past 12 months, did you worry whether your food would run out before you got money to buy more?: I choose not to answer this question Do you have trouble paying for medicines?: No Do you have trouble getting transportation to medical appointments?: No Do you have trouble paying your heating and electricity bill?: I choose not to answer this question Do you have trouble taking care of your child, family member or friend?: I choose not to answer this question Do you have trouble with day-to-day activities such as bathing, preparing meals, shopping, managing finances, etc.?: I choose not to answer this question Are you currently unemployed and looking for a job?: I choose not to answer this question Are you interested in more education?: I choose not to answer this question Please select the resources that you would like help with: None Currently or been in a relationship where the following occur: I choose not to answer THRIVE Score: 0 AUDIT C Alcohol Use Questionnaire (AUDIT-C) 1. How often do you have a drink containing alcohol?: Never 3. How often do you have six or more drinks on one occasion?: Never Total Score: 0 EDELMIRA-7 AMB Questionnaire EDELMIRA-7 Date EDELMIRA - 7 assessed: 05/20/25 Feeling nervous, anxious, or on edge: 2 = More than half the days Not being able to stop or control worryin = More than half the days Worrying too much about different things: 2 = More than half the days Trouble relaxin = Not at all Being so restless that it is hard to sit still: 0 = Not at all Becoming easily annoyed or irritable: 2 = More than half the days Feeling afraid as if something awful might happen: 0 = Not at all Total EDELMIRA-7 score (0-4 normal; 5-9 mild; 10-14 moderate; 15-21 severe): 8 Source: Developed by Drs. Jose Almanzar, Bessy Torres, Dat Davenport and colleagues, with an educational magdalena from [employer]. EDELMIRA-7 Assessment Billing EDELMIRA-7 Assessment Tool: EDELMIRA-7 Assessment 89370 Physical exam (Primary Care) Vital Signs: Last Vital Signs Pulse 73 05/20/25 14:27 BP 118/62 05/20/25 14:27 Pulse Ox 97 05/20/25 14:27 Oxygen Delivery Method Room Air 05/20/25 14:27 BMI result Body Mass Index 23.2 Tobacco/Smoking Status: Tobacco use Status Tobacco use date assessed 04/17/25 05/20/25 14:33 Patient Tobacco Use Status Never used Tobacco 05/20/25 14:33 Tobacco use type Cigarette 05/20/25 14:33 e-Cigarette/Vaping Use Never Used 05/20/25 14:33 PHQ-9: PHQ-9 Score PHQ-9: Total score 3 05/20/25 14:33 Depression Screening Interpretation: Positive Thrive Assessment: Date of Thrive Assessment Date Thrive assessed 02/02/25 05/20/25 14:33 Currently or been in a relationship where the following occur: I choose not to answer Const General: alert; No acute distress Eyes Conjunctivae: conjunctivae normal Resp Auscultation: clear to auscultation bilaterally Cardio Rate: regular rate Rhythm: regular rhythm GI Inspection: Yes normal to inspection Extrem General: Yes normal to inspection and No edema Coding Level of Care Code Est Pt Level 4 (97236) Complex EM visit Add On G2211 Diagnoses Hypercholesterolemia E78.00 Impaired glucose tolerance R73.02 Acquired hypothyroidism E03.9 Hypothyroidism type: acquired Vitamin B12 deficiency E53.8 Colon cancer screening Z12.11 Asthma-COPD overlap syndrome J44.9 Additional Codes EDELMIRA-7 Assessment Billing - EDELMIRA-7 Assessment Tool: EDELMIRA-7 Assessment 02225 ([id number]) Assessment & Plan Assessment & Plan (1) Hypercholesterolemia: Code(s): E78.00 - Pure hypercholesterolemia, unspecified Category: Medical Plan: Avoid fried foods, chicken skin, eggs, butter margarine, pastries and meat. Be it pork or beef they have a lot of cholesterol LDL goal of less than 130 and triglyceride of less than 150 on fenofibrate 160 mg once a day and simvastatin 5 mg at bedtime (2) Impaired glucose tolerance: Code(s): R73.02 - Impaired glucose tolerance (oral) Category: Medical Plan: Decrease the amount of carbohydrate intake, pasta, bread, rice and potatoes are all sugar and that is aside from all the sweet stuff, remember that fruits are good but they are Sweet also. (3) Hypothyroid: Code(s): E03.9 - Hypothyroidism, unspecified Category: Medical Qualifiers: Hypothyroidism type: acquired Qualified Code(s): E03.9 - Hypothyroidism, unspecified Plan: Continue with thyroid medication 125 mcg once a day (4) Vitamin B12 deficiency: Code(s): E53.8 - Deficiency of other specified B group vitamins Category: Medical Plan: Vitamin B12 1000 mcg once a day (5) Colon cancer screening: Code(s): Z12.11 - Encounter for screening for malignant neoplasm of colon Category: Medical Plan: Reminded about colonoscopy (6) Asthma-COPD overlap syndrome: Code(s): J44.9 - Chronic obstructive pulmonary disease, unspecified Category: Medical Plan: Continue with albuterol inhaler Plan History of Present Illness The patient is a 44-year-old female presenting for a follow-up visit. She has a history of hypothyroidism, hypercholesterolemia, pernicious anemia, asthma-COPD overlap syndrome, and impaired glucose tolerance. Her last blood work in March showed anemia with hemoglobin at 11.8 g/dL and hematocrit at 33.5%, which has remained stable over the past year. Her platelet count and white blood cell count were normal, as were her electrolytes, renal function, and liver function tests. The patient's hemoglobin A1c has decreased to 5.8%, indicating mild improvement in glucose control, although it remains slightly elevated. Triglycerides were elevated at 316 mg/dL, and vitamin B12 levels were low, necessitating supplementation. Thyroid function tests were within normal limits. The patient has been managing her cholesterol with fenofibrate 160 mg daily and simvastatin 5 mg at bedtime, aiming for an LDL goal of less than 130 mg/dL and triglycerides less than 150 mg/dL. She continues on thyroid medication at 125 mcg daily and vitamin B12 supplementation at 1000 mcg daily. For her asthma-COPD overlap syndrome, she uses an albuterol inhaler as needed. The patient was reminded about the need for a colonoscopy, and her mammogram is up to date as of July 2024. She was previously seen for left foot pain, for which an orthopedic consultation and podiatry evaluation were conducted, leading to a diagnosis of pes planus of both feet. Management included stretching exercises, orthotics, and an X-ray was performed. Health Maintenance - Mammogram up to date as of July 2024 - Reminder for colonoscopy Social History Review of Systems Physical Exam Results - Labs: Hemoglobin 11.8 g/dL, Hematocrit 33.5%, Normal platelet and white blood cell count, Hemoglobin A1c 5.8%, Triglycerides 316 mg/dL, Low vitamin B12, Normal thyroid function tests Plan Patient was informed and verbally consented to the use of an ambient scribe for clinic note documentation during this visit. 1. Hypothyroidism The patient will continue with her current thyroid medication, levothyroxine 125 mcg once daily. 2. Hypercholesterolemia The patient is on fenofibrate 160 mg daily and simvastatin 5 mg at bedtime to manage her cholesterol levels, with a target LDL of less than 130 mg/dL and triglycerides less than 150 mg/dL. 3. Pernicious Anemia The patient is advised to continue vitamin B12 supplementation at 1000 mcg daily due to low levels. 4. Asthma-Copd Overlap Syndrome The patient will continue using her albuterol inhaler as needed for asthma-COPD overlap syndrome management. 5. Impaired Glucose Tolerance The patient's hemoglobin A1c has improved to 5.8%, indicating better glucose control, but monitoring will continue. 6. Pes Planus Management of pes planus includes stretching exercises, orthotics, and an X-ray was performed to assess the condition. Discussion Notes Patient Instructions - Continue taking thyroid medication as prescribed. - Take vitamin B12 supplement daily. - Use albuterol inhaler as needed for breathing difficulties. - Follow the cholesterol management plan with prescribed medications. - Perform stretching exercises and use orthotics for foot support. - Schedule a colonoscopy as reminded. Orders: Orders Free T4 (Free Thyroxine) 3 Months E03.9 - Hypothyroidism, unspecified Lipid Panel 3 Months E03.9 - Hypothyroidism, unspecified, E78.00 - Pure hypercholesterolemia, unspecified Thyroid Stimulating Hormone 3 Months E03.9 - Hypothyroidism, unspecified Comprehensive Met. Panel 3 Months E03.9 - Hypothyroidism, unspecified Hemoglobin A1c 3 Months E03.9 - Hypothyroidism, unspecified Complete Blood Count Auto Diff 3 Months E03.9 - Hypothyroidism, unspecified Vitamin B12 and Folate 3 Months E03.9 - Hypothyroidism, unspecified Vitamin D 25-OH Total 3 Months E03.9 - Hypothyroidism, unspecified Medications: Refilled fenofibrate 160 mg PO DAILY 90 tabs 3RF eksybensjlx-wjuquzthj-pjdvrsqg 200-62.5-25 mcg (Trelegy Ellipta) 1 ea PO DAILY 60 ea 12RF simvastatin 5 mg PO BEDTIME 90 tabs 3RF E78.00 - Pure hypercholesterolemia, unspecified
--- OUTSIDE RECORDS SUMMARY | 2025-05-20 16:45 | XMS_ITS | Clinical Summary ---
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 [employer] Name Role Phone Leon Truong MD Primary Care Provider [phone] Allergies Active Allergy Reactions Criticality Noted Date [...] PM EDT Office Visit Orthopedic [facility] - [place] [address] [phone] Clint Lanier, DPM [address] [phone] 07/30/2025 1:00 PM EST Office Visit Orthopedic Surgery - [place] 250 175 [facility] [address] [place] [phone] Clint Lanier, DPM 175 [facility] [address] [place] [address] Health Maintenance Due Date Last Done Comments Pneumococcal Vaccine: Pediatrics (0 to 5 Years) and At-Risk Patients (6 to 49 Years) (1 of 2 - PCV) 1997 Hepatitis B Vaccines (3 of 3 - Hep B Twinrix 3-dose series) 12/11/2016 07/13/2016, 05/26/2016 Breast Cancer Screening 11/16/2019 11/15/2017 Cholesterol Screening (Lipid Panel) 08/26/2022 Colorectal Cancer Screening: Colonoscopy 08/26/2022 Social Influencers of Health Screening 08/26/2022 Depression Screening 09/17/2024 COVID-19 Vaccine ( season) 2025 Influenza Vaccine (#1) 2025 4, 06/28/2023, 06/26/2022, Additional history exists Cervical Cancer [...] SCREENING Routine 12/24/2020 HIV SCREENING Routine 12/24/2020 TEX SCREENING DIGITAL Routine 11/15/2017 3:17 PM EST Encounter for screening mammogram for malignant neoplasm of breast from Last 3 Months or Most Recently Relevant to Health Maintenance Results * Cervical Cancer Screening: HPV (12/24/2020) Pathologist [facility] Cervical Cancer Screening: HPV abstracted, negative [facility] Provider HEALTH MAINTENANCE Final Result * HIV Screening (12/24/2020) [facility] HIV Screening abstracted [facility] Provider HEALTH MAINTENANCE Final Result * Hepatitis C Screening (12/24/2020) [facility] Hepatitis C Screening abstracted [facility] Provider HEALTH MAINTENANCE Final Result * TEX SCREENING DIGITAL (11/15/2017 3:17 PM EST) Anatomical Region Laterality Modality Mammography 11/15/2017 1:40 PM EST Narrative 11/15/2017 3:17 PM EST [facility] Diagnostic Imaging Department [address] [place] [address] [id number] Patient: 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 The patient declined tomosynthesis. Maternal aunt had breast carcinoma. COMPARISON: 08/05/14 (right), 07/22/14 TECHNIQUE: CC and MLO views of both breasts were obtained using full field digital mammography. 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 TISSUE DENSITY: b. There [...] Routine screening mammogram BILATERAL in 1 year. [id number], 7025F Dictating Physician: RADHA FAIR MD Electronically Signed by: RADHA FAIR MD Dic Date/Time: 11/15/17 1514 Sign date/Time: 11/15/17 1517 Procedure Note Radha Fair MD - 09/05/2022 [facility] Diagnostic Imaging Department [address] [place], [place] [address] Patient: YOJANA BROWN /Age/Sex: 1980 - 36 - F Unit#: [id number] Location/Status: SPDIMAM/REG CLI Mnemonic/Ordering Site: [facility] Ordering Physician: SILVA PIERRE CNM [facility] Screening Digital - 11/15/17 - 1413 EXAM: [facility] Screening Digital EXAM DATE AND TIME: 11/15/2017 2:14 PM HISTORY: Screening. The patient declined tomosynthesis. Maternal aunthad breast carcinoma. COMPARISON: 08/05/14 (right), 07/22/14 TECHNIQUE: CC and MLO views of both breasts were obtained using fullfield digital mammography. Computer aided detection with the [employer] was employed. TISSUE DENSITY: b. There are [...] Routine screening mammogram BILATERAL in 1 year. [id number] 3342F, 7025F Dictating Physician: RADHA FAIR MD Electronically Signed by: RADHA FAIR MD Dic Date/Time: 11/15/17 1514 Sign date/Time: 11/15/171516 us Silva Pierre CNM IMG BI PROCEDURES Final Result from Last 3 Months or Most Recently Relevant to Health Maintenance Insurance MEDICAID - [place] [facility] [employer] 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
== END 2025-05-20 14:53 | disposition home or self-care (01) ==
LOC: HO.HMCH 14:26
PROVIDERS: PCP Internal Medicine; Visit Provider Internal Medicine
DX: E78.00 Pure hypercholesterolemia, unspecified (principal); J44.9 Chronic obstructive pulmonary disease, unspecified; R73.02 Impaired glucose tolerance (oral); E03.9 Hypothyroidism, unspecified; E53.8 Deficiency of other specified B group vitamins; Z12.11 Encounter for screening for malignant neoplasm of colon

== ENCOUNTER → 2025-05-20 14:25 | Outpatient (BNVA) | payer OTHER, SELFPAY | PROVIDERS: PCP Internal Medicine; Visit Provider Internal Medicine | DX: E53.8 Deficiency of other specified B group vitamins (principal); E78.00 Pure hypercholesterolemia, unspecified; R73.02 Impaired glucose tolerance (oral); E03.9 Hypothyroidism, unspecified; J44.89 Other specified chronic obstructive pulmonary disease; R73.01 Impaired fasting glucose; Z79.899 Other long term (current) drug therapy; M21.42 Flat foot [pes planus] (acquired), left foot; M21.41 Flat foot [pes planus] (acquired), right foot | CPT/HCPCS: 96127; 99212 ==

== ENCOUNTER 2025-05-27 14:11 | Outpatient (AMB) | payer OTHER, SELFPAY ==
--- NOTE | 2025-05-27 14:11 | A.OFFPC_ITS ---
Intake Visit Reasons: Sore Throat Allergies amoxicillin (Amoxicillin) Allergy (Severe, Verified 05/27/25 14:11) NAUSEA & VOMITING, rash, hives ciprofloxacin (CIPROFLOXACIN) Allergy (Severe, Verified 05/27/25 14:11) VAGINAL BLEEDING nickel Allergy (Severe, Verified 05/27/25 14:11) Swelling clarithromycin (From Biaxin) Allergy (Mild, Verified 05/27/25 14:11) RASH MIGRAINE MEDICINE CAN NOT RECALL NAME Allergy (Severe, Uncoded 05/27/25 14:11) RAPID HEART RATE AND SWEATS Tobacco use date assessed: 05/27/25 Dental Screening Dental Screen Date: 05/27/25 Did you have a dental visit in the last 12 months?: No Did you have a dental problem in the last 6 months where you did not have access to dental care?: No Was dental information given to patient?: No HPI Sore Throat HPI Details This is change to an office visit [facility] Medical History (Updated 05/27/25 @ 14:21 by Leon Truong MD) Sore throat Impaired fasting blood sugar Breast cancer screening by mammogram Hand swelling URI (upper respiratory infection) Swelling of right upper extremity Elbow pain, right Toe pain, left Hypercalcemia Exposure to COVID-19 virus Pain and swelling of right ankle Dizziness Anxiety Asthma Pulmonary nodule Shortness of breath Developmental delay, mild Vitamin B12 deficiency Hypercholesterolemia Hypothyroid Allergic rhinitis Surgical History History of section Family History Father Skin cancer Myocardial infarction Mother No problems noted. Maternal Aunt Breast cancer Daughter In good health Brother Chronic mental illness Other Mental health problem Social History Housing: Apartment Alcohol intake: never Patient Tobacco Use Status: Never used Tobacco Tobacco use type: Cigarette e-Cigarette/Vaping Use: Never Used Second Hand Smoke Exposure: No service: No Current occupational status: disabled Current occupational exposures/hazards: No Cognitive needs: No Hearing needs: No Vision needs: No Questionnaire PHQ-9 Over the last 2 weeks, how often have you been bothered by any of the following problems? 1. Little interest or pleasure in doing things: not at all 2. Feeling down, depressed, or hopeless: several days 3. Trouble falling or staying asleep, or sleeping too much: not at all 4. Feeling tired or having little energy: several days 5. Poor appetite or overeating: not at all 6. Feeling bad about yourself - or that you are a failure or have let yourself or your family down: several days 7. Trouble concentrating on things, such as reading the newspaper or watching television: not at all 8. Moving or speaking so slowly that other people could have noticed. Or the opposite - being so fidgety or restless that you have been moving around a lot more than usual: not at all 9. Thoughts that you would be better off or of hurting yourself in some way: not at all Total score: 3 Depression Screening Interpretation: Positive Depression Screening Done: Yes Source: Developed by Drs. Jose Almanzar, Bessy Torres, Dat Davenport and colleagues, with an educational magdalena from [employer]. Thrive Questionnaire Date Thrive assessed: 02/02/25 I am a: Patient What is your living situation today?: I have a steady place to live Within the past 12 months, did the food you bought not last and you didn't have the money to get more?: I choose not to answer this question Within the past 12 months, did you worry whether your food would run out before you got money to buy more?: I choose not to answer this question Do you have trouble paying for medicines?: No Do you have trouble getting transportation to medical appointments?: No Do you have trouble paying your heating and electricity bill?: I choose not to answer this question Do you have trouble taking care of your child, family member or friend?: I choose not to answer this question Do you have trouble with day-to-day activities such as bathing, preparing meals, shopping, managing finances, etc.?: I choose not to answer this question Are you currently unemployed and looking for a job?: I choose not to answer this question Are you interested in more education?: I choose not to answer this question Please select the resources that you would like help with: None Currently or been in a relationship where the following occur: I choose not to answer THRIVE Score: 0 AUDIT C Alcohol Use Questionnaire (AUDIT-C) 1. How often do you have a drink containing alcohol?: Never 3. How often do you have six or more drinks on one occasion?: Never Total Score: 0 EDELMIRA-7 AMB Questionnaire EDELMIRA-7 Date EDELMIRA - 7 assessed: 05/20/25 Feeling nervous, anxious, or on edge: 2 = More than half the days Not being able to stop or control worryin = More than half the days Worrying too much about different things: 2 = More than half the days Trouble relaxin = Not at all Being so restless that it is hard to sit still: 0 = Not at all Becoming easily annoyed or irritable: 2 = More than half the days Feeling afraid as if something awful might happen: 0 = Not at all Total EDELMIRA-7 score (0-4 normal; 5-9 mild; 10-14 moderate; 15-21 severe): 8 Source: Developed by Drs. Jose Almanzar, Bessy Torres, Dat Davenport and colleagues, with an educational magdalena from [employer]. Physical exam (Primary Care) Tobacco/Smoking Status: Tobacco use Status Tobacco use date assessed 05/27/25 05/27/25 14:13 Patient Tobacco Use Status Never used Tobacco 05/27/25 14:13 Tobacco use type Cigarette 05/27/25 14:13 e-Cigarette/Vaping Use Never Used 05/27/25 14:13 PHQ-9: PHQ-9 Score PHQ-9: Total score 3 05/27/25 15:08 Depression Screening Interpretation: Positive Thrive Assessment: Date of Thrive Assessment Date Thrive assessed 02/02/25 05/27/25 14:13 Currently or been in a relationship where the following occur: I choose not to answer Results AMB Rapid Strep AMB Rapid Strep Negative Last Edit by Jennifer Becerra CMA on 05/27/25 15:17 Telehealth Telehealth Telehealth Platform: Telephone Location of provider rendering services: practice address Location of patient: address on file Patient Identification confirmed using: Name, : Yes Telehealth method: voice only Patient verbally consented to treatment: Yes Patient verbally consented to billing insurance company: Yes Patient informed of any privacy concerns related to visit: Yes Minutes spent on Phone/Video with Pt.: 15 Results Reviewed Results Reviewed: Laboratory Last Values Strep Scn Rapid Clinic Negative 05/27/25 15:09 Coding Level of Care Code Est Pt Level 3 (21778) Diagnoses Sore throat J02.9 Assessment & Plan Assessment & Plan (1) Sore throat: Code(s): J02.9 - Acute pharyngitis, unspecified Category: Medical Plan: Patient wants to come in to have strep test done. Plan History of Present Illness The patient is a 44-year-old female presenting with a sore throat and sinus infection. She has a history of asthma-COPD overlap syndrome, impaired glucose tolerance, hypothyroidism, and hypercholesterolemia. Her last blood work in March showed chronic anemia with hemoglobin levels at 11.8 g/dL and hematocrit at 33.5%. The patient reports a sinus infection characterized by an itchy, irritated, and scratchy throat, which she does not attribute to allergies despite taking allergy medications. She is currently experiencing a sore throat and is seeking a strep test to rule out bacterial infection. Review of Systems - Respiratory: Reports itchy, irritated, and scratchy throat. Denies allergy- related symptoms despite taking allergy medications. - Endocrine: No specific symptoms reported related to hypothyroidism. Plan Patient was informed and verbally consented to the use of an ambient scribe for clinic note documentation during this visit. 1. Sinus Infection The patient is experiencing a sinus infection with symptoms of an itchy, irritated, and scratchy throat. A strep test is planned to rule out bacterial infection, and the patient is advised to follow up based on the results. 2. Sore Throat The patient reports a sore throat and is seeking a strep test to determine if a bacterial infection is present. Further management will depend on the test results, and the patient is advised to monitor symptoms. Discussion Notes I discussed with the patient the symptoms of her sinus infection and the plan to conduct a strep test to rule out bacterial infection. We agreed that further management would depend on the test results, and she was advised to monitor her symptoms and follow up as needed. Patient Instructions - Monitor symptoms and seek medical attention if they worsen. - Follow up after the strep test results are available. Orders: Orders AMB Rapid Strep Screen Today Z13.9 - Encounter for screening, unspecified Patient Instructions: Strep test negative. Keep well hydrated. For the sore throat can take Cepacol lozenges, discussed about Delsym to help with dry cough so she can rest and advised to increase oral fluids. Patient also can take Tylenol for chills and fever.
--- OUTSIDE RECORDS SUMMARY | 2025-05-27 17:26 | XMS_ITS | Clinical Summary ---
Author Organization [address] [facility] Address [address] [place] [address] Phone Care Team Providers Care Financial [employer] Advisor Name Role Phone Leon Truong MD Primary Care Provider [phone] Allergies Active Allergy Reactions Criticality Noted Date [...] PM EST Office Visit Orthopedic Surgery - [place] [address] [address] Clint Lanier, DPM [address] [address] Health Maintenance Due Date Last Done [...] SCREENING Routine 12/24/2020 HIV SCREENING Routine 12/24/2020 [facility] SCREENING DIGITAL Routine 11/15/2017 3:17 PM EST Encounter for screening mammogram for malignant neoplasm of breast from Last 3 Months or Most Recently Relevant to Health Maintenance Results * Cervical Cancer Screening: HPV (12/24/2020) Cervical Cancer Screening: HPV abstracted, negative Historical Provider HEALTH MAINTENANCE Final Result * HIV Screening (12/24/2020) HIV Screening abstracted [facility] Provider HEALTH MAINTENANCE Final Result * Hepatitis C Screening (12/24/2020) Hepatitis C Screening abstracted [facility] Provider HEALTH MAINTENANCE Final Result * TXE SCREENING DIGITAL (11/15/2017 3:17 PM EST) Anatomical Region Laterality Modality Mammography 11/15/2017 1:40 PM EST Narrative 11/15/2017 3:17 PM EST [facility] Diagnostic Imaging Department [address] [place] [address] Patient: KEVINYOJANA /Age/Sex: 1980 36 - F Unit#: [id number] Location/Status: [facility]/REG CLI Mnemonic/Ordering Site: DIGSC/SPMAM Ordering Physician: SILVA CAN CNM [facility] Heart Screening Digital - 11/15/17 - 1413 EXAM: [facility] Heart Screening Digital EXAM DATE AND TIME: 11/15/2017 2:14 PM HISTORY: Screening. The patient declined tomosynthesis. Maternal aunt had breast carcinoma. COMPARISON: 08/05/14 (right), 07/22/14 TECHNIQUE: CC and MLO views of both breasts were obtained using full field digital mammography. Computer aided detection with the [employer] 7.2-H was employed. TISSUE DENSITY: b. There [...] Routine screening mammogram BILATERAL in 1 year. [id number], 7025F Dictating Physician: RADHA FAIR MD Electronically Signed by: RADHA FAIR MD Dic Date/Time: 11/15/17 1514 Sign date/Time: 11/15/17 1517 Procedure Note Radha Fair MD - 09/05/2022 [facility] Diagnostic Imaging Department [address] [place] [address] Patient: YOJANA BROWN Anna Marie AlarconB./Age/Sex: 1980 - 36 - F Unit#: [id number] Location/Status: SPDIMAM/REG CLI Mnemonic/Ordering Site: [facility] Ordering Physician: SILVA CAN CNM [facility] Heart Screening Digital - 11/15/17 - 1413 EXAM: [facility] Heart Screening Digital EXAM DATE AND TIME: 11/15/2017 2:14 PM HISTORY: Screening. The patient declined tomosynthesis. Maternal aunthad breast carcinoma. COMPARISON: 08/05/14 (right), 07/22/14 TECHNIQUE: CC and MLO views of both breasts were obtained using fullfield digital mammography. Computer aided detection with the [employer]7.2-H was employed. TISSUE DENSITY: b. There are [...] Routine screening mammogram BILATERAL in 1 year. [id number], 7025F Dictating Physician: RADHA FAIR MD Electronically Signed by: RADHA FAIR MD Dic Date/Time: 11/15/17 1514 Sign date/Time: 11/15/17 1517 Silva Can CNM IMG BI PROCEDURES Final Result from Last 3 Months or Most Recently Relevant to Health Maintenance Insurance [place] [facility] Care Teams Financial Solutions Advisor Relationship Specialty Start Date End Date Leon Truong MD [address] [place] [address] [address] [facility] [place] [address] PCP - General 07/03/24
== END 2025-05-27 15:35 | disposition home or self-care (01) ==
PROVIDERS: PCP Internal Medicine; Visit Provider Internal Medicine
DX: J02.9 Acute pharyngitis, unspecified (principal); Z13.9 Encounter for screening, unspecified

== ENCOUNTER → 2025-05-27 14:11 | Outpatient (BNVA) | payer OTHER, SELFPAY | PROVIDERS: PCP Internal Medicine; Visit Provider Internal Medicine | DX: R73.01 Impaired fasting glucose (principal); J02.9 Acute pharyngitis, unspecified; J44.89 Other specified chronic obstructive pulmonary disease; E03.9 Hypothyroidism, unspecified; E78.00 Pure hypercholesterolemia, unspecified; D64.9 Anemia, unspecified | CPT/HCPCS: 87880; 99212 ==

== ENCOUNTER 2025-07-01 10:59 | Outpatient (AMB) | payer OTHER, SELFPAY ==
[2025-07-01 11:02] VITALS: BP 120/60; PULSE 73; O2SAT 96; BMI 22.5
--- NOTE | 2025-07-01 11:02 | MHC.OFFVIS ---
Vital Signs 07/01/25 11:02 Height 5 ft 4 in Weight 131 lb 2.801 oz BMI 22.5 BP 120/60 Blood Pressure Location Lt brachial Position Sitting Pulse 73 Pulse Source Pulse Oximeter Pulse Oximetry (%) 96 Oxygen Delivery Method Room Air Intake Visit Reasons: asthma Repairer Evaporator Required: No Accompanied by: Self / Same As Patient Allergies amoxicillin (Amoxicillin) Allergy (Severe, Verified 07/01/25 11:05) NAUSEA & VOMITING, rash, hives ciprofloxacin (CIPROFLOXACIN) Allergy (Severe, Verified 07/01/25 11:05) VAGINAL BLEEDING nickel Allergy (Severe, Verified 07/01/25 11:05) Swelling clarithromycin (From Biaxin) Allergy (Mild, Verified 07/01/25 11:05) RASH MIGRAINE MEDICINE CAN NOT RECALL NAME Allergy (Severe, Uncoded 05/27/25 14:11) RAPID HEART RATE AND SWEATS HPI Comments Details: The patient is a 44-year-old woman with a known history of allergic rhinitis and also allergic asthma. 06/05/2024 the patient is here for a pulmonary follow-up visit. The patient overall doing well from a respiratory status. The Trelegy inhaler has been helpful and she is doing all her allergy medicines. She has not had to use any prednisone. Over the summer she did have a flare-up and she did require medicine. No recent x-rays to review. The patient has been dealing with significant amount of stress that is affecting her breathing. She is looking for a place to live. Otherwise patient is without any other complaints. 12/15/2024 the patient is here for pulmonary follow-up visit. Overall she is doing okay from respiratory status. She continues daily. She also has a nebulizer and rescue medicine. She typically does not use it more than twice a week. Allergies have not been active so therefore she has not been using Zyrtec although she continues uses Singulair at nighttime. She is very stressed that can affect her breathing. She is dealing with all of psychosocial issues as far as her family and children. Apparently needing to get a restraining order for the father of 1 of her child. Noticing studies laboratories revealed this time. Will follow-up in the fall 2024. If any issues arise prior to that she would call for an earlier assessment. 07/01/2025 the patient is here for pulmonary follow-up visit. She has been sick now for about 5 days. She has laryngitis. Denies any fevers or chills. She has a cough. She feels like she has some tightness in the chest [id number]-[id number] severity. She has been using iali-mrq-rmzcoqk cough medication. Will go ahead and send him some some additional prescription medications to treat her for pharyngitis. Right now her lungs sound well. She will continue with the Breo inhaler. She also has her rescue inhaler that she can use as needed. No additional medications warranted. If she has any issues or any worsening symptoms she can always call for further recommendations. Otherwise will follow-up in 6-8 months. [facility] Medical History (Updated 07/01/25 @ 22:24 by Gary [place] MD) Sore throat Impaired fasting blood sugar Breast cancer screening by mammogram Hand swelling URI (upper respiratory infection) Swelling of right upper extremity Elbow pain, right Toe pain, left Hypercalcemia Exposure to COVID-19 virus Pain and swelling of right ankle Dizziness Anxiety Asthma Pulmonary nodule Shortness of breath Developmental delay, mild Vitamin B12 deficiency Hypercholesterolemia Hypothyroid Allergic rhinitis Surgical History History of section Family History Father Skin cancer Myocardial infarction Mother No problems noted. Maternal Aunt Breast cancer Daughter In good health Brother Chronic mental illness Other Mental health problem Social History Housing: Apartment Alcohol intake: never Patient Tobacco Use Status: Never used Tobacco Tobacco use type: Cigarette e-Cigarette/Vaping Use: Never Used Second Hand Smoke Exposure: No service: No Current occupational status: disabled Current occupational exposures/hazards: No Cognitive needs: No Hearing needs: No Vision needs: No Review of Systems Const Denies night sweats ENT Denies change in voice, Denies lip swelling, Denies mouth pain, Reports nasal congestion, Reports nasal discharge, Reports sore throat and Denies tongue swelling Card Denies chest pain Resp Denies chest congestion, Reports cough and Denies wheezing GI Denies abdominal pain Musc Denies no additional complaints Neuro Denies Neuro-related abnormal movements Psych Reports anxiety Alex/Lymph Denies easy bleeding and Denies lymphadenopathy Aller/Immun Denies lip swelling, Denies tongue swelling and Denies wheezing Physical Exam Vital Signs: Last Vital Signs Pulse 73 07/01/25 11:02 BP 120/60 07/01/25 11:02 Pulse Ox 96 07/01/25 11:02 Oxygen Delivery Method Room Air 07/01/25 11:02 BMI result Body Mass Index 22.5 Const General: comfortable, no acute distress and alert HEENT Head: Yes atraumatic Neck Neck: Yes no lymphadenopathy Thyroid: Thyroid normal Chest Chest palpation & inspection: normal inspection of the chest Resp Effort & Inspection: normal respiratory effort Auscultation: clear to auscultation bilaterally, no rhonchi and no wheezes Cardio Jugular venous distension: no JVD Palpation: normal PMI Rate: regular rate Rhythm: regular rhythm Heart sounds: S1 normal heart sound present and S2 normal heart sound present GI Palpation (GI): Soft to palpation Skin General skin exam: no rashes or lesions noted Extrem General: Yes no clubbing, cyanosis or edema Assessment & Plan Assessment & Plan (1) Asthma: Code(s): J45.909 - Unspecified asthma, uncomplicated Category: Medical Qualifiers: Asthma complication type: uncomplicated Asthma persistence: persistent Asthma severity: moderate Qualified Code(s): J45.40 - Moderate persistent asthma, uncomplicated (2) Allergic rhinitis: Code(s): J30.9 - Allergic rhinitis, unspecified Category: Medical Qualifiers: Allergic rhinitis seasonality: seasonal Allergic rhinitis trigger: unspecified Qualified Code(s): J30.2 - Other seasonal allergic rhinitis (3) Acute bacterial pharyngitis: Code(s): J02.8 - Acute pharyngitis due to other specified organisms; B96.89 - Other specified bacterial agents as the cause of diseases classified elsewhere Category: Medical Plan cough medicine start Bactrim continue Breo 200 KIM as needed Claritin PO daily Continue Singulair continue pseudophed as needed Follow-up in 6-8 months Medications: New dextromethorphan-guaifenesin 5-100 mg/5 mL 10 mL PO Q4-8H PRN 500 mL 2RF cough 30 days sulfamethoxazole-trimethoprim 800-160 mg (Bactrim DS) 1 tab PO BID 20 tabs 0RF 10 days Coding Level of Care Code Est Pt Level 4 (13672) Diagnoses Moderate persistent asthma without complication J45.40 Asthma complication type: uncomplicated Asthma persistence: persistent Asthma severity: moderate Seasonal allergic rhinitis, unspecified trigger J30.2 Allergic rhinitis seasonality: seasonal Allergic rhinitis trigger: unspecified Acute bacterial pharyngitis J02.8; B96.89 Time Spent (min) 16
--- OUTSIDE RECORDS SUMMARY | 2025-07-01 13:31 | XMS_ITS | Clinical Summary ---
Author Organization 175 [facility] Address [address] [place] [address] Phone Care Team Providers Care Monorail Charger Operator Name Role Phone Leon Truong MD Primary Care Provider [phone] Allergies Active Allergy Reactions Criticality Noted Date Comments Amoxicillin Rash 08/22/2024 Dermatitis Clarithromycin Nausea And Vomiting,Rash 024 Dermatitis Nickel Swelling 08/22/2024 edema Other 08/22/2024 Seasonal allergies Medications simvastatin (ZOCOR) 5 mg tablet Take 1 [...] B-12, (VITAMIN B-12 ORAL) Take by mouth. Active UNABLE TO FIND Take by mouth. Med [...] into the lungs 4 times daily Active norethindrone-e thinyl estradiol (ORTHO-NOVUM 1-35 TAB,NORTREL 1-35 TAB) 1-35 mg-mcg per tablet Take 1 tablet by mouth 1 (one) time each day. 28 tablet 5 5 Active norethindrone-e thinyl estradiol (ORTHO-NOVUM 1-35 TAB,NORTREL 1-35 TAB) 1-35 mg-mcg per tablet Take 1 tablet by mouth 1 (one) time each day. 06/05/20 25 Discontinu ed(Reorder ) norethindrone-e thinyl estradiol (ORTHO-NOVUM 1-35 TAB,NORTREL 1-35 TAB) 1-35 mg-mcg per tablet Take 1 tablet by mouth 1 (one) time each day. 28 tablet 5 5 06/05/20 25 Discontinu ed(Reorder ) Active Problems Problem Noted Date Diagnosed Date Allergic rhinitis 08/22/2024 Anxiety 08/22/2024 Asthma 08/22/2024 HLD (hyperlipidemia) 08/22/2024 Hypothyroid 08/22/2024 Slow transit constipation 08/22/2024 Encounters Date Type Department Care Team Description 06/05/2025 Telephone Obstetrics & Gynecology - [address] [address] Sarah Barth CNM from Last 3 Months Immunizations Immunization Administration Dates Next Due Hepatitis A-Hepatitis B [...] PM EST Office Visit Orthopedic Surgery - [place] [address] [phone] Clint Lanier, DPM [address] [address] 10/29/2025 10:00 AM EST Office Visit Obstetrics & Gynecology - [facility] [address] [place] [phone] Verito Cisneros, ANTONIO [address] [place] [address] Health Maintenance Due Date Last Done Comments Colorectal Cancer Screening: Colonoscopy 1978 Pneumococcal Vaccine: Pediatrics (0 to 5 Years) and At-Risk Patients (6 to 49 Years) (1 of 2 - PCV) 1997 Hepatitis B Vaccines (3 of 3 - Hep B Twinrix 3-dose series) 12/11/2016 07/13/2016, 05/26/2016 Breast Cancer Screening 11/16/2019 11/15/2017 Cholesterol Screening (Lipid Panel) 08/26/2022 Social Influencers of Health Screening 08/26/2022 Depression Screening 09/17/2024 COVID-19 Vaccine ( - season) 2025 Influenza Vaccine (#1) 2025 , 06/28/2023, 06/26/2022, Additional history exists Cervical Cancer Screening: HPV 12/24/2025 12/24/2020 DTaP,Tdap,and Td Vaccines (4 - Td or Tdap) 05/30/2032 05/30/2022, 06/25/2018, 07/02/2015 RSV Immunization Adult Patients (1 - 1-dose 75+ series) 2053 Hepatitis A Vaccines Aged Out 07/13/2016, 05/26/20 [...] * Cervical Cancer Screening: HPV (12/24/2020) Pathologist [facility] Cervical Cancer Screening: HPV abstracted, negative Historical Provider HEALTH MAINTENANCE Final Result * HIV Screening (12/24/2020) [facility] HIV Screening abstracted Historical Provider HEALTH MAINTENANCE Final Result * Hepatitis C Screening (12/24/2020) [facility] Hepatitis C Screening abstracted Historical Provider HEALTH MAINTENANCE Final Result * TEX SCREENING DIGITAL (11/15/2017 3:17 PM EST) Anatomical Region Laterality Modality Mammography 11/15/2017 1:40 PM EST Narrative 11/15/2017 3:17 PM EST [facility] Diagnostic Imaging Department [address] [place] [address] Patient: YOJANA BROWN Anna Marie Jackson./Age/Sex: 1980 - 36 - F Unit#: [id number] Location/Status: SPDIMA/REG CLI Mnemonic/Ordering Site: [facility] Ordering Physician: SILVA CAN CNM [facility] Screening Digital - 11/15/17 - 1413 EXAM: [facility] Screening Digital EXAM DATE AND TIME: 11/15/2017 2:14 PM HISTORY: Screening. The patient declined tomosynthesis. Maternal aunt had breast carcinoma. COMPARISON: 08/05/14 (right), 07/22/14 TECHNIQUE: CC and MLO views of both breasts were obtained using full field digital mammography. Computer aided detection with the Certain 7.2-H was employed. TISSUE DENSITY: b. There [...] Routine screening mammogram BILATERAL in 1 year. [address] 3342F, 7025F Dictating Physician: RADHA FAIR MD Electronically Signed by: RADHA FAIR MD Dic Date/Time: 11/15/171513 Sign date/Time: 11/15/171516 Procedure Note Radha Fair MD - 09/05/2022 [facility] Diagnostic Imaging Department [address] [place], [place] [id number] Patient: YOJANA BROWN Anna Marie /Age/Sex: 1980 - 36 - F Unit#: [id number] Location/Status: [facility] Mnemonic/Ordering Site: [facility] Ordering Physician: SILVA CAN CNM [facility] Screening Digital - 11/15/17 - 1413 EXAM: [facility] Screening Digital EXAM DATE AND TIME: 11/15/2017 2:14 PM HISTORY: Screening. The patient declined tomosynthesis. Maternal aunthad breast carcinoma. COMPARISON: 08/05/14 (right), 07/22/14 TECHNIQUE: CC and MLO views of both breasts were obtained using fullfield digital mammography. Computer aided detection with the [employer]7.2-H was employed. TISSUE DENSITY: b. There are [...] Routine screening mammogram BILATERAL in 1 year. [id number] 3342F, 7025F Dictating Physician: RADHA FAIR MD Electronically Signed by: RADHA FAIR MD Dic Date/Time: 11/15/17 151 Sign date/Time: 11/15/17 151 Silva Can [facility] IMG BI PROCEDURES Final Result from Last 3 Months or Most Recently Relevant to Health Maintenance Insurance [place] - [place] [facility] Care Teams Monorail Charger Operator Relationship Specialty Start Date End Date Leon Truong MD [address] [facility] [address] [facility] [place] [address] PCP - General 07/03/24
== END 2025-07-01 11:21 | disposition home or self-care (01) ==
LOC: HO.HPS 11:00
PROVIDERS: PCP Internal Medicine; Visit Provider Hospitalist
DX: J45.40 Moderate persistent asthma, uncomplicated (principal); J30.2 Other seasonal allergic rhinitis; J02.8 Acute pharyngitis due to other specified organisms; B96.89 Other specified bacterial agents as the cause of diseases classified elsewhere
CPT/HCPCS: 99214

== ENCOUNTER → 2025-07-01 10:59 | Outpatient (BNVA) | payer OTHER, SELFPAY | PROVIDERS: PCP Internal Medicine; Visit Provider Hospitalist | DX: J45.40 Moderate persistent asthma, uncomplicated (principal); J30.2 Other seasonal allergic rhinitis; J02.8 Acute pharyngitis due to other specified organisms; B96.89 Other specified bacterial agents as the cause of diseases classified elsewhere | CPT/HCPCS: 99212 ==

== ENCOUNTER → 2025-09-07 13:52 | Outpatient (REF) | payer OTHER, SELFPAY ==
--- NOTE | 2025-09-07 13:59 | ECG_ITS ---
Test Reason : CARDIAC MURMUR Blood Pressure : */* mmHG Vent. Rate : 78 BPM Atrial Rate : 78 BPM P-R Int : 114 ms QRS Dur : 80 ms QT Int : 386 ms P-R-T Axes : 57 57 43 degrees QTcB Int : 440 ms Normal sinus rhythm Normal ECG When compared with ECG of 21-Oct-2020 17:13, No significant change was found Referred By: Leon Truong Electronically Signed By: MAYDA BELLO MD
--- OUTSIDE RECORDS SUMMARY | 2025-09-07 17:24 | XMS_ITS | Clinical Summary ---
Author Organization 175 [facility] Address [address] [place] [address] Phone Care Team Providers Care Mortgage Advisor Name Role Phone Leon Truong MD Primary Care Provider [phone] Allergies Active Allergy Reactions Criticality Noted Date [...] (one) time each day. 28 tablet 5 Active Active Problems Problem Noted Date Diagnosed Date Allergic rhinitis 08/22/2024 Anxiety 08/22/2024 Asthma 08/22/2024 HLD (hyperlipidemia) 08/22/2024 Hypothyroid 08/22/2024 Slow transit constipation 08/22/2024 Immunizations Immunization Administration Dates Next Due Hepatitis [...] on file Sexual Orientation Not on file Last Filed Vital Signs [...] Care Team (Late st Contact Info) Description 09/21/2025 2:15 PM EST Office Visit Orthopedic Surgery - [place] [address] [phone] Clint Lanier, DPM [address] [phone] 10/29/2025 10:00 AM EST Office Visit Obstetrics and Gynecology - [facility] [address] [place] [address] Verito Cisneros, [facility] [address] [place] [address] Health Maintenance Due Date Last Done Comments Colorectal Cancer Screening: Colonoscopy 1980 Drug Screen 1980 Non-Opioid Controlled Substance Agreement 1980 Pneumococcal Vaccine: Pediatrics (0 to 5 [...] SCREENING Routine 12/24/2020 HIV SCREENING Routine 12/24/2020 [facility] SCREENING DIGITAL Routine 11/15/2017 3:17 PM EST Encounter for screening mammogram for malignant neoplasm of breast from Last 3 Months or Most Recently Relevant to Health Maintenance Results * Cervical Cancer Screening: HPV (12/24/2020) Cervical Cancer Screening: HPV abstracted, negative [facility] Provider HEALTH MAINTENANCE Final Result * HIV Screening (12/24/2020) HIV Screening abstracted [facility] Provider HEALTH MAINTENANCE Final Result * Hepatitis C Screening (12/24/2020) Hepatitis C Screening abstracted [facility] Provider HEALTH MAINTENANCE Final Result * TEX SCREENING DIGITAL (11/15/2017 3:17 PM EST) Anatomical Region Laterality Modality Mammography 11/15/2017 1:40 PM EST Narrative 11/15/2017 3:17 PM EST [facility] Diagnostic Imaging Department [address] [place] [id number] Patient: YOJANA BROWN /Age/Sex: 1980 - 36 - F Unit#: [id number] Location/Status: SPDIMA/REG CLI Mnemonic/Ordering Site: [facility] Ordering Physician: SILVA CAN CNM [facility] Screening Digital - 11/15/17 - 1413 EXAM: [facility] Screening Digital EXAM DATE AND TIME: 11/15/2017 2:14 PM HISTORY: Screening. The patient declined tomosynthesis. Maternal aunt had breast carcinoma. COMPARISON: 08/05/14 (right), 07/22/14 TECHNIQUE: CC and MLO views of both breasts were obtained using full field digital mammography. Computer aided detection with the [employer] 7.2-H was employed. TISSUE DENSITY: b. There [...] Routine screening mammogram BILATERAL in 1 year. [address]2961 3342F, 7025F Dictating Physician: RADHA FAIR MD Electronically Signed by: RADHA FAIR MD Dic Date/Time: 11/15/171513 Sign date/Time: 11/15/17 151 Procedure Note Radha Fair MD - 09/05/2022 [facility] Diagnostic Imaging Department [address] [place] [address] Patient: YOJANA BROWN Anna Marie /Age/Sex: 1980 - 36 - F Unit#: [id number] Location/Status: SPDIMAM/REG CLI Mnemonic/Ordering Site: [facility] Ordering Physician: SILVA CAN CNM [facility] Screening Digital - 11/15/17 - 1413 EXAM: [facility] Screening Digital EXAM DATE AND TIME: 11/15/2017 2:14 PM HISTORY: Screening. The patient declined tomosynthesis. Maternal aunthad breast carcinoma. COMPARISON: 08/05/14 (right), 07/22/14 TECHNIQUE: CC and MLO views of both breasts were obtained using fullfield digital mammography. Computer aided detection with the [employer]7.2-H was employed. TISSUE DENSITY: b. There are [...] Routine screening mammogram BILATERAL in 1 year. [id number] 9712F, 7089F Dictating Physician: RADHA FAIR MD Electronically Signed by: RADHA FAIR MD Dic Date/Time: 11/15/17 1514 Sign date/Time: 11/15/171516 Silva Can CNM IMG BI PROCEDURES Final Result from Last 3 Months or Most Recently Relevant to Health [id number] [place] [facility] Care Teams Mortgage Advisor Relationship Specialty Start Date End Date Leon Truong MD [address] [place] [address] [address] [facility] [place] [address] PCP - General 07/03/24
== END ==
LOC: HO.CARD 13:52
PROVIDERS: PCP Internal Medicine; Visit Provider Internal Medicine
DX: R01.1 Cardiac murmur, unspecified (principal)
CPT/HCPCS: 93005

== ENCOUNTER → 2025-09-07 13:59 | Outpatient (BNV) | payer OTHER, SELFPAY | PROVIDERS: PCP Internal Medicine; Visit Provider Internal Medicine Cardiovascular Disease | DX: R01.1 Cardiac murmur, unspecified (principal) | CPT/HCPCS: 93010 ==

== ENCOUNTER 2025-09-08 11:02 | Outpatient (REF) | payer OTHER, SELFPAY ==
[2025-09-08 11:17] LABS: MANUAL DIFF FLAG NO
[2025-09-08 12:00] LABS: Hematocrit 34.9 % (37.0-47.0); Hemoglobin 11.9 g/dl (12.0-16.0); Imm Gran Abs Auto 0.04 X10*3/uL (0.00-0.03); Imm Gran Pct Auto 0.7 % (0.0-0.4); Lymphocytes Absolute Auto 1.9 X10*3/uL (1.2-4.9); Mean Corpuscular HGB Conc 34.1 g/dl (31.0-35.0); Mean Corpuscular Hemoglobin 31.8 pg (27.0-33.0); Mean Corpuscular Volume 93.3 fL (80.0-98.0); NRBC Abs Auto 0.000 X10*3/uL (0.0-0.012); NRBC Pct Auto 0.0 /100WBC (0.0-0.2); Platelet Count 277 X10*3/uL (160-400); Red Blood Count 3.74 X10*6/uL (4.20-5.50); White Blood Count 5.5 X10*3/uL (4.8-10.8)
--- OUTSIDE RECORDS SUMMARY | 2025-09-08 12:22 | XMS_ITS | Clinical Summary ---
Author Organization [address] [facility] Address [address] [place] [address] Phone Care Team Providers Care Openstack Cloud Consulting Architect Name Role Phone Leon Truong MD Primary Care Provider [phone] Allergies Active Allergy Reactions Criticality Noted Date [...] PM EST Office Visit Orthopedic Surgery - [place] [address] [phone] Clint Lanier, DPM [address] [address] 10/29/2025 10:00 AM EST Office Visit Obstetrics and Gynecology - [facility] [address] [place] [address] Verito Cisneros, [facility] [address] [place] [address] Health Maintenance Due Date Last [...] SCREENING Routine 12/24/2020 HIV SCREENING Routine 12/24/2020 [facility] SCREENING DIGITAL Routine 11/15/2017 3:17 PM EST Encounter for screening mammogram for malignant neoplasm of breast from Last 3 Months or Most Recently Relevant to Health Maintenance Results * Cervical Cancer Screening: HPV (12/24/2020) Cervical Cancer Screening: HPV abstracted, negative [facility] Provider HEALTH MAINTENANCE Final Result * HIV Screening (12/24/2020) HIV Screening abstracted [facility] Provider HEALTH MAINTENANCE Final Result * Hepatitis C Screening (12/24/2020) Hepatitis C Screening abstracted [facility] Provider HEALTH MAINTENANCE Final Result * TEX SCREENING DIGITAL (11/15/2017 3:17 PM EST) Anatomical Region Laterality Modality Mammography 11/15/2017 1:40 PM EST Narrative 11/15/2017 3:17 PM EST [facility] Diagnostic Imaging Department [address] [place] [id number] Patient: YOJANA BROWN /Age/Sex: 1980 - 36 - F Unit#: [id number] Location/Status: SPDIMA/REG CLI Mnemonic/Ordering Site: [facility] Ordering Physician: SILVA CAN CNM [facility] Screening Digital - 11/15/17 - 1413 EXAM: [facility] Screening Digital EXAM DATE AND TIME: 11/15/2017 2:14 PM HISTORY: Screening. The patient declined tomosynthesis. Maternal aunt had breast carcinoma. COMPARISON: 08/05/14 (right), 07/22/14 TECHNIQUE: CC and MLO views of both breasts were obtained using full field digital mammography. Computer aided detection with the [employer] [place] 7.2-H was employed. TISSUE DENSITY: b. There [...] Routine screening mammogram BILATERAL in 1 year. 56481 3342F, 7025F Dictating Physician: RADHA FAIR MD Electronically Signed by: RADHA FAIR MD Dic Date/Time: 11/15/171513 Sign date/Time: 11/15/17 151 Procedure Note Radha Fair MD - 09/05/2022 [facility] Diagnostic Imaging Department [address] [place] [address] Patient: YOJANA BROWN Anna Marie /Age/Sex: 1980 - 36 - F Unit#: [id number] Location/Status: SPDIMAM/REG CLI Mnemonic/Ordering Site: [facility] Ordering Physician: SILVA CAN CNM [facility] Screening Digital - 11/15/17 - 1413 EXAM: [facility] Screening Digital EXAM DATE AND TIME: 11/15/2017 2:14 PM HISTORY: Screening. The patient declined tomosynthesis. Maternal aunthad breast carcinoma. COMPARISON: 08/05/14 (right), 07/22/14 TECHNIQUE: CC and MLO views of both breasts were obtained using fullfield digital mammography. Computer aided detection with the [employer]7.2-H was employed. TISSUE DENSITY: b. There are [...] Routine screening mammogram BILATERAL in 1 year. [id number] 3932F, 7019F Dictating Physician: RADHA FAIR MD Electronically Signed by: RADHA FAIR MD Dic Date/Time: 11/15/17 1514 Sign date/Time: 11/15/171516 Silva Can CNM IMG BI PROCEDURES Final Result from Last 3 Months or Most Recently Relevant to Health [id number] [place] - [place] [facility] Care Teams Openstack Cloud Consulting Architect Relationship Specialty Start Date End Date Leon Truong MD [address] [place] [address] [address] [facility] [place] [address] PCP - General 07/03/24
[2025-09-08 12:33] LABS: Alanine Aminotransferase 25 U/L (0-31); Albumin Level 4.8 g/dL (3.5-5.0); Alkaline Phosphatase 57 U/L (39-117); Anion Gap 14 (12-20); Aspartate Amino Transferase 28 U/L (5-31); Blood Urea Nitrogen 14 mg/dL (9-16); Calcium 10.1 mg/dL (8.4-10.2); Carbon Dioxide 24 mmol/L (22-29); Chloride 107 mmol/L (96-108); Cholesterol 220 mg/dL (<200); Estimated Glomerular Filt Rate > 60; HDL Cholesterol 44 mg/dL (>40); Potassium 4.2 mmol/L (3.3-5.1); Sodium 141 mmol/L (135-145); Total Protein 7.6 g/dL (6.5-8.0); Triglycerides 326 mg/dL (<150)
[2025-09-08 12:54] LABS: Free T4 (Free Thyroxine) 1.02 ng/dL (0.71-1.85); Thyroid Stimulating Hormone 5.31 uIU/mL (0.32-4.0)
[2025-09-08 12:55] LABS: Folate 11.9 ng/mL (> or = 4.0); Vitamin B12 211 pg/mL (200-900)
== END 2025-09-08 11:03 | disposition home or self-care (01) ==
LOC: HO.LAB 11:02
PROVIDERS: PCP Internal Medicine; Visit Provider Internal Medicine
DX: E03.9 Hypothyroidism, unspecified (principal); E78.00 Pure hypercholesterolemia, unspecified
CPT/HCPCS: 36415; 80053; 80061; 82306; 82607; 82746; 83036; 84439; 84443; 85025